=== PATIENT | female | born 1945 | race Caucasian/White ===

== ENCOUNTER 2020-06-12 08:11 | Outpatient (REF) | payer MEDICARE, SELFPAY ==
--- NOTE | 2020-06-12 08:42 | XR_ITS ---
EXAMINATION: XR CHEST CLINICAL INFORMATION: Bronchitis COMPARISON: Previous chest x-ray most recent 05/15/2020 TECHNIQUE: 2 views of the chest were obtained. FINDINGS: The cardiac and mediastinal contours are stable. There is an air-fluid level behind the heart probably representing an esophageal hernia that is unchanged. The previously identified increased bronchial markings in the right upper lung appear improved. There is a new or increasing atelectasis or small infiltrate in the left lower lobe. The lungs are otherwise clear. There is no pleural effusion. There are degenerative changes of the spine. IMPRESSION: Improved bronchial wall thickening in the right upper lung. New increased density in the left lower lobe lobe questionable for atelectasis or small infiltrate.
[2020-06-12 09:45] LABS: Estimated Average Glucose 128 mg/dL; Hemoglobin A1c % 6.1 %
[2020-06-12 10:25] LABS: Alanine Aminotransferase 17 U/L (0-31); Alkaline Phosphatase 71 U/L (39-117); Anion Gap 10 (12-20); Aspartate Amino Transferase 18 U/L (5-31); Bilirubin Total 0.3 mg/dL (0.0-1.0); Blood Urea Nitrogen 14 mg/dL (9-16); Calcium 9.5 mg/dL (8.4-10.2); Carbon Dioxide 29 mmol/L (22-29); Chloride 108 mmol/L (96-108); Estimated Glomerular Filt Rate > 60; Glucose Random 113 mg/dL (60-115); Potassium 4.4 mmol/l (3.3-5.1); Sodium 143 mmol/L (135-145)
== END 2020-06-12 08:12 | disposition home or self-care (01) ==
LOC: HO.LAB 08:11
PROVIDERS: PCP Internal Medicine; Visit Provider Internal Medicine
DX: J40 Bronchitis, not specified as acute or chronic (principal); R73.02 Impaired glucose tolerance (oral)
CPT/HCPCS: 71046; 80053; 83036

== ENCOUNTER → 2020-06-19 09:14 | Outpatient (BNVA) | payer MEDICARE, SELFPAY | PROVIDERS: PCP Internal Medicine; Referring Provider Internal Medicine; Visit Provider Nurse Practitioner | DX: K59.00 Constipation, unspecified (principal); K64.9 Unspecified hemorrhoids; K21.00 Gastro-esophageal reflux disease with esophagitis, without bleeding; Z79.899 Other long term (current) drug therapy | CPT/HCPCS: 99213; Q3014 ==

== ENCOUNTER 2020-08-22 08:03 | Emergency (ER) | payer MEDICARE, SELFPAY ==
[2020-08-22 08:49] VITALS: BP 161/82; PULSE 98; RESP 18; TEMP 37.1; O2SAT 97; BMI 24.7
--- NOTE | 2020-08-22 09:15 | PC.NURSE ---
AMBULATORY WITH STEADY GAIT TO ED RM19 AWAITING EXAM, CHANGING IN TO [facility]OSP[facility]
--- NOTE | 2020-08-22 09:19 | XR_ITS ---
EXAMINATION: XR KNEE, RIGHT CLINICAL INFORMATION: Pain and swelling COMPARISON: Previous x-ray October 2014 TECHNIQUE: Four views of the right knee. FINDINGS: Bone alignment is normal. No fracture or dislocation is seen. The joint spaces are normal. There is no joint effusion. There may be lateral soft tissue varicosities. Soft tissues are otherwise unremarkable. XR/XR knee RT 4V IMPRESSION: Question lateral soft tissue varicosities otherwise unremarkable exam.
--- NOTE | 2020-08-22 09:46 | ED.EXTPRO ---
HPI - Extremity Problem General Chief complaint: Extremity Problem Stated complaint: leg pain Time Seen by Provider: 08/22/20 09:19 Source: patient Mode of arrival: ambulatory Limitations: language barrier History of Present Illness HPI Narrative: 75 y/o female presents with right knee pain and swelling for the last 4-5 days after she was doing exercises. She states the exercises were new. She denies falling or twisting the knee. She denies popping sensation. She is able to bear weight without limping. Pain is on the inside of the knee. She has not taken any medications for pain. She tried to get into her PCP today but was unable to get an appointment. MD Complaint: extremity pain and extremity swelling Onset (ago): day(s) (5) Pain Consistency: intermittent Location: right and knee Severity scale (1-10): 5 Quality: aching Radiation: none Relieving factors: immobilization and rest Exacerbating factors: palpation Associated symptoms: denies other symptoms Related Data Home Medications Medication Instructions Recorded Confirmed acetaminophen 325 mg tablet mg PO 06/02/20 06/02/20 atorvastatin 20 mg tablet 20 mg PO DAILY 06/02/20 06/02/20 clobetasol 0.05 % topical ointment 1 applic TOPICAL BID 06/02/20 06/02/20 docusate sodium 100 mg capsule 100 mg PO BID 06/02/20 06/16/20 hydrocortisone 2.5 % topical cream 1 applic DC TID 06/02/20 06/16/20 with perineal applicator omeprazole 40 mg capsule,delayed 40 mg PO DAILY 06/02/20 06/16/20 release polyethylene glycol 3350 17 g PO 06/02/20 06/16/20 gram/dose oral powder sucralfate 1 gram tablet 1 g PO QID 06/02/20 06/16/20 hydrocortisone 2.5 % topical cream 1 applic DC BID-QID PRN 06/16/20 06/16/20 with perineal applicator Previous Rx's Medication Instructions Recorded hydroxyzine HCl 10 mg tablet 10 mg PO BEDTIME 90 Days #90 tab 06/01/20 fexofenadine 180 mg tablet 180 mg PO DAILY #30 tab 06/27/20 doxycycline hyclate 100 mg capsule 100 mg PO BID #14 cap 07/04/20 amitriptyline 10 mg tablet 10 mg PO DAILY #90 tab 07/12/20 cholecalciferol (vitamin D3) 50 2,000 unit PO DAILY 90 Days #90 tab 15/20 mcg (2,000 unit) tablet fluticasone propionate 50 1 spray INTRANASAL DAILY #48 ml 12/15/20 mcg/actuation nasal spray,suspension dicyclomine 10 mg capsule 10 - 20 mg PO QID PRN 30 Days #240 08/16/20 cap Allergies Allergy/AdvReac Type Severity Reaction Status Date / Time lisinopril Allergy Unknown Unknown Verified 06/02/20 09:16 metoprolol Allergy Unknown Unknown Verified 06/02/20 09:16 solifenacin [Vesicare] Allergy Unknown Unknown Verified 06/02/20 09:16 Review of Systems Review of Systems: Constitutional: No Fever, No Chills Cardiovascular: No Chest Pain, No SOB, No Edema Respiratory: No Cough, No Sputum, Gastrointestinal: No Nausea, No Vomiting, No Diarrhea, No abdominal Pain Musculoskeletal: + joint pain, No Myalgias Skin: No Skin Lesions, No rash Neuro: No Weakness, No Numbness Heme/Lymph: No Bruising PMFSH Past Medical History Medical History History of DVT (deep vein thrombosis) History of renal calculi Obesity (BMI 30-39.9) Vitamin D deficiency Surgical History History of cataract surgery History of hemorrhoidectomy Hx of colonoscopy Family History Family History (Updated 06/01/20 @ 13:31 by Kathleen Valenzuela [facility]) Father No problems noted. Mother No problems noted. Daughter Lymphoma Social History Social History (Updated 06/19/20 @ 09:18 by Claribel Porter [facility]) Alcohol intake: current Alcohol intake frequency: does not drink Smoking Status: Never smoker Advance Directives: No Advance Directives Information Provided: Yes Physical Exam Vital Signs: Vital Signs: Last Vital Signs Temp 98.7 F 08/22/20 08:49 Pulse 98 08/22/20 08:49 Resp 18 08/22/20 08:49 BP 161/82 H 08/22/20 08:49 Pulse Ox 97 08/22/20 08:49 Body Mass Index 24.7 Appearance: Alert. Oriented X3. No acute distress. HEENT: normal inspection CVS: Normal heart rate and rhythm. Pulses normal. Respiratory: No respiratory distress. Skin: Skin warm and dry. Normal skin color. Normal skin turgor. No rashes. Extremities: right knee joint with mild edema medially with medial joint line tenderness, no joint laxity. full ROM with mild discomfort with full extension. Neuro: Oriented X 3. No motor deficit. No sensory deficit. normal, steady gait without limp Course Course Course Narrative: 75 y/o female with right knee pain and swelling, medial joint line tenderness. Denies weakness or giving out. No calf pain. Doubt DVT. Will get XR of knee. Reevaluation(s) Reevaluation #1: XR shows Question lateral soft tissue varicosities otherwise unremarkable exam. She is able to walk with steady gait, no limp. Her pain is likely due to strain/sprain of MCL given exam findings. Will place in KILO wrap for comfort and refer to Orthopedics. Stable for d/c. Discharge Plan Discharge Clinical Impression: Knee MCL sprain Qualifiers: Encounter type: initial encounter Laterality: right Qualified Code(s): S83.411A - Sprain of medial collateral ligament of right knee, initial encounter Patient Disposition: Home, Self-Care Instructions: Knee Sprain (ED) Additional Instructions: Your x-ray today did not show any fracture, dislocation or fluid on the knee. It is likely that your knee pain is due to a sprain of one of the ligaments. Recommend rest, using ice several times per day and elevation of your leg when possible. You may bear weight as tolerated. Recommend following up with Orthopedics for further workup and management if the pain persists. Take Tylenol as needed for pain. If the pain worsens or changes call your doctor or come back to the ER for further evaluation. Prescriptions: No Action hydroxyzine HCl 10 mg tablet 10 mg PO BEDTIME 90 Days Qty: 90 RF: 0 fexofenadine 180 mg tablet 180 mg PO DAILY Qty: 30 RF: 0 doxycycline hyclate 100 mg capsule 100 mg PO BID Qty: 14 RF: 0 amitriptyline 10 mg tablet 10 mg PO DAILY Qty: 90 RF: 1 fluticasone propionate 50 mcg/actuation spray,suspension 1 spray intranasal DAILY Qty: 48 RF: 5 cholecalciferol (vitamin D3) [Vitamin D3] 50 mcg (2,000 unit) tablet 2,000 unit PO DAILY 90 Days Qty: 90 RF: 3 dicyclomine 10 mg capsule 10 - 20 mg PO QID PRN (Reason: for cramps) 30 Days Qty: 240 RF: 3 polyethylene glycol 3350 17 gram/dose powder PO RF: 0 docusate sodium 100 mg capsule 100 mg PO BID RF: 0 acetaminophen 325 mg tablet PO RF: 0 omeprazole 40 mg capsule,delayed release(DR/EC) 40 mg PO DAILY RF: 0 sucralfate 1 gram tablet 1 g PO QID RF: 0 atorvastatin 20 mg tablet 20 mg PO DAILY RF: 0 hydrocortisone 2.5 % cream with perineal applicator 1 applic DC TID RF: 0 clobetasol 0.05 % ointment 1 applic topical BID RF: 0 hydrocortisone [Proctosol HC] 2.5 % cream with perineal applicator 1 applic DC BID-QID PRNRF: 0 Referrals: Nicanor Alfonso MD [Physician] - 5 days (probable knee sprain) Print Language: Mexican
== END 2020-08-22 10:25 | disposition home or self-care (01) ==
PROVIDERS: Emergency Provider Emergency Medicine Emergency Medical Services; PCP Internal Medicine
DX: S83.411A Sprain of medial collateral ligament of right knee, initial encounter (principal); M25.561 Pain in right knee; X50.1XXA Overexertion from prolonged static or awkward postures, initial encounter; Y93.01 Activity, walking, marching and hiking; Y92.9 Unspecified place or not applicable; Y99.9 Unspecified external cause status; Z79.899 Other long term (current) drug therapy; Z86.718 Personal history of other venous thrombosis and embolism
CPT/HCPCS: 73564; 99283

== ENCOUNTER 2020-09-12 14:15 | Emergency (ER) | payer MEDICARE, SELFPAY ==
[2020-09-12 14:53] VITALS: BP 190/96; PULSE 114; RESP 18; TEMP 36.4; O2SAT 97; BMI 27.4
--- NOTE | 2020-09-12 14:54 | ED_ITS ---
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 Currently, patient states that all symptoms have resolved except for a very mild headache noted at the right frontal. In addition, patient endorses that she has chronic right-sided abdominal pain and occasional nausea. <Brandy Briones MD - Last Filed: 09/13/20 02:41> Related Data Home medications: Home Medications Medication Instructions Recorded Confirmed acetaminophen 325 mg tablet mg PO 06/02/20 09/06/20 atorvastatin 20 mg tablet 20 mg PO DAILY 06/02/20 09/06/20 clobetasol 0.05 % topical ointment 1 applic TOPICAL BID 06/02/20 09/06/20 docusate sodium 100 mg capsule 100 mg PO BID 06/02/20 09/06/20 hydrocortisone 2.5 % topical cream 1 applic AL TID 06/02/20 09/06/20 with perineal applicator omeprazole 40 mg capsule,delayed 40 mg PO DAILY 06/02/20 09/06/20 release polyethylene glycol 3350 17 g PO 06/02/20 09/06/20 gram/dose oral powder sucralfate 1 gram tablet 1 g PO QID 06/02/20 09/06/20 hydrocortisone 2.5 % topical cream 1 applic AL BID-QID PRN 06/16/20 09/06/20 with perineal applicator Previous Rx's Medication Instructions Recorded fexofenadine 180 mg tablet 180 mg PO DAILY #30 tab 11/03/20 doxycycline hyclate 100 mg capsule 100 mg PO BID #14 cap 07/04/20 amitriptyline 10 mg tablet 10 mg PO DAILY #90 tab 07/12/20 cholecalciferol (vitamin D3) 50 2,000 unit PO DAILY 90 Days #90 tab 08/08/20 mcg (2,000 unit) tablet fluticasone propionate 50 1 spray INTRANASAL DAILY #48 ml 08/08/20 mcg/actuation nasal spray,suspension dicyclomine 10 mg capsule 10 - 20 mg PO QID PRN 30 Days #240 08/16/20 cap meloxicam 7.5 mg tablet 7.5 mg PO DAILY #14 tab 09/06/20 <Mary Ellen Cannon NP - Last Filed: 09/12/20 14:57> Allergies/adverse reactions: Allergies Allergy/AdvReac Type Severity Reaction Status Date / Time lisinopril Allergy Unknown Unknown Verified 08/29/20 08:54 metoprolol Allergy Unknown Unknown Verified 08/29/20 08:54 solifenacin [Vesicare] Allergy Unknown Unknown Verified 08/29/20 08:54 <Mary Ellen Cannon NP - Last Filed: 09/12/20 14:57> Review of Systems Review of Systems: Pertinent positives and negatives as stated in HPI 10 point review of systems is otherwise negative. <Brandy Briones MD - Last Filed: 09/13/20 02:41> [facility] Past Medical History Source: nursing notes reviewed <Brandy Briones MD - Last Filed: 09/13/20 02:41> Medical History: Medical History Anxiety Cognitive impairment Diverticular disease History of DVT (deep vein thrombosis) History of renal calculi Insomnia Legally blind Obesity (BMI 30-39.9) Osteoarthritis Osteoporosis Peripheral vascular disease Vitamin D deficiency <Mary Ellen Cannon NP - Last Filed: 09/12/20 14:57> Surgical History: Surgical History History of cataract surgery History of eye surgery History of hemorrhoidectomy Hx of colonoscopy <Mary Ellen Cannon NP - Last Filed: 09/12/20 14:57> Family History Family History: Family History Father No problems noted. Mother No problems noted. Daughter Lymphoma <Mary Ellen Cannon NP - Last Filed: 09/12/20 14:57> Social History Social History: Social History Alcohol intake: never Smoking Status: Former smoker Use of substances other than those prescribed or required for medical reasons: No Advance Directives: No <Mary Ellen Cannon NP - Last Filed: 09/12/20 14:57> Physical Exam Vital Signs: Vital Signs: Last Vital Signs Temp 98.3 F 09/13/20 00:00 Pulse 92 09/13/20 00:00 Resp 09/13/20 00:00 BP 168/93 H 09/13/20 00:00 Pulse Ox 97 09/13/20 00:00 Body Mass Index 27.4 <Mary Ellen Cannon NP - Last Filed: 09/12/20 14:57> Vital Signs: Last Vital Signs Temp 98.3 F 09/13/20 00:00 Pulse 92 09/13/20 00:00 Resp 09/13/20 00:00 BP 168/93 H 09/13/20 00:00 Pulse Ox 97 09/13/20 00:00 Body Mass Index 27.4 <Brandy Briones MD - Last Filed: 09/13/20 02:41> VITAL SIGNS: Reviewed. GENERAL: Well developed, well nourished, in no acute distress. HEAD: Normocephalic/atraumatic, EYES: PERRLA, EOMI, but legally blind at baseline EARS: Ext canals without abnormality NOSE: Nares patent bilateral OROPHARYNX: no oral lesions noted, posterior pharynx clear NECK: Supple, no adenopathy LUNGS: Normal breath sounds. SpO2<97> CARDIOVASCULAR: Regular rate and rhythm without noted murmurs ABDOMEN: Soft, mild tenderness at the right side, non-distended with bowel sounds. MUSCULOSKELETAL: No tenderness, deformities, or effusions noted on gross inspection. EXTREMITIES: No cyanosis, clubbing or edema. SKIN: Inspection of the skin reveals no rashes NEUROLOGIC: Alert and oriented x 4. <Brandy Briones MD - Last Filed: 09/13/20 02:41> Course Course Course Narrative: 1450-This is a rapid medical exam. 75 yo female with past medical history anxiety, cognitive impairment DVT, insomnia, OA, PVD, GERD here with dizziness, KELLER, pounding heart beat since last night. Patient contributes to taking a dose of meloxicam. Will check labs, EKG. Will defer additional HPI, ROS and PE to primary provider. <Mary Ellen Cannon NP - Last Filed: 09/12/20 14:57> This is a 75-year-old female with history and clinical presentation consistent with likely hypertensive episode following an NSAID with symptoms associated with elevated blood pressure that have since completely resolved. There are no acute findings on when all investigations were reviewed. Patient was provided with oral Tylenol with complete resolution of headache on re- evaluation. <Brandy Briones MD - Last Filed: 09/13/20 02:41> Medical Decision Making Lab Data Result diagrams: : 09/12/20 15:34 09/12/20 15:34 <Mary Ellen Cannon NP - Last Filed: 09/12/20 14:57> Labs: Lab Results 09/12/20 09/12/20 09/12/20 Range/Units 15:34 15:34 15:34 WBC 7.3 (4.8-10.8) X10*3/uL RBC 4.89 (4.20-5.50) X10*6/uL Hgb 14.0 (12.0-16.0) g/dl Hct 44.1 (37-47) % MCV 90.2 (80-98) fL MCH 28.6 (27.0-33.0) pg MCHC 31.7 (31.0-35.0) g/dl RDW 13.0 (11.0-16.0) % Plt Count 193 (160-400) X10*3/uL MPV 12.2 (9.4-12.3) fL Immature Gran % (Auto) 0.3 (0.0-0.4) % Neut % (Auto) 61.4 (45-73) % Lymph % (Auto) 26.6 (20-40) % [place] % (Auto) 9.3 (2-11) % Eos % (Auto) 2.0 (0-4) % Baso % (Auto) 0.4 (0-2) % Lymph # (Auto) 2.0 (1.2-4.9) X10*3/uL [place] # (Auto) 0.7 (0.1-1.2) X10*3/uL Eos # (Auto) 0.2 (0.0-0.4) X10*3/uL Baso # (Auto) 0.0 (0.0-0.2) X10*3/uL Abs Immat Gran (auto) 0.02 (0.00-0.03) X10*3/uL Absolute Neuts (auto) 4.5 (2.0-8.3) X10*3/uL Absolute Nucleated RBC 0.000 (0.0-0.012) X10*3/uL Nucleated RBC % (auto) 0.0 (0.0-0.2) /100WBC Hold Blue Top SEE NOTE Sodium 143 (135-145) mmol/L Potassium 3.9 (3.3-5.1) mmol/l Chloride 108 (96-108) mmol/L Carbon Dioxide 27 (22-29) mmol/L Anion Gap 12 (12-20) BUN 14 (9-16) mg/dL Creatinine 0.84 (0.5-1.4) mg/dL Estim Creat Clear Calc 53.1 Estimated GFR > 60 Random Glucose 135 H (60-115) mg/dL Calcium 9.4 (8.4-10.2) mg/dL Magnesium 2.2 (1.6-2.6) mg/dL Urine Color Urine Appearance Urine pH (5.0-8.0) Ur Specific [place] (1.005-1.025) Urine Protein (NEG-TRACE) MG/DL Urine Glucose (UA) (NEG) MG/DL Urine Ketones (NEG) MG/DL Urine Blood (NEG) Urine Nitrite (NEG) Ur Leukocyte Esterase (NEG) 09/13/20 Range/Units 01:59 WBC (4.8-10.8) X10*3/uL RBC (4.20-5.50) X10*6/uL Hgb (12.0-16.0) g/dl Hct (37-47) % MCV (80-98) fL MCH (27.0-33.0) pg MCHC (31.0-35.0) g/dl RDW (11.0-16.0) % Plt Count (160-400) X10*3/uL MPV (9.4-12.3) fL Immature Gran % (Auto) (0.0-0.4) % Neut % (Auto) (45-73) % Lymph % (Auto) (20-40) % [place] % (Auto) (2-11) % Eos % (Auto) (0-4) % Baso % (Auto) (0-2) % Lymph # (Auto) (1.2-4.9) X10*3/uL [place] # (Auto) (0.1-1.2) X10*3/uL Eos # (Auto) (0.0-0.4) X10*3/uL Baso # (Auto) (0.0-0.2) X10*3/uL Abs Immat Gran (auto) (0.00-0.03) X10*3/uL Absolute Neuts (auto) (2.0-8.3) X10*3/uL Absolute Nucleated RBC (0.0-0.012) X10*3/uL Nucleated RBC % (auto) (0.0-0.2) /100WBC Hold Blue Top Sodium (135-145) mmol/L Potassium (3.3-5.1) mmol/l Chloride (96-108) mmol/L Carbon Dioxide (22-29) mmol/L Anion Gap (12-20) BUN (9-16) mg/dL Creatinine (0.5-1.4) mg/dL Estim Creat Clear Calc Estimated GFR Random Glucose (60-115) mg/dL Calcium (8.4-10.2) mg/dL Magnesium (1.6-2.6) mg/dL Urine Color YELLOW Urine Appearance CLEAR Urine pH 6.5 (5.0-8.0) Ur Specific [place] 1.020 (1.005-1.025) Urine Protein NEG (NEG-TRACE) MG/DL Urine Glucose (UA) NEG (NEG) MG/DL Urine Ketones 5 (NEG) MG/DL Urine Blood NEG (NEG) Urine Nitrite NEG (NEG) Ur Leukocyte Esterase NEG (NEG) <Mary Ellen Cannon, RESOLUTION MANAGER - Last Filed: 09/12/20 14:57> Lab Results 09/12/20 09/12/20 09/12/20 Range/Units 15:34 15:34 15:34 WBC 7.3 (4.8-10.8) X10*3/uL RBC 4.89 (4.20-5.50) X10*6/uL Hgb 14.0 (12.0-16.0) g/dl Hct 44.1 (37-47) % MCV 90.2 (80-98) fL MCH 28.6 (27.0-33.0) pg MCHC 31.7 (31.0-35.0) g/dl RDW 13.0 (11.0-16.0) % Plt Count 193 (160-400) X10*3/uL MPV 12.2 (9.4-12.3) fL Immature Gran % (Auto) 0.3 (0.0-0.4) % Neut % (Auto) 61.4 (45-73) % Lymph % (Auto) 26.6 (20-40) % [place] % (Auto) 9.3 (2-11) % Eos % (Auto) 2.0 (0-4) % Baso % (Auto) 0.4 (0-2) % Lymph # (Auto) 2.0 (1.2-4.9) X10*3/uL [place] # (Auto) 0.7 (0.1-1.2) X10*3/uL Eos # (Auto) 0.2 (0.0-0.4) X10*3/uL Baso # (Auto) 0.0 (0.0-0.2) X10*3/uL Abs Immat Gran (auto) 0.02 (0.00-0.03) X10*3/uL Absolute Neuts (auto) 4.5 (2.0-8.3) X10*3/uL Absolute Nucleated RBC 0.000 (0.0-0.012) X10*3/uL Nucleated RBC % (auto) 0.0 (0.0-0.2) /100WBC Hold Blue Top SEE NOTE Sodium 143 (135-145) mmol/L Potassium 3.9 (3.3-5.1) mmol/l Chloride 108 (96-108) mmol/L Carbon Dioxide 27 (22-29) mmol/L Anion Gap 12 (12-20) BUN 14 (9-16) mg/dL Creatinine 0.84 (0.5-1.4) mg/dL Estim Creat Clear Calc 53.1 Estimated GFR > 60 Random Glucose 135 H (60-115) mg/dL Calcium 9.4 (8.4-10.2) mg/dL Magnesium 2.2 (1.6-2.6) mg/dL Urine Color Urine Appearance Urine pH (5.0-8.0) Ur Specific [place] (1.005-1.025) Urine Protein (NEG-TRACE) MG/DL Urine Glucose (UA) (NEG) MG/DL Urine Ketones (NEG) MG/DL Urine Blood (NEG) Urine Nitrite (NEG) Ur Leukocyte Esterase (NEG) 09/13/20 Range/Units 01:59 WBC (4.8-10.8) X10*3/uL RBC (4.20-5.50) X10*6/uL Hgb (12.0-16.0) g/dl Hct (37-47) % MCV (80-98) fL MCH (27.0-33.0) pg MCHC (31.0-35.0) g/dl RDW (11.0-16.0) % Plt Count (160-400) X10*3/uL MPV (9.4-12.3) fL Immature Gran % (Auto) (0.0-0.4) % Neut % (Auto) (45-73) % Lymph % (Auto) (20-40) % [place] % (Auto) (2-11) % Eos % (Auto) (0-4) % Baso % (Auto) (0-2) % Lymph # (Auto) (1.2-4.9) X10*3/uL [place] # (Auto) (0.1-1.2) X10*3/uL Eos # (Auto) (0.0-0.4) X10*3/uL Baso # (Auto) (0.0-0.2) X10*3/uL Abs Immat Gran (auto) (0.00-0.03) X10*3/uL Absolute Neuts (auto) (2.0-8.3) X10*3/uL Absolute Nucleated RBC (0.0-0.012) X10*3/uL Nucleated RBC % (auto) (0.0-0.2) /100WBC Hold Blue Top Sodium (135-145) mmol/L Potassium (3.3-5.1) mmol/l Chloride (96-108) mmol/L Carbon Dioxide (22-29) mmol/L Anion Gap (12-20) BUN (9-16) mg/dL Creatinine (0.5-1.4) mg/dL Estim Creat Clear Calc Estimated GFR Random Glucose (60-115) mg/dL Calcium (8.4-10.2) mg/dL Magnesium (1.6-2.6) mg/dL Urine Color YELLOW Urine Appearance CLEAR Urine pH 6.5 (5.0-8.0) Ur Specific [place] 1.020 (1.005-1.025) Urine Protein NEG (NEG-TRACE) MG/DL Urine Glucose (UA) NEG (NEG) MG/DL Urine Ketones 5 (NEG) MG/DL Urine Blood NEG (NEG) Urine Nitrite NEG (NEG) Ur Leukocyte Esterase NEG (NEG) <Brandy Briones MD - Last Filed: 09/13/20 02:41> ECG Data Attestation: I personally reviewed and interpreted this ECG as follows: <Brandy Briones MD - Last Filed: 09/13/20 02:41> Prior ECG tracings: available for review (05/15/2020 no acute changes on comparison.) <Brandy Briones MD - Last Filed: 09/13/20 02:41> Interpretation: Normal sinus rhythm, HR -100, no evidence of acute ischemia, AL/QRS/QTC are within normal limits. <Brandy Briones MD - Last Filed: 09/13/20 02:41> Discharge Plan Discharge Clinical Impression: Hypertension Qualifiers: Hypertension type: unspecified Qualified Code(s): I10 - Essential (primary) hypertension <Mary Ellen Cannon NP - Last Filed: 09/12/20 14:57> Patient Disposition: Home, Self-Care <Mary Ellen Cannon NP - Last Filed: 09/12/20 14:57> Instructions: DASH Eating Plan (ED), Heart Healthy Diet (ED), Hypertension (ED) <Mary Ellen Cannon NP - Last Filed: 09/12/20 14:57> Additional Instructions: No dude en hacer un seguimiento con rhodes proveedor de atenci?n primaria en los pr?ximos 2-3 d?as para ramona evaluaci?n adicional de rhodes hipertensi?n. Regrese a la vaughn de emergencias si presenta un empeoramiento mario de fareed s?ntomas, racheal dolor de jones / mareos o dificultad para respirar con dolor en el pecho. <Mary Ellen Cannon NP - Last Filed: 09/12/20 14:57> Prescriptions: No Action fexofenadine 180 mg tablet 180 mg PO DAILY Qty: 30 RF: 0 doxycycline hyclate 100 mg capsule 100 mg PO BID Qty: 14 RF: 0 amitriptyline 10 mg tablet 10 mg PO DAILY Qty: 90 RF: 1 fluticasone propionate 50 mcg/actuation spray,suspension 1 spray intranasal DAILY Qty: 48 RF: 5 cholecalciferol (vitamin D3) [Vitamin D3] 50 mcg (2,000 unit) tablet 2,000 unit PO DAILY 90 Days Qty: 90 RF: 3 dicyclomine 10 mg capsule 10 - 20 mg PO QID PRN (Reason: for cramps) 30 Days Qty: 240 RF: 3 polyethylene glycol 3350 17 gram/dose powder PO RF: 0 docusate sodium 100 mg capsule 100 mg PO BID RF: 0 acetaminophen 325 mg tablet PO RF: 0 omeprazole 40 mg capsule,delayed release(DR/EC) 40 mg PO DAILY RF: 0 sucralfate 1 gram tablet 1 g PO QID RF: 0 atorvastatin 20 mg tablet 20 mg PO DAILY RF: 0 hydrocortisone 2.5 % cream with perineal applicator 1 applic AL TID RF: 0 clobetasol 0.05 % ointment 1 applic topical BID RF: 0 meloxicam 7.5 mg tablet 7.5 mg PO DAILY Qty: 14 RF: 0 hydrocortisone [Proctosol HC] 2.5 % cream with perineal applicator 1 applic AL BID-QID PRNRF: 0 <Mary Ellen Cannon NP - Last Filed: 09/12/20 14:57> Referrals: Susana Jean MD [Primary Care Provider] - 2 days (Re-evaluation and management of patient's high blood pressure.) <Mary Ellen Cannon NP - Last Filed: 09/12/20 14:57> Print Language: Salvadorean <Mary Ellen Cannon NP - Last Filed: 09/12/20 14:57>
--- NOTE | 2020-09-12 14:57 | ECG_ITS ---
Test Reason : DIZZINESS,TACHY Blood Pressure : / mmHG Vent. Rate : 100 BPM Atrial Rate : 100 BPM P-R Int : 136 ms QRS Dur : 066 ms QT Int : 358 ms P-R-T Axes : 070 049 051 degrees QTc Int : 461 ms Normal sinus rhythm Normal ECG When compared with ECG of 15-MAY-2020 09:43, QT has lengthened Referred By: Mary Ellen Cannon Electronically Signed By:TAMMY MEDINA
[2020-09-12 15:40] LABS: MANUAL DIFF FLAG NO
[2020-09-12 15:44] LABS: Basophils Percent Auto 0.4 % (0-2); Eosinophils Absolute Auto 0.2 X10*3/uL (0.0-0.4); Hematocrit 44.1 % (37-47); Imm Gran Abs Auto 0.02 X10*3/uL (0.00-0.03); Imm Gran Pct Auto 0.3 % (0.0-0.4); Lymphocytes Percent Auto 26.6 % (20-40); Mean Corpuscular HGB Conc 31.7 g/dl (31.0-35.0); Mean Corpuscular Hemoglobin 28.6 pg (27.0-33.0); Mean Corpuscular Volume 90.2 fL (80-98); Mean Platelet Volume 12.2 fL (9.4-12.3); Monocytes Absolute Auto 0.7 X10*3/uL (0.1-1.2); Monocytes Percent Auto 9.3 % (2-11); Neutrophils Absolute Auto 4.5 X10*3/uL (2.0-8.3); Neutrophils Percent Auto 61.4 % (45-73); Platelet Count 193 X10*3/uL (160-400); Red Blood Count 4.89 X10*6/uL (4.20-5.50); White Blood Count 7.3 X10*3/uL (4.8-10.8)
[2020-09-12 16:13] LABS: Anion Gap 12 (12-20); Blood Urea Nitrogen 14 mg/dL (9-16); Calcium 9.4 mg/dL (8.4-10.2); Carbon Dioxide 27 mmol/L (22-29); Chloride 108 mmol/L (96-108); Creatinine Clr Calc Pharmacy 53.1; Estimated Glomerular Filt Rate > 60; Glucose Random 135 mg/dL (60-115); Magnesium 2.2 mg/dL (1.6-2.6); Potassium 3.9 mmol/l (3.3-5.1); Sodium 143 mmol/L (135-145)
[2020-09-13] VITALS: BP 168/93; PULSE 92; RESP 18; TEMP 36.8; O2SAT 97
[2020-09-13] MEDS: Acetaminophen 325 MG TABLET 650 MG PO (01:51)
[2020-09-13 02:05] LABS: Glucose Urine UA NEG (NEG); Leukocyte Esterase Urine NEG (NEG); Nitrite Urine NEG (NEG); PH 6.5 (5.0-8.0); Urine Blood NEG (NEG); Urine Ketones 5 MG/DL (NEG); Urine Protein NEG (NEG-TRACE)
[2020-09-13 02:08] LABS: Appearance Urine CLEAR; Color Urine YELLOW; UACC Culture Trigger NO
== END 2020-09-13 02:54 | disposition home or self-care (01) ==
PROVIDERS: Nurse Practitioner Family; Emergency Provider Student in an Organized Health Care Education/Training Program; PCP Internal Medicine
DX: I10 Essential (primary) hypertension (principal); Z87.442 Personal history of urinary calculi; Z86.718 Personal history of other venous thrombosis and embolism; Z79.899 Other long term (current) drug therapy
CPT/HCPCS: 36415; 80048; 81003; 83735; 85025; 93005; 99283; 99284

== ENCOUNTER 2020-09-21 11:17 | Outpatient (REF) | payer MEDICARE, SELFPAY ==
--- NOTE | 2020-09-21 11:24 | XR_ITS ---
EXAMINATION: XR CHEST CLINICAL INFORMATION: Bronchitis COMPARISON: 06/12/2020 TECHNIQUE: 2 views of the chest were obtained. FINDINGS: The lungs are well expanded. Increased markings throughout the lungs with mild bronchial wall thickening. No effusion or edema. No pneumothorax. Redemonstration of a moderate hiatal hernia with air-fluid level. XR/XR chest 2V IMPRESSION: No consolidation. Bronchial wall thickening can be seen with a small airways process such as asthma or atypical/viral infection. Moderate hiatal hernia.
--- NOTE | 2020-09-21 11:24 | XR_ITS ---
EXAMINATION: XR CERVICAL SPINE CLINICAL INFORMATION: Cervicalgia COMPARISON: None TECHNIQUE: 3 views of the cervical spine were obtained. FINDINGS: There are no prevertebral soft tissue or bony abnormalities demonstrated. No compression fractures or subluxations are identified. Alignment is maintained at the atlanto-axial articulation. Mild disc space narrowing of C5-C6. Small associated endplate osteophytes at this level as well as at C6-C7.. The prevertebral soft tissues are normal. The lung apices are clear.. XR/XR cervical spine 3V IMPRESSION: Mild degenerative changes of the lower cervical spine.
== END 2020-09-21 11:18 | disposition home or self-care (01) ==
LOC: HO.XRAY 11:17
PROVIDERS: PCP Internal Medicine; Referring Provider Physician Assistant; Visit Provider Internal Medicine
DX: M54.2 Cervicalgia (principal); J40 Bronchitis, not specified as acute or chronic
CPT/HCPCS: 71046; 72040

== ENCOUNTER 2020-12-15 09:15 | Outpatient (REF) | payer MEDICARE, SELFPAY ==
[2020-12-15 11:38] LABS: Glucose Urine UA NEG (NEG); Leukocyte Esterase Urine NEG (NEG); Nitrite Urine NEG (NEG); PH 6.5 (5.0-8.0); Specific Gravity - Urine <= 1.005 (1.005-1.025); Urine Blood NEG (NEG); Urine Ketones NEG (NEG); Urine Protein NEG (NEG-TRACE)
[2020-12-15 11:39] LABS: Appearance Urine CLEAR; Color Urine STRAW
[2020-12-15 11:41] LABS: MANUAL DIFF FLAG NO
[2020-12-15 11:50] LABS: Basophils Absolute Auto 0.1 X10*3/uL (0.0-0.2); Basophils Percent Auto 0.7 % (0-2); Eosinophils Absolute Auto 0.3 X10*3/uL (0.0-0.4); Hematocrit 43.7 % (37-47); Hemoglobin 13.7 g/dl (12.0-16.0); Imm Gran Abs Auto 0.03 X10*3/uL (0.00-0.03); Imm Gran Pct Auto 0.4 % (0.0-0.4); Mean Corpuscular HGB Conc 31.4 g/dl (31.0-35.0); Mean Corpuscular Hemoglobin 28.7 pg (27.0-33.0); Mean Corpuscular Volume 91.6 fL (80-98); Monocytes Absolute Auto 0.6 X10*3/uL (0.1-1.2); Monocytes Percent Auto 9.2 % (2-11); Neutrophils Absolute Auto 3.8 X10*3/uL (2.0-8.3); Neutrophils Percent Auto 56.7 % (45-73); Platelet Count 224 X10*3/uL (160-400); Red Blood Count 4.77 X10*6/uL (4.20-5.50); Red Cell Distribution Width 13.2 % (11.0-16.0); White Blood Count 6.8 X10*3/uL (4.8-10.8)
[2020-12-15 12:27] LABS: Alanine Aminotransferase 21 U/L (0-31); Alkaline Phosphatase 84 U/L (39-117); Anion Gap 13 (12-20); Aspartate Amino Transferase 20 U/L (5-31); Bilirubin Total 0.5 mg/dL (0.0-1.0); Blood Urea Nitrogen 11 mg/dL (9-16); Calcium 9.5 mg/dL (8.4-10.2); Carbon Dioxide 26 mmol/L (22-29); Chloride 107 mmol/L (96-108); Cholesterol 172 mg/dL; Estimated Glomerular Filt Rate > 60; Free T4 (Free Thyroxine) 1.01 ng/dL (0.71-1.85); Glucose Random 102 mg/dL (60-115); HDL Cholesterol 57 mg/dL; LDL Cholesterol Calculated 94 mg/dl; Potassium 4.2 mmol/L (3.3-5.1); Sodium 142 mmol/L (135-145); Total Protein 6.9 g/dL (6.5-8.0); Triglycerides 105 mg/dL; Vitamin D 25-OH Total 29.3 ng/mL (>30)
[2020-12-15 12:49] LABS: Estimated Average Glucose 123 mg/dL; Hemoglobin A1c % 5.9 %
[2020-12-15 13:03] LABS: Folate 14.3 ng/mL (> or = 4.0); Vitamin B12 344 pg/mL (200-900)
== END 2020-12-15 09:16 | disposition home or self-care (01) ==
LOC: HO.LAB 09:15
PROVIDERS: PCP Internal Medicine; Visit Provider Nurse Practitioner
DX: E78.00 Pure hypercholesterolemia, unspecified (principal); R73.02 Impaired glucose tolerance (oral); K64.9 Unspecified hemorrhoids; K21.00 Gastro-esophageal reflux disease with esophagitis, without bleeding; K59.00 Constipation, unspecified; R10.11 Right upper quadrant pain; R10.31 Right lower quadrant pain
CPT/HCPCS: 36415; 80053; 80061; 81003; 82306; 82607; 82746; 83036; 84439; 84443; 85025; 99212

== ENCOUNTER 2020-12-28 07:55 | Outpatient (REF) | payer MEDICARE, SELFPAY ==
--- NOTE | ~2020-12-28 | US_ITS ---
EXAMINATION: US ABDOMEN COMPLETE CLINICAL INFORMATION: KUB 05/15/2020. X-ray abdomen 07/01/2019. Ultrasound abdomen complete 01/12/2019 and 02/03/2014. COMPARISON: None TECHNIQUE: Real-time imaging of the abdominal viscera. FINDINGS: PANCREAS: The head and tail of the pancreas are homogeneous in echotexture. ABDOMINAL AORTA: The proximal, mid, and distal segments are normal in caliber. INFERIOR VENA CAVA: Visualized portions are normal. LIVER: Normal. The liver is normal in size. The liver contour is normal. Parenchymal echogenicity is normal. No focal hepatic lesion. There is no intrahepatic biliary duct dilatation seen. GALLBLADDER: Normal. The gallbladder is physiologically distended without evidence of stones, sludge, polyps, wall thickening or pericholecystic fluid. COMMON BILE DUCT: Normal in caliber measuring 0.5 cm in diameter. RIGHT KIDNEY: There is an echogenic stone in the upper pole measuring 0.5 cm and lower pole measuring 0.6 cm without caliectasis. There is an anechoic cyst in the midpole measuring 1.1 x 0.7 x 1.3 cm. No hydronephrosis or renal calculi. The kidney measures 9.3 cm in maximum dimension. LEFT KIDNEY: No hydronephrosis. There are prominent pyramids. No renal calculi or focal parenchymal lesions. The kidney measures 9.2 cm in maximum dimension. SPLEEN: There is a linear echogenic area in the lower pole, likely fissure or fold. The spleen measures 7.5 cm in maximum dimension. FREE FLUID: None. US/US abdomen complete IMPRESSION: Two echogenic nonobstructive stones upper and lower pole and an anechoic cyst midpole right kidney. No hydronephrosis.
== END 2020-12-28 07:56 | disposition home or self-care (01) ==
LOC: HO.US 07:55
PROVIDERS: PCP Internal Medicine; Visit Provider Nurse Practitioner
DX: R10.11 Right upper quadrant pain (principal)
CPT/HCPCS: 76700

== ENCOUNTER → 2021-01-11 08:56 | Outpatient (BNVA) | payer MEDICARE, SELFPAY | PROVIDERS: PCP Internal Medicine; Visit Provider Nurse Practitioner | DX: Z13.89 Encounter for screening for other disorder (principal) | CPT/HCPCS: Q3014 ==

== ENCOUNTER 2021-02-20 07:49 | Outpatient (REF) | payer MEDICARE, MEDICAID, SELFPAY ==
[2021-02-20 08:55] LABS: Estimated Average Glucose 131 mg/dL; Hemoglobin A1c % 6.2 %
[2021-02-20 09:24] LABS: Alanine Aminotransferase 17 U/L (0-31); Albumin Level 3.9 g/dL (3.5-5.0); Alkaline Phosphatase 77 U/L (39-117); Anion Gap 12 (12-20); Aspartate Amino Transferase 17 U/L (5-31); Bilirubin Total 0.2 mg/dL (0.0-1.0); Blood Urea Nitrogen 13 mg/dL (9-16); Calcium 9.4 mg/dL (8.4-10.2); Carbon Dioxide 27 mmol/L (22-29); Chloride 111 mmol/L (96-108); Estimated Glomerular Filt Rate > 60; Glucose Random 118 mg/dL (60-115); Potassium 4.5 mmol/L (3.3-5.1); Sodium 145 mmol/L (135-145); Total Protein 6.6 g/dL (6.5-8.0)
== END 2021-02-20 07:50 | disposition home or self-care (01) ==
LOC: HO.LAB 07:49
PROVIDERS: PCP Internal Medicine; Visit Provider Internal Medicine
DX: I10 Essential (primary) hypertension (principal)
CPT/HCPCS: 36415; 80053; 83036

== ENCOUNTER 2021-04-19 12:40 | Emergency (ER) | payer MEDICARE, MEDICAID, SELFPAY ==
--- NOTE | ~2021-04-19 | US_ITS ---
EXAMINATION: US ABDOMEN LIMITED CLINICAL INFORMATION: Right upper quadrant abdominal pain and nausea. COMPARISON: December 28, 2020 TECHNIQUE: Real-time imaging of the right upper quadrant abdominal viscera. FINDINGS: PANCREAS: Visualized portions appear unremarkable. LIVER: Normal. The liver is normal in size. The liver contour is normal. Parenchymal echogenicity is normal. No focal hepatic lesion. There is no intrahepatic biliary duct dilatation seen. GALLBLADDER: Normal. The gallbladder is physiologically distended without evidence of stones, sludge, polyps, wall thickening or pericholecystic fluid. There is tenderness to palpation overlying the right upper quadrant. COMMON BILE DUCT: Normal in caliber measuring 0.5 cm in diameter. RIGHT KIDNEY: Normal. No hydronephrosis. No renal calculi or focal solid parenchymal lesions. The kidney measures 10.4 cm in maximum dimension. There is an 8 mm interpolar cyst. FREE FLUID: None. US/US abdomen limited IMPRESSION: No evidence of acute cholecystitis. Visualized portions of the pancreas unremarkable without peripancreatic inflammatory change.
--- NOTE | ~2021-04-19 | XR_ITS ---
EXAMINATION: XR CHEST CLINICAL INFORMATION: Weakness COMPARISON: Chest radiographs 09/21/2020, 06/12/2020, CT chest 07/17/2016 TECHNIQUE: Portable upright AP view of the chest was obtained. FINDINGS: There is no acute intrathoracic disease from prior study 09/21/2020. Again, moderate hiatal hernia is seen retrocardiac region also noted on CT 2015. There is pleural-parenchymal scarring again seen right apex stable from prior chest radiograph and also noted on the CT. There is no lobar or segmental airspace consolidation or new groundglass opacity. The vascularity is normal. The costophrenic sulci are clear. XR/XR chest 1V IMPRESSION: 1. No vascular congestion, infiltrate, or effusion. 2. Probable pleural parenchymal scarring right apex. 3. Moderate hiatal hernia, stable.
--- NOTE | ~2021-04-19 | CT_ITS ---
EXAMINATION: CT HEAD WITHOUT CONTRAST CLINICAL INFORMATION: Right-sided unilateral tinnitus COMPARISON: May 15, 2020 TECHNIQUE: Contiguous axial imaging was performed from the skull base to vertex without intravenous administration of contrast. This CT examination was performed using dose optimization techniques as appropriate, variously including the following: *Automated exposure control *Adjustment of mA and/or kV according to patient size (this includes techniques or standardized protocols for targeted exams where dose is matched to indication/reason for exam; i.e. extremities or head) *Use of iterative reconstruction technique DLP: 642 mGy-cm FINDINGS: There is no evidence of acute intracranial hemorrhage or territorial infarction. No abnormal mass effect or midline shift is seen. Cisse to white matter differentiation is well preserved. No extra-axial fluid collections are identified. The ventricles are normal in size. There is periventricular white matter low density similar in appearance to previous study of May 15, 2020. The osseous structures and soft tissues are normal. Mastoid sinuses are well aerated. There is some mucosal disease seen within the right sphenoid sinus and left ethmoid sinuses. No bony destruction is evident. There are some prominent left internal carotid artery calcified plaque. 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 No acute intracranial abnormality.
[2021-04-19 12:41] VITALS: BP 172/92; PULSE 107; RESP 16; TEMP 36.9; O2SAT 98; BMI 27.4
--- NOTE | 2021-04-19 13:14 | ECG_ITS ---
Test Reason : HEADACHE Blood Pressure : / mmHG Vent. Rate : 098 BPM Atrial Rate : 098 BPM P-R Int : 130 ms QRS Dur : 068 ms QT Int : 374 ms P-R-T Axes : 070 054 064 degrees QTc Int : 477 ms Normal sinus rhythm Normal ECG When compared with ECG of 12-SEP-2020 15:29, No significant change was found Referred By: Alondra Ivan Electronically Signed By:JANE SIMMONS
--- NOTE | 2021-04-19 13:19 | ED.HA ---
HPI - Headache General Chief Complaint: Headache Stated Complaint: head and ear pain Time Seen by Provider: 04/19/21 12:56 Source: patient Mode of arrival: ambulatory History of Present Illness HPI Narrative: 76-year-old female with a past medical history of anxiety, cognitive impairment, diverticular disease, DVT, renal calculi, insomnia, legally blind, OA, osteoporosis, PVD to the ED complaining of headache x2 weeks which is improving now with left ear tinnitus/ sounds, nausea, lightheadedness, generalized fatigue/weakness, & decreased p.o. intake. Also reports abdominal pain, and diarrhea. States she is scheduled for outpatient US in 3 weeks. Denies visual changes, vomiting, CP/SOB, dysuria/hematuria, falls/head trauma, drainage from ear. Related Data Home Medications Medication Instructions Recorded Confirmed acetaminophen 325 mg tablet mg PO 06/02/20 11/07/20 clobetasol 0.05 % topical ointment 1 applic TOPICAL BID 06/02/20 11/07/20 docusate sodium 100 mg capsule 100 mg PO BID 06/02/20 11/07/20 polyethylene glycol 3350 17 g PO 06/02/20 11/07/20 gram/dose oral powder Previous Rx's Medication Instructions Recorded cholecalciferol (vitamin D3) 50 2,000 unit PO DAILY 90 Days #90 tab 08/08/20 mcg (2,000 unit) tablet (Vitamin D3) fluticasone propionate 50 1 spray INTRANASAL DAILY #48 ml 08/08/20 mcg/actuation nasal spray,suspension sucralfate 1 gram tablet 1 g PO QID #360 tab 10/16/20 hydrocortisone 2.5 % topical cream 1 appl NV TID #56.7 g 11/08/20 with perineal applicator dicyclomine 20 mg tablet 20 mg PO QID 30 Days #120 tab 12/15/20 omeprazole 40 mg capsule,delayed 40 mg PO DAILY 90 Days #90 cap 01/01/21 release hydrocortisone 2.5 % topical cream 1 appl NV BID 30 Days #30 g 01/11/21 with perineal applicator (Proctosol HC) amitriptyline 10 mg tablet 10 mg PO DAILY #90 tab 01/14/21 atorvastatin 20 mg tablet 20 mg PO DAILY 90 Days #90 tab 01/16/21 losartan 50 mg tablet 50 mg PO DAILY #30 tab 02/07/21 zzvjaozvbf-rhlxwcgrfzilz-yzpqmohv 1 cap PO Q4-6H PRN #14 cap 04/19/21 50 mg-300 mg-40 mg capsule (Fioricet) ondansetron HCl 4 mg tablet 4 mg PO Q8H PRN #10 tab 04/19/21 (Zofran) Allergies Allergy/AdvReac Type Severity Reaction Status Date / Time lisinopril Allergy Unknown Unknown Verified 03/26/21 16:08 metoprolol Allergy Unknown Unknown Verified 03/26/21 16:08 solifenacin [Vesicare] Allergy Unknown Unknown Verified 03/26/21 16:08 NSAIDS (Non-Steroidal AdvReac Intermediate HTN Verified 03/26/21 16:08 Anti-Inflamma Review of Systems Review of Systems: Constitutional: No Fever, No Chills, No Night Sweats, + Fatigue, No Malaise ENT/Mouth: No Hearing loss, + Ear Pain, No Nasal Congestion, No Sinus Pain, + No sore throat, No Rhinorrhea, No Swallowing Difficulty Eyes: No Eye Pain, No Swelling, No Vision Changes Cardiovascular: No Chest Pain, No SOB, No Edema, No Palpitations Respiratory: No Cough, No Sputum, No Dyspnea Gastrointestinal: + Nausea, No Vomiting, + Diarrhea, No Constipation, + Abdominal pain Genitourinary:No Dysuria, No Urinary Frequency, No Hematuria, No Flank Pain, No Urinary Flow Changes Musculoskeletal: No joint pain, No Myalgias, No Joint Swelling Skin: No Skin Lesions, No rash Neuro: + Weakness, No Numbness, No Paresthesias, + lightheadedness, + Headache Yes all other systems are reviewed and are negative Neurologic: Denies Abnormal speech present [facility] Past Medical History Attestation statement: The following information was validated with the patient. Medical History (Updated 04/19/21 @ 15:44 by ELE Crook) Anxiety Cognitive impairment Diverticular disease History of DVT (deep vein thrombosis) History of renal calculi Insomnia Legally blind Obesity (BMI 30-39.9) Osteoarthritis Osteoporosis Peripheral vascular disease Vitamin D deficiency Surgical History History of cataract surgery History of eye surgery History of hemorrhoidectomy Hx of colonoscopy Family History Family History Father No problems noted. Mother No problems noted. Daughter Lymphoma Social History Social History Household Members: Spouse Housing: Apartment Alcohol intake: never Patient Tobacco Use Status: Never used Tobacco e-Cigarette/Vaping Use: Never Used Second Hand Smoke Exposure: No Use of substances other than those prescribed or required for medical reasons: No Advance Directives: No Advance Directives Information Provided: No service: No Current occupational status: retired Physical Exam Vital Signs: Vital Signs: Last Vital Signs Temp 99.0 F 04/19/21 14:34 Pulse 98 04/19/21 14:42 Resp 15 04/19/21 14:34 BP 190/83 H 04/19/21 14:42 Pulse Ox 98 04/19/21 14:34 Body Mass Index 27.4 Const: General: cooperative, healthy appearing and no acute distress Orientation/consciousness: patient oriented x3 Limitations: no limitations HENMT: Other: No temporal tenderness. Dry mucous membranes Head: Yes normal to inspection Ears: hearing grossly normal bilaterally, external ears normal, TM's normal bilaterally and mastoids normal General nose exam: Normal external nose present Face and sinus: Yes normal facial exam Throat: Yes posterior oropharynx normal Eyes: General: appearance normal, both eyes and all related structures Pupils: Equal, round and reactive pupils present Neck: Neck: Yes normal visual inspection and Yes no meningeal signs Resp: Effort & Inspection: normal respiratory effort Auscultation: clear to auscultation bilaterally and no wheezes Cardio: Rate: regular rate Heart sounds: S1 normal heart sound present and S2 normal heart sound present GI: Inspection: Yes normal to inspection Palpation (GI): Soft to palpation, Tenderness to palpation present (GI) in the RUQ, no guarding and not rigid : General: Yes no CVA tenderness Back/Spine/Pelvis: Back: no CVA tenderness Skin: Rashes: no rashes Wounds: no wounds Neuro: General: patient oriented x3, tone normal, moves all extremities, no meningeal signs, no focal motor deficits and CN's II-XI intact bilaterally Cranial nerves: Yes CN's II-XII intact bilaterally and Yes Equal, round and reactive pupils present Cognition (Neuro): normal cognition Speech: No Abnormal speech present Gait exam (Neuro): Normal gait present Motor exam (neuro): 5/5 motor strength present throughout and Pronator motor function not present Coordination: [id number] test normal Extrem: General: Yes normal to inspection Course Course Course Narrative: -labs at patient's baseline, troponin negative -UA neg 1449- US abdomen limited IMPRESSION: No evidence of acute cholecystitis. Visualized portions of the pancreas unremarkable without peripancreatic inflammatory change. XR chest 1V IMPRESSION: 1. No vascular congestion, infiltrate, or effusion. 2. Probable pleural parenchymal scarring right apex. 3. Moderate hiatal hernia, stable. 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 No acute intracranial abnormality. -1541--patient reports symptomatic improvement in the ED. Results discussed with patient and at bedside including worrisome signs and symptoms and strict return precautions. Discussed patient is to follow-up with ENT, GI, and her PCP, they verbalized understanding feel safe for discharge home MDM - Headache MDM Narrative Medical decision making narrative: 76-year-old female with a past medical history of anxiety, cognitive impairment, diverticular disease, DVT, renal calculi, insomnia, legally blind, OA, osteoporosis, PVD to the ED complaining of headache x2 weeks which is improving now with left ear tinnitus/ sounds, nausea, lightheadedness, generalized fatigue/weakness, & decreased p.o. intake. Also reports abdominal pain, and diarrhea. On exam mildly tachycardic, NAD/nontoxic, physical exam as above. TMs WNL, abdomen soft with RUQ ttp. Concern for dehydration/metabolic abnormalities vs cholecystitis/lithiasis or pancreatitis vs ?temporal arteritis. Lower concern for CVA/TIA or mastoiditis Plan: EKG, labs, CXR, UA, head CT, abdomen ultrasound,IVF, orthostatics, reassess Medical Records Attestation: I reviewed the patient's medical records. Lab Data Attestation: I reviewed the patient's lab results. Result diagrams: 04/19/21 13:38 04/19/21 13:38 Labs: Lab Results 04/19/21 04/19/21 04/19/21 Range/Units 13:34 13:38 13:38 WBC 6.6 (4.8-10.8) X10*3/uL RBC 4.84 (4.20-5.50) X10*6/uL Hgb 13.9 (12.0-16.0) g/dl Hct 43.4 (37-47) % MCV 89.7 (80-98) fL MCH 28.7 (27.0-33.0) pg MCHC 32.0 (31.0-35.0) g/dl RDW 13.3 (11.0-16.0) % Plt Count 199 (160-400) X10*3/uL MPV 12.1 (9.4-12.3) fL Immature Gran % (Auto) 0.5 H (0.0-0.4) % Neut % (Auto) 54.9 (45-73) % Lymph % (Auto) 30.8 (20-40) % [facility] [facility] % (Auto) 10.0 (2-11) % Eos % (Auto) 3.2 (0-4) % Baso % (Auto) 0.6 (0-2) % Lymph # (Auto) 2.0 (1.2-4.9) X10*3/uL [facility] [place] [facility] # (Auto) 0.7 (0.1-1.2) X10*3/uL Eos # (Auto) 0.2 (0.0-0.4) X10*3/uL Baso # (Auto) 0.0 (0.0-0.2) X10*3/uL Abs Immat Gran (auto) 0.03 (0.00-0.03) X10*3/uL Absolute Neuts (auto) 3.6 (2.0-8.3) X10*3/uL Absolute Nucleated RBC 0.000 (0.0-0.012) X10*3/uL Nucleated RBC % (auto) 0.0 (0.0-0.2) /100WBC Sodium 143 (135-145) mmol/L Potassium 4.2 (3.3-5.1) mmol/L Chloride 110 H (96-108) mmol/L Carbon Dioxide 25 (22-29) mmol/L Anion Gap 12 (12-20) BUN 12 (9-16) mg/dL Creatinine 0.91 (0.5-1.4) mg/dL Estim Creat Clear Calc 48.3 Estimated GFR > 60 Random Glucose 136 H (60-115) mg/dL Calcium 9.9 (8.4-10.2) mg/dL Magnesium 2.3 (1.6-2.6) mg/dL Total Bilirubin 0.5 (0.0-1.0) mg/dL Direct Bilirubin < 0.2 (0.0-0.5) mg/dL AST 21 (5-31) U/L ALT 20 (0-31) U/L Alkaline Phosphatase 76 (39-117) U/L Troponin I High Sens (<3.5-17.0) ng/L B-Natriuretic Peptide (<100) pg/mL Total Protein 7.1 (6.5-8.0) g/dL Albumin 4.1 (3.5-5.0) g/dL Lipase 21 (8-78) U/L Urine Color STRAW Urine Appearance CLEAR Urine pH 6.0 (5.0-8.0) Ur Specific Clifton <= 1.005 (1.005-1.025) Urine Protein NEG (NEG-TRACE) MG/DL Urine Glucose (UA) NEG (NEG) MG/DL Urine Ketones NEG (NEG) MG/DL Urine Blood NEG (NEG) Urine Nitrite NEG (NEG) Ur Leukocyte Esterase NEG (NEG) 04/19/21 04/19/21 Range/Units 13:38 13:38 WBC (4.8-10.8) X10*3/uL RBC (4.20-5.50) X10*6/uL Hgb (12.0-16.0) g/dl Hct (37-47) % MCV (80-98) fL MCH (27.0-33.0) pg MCHC (31.0-35.0) g/dl RDW (11.0-16.0) % Plt Count (160-400) X10*3/uL MPV (9.4-12.3) fL Immature Gran % (Auto) (0.0-0.4) % Neut % (Auto) (45-73) % Lymph % (Auto) (20-40) % [facility] % (Auto) (2-11) % Eos % (Auto) (0-4) % Baso % (Auto) (0-2) % Lymph # (Auto) (1.2-4.9) X10*3/uL [facility] # (Auto) (0.1-1.2) X10*3/uL Eos # (Auto) (0.0-0.4) X10*3/uL Baso # (Auto) (0.0-0.2) X10*3/uL Abs Immat Gran (auto) (0.00-0.03) X10*3/uL Absolute Neuts (auto) (2.0-8.3) X10*3/uL Absolute Nucleated RBC (0.0-0.012) X10*3/uL Nucleated RBC % (auto) (0.0-0.2) /100WBC Sodium (135-145) mmol/L Potassium (3.3-5.1) mmol/L Chloride (96-108) mmol/L Carbon Dioxide (22-29) mmol/L Anion Gap (12-20) BUN (9-16) mg/dL Creatinine (0.5-1.4) mg/dL Estim Creat Clear Calc Estimated GFR Random Glucose (60-115) mg/dL Calcium (8.4-10.2) mg/dL Magnesium (1.6-2.6) mg/dL Total Bilirubin (0.0-1.0) mg/dL Direct Bilirubin (0.0-0.5) mg/dL AST (5-31) U/L ALT (0-31) U/L Alkaline Phosphatase (39-117) U/L Troponin I High Sens < 3.5 (<3.5-17.0) ng/L B-Natriuretic Peptide 49 (<100) pg/mL Total Protein (6.5-8.0) g/dL Albumin (3.5-5.0) g/dL Lipase (8-78) U/L Urine Color Urine Appearance Urine pH (5.0-8.0) Ur Specific Cl[place] (1.005-1.025) Urine Protein (NEG-TRACE) MG/DL Urine Glucose (UA) (NEG) MG/DL Urine Ketones (NEG) MG/DL Urine Blood (NEG) Urine Nitrite (NEG) Ur Leukocyte Esterase (NEG) Discharge Plan Discharge Clinical Impression: Generalized weakness, RUQ abdominal pain Headache Qualifiers: Headache type: unspecified Headache chronicity pattern: unspecified pattern Tinnitus Qualifiers: Laterality: left Qualified Code(s): H93.12 - Tinnitus, left ear Instructions: Acute Headache (ED), Tinnitus (ED) Additional Instructions: Your blood work is reassuring. Your chest x-ray, head CT, and ultrasound did not show any acute findings. Is very important for you to stay hydrated at home. Please follow-up with her primary care doctor as well as an ENT specialist. If her symptoms persist or worsen, become unbearable, if constant worsening headache, ringing in her ears, abdominal pain, or unable to eat or drink please return to the ED Zofran as for antinausea, take as needed. Fioricet is for headaches take as needed Chaidez an?lisis de manolo es reconfortante. La radiograf?a de t?rax, la tomograf?a computarizada de la jones y la ecograf?a no mostraron anne-marie?n hallazgo mario. Es muy importante que te mantengas hidratado en casa. Sophia un seguimiento con chaidez m?dico de atenci?n primaria, as? racheal con un otorrinolaring?logo. Si fareed s?ntomas persisten o empeoran, se vuelven insoportables, si empeora constantemente el dolor de jones, zumbidos en los o?dos, dolor abdominal o no puede comer o beber, regrese al servicio de urgencias. Zofran en cuanto a las n?useas, t?vides seg?n sea necesario. Fioricet es para may de jones timothy seg?n sea necesario Prescriptions: New ondansetron HCl [Zofran] 4 mg tablet 4 mg PO Q8H PRN (Reason: nausea and vomiting) Qty: 10 RF: 0 iwqptljlev-vlcrilshhkjsj-sidk [Fioricet] 50-300-40 mg capsule 1 cap PO Q4-6H PRN (Reason: headache) Qty: 14 RF: 0 No Action fluticasone propionate 50 mcg/actuation spray,suspension 1 spray intranasal DAILY Qty: 48 RF: 5 cholecalciferol (vitamin D3) [Vitamin D3] 50 mcg (2,000 unit) tablet 2,000 unit PO DAILY 90 Days Qty: 90 RF: 3 sucralfate 1 gram tablet 1 g PO QID Qty: 360 RF: 3 hydrocortisone 2.5 % cream with perineal applicator 1 appl NV TID Qty: 56.7 RF: 3 omeprazole 40 mg capsule,delayed release(DR/EC) 40 mg PO DAILY 90 Days Qty: 90 RF: 2 amitriptyline 10 mg tablet 10 mg PO DAILY Qty: 90 RF: 1 atorvastatin 20 mg tablet 20 mg PO DAILY 90 Days Qty: 90 RF: 2 polyethylene glycol 3350 17 gram/dose powder PO RF: 0 docusate sodium 100 mg capsule 100 mg PO BID RF: 0 acetaminophen 325 mg tablet PO RF: 0 clobetasol 0.05 % ointment 1 applic topical BID RF: 0 losartan 50 mg tablet 50 mg PO DAILY Qty: 30 RF: 4 hydrocortisone [Proctosol HC] 2.5 % cream with perineal applicator 1 appl NV BID 30 Days Qty: 30 RF: 6 dicyclomine 20 mg tablet 20 mg PO QID 30 Days Qty: 120 RF: 6 Referrals: Dickson Pardo [Physician] - 1 week Shane Esteves [Physician] - 2 days Po,Susana Page MD [Primary Care Provider] - 2 days Print Language: Syriac
[2021-04-19] MEDS: Acetaminophen 325 MG TABLET 650 MG PO (13:41)
[2021-04-19] MEDS: 0.9 % Sodium Chloride 1,000 ML 999 ML IVCONT (13:43)
[2021-04-19 13:44] LABS: MANUAL DIFF FLAG NO
[2021-04-19 13:46] LABS: Glucose Urine UA NEG (NEG); Leukocyte Esterase Urine NEG (NEG); Nitrite Urine NEG (NEG); Specific Gravity - Urine <= 1.005 (1.005-1.025); Urine Blood NEG (NEG); Urine Ketones NEG (NEG); Urine Protein NEG (NEG-TRACE)
[2021-04-19 13:48] LABS: Appearance Urine CLEAR; Color Urine STRAW
[2021-04-19 13:49] LABS: Basophils Percent Auto 0.6 % (0-2); Eosinophils Absolute Auto 0.2 X10*3/uL (0.0-0.4); Eosinophils Percent Auto 3.2 % (0-4); Hematocrit 43.4 % (37-47); Hemoglobin 13.9 g/dl (12.0-16.0); Imm Gran Abs Auto 0.03 X10*3/uL (0.00-0.03); Imm Gran Pct Auto 0.5 % (0.0-0.4); Lymphocytes Percent Auto 30.8 % (20-40); Mean Corpuscular Hemoglobin 28.7 pg (27.0-33.0); Mean Corpuscular Volume 89.7 fL (80-98); Mean Platelet Volume 12.1 fL (9.4-12.3); Monocytes Absolute Auto 0.7 X10*3/uL (0.1-1.2); Neutrophils Absolute Auto 3.6 X10*3/uL (2.0-8.3); Neutrophils Percent Auto 54.9 % (45-73); Platelet Count 199 X10*3/uL (160-400); Red Blood Count 4.84 X10*6/uL (4.20-5.50); Red Cell Distribution Width 13.3 % (11.0-16.0); White Blood Count 6.6 X10*3/uL (4.8-10.8)
[2021-04-19 14:07] LABS: Alanine Aminotransferase 20 U/L (0-31); Albumin Level 4.1 g/dL (3.5-5.0); Alkaline Phosphatase 76 U/L (39-117); Anion Gap 12 (12-20); Aspartate Amino Transferase 21 U/L (5-31); Bilirubin Direct < 0.2 mg/dL (0.0-0.5); Bilirubin Total 0.5 mg/dL (0.0-1.0); Blood Urea Nitrogen 12 mg/dL (9-16); Calcium 9.9 mg/dL (8.4-10.2); Carbon Dioxide 25 mmol/L (22-29); Chloride 110 mmol/L (96-108); Creatinine Clr Calc Pharmacy 48.3; Estimated Glomerular Filt Rate > 60; Glucose Random 136 mg/dL (60-115); Lipase 21 U/L (8-78); Magnesium 2.3 mg/dL (1.6-2.6); Potassium 4.2 mmol/L (3.3-5.1); Sodium 143 mmol/L (135-145); Total Protein 7.1 g/dL (6.5-8.0)
[2021-04-19 14:14] LABS: B Type Natriuretic Peptide 49 pg/mL (<100); Troponin-I High Sensitivity < 3.5 ng/L (<3.5-17.0)
[2021-04-19 14:34] VITALS: BP 158/78; PULSE 88; RESP 15; TEMP 37.2; O2SAT 98
[2021-04-19 14:38] VITALS: BP 153/81; PULSE 89
[2021-04-19 14:40] VITALS: BP 164/83; PULSE 93
[2021-04-19 14:42] VITALS: BP 190/83; PULSE 98
[2021-04-19] MEDS: Butalb/Acetamin/Caff 50/325/40 TABLET 1 TAB PO (15:49)
[2021-04-19 16:01] LABS: Erythrocyte Sedimentation Rate 10 MM/HR (0-20)
== END 2021-04-19 16:39 | disposition home or self-care (01) ==
PROVIDERS: Physician Assistant; Emergency Provider Emergency Medicine; PCP Internal Medicine
DX: R53.1 Weakness (principal); R51.9 Headache, unspecified; R10.11 Right upper quadrant pain; H93.12 Tinnitus, left ear; I10 Essential (primary) hypertension; Z87.442 Personal history of urinary calculi; Z79.899 Other long term (current) drug therapy
CPT/HCPCS: 36415; 70450; 71045; 76705; 80048; 80076; 81003; 83690; 83735; 83880; 84484; 85025; 85652; 93005; 96360; 99284; 99285

== ENCOUNTER 2021-05-02 08:14 | Outpatient (REF) | payer MEDICARE, MEDICAID, SELFPAY ==
--- NOTE | ~2021-05-02 | US_ITS ---
EXAMINATION: US ABDOMEN LIMITED CLINICAL INFORMATION: Abnormal LFTs. COMPARISON: Ultrasound abdomen complete 12/28/2020 and 01/12/2019. X-ray abdomen KUB 05/15/2020. CT abdomen and pelvis 07/26/2018. TECHNIQUE: Real-time imaging of the left kidney and spleen. FINDINGS: LEFT KIDNEY: Normal. No hydronephrosis. No renal calculi or focal parenchymal lesions. The kidney measures 9.0 cm in maximum dimension. SPLEEN: Redemonstration of a bilobed spleen. The spleen measures 8.0 cm in maximum dimension. US/US abdomen limited IMPRESSION: Unremarkable examination.
== END 2021-05-02 08:15 | disposition home or self-care (01) ==
LOC: HO.US 08:14
PROVIDERS: Visit Provider Internal Medicine
DX: R10.11 Right upper quadrant pain (principal); R79.89 Other specified abnormal findings of blood chemistry
CPT/HCPCS: 76705

== ENCOUNTER → 2021-05-15 09:14 | Outpatient (BNVA) | payer MEDICARE, MEDICAID, SELFPAY | PROVIDERS: PCP Internal Medicine; Visit Provider Nurse Practitioner | CPT/HCPCS: Q3014 ==

== ENCOUNTER 2021-05-29 12:38 | Outpatient (REF) | payer MEDICARE, MEDICAID, SELFPAY ==
--- NOTE | ~2021-05-29 | MM_ITS ---
EXAMINATION: MM SCREENING DIGITAL BREAST TOMOSYNTHESIS, BILATERAL CLINICAL INFORMATION: Screening. Asymptomatic. The lifetime risk of breast cancer based on the Tyrer-Cuzick Model is 2%. COMPARISON: Mammography: 04/17/2020, 10/10/2018, 07/15/2017 TECHNIQUE: Digital breast tomosynthesis is performed in both the craniocaudal and mediolateral oblique views along with computer-aided detection (CAD). Synthesized 2D images are generated from the tomosynthesis. FINDINGS: The breasts are heterogeneously dense, which may obscure small masses (ACR BI-RADS breast composition Category c). There are no significant masses, abnormal calcifications, or other abnormalities. Parenchymal pattern is similar to prior exams. No developing density or architectural abnormality. Dermal lesion overlies posterior 12:00 left breast. The axilla are unremarkable. No significant changes. MM/MM tomosynthesis screening BI IMPRESSION: No mammographic evidence of malignancy. ASSESSMENT: BI-RADS 2: Benign RECOMMENDATION: Routine annual mammography screening. This patient's information was entered into a reminder system with a target due date for their next mammogram.
== END 2021-05-29 12:39 | disposition home or self-care (01) ==
LOC: HO.MAMMO 12:38
PROVIDERS: Visit Provider Internal Medicine
DX: Z12.31 Encounter for screening mammogram for malignant neoplasm of breast (principal)
CPT/HCPCS: 77063; 77067

== ENCOUNTER 2021-06-02 07:35 | Outpatient (REF) | payer MEDICARE, MEDICAID, SELFPAY ==
[2021-06-02 08:30] LABS: Alanine Aminotransferase 20 U/L (0-31); Albumin Level 3.9 g/dL (3.5-5.0); Alkaline Phosphatase 68 U/L (39-117); Anion Gap 11 (12-20); Aspartate Amino Transferase 17 U/L (5-31); Bilirubin Total 0.4 mg/dL (0.0-1.0); Blood Urea Nitrogen 10 mg/dL (9-16); Calcium 9.7 mg/dL (8.4-10.2); Carbon Dioxide 27 mmol/L (22-29); Chloride 109 mmol/L (96-108); Estimated Glomerular Filt Rate > 60; Glucose Random 117 mg/dL (60-115); Potassium 3.8 mmol/L (3.3-5.1); Sodium 143 mmol/L (135-145); Total Protein 6.8 g/dL (6.5-8.0)
[2021-06-02 08:40] LABS: Estimated Average Glucose 131 mg/dL; Hemoglobin A1c % 6.2 %
== END 2021-06-02 07:36 | disposition home or self-care (01) ==
LOC: HO.LAB 07:35
PROVIDERS: PCP Internal Medicine; Visit Provider Internal Medicine
DX: R73.02 Impaired glucose tolerance (oral) (principal)
CPT/HCPCS: 36415; 80053; 83036

== ENCOUNTER 2021-07-09 08:33 | Outpatient (REF) | payer MEDICARE, MEDICAID, SELFPAY | END 2021-07-09 08:34 | disposition home or self-care (01) | LOC: HO.LAB 08:33 | PROVIDERS: PCP Internal Medicine; Visit Provider Internal Medicine | DX: Z20.822 Contact with and (suspected) exposure to COVID-19 (principal) | CPT/HCPCS: C9803; U0003; U0005 ==

== ENCOUNTER 2021-08-10 09:06 | Emergency (ER) | payer MEDICARE, MEDICAID, SELFPAY ==
[2021-08-10 09:08] VITALS: BP 147/83; PULSE 105; RESP 18; TEMP 36.7; O2SAT 97; BMI 28.3
--- NOTE | 2021-08-10 10:09 | ED_ITS ---
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 The patient has no associated vomiting or diarrhea. She tells me she saw the dentist and was told she needed to have the tooth extracted which she has not done so yet. Patient denies any fevers, urinary symptoms. Related Data Home Medications Medication Instructions Recorded Confirmed acetaminophen 325 mg tablet mg PO 06/02/20 05/07/21 clobetasol 0.05 % topical ointment 1 applic TOPICAL BID 06/02/20 05/07/21 docusate sodium 100 mg capsule 100 mg PO BID 06/02/20 05/07/21 polyethylene glycol 3350 17 g PO 06/02/20 05/07/21 gram/dose oral powder Previous Rx's Medication Instructions Recorded cholecalciferol (vitamin D3) 50 2,000 unit PO DAILY 90 Days #90 tab 08/08/20 mcg (2,000 unit) tablet (Vitamin D3) fluticasone propionate 50 1 spray INTRANASAL DAILY #48 ml 15 mcg/actuation nasal spray,suspension sucralfate 1 gram tablet 1 g PO QID #360 tab 10/16/20 hydrocortisone 2.5 % topical cream 1 appl [place] TID #56.7 g 11/08/20 with perineal applicator omeprazole 40 mg capsule,delayed 40 mg PO DAILY 90 Days #90 cap 01/01/21 release hydrocortisone 2.5 % topical cream 1 appl [place] BID 30 Days #30 g 01/11/21 with perineal applicator (Proctosol HC) atorvastatin 20 mg tablet 20 mg PO DAILY 90 Days #90 tab 01/16/21 vetfeskvpc-rajjzhdabbziv-llaejrfj 1 cap PO Q4-6H PRN #14 cap 04/19/21 50 mg-300 mg-40 mg capsule (Fioricet) ondansetron HCl 4 mg tablet 4 mg PO Q8H PRN #10 tab 04/19/21 (Zofran) losartan 50 mg tablet 50 mg PO DAILY #90 tab 05/02/21 azelastine 0.05 % eye drops 1 drp OPHTHALMIC (EYE) BID 7 Days 05/07/21 #6 ml dicyclomine 20 mg tablet 20 mg PO QID 30 Days #120 tab 06/12/21 loratadine 10 mg tablet 10 mg PO DAILY 90 Days #90 tab 06/26/21 amitriptyline 10 mg tablet 10 mg PO DAILY #90 tab 07/09/21 amoxicillin 500 mg capsule 500 mg PO BID #14 cap 08/10/21 ondansetron 4 mg disintegrating 4 mg PO Q6H PRN #10 tab 08/10/21 tablet Allergies Allergy/AdvReac Type Severity Reaction Status Date / Time lisinopril Allergy Unknown Unknown Verified 08/10/21 09:07 metoprolol Allergy Unknown Unknown Verified 08/10/21 09:07 solifenacin [Vesicare] Allergy Unknown Unknown Verified 08/10/21 09:07 NSAIDS (Non-Steroidal AdvReac Intermediate HTN Verified 08/10/21 09:07 Anti-Inflamma Review of Systems Review of Systems Yes all other systems are reviewed and are negative Constitutional: Reports no additional constitutional complaints, Denies body ache(s), Denies chills, Denies fever(s), Denies headache(s) and Denies weakness Eyes: Reports no additional eye complaints and Denies change in vision Reports system reviewed and no additional complaints, except as documented, Denies dizziness, Denies headache(s), Denies nasal congestion, Denies nasal discharge and Denies neck pain Cardiovascular: Reports no additional cardiovascular complaints, Denies chest pain, Denies leg edema and Denies dyspnea Respiratory: Reports no additional respiratory complaints, Denies cough and Denies dyspnea Gastrointestinal: Reports no additional gastrointestinal complaints, Reports abdominal pain, Denies diarrhea, Reports nausea and Denies vomiting Genitourinary: Reports no additional female genitourinary complaints and Denies urinary incontinence Musculoskeletal: Reports no additional musculoskeletal complaints, Denies back pain, Denies arthralgias, Denies joint swelling, Denies neck pain, Denies numbness and Denies tingling Skin/Breast: Reports system reviewed and no additional complaints, except as docu and Denies rash Reports system reviewed and no additional complaints, except as documented, Denies Abnormal speech present, Denies dizziness, Denies headache(s), Denies numbness, Denies tingling and Denies weakness Physical Exam Vital Signs: Vital Signs: Last Vital Signs Temp 98.1 F 08/10/21 12:05 Pulse 77 08/10/21 12:05 Resp 18 08/10/21 12:05 BP 137/72 08/10/21 12:05 Pulse Ox 98 08/10/21 12:05 BMI result Body Mass Index 28.3 Const: General: cooperative, healthy appearing, comfortable and no acute distress Orientation/consciousness: patient oriented x3 Limitations: no limitations HENMT: Head: Yes normal to inspection Ears: hearing grossly normal bilaterally General nose exam: Normal external nose present Face and sinus: Yes normal facial exam Mouth: Normal oral and palatal mucosa present Throat: Yes posterior oropharynx normal Eyes: General: appearance normal, both eyes and all related structures Pupils: Equal, round and reactive pupils present Neck: Neck: Yes normal visual inspection Chest: Chest palpation & inspection: normal inspection of the chest Resp: Effort & Inspection: normal respiratory effort Auscultation: clear to auscultation bilaterally Cardio: Rate: regular rate Rhythm: regular rhythm Peripheral pulses: Peripheral pulses 2+ throughout GI: Inspection: Yes normal to inspection Palpation (GI): Soft to palpation, Tenderness to palpation present (GI) (Mildly diffusely tender) and no guarding Auscultation: normal bowel sounds Back/Spine/Pelvis: Thoracic/Lumbar Spine: thoracic and lumbar spine normal to inspection Skin: General skin exam: no rashes or lesions noted Neuro: General: patient oriented x3, no focal motor deficits and normal sensation to monofilament Cranial nerves: Yes Equal, round and reactive pupils present Cognition (Neuro): normal cognition Speech: No Abnormal speech present Gait exam (Neuro): Normal gait present Motor exam (neuro): 5/5 motor strength present throughout Extrem: General: Yes normal to inspection Course Course Course Narrative: 76-year-old female here with reports of generalized abdominal pain with nausea after starting clindamycin for a dental infection on July. She denies any diarrhea. Her last BM was this morning and was normal and formed. On exam the patient has some mild diffuse tenderness with no rebound or guarding. Will check labs, UA. She describes the pain as burning. Will give GI cocktail. Likely side effect of medication 1155-labs, UA are negative. Patient is feeling improved after receiving Maalox lidocaine. Likely some mild gastritis secondary to clindamycin. Low concern for C diff with normal stools. Patient tells me that she is taking omeprazole 40 mg and Carafate a.c. HS. We discussed her continuing to take this. Will add Zofran p.r.n. for nausea. Will add amoxicillin and stop clindamycin for the dental infection. Reviewed worrisome signs and symptoms of when to return to the emergency department. Comfortable discharge home. MDM - Abdominal Pain Medical Records Attestation: I reviewed the patient's medical records. Lab Data Attestation: I reviewed the patient's lab results. Result diagrams: 08/10/21 11:03 08/10/21 11:03 Labs: Lab Results 08/10/21 08/10/21 08/10/21 Range/Units 09:21 11:03 11:03 WBC 6.8 (4.8-10.8) X10*3/uL RBC 4.72 (4.20-5.50) X10*6/uL Hgb 13.7 (12.0-16.0) g/dl Hct 42.3 (37.0-47.0) % MCV 89.6 (80.0-98.0) fL MCH 29.0 (27.0-33.0) pg MCHC 32.4 (31.0-35.0) g/dl RDW 12.9 (11.0-16.0) % Plt Count 207 (160-400) X10*3/uL MPV 11.9 (9.4-12.3) fL Immature Gran % (Auto) 0.1 (0.0-0.4) % Neut % (Auto) 62.7 (45-73) % Lymph % (Auto) 25.6 (20-40) % [place] % (Auto) 8.3 (2-11) % Eos % (Auto) 2.7 (0-4) % Baso % (Auto) 0.6 (0-2) % Lymph # (Auto) 1.7 (1.2-4.9) X10*3/uL [place] # (Auto) 0.6 (0.1-1.2) X10*3/uL Eos # (Auto) 0.2 (0.0-0.4) X10*3/uL Baso # (Auto) 0.0 (0.0-0.2) X10*3/uL Abs Immat Gran (auto) 0.01 (0.00-0.03) X10*3/uL Absolute Neuts (auto) 4.3 (2.0-8.3) x10*3/uL Absolute Nucleated RBC 0.000 (0.0-0.012) X10*3/uL Nucleated RBC % (auto) 0.0 (0.0-0.2) /100WBC Sodium 142 (135-145) mmol/L Potassium 4.0 (3.3-5.1) mmol/L Chloride 109 H (96-108) mmol/L Carbon Dioxide 27 (22-29) mmol/L Anion Gap 10 L (12-20) BUN 10 (9-16) mg/dL Creatinine 0.83 (0.5-1.4) mg/dL Estim Creat Clear Calc 49.6 Estimated GFR > 60 Random Glucose 114 (60-115) mg/dL Calcium 9.7 (8.4-10.2) mg/dL Total Bilirubin 0.5 (0.0-1.0) mg/dL Direct Bilirubin 0.2 (0.0-0.5) mg/dL AST 18 (5-31) U/L ALT 20 (0-31) U/L Alkaline Phosphatase 71 (39-117) U/L Total Protein 6.6 (6.5-8.0) g/dL Albumin 3.7 (3.5-5.0) g/dL Lipase 17 (8-78) U/L Urine Color YELLOW Urine Appearance HAZY Urine pH 6.0 (5.0-8.0) Ur Specific [place] 1.015 (1.005-1.025) Urine Protein NEG (NEG-TRACE) MG/DL Urine Glucose (UA) NEG (NEG) MG/DL Urine Ketones NEG (NEG) MG/DL Urine Blood NEG (NEG) Urine Nitrite NEG (NEG) Ur Leukocyte Esterase TRACE H (NEG) Urine RBC 1-4 (0) /HPF Urine WBC 1-4 (0-4) /HPF Ur Squamous Epith Cells 1+ /LPF Ur Renal Epithelial Cell 1+ /LPF Urine Bacteria NONE /LPF Discharge Plan Discharge Clinical Impression: Gastritis, Dental infection Patient Disposition: Home, Self-Care Instructions: Gastritis (ED), Toothache (ED) Additional Instructions: Your abdominal discomfort and nausea is from the antibiotic. Stop taking the clindamycin. Start taking the amoxicillin. follow-up with the dentist If you start to have diarrhea see your PCP for stool testing Prescriptions: New amoxicillin 500 mg capsule 500 mg PO BID Qty: 14 RF: 0 ondansetron 4 mg tablet,disintegrating 4 mg PO Q6H PRN (Reason: nausea and vomiting) Qty: 10 RF: 0 No Action fluticasone propionate 50 mcg/actuation spray,suspension 1 spray intranasal DAILY Qty: 48 RF: 5 cholecalciferol (vitamin D3) [Vitamin D3] 50 mcg (2,000 unit) tablet 2,000 unit PO DAILY 90 Days Qty: 90 RF: 3 sucralfate 1 gram tablet 1 g PO QID Qty: 360 RF: 3 hydrocortisone 2.5 % cream with perineal applicator 1 appl [place] TID Qty: 56.7 RF: 3 omeprazole 40 mg capsule,delayed release(DR/EC) 40 mg PO DAILY 90 Days Qty: 90 RF: 2 atorvastatin 20 mg tablet 20 mg PO DAILY 90 Days Qty: 90 RF: 2 losartan 50 mg tablet 50 mg PO DAILY Qty: 90 RF: 2 dicyclomine 20 mg tablet 20 mg PO QID 30 Days Qty: 120 RF: 5 amitriptyline 10 mg tablet 10 mg PO DAILY Qty: 90 RF: 1 ondansetron HCl [Zofran] 4 mg tablet 4 mg PO Q8H PRN (Reason: nausea and vomiting) Qty: 10 RF: 0 pvlauwoqew-ntonqgpofrxig-feic [Fioricet] 50-300-40 mg capsule 1 cap PO Q4-6H PRN (Reason: headache) Qty: 14 RF: 0 polyethylene glycol 3350 17 gram/dose powder PO RF: 0 docusate sodium 100 mg capsule 100 mg PO BID RF: 0 acetaminophen 325 mg tablet PO RF: 0 clobetasol 0.05 % ointment 1 applic topical BID RF: 0 loratadine 10 mg tablet 10 mg PO DAILY 90 Days Qty: 90 RF: 3 azelastine 0.05 % drops 1 drp ophthalmic (eye) BID 7 Days Qty: 6 RF: 0 hydrocortisone [Proctosol HC] 2.5 % cream with perineal applicator 1 appl [place] BID 30 Days Qty: 30 RF: 6 Referrals: Po,Susana Page MD [Primary Care Provider] - 2 days Interventions: ED Discharge Assessment Last Done: 08/10/21 12:13 Print Language: British [facility] Past Medical History Attestation statement: The following information was validated with the patient. Source: old records reviewed and nursing notes reviewed Medical History Cognitive impairment Diverticular disease History of DVT (deep vein thrombosis) History of renal calculi Insomnia Legally blind Obesity (BMI 30-39.9) Osteoarthritis Osteoporosis Peripheral vascular disease Vitamin D deficiency Surgical History History of cataract surgery History of eye surgery History of hemorrhoidectomy Hx of colonoscopy Family History Family History Father No problems noted. Mother No problems noted. Daughter Lymphoma Social History Social History Household Members: Spouse Housing: Apartment Alcohol intake: never Patient Tobacco Use Status: Never used Tobacco e-Cigarette/Vaping Use: Never Used Second Hand Smoke Exposure: No Use of substances other than those prescribed or required for medical reasons: No Advance Directives: No Advance Directives Information Provided: Yes service: No Current occupational status: retired
[2021-08-10] MEDS: Magnesium Hydrox/Alum Hydrox 30 ML ORAL.SUSP PO (10:14)
[2021-08-10] MEDS: Lidocaine HCl Viscous 2 % 15 ML SOLUTION MUCOUS MEM (10:14)
[2021-08-10 10:15] LABS: Appearance Urine HAZY; Color Urine YELLOW; Glucose Urine UA NEG (NEG); Leukocyte Esterase Urine TRACE (NEG); Nitrite Urine NEG (NEG); Specific Gravity - Urine 1.015 (1.005-1.025); UACC Culture Trigger YES; Urine Blood NEG (NEG); Urine Ketones NEG (NEG); Urine Protein NEG (NEG-TRACE)
[2021-08-10 10:36] LABS: Renal Epithelial Cells Urine 1+ /LPF; Squamous Epithelial Cell Urine 1+ /LPF
[2021-08-10 11:08] LABS: MANUAL DIFF FLAG NO
[2021-08-10 11:11] LABS: Basophils Percent Auto 0.6 % (0-2); Eosinophils Absolute Auto 0.2 X10*3/uL (0.0-0.4); Eosinophils Percent Auto 2.7 % (0-4); Hematocrit 42.3 % (37.0-47.0); Hemoglobin 13.7 g/dl (12.0-16.0); Imm Gran Abs Auto 0.01 X10*3/uL (0.00-0.03); Imm Gran Pct Auto 0.1 % (0.0-0.4); Lymphocytes Absolute Auto 1.7 X10*3/uL (1.2-4.9); Lymphocytes Percent Auto 25.6 % (20-40); Mean Corpuscular HGB Conc 32.4 g/dl (31.0-35.0); Mean Corpuscular Volume 89.6 fL (80.0-98.0); Mean Platelet Volume 11.9 fL (9.4-12.3); Monocytes Absolute Auto 0.6 X10*3/uL (0.1-1.2); Monocytes Percent Auto 8.3 % (2-11); Neutrophils Absolute Auto 4.3 x10*3/uL (2.0-8.3); Neutrophils Percent Auto 62.7 % (45-73); Platelet Count 207 X10*3/uL (160-400); Red Blood Count 4.72 X10*6/uL (4.20-5.50); Red Cell Distribution Width 12.9 % (11.0-16.0); White Blood Count 6.8 X10*3/uL (4.8-10.8)
[2021-08-10 11:25] LABS: Alanine Aminotransferase 20 U/L (0-31); Albumin Level 3.7 g/dL (3.5-5.0); Alkaline Phosphatase 71 U/L (39-117); Anion Gap 10 (12-20); Aspartate Amino Transferase 18 U/L (5-31); Bilirubin Direct 0.2 mg/dL (0.0-0.5); Bilirubin Total 0.5 mg/dL (0.0-1.0); Blood Urea Nitrogen 10 mg/dL (9-16); Calcium 9.7 mg/dL (8.4-10.2); Carbon Dioxide 27 mmol/L (22-29); Chloride 109 mmol/L (96-108); Creatinine Clr Calc Pharmacy 49.6; Estimated Glomerular Filt Rate > 60; Glucose Random 114 mg/dL (60-115); Lipase 17 U/L (8-78); Sodium 142 mmol/L (135-145); Total Protein 6.6 g/dL (6.5-8.0)
[2021-08-10 12:05] VITALS: BP 137/72; PULSE 77; RESP 18; TEMP 36.7; O2SAT 98
== END 2021-08-10 12:13 | disposition home or self-care (01) ==
PROVIDERS: Nurse Practitioner Family; Emergency Provider Emergency Medicine; PCP Internal Medicine
DX: K29.00 Acute gastritis without bleeding (principal); K04.7 Periapical abscess without sinus; Z79.899 Other long term (current) drug therapy
CPT/HCPCS: 36415; 80048; 80076; 81001; 83690; 85025; 87086; 99283; 99284

== ENCOUNTER 2021-09-06 10:28 | Outpatient (REF) | payer MEDICARE, MEDICAID, SELFPAY ==
[2021-09-06 11:01] LABS: Binax Internal Control QC Valid; Binax Now Covid-19 Ag Negative (Negative)
== END 2021-09-06 10:29 | disposition home or self-care (01) ==
LOC: HO.LAB 10:28
PROVIDERS: Visit Provider Internal Medicine
DX: Z20.822 Contact with and (suspected) exposure to COVID-19 (principal)
CPT/HCPCS: C9803

== ENCOUNTER → 2021-09-11 09:46 | Outpatient (BNVA) | payer MEDICARE, MEDICAID, SELFPAY | PROVIDERS: PCP Internal Medicine; Referring Provider Internal Medicine; Visit Provider Nurse Practitioner | DX: K64.9 Unspecified hemorrhoids (principal); K21.00 Gastro-esophageal reflux disease with esophagitis, without bleeding; K30 Functional dyspepsia; R10.11 Right upper quadrant pain; K44.9 Diaphragmatic hernia without obstruction or gangrene | CPT/HCPCS: 99212 ==

== ENCOUNTER 2021-09-20 09:01 | Outpatient (REF) | payer MEDICARE, MEDICAID, SELFPAY ==
[2021-09-20 10:13] LABS: Cholesterol 173 mg/dL; HDL Cholesterol 45 mg/dL; LDL Cholesterol Calculated 94 mg/dl; Triglycerides 170 mg/dL
[2021-09-20 10:35] LABS: TSH reflex Free T4 2.02 uIU/mL (0.32-4.0); Vitamin D 25-OH Total 32.7 ng/mL (>30)
[2021-09-20 10:53] LABS: Folate 18.6 ng/mL (> or = 4.0); Vitamin B12 492 pg/mL (200-900)
== END 2021-09-20 09:02 | disposition home or self-care (01) ==
LOC: HO.LAB 09:01
PROVIDERS: PCP Internal Medicine; Visit Provider Nurse Practitioner Family
DX: Z13.29 Encounter for screening for other suspected endocrine disorder (principal); Z13.220 Encounter for screening for lipoid disorders; E55.9 Vitamin D deficiency, unspecified; I10 Essential (primary) hypertension
CPT/HCPCS: 36415; 80061; 82306; 82607; 82746; 84443

== ENCOUNTER 2021-09-21 12:55 | Outpatient (REF) | payer MEDICARE, MEDICAID, SELFPAY ==
--- NOTE | ~2021-09-21 | MM_ITS ---
EXAMINATION: BONE DENSITOMETRY CLINICAL INDICATION: Asymptomatic menopausal state. COMPARISON: Previous BD dated 06/03/2019 and baseline BD dated 01/24/2009. TECHNIQUE: Using a [employer] DXA System (software version: 13.1) manufactured by [employer], dual-energy x-ray absorptiometry was performed of the lumbar spine and left hip. The images are of good technical quality. Summary results are attached. FINDINGS: AP SPINE L1-L4: Current: BMD 0.910 g/cm2, Z-score -0.6, T-score -2.3, osteopenia, 1.0% decrease from previous, 13.0% decrease from baseline (<5% change is not significant). Prior: BMD 0.919 g/cm2. Baseline: BMD 1.046 g/cm2. LEFT FEMUR, NECK: Current: BMD 0.631 g/cm2, Z-score -1.1, T-score -2.9, osteoporosis. Prior: BMD 0.691 g/cm2. Baseline: BMD 0.785 g/cm2. LEFT FEMUR, TOTAL: Current: BMD 0.765 g/cm2, Z-score -0.2, T-score -1.9, osteopenia, 7.6% decrease from previous, 17.0% decrease from baseline (<5% change is not significant). Prior: BMD 0.828 g/cm2. Baseline: BMD 0.922 g/cm2. IDENTIFIED RISK FACTORS: Menopause. HISTORY OF FRACTURE: None listed. MEDICATIONS: Vitamin D. MM/XR DEXA axial skeleton IMPRESSION: 1. DIAGNOSIS: Osteoporosis based on the lowest T-score value of -2.9 in the femoral neck applying World Health Organization criteria. 2. 10-YEAR FRACTURE RISK PREDICTION, FRAX: Major osteoporotic fracture (clinical spine, forearm, hip or shoulder) 11.9%. Hip fracture 4.3%. 3. Treatment Recommendations: NOF guidelines recommend consideration for treatment in postmenopausal women and men age 50 and older presenting with the following: -A hip or vertebral (clinical or morphometric) fracture. -T-score less than or equal to -2.5 at the femoral neck or spine after appropriate evaluation to exclude secondary causes. -Low bone mass at the hip or spine and a 10-year fracture probability by FRAX of greater than or equal to 3% for hip fracture or greater than or equal to 20% for major osteoporotic fracture based on the [place] adapted WHO algorithm. 4. Other Recommendations: All treatment decisions require clinical judgment and consideration of individual patient factors, including patient preferences, comorbidities, previous drug use, risk factors not captured in the FRAX model (e.g. frailty, falls, vitamin D deficiency, increased bone turnover, interval significant decline in bone density) and possible under or overestimation of fracture risk by FRAX. Additional medical evaluation for secondary cause of low bone mineral density may be appropriate. FUTURE SCAN RECOMMENDATION: People with diagnosed cases of osteoporosis or at high risk for fracture should have regular bone mineral density tests. For patients eligible for Medicare, routine testing is allowed once every 2 years. The testing frequency can be increased to one year for patients who have rapidly progressing disease, those who are receiving or discontinuing medical therapy to restore bone mass, or have additional risk factors.
== END 2021-09-21 12:56 | disposition home or self-care (01) ==
LOC: HO.MAMMO 12:55
PROVIDERS: PCP Internal Medicine; Visit Provider Nurse Practitioner Family
DX: Z78.0 Asymptomatic menopausal state (principal)
CPT/HCPCS: 77080

== ENCOUNTER 2021-10-03 12:53 | Outpatient (REF) | payer MEDICARE, MEDICAID, SELFPAY ==
--- NOTE | ~2021-10-03 | CT_ITS ---
EXAMINATION: CT HEAD WITHOUT CONTRAST CLINICAL INFORMATION: Head injury COMPARISON: Previous head CT March 2021 TECHNIQUE: Contiguous axial imaging was performed from the skull base to vertex without intravenous administration of contrast. This CT examination was performed using dose optimization techniques as appropriate, variously including the following: *Automated exposure control *Adjustment of mA and/or kV according to patient size (this includes techniques or standardized protocols for targeted exams where dose is matched to indication/reason for exam; i.e. extremities or head) *Use of iterative reconstruction technique DLP: 1151 mGy-cm FINDINGS: Exam is limited due to motion artifact. There is no evidence of an extra-axial collection. There is no evidence of intra-axial or extra-axial hemorrhage. The ventricles and extra-axial CSF spaces are appropriate. There is nonspecific periventricular white matter disease. No mass, mass effect or infarct is seen. No skull fracture is seen. Visualized paranasal sinuses, mastoid air cells and middle ears are clear. CT/CT head/brain wo con IMPRESSION: Limited exam due to motion artifact. No acute findings. Nonspecific periventricular white matter disease.
== END 2021-10-03 12:54 | disposition home or self-care (01) ==
LOC: HO.CT 12:53
PROVIDERS: PCP Internal Medicine; Visit Provider Internal Medicine
DX: R42 Dizziness and giddiness (principal); S09.90XA Unspecified injury of head, initial encounter; M81.0 Age-related osteoporosis without current pathological fracture
CPT/HCPCS: 70450

== ENCOUNTER → 2021-10-24 14:40 | Outpatient (BNVA) | payer MEDICARE, MEDICAID, SELFPAY | PROVIDERS: PCP Internal Medicine; Visit Provider Internal Medicine Endocrinology, Diabetes & Metabolism | DX: M81.0 Age-related osteoporosis without current pathological fracture (principal); E55.9 Vitamin D deficiency, unspecified; E66.9 Obesity, unspecified; I73.9 Peripheral vascular disease, unspecified; Z68.21 Body mass index [BMI] 21.0-21.9, adult; Z88.8 Allergy status to other drugs, medicaments and biological substances; Z79.899 Other long term (current) drug therapy | CPT/HCPCS: 99202 ==

== ENCOUNTER 2022-01-03 13:53 | Emergency (ER) | payer MEDICARE, MEDICAID, SELFPAY ==
--- NOTE | ~2022-01-03 | XR_ITS ---
EXAMINATION: XR KNEE, RIGHT CLINICAL INFORMATION: Pain and swelling right knee COMPARISON: Right knee radiograph from 08/22/2020 TECHNIQUE: Two views of the right knee. FINDINGS: No acute visible fracture or dislocation. Mild multicompartment degenerative changes. Spurring of the tibial spines. Mild narrowing of the medial femorotibial compartment. Joint spaces and alignment are otherwise maintained. Small knee joint effusion. Soft tissues are unremarkable. XR/XR knee RT 2V IMPRESSION: 1. No acute visible fracture or dislocation. 2. Mild multicompartment degenerative changes. 3. Small knee joint effusion.
--- NOTE | ~2022-01-03 | XR_ITS ---
EXAMINATION: XR CHEST CLINICAL INFORMATION: Pitting edema COMPARISON: 04/19/2021 TECHNIQUE: Frontal view of the chest was obtained. FINDINGS: The lungs are well expanded. There is no focal consolidation, edema, or effusion. No pneumothorax. The cardiomediastinal silhouette is within normal limits of size with a calcified aorta. No acute osseous abnormality. Moderate hiatal hernia again noted. XR/XR chest 1V IMPRESSION: No acute pulmonary finding.
[2022-01-03 14:58] VITALS: BP 156/75; PULSE 94; RESP 16; TEMP 37; O2SAT 97; BMI 26.4
[2022-01-03 15:15] LABS: MANUAL DIFF FLAG NO
[2022-01-03 15:28] LABS: Anion Gap 10 (12-20); Basophils Percent Auto 0.5 % (0-2); Blood Urea Nitrogen 14 mg/dL (9-16); Carbon Dioxide 28 mmol/L (22-29); Chloride 108 mmol/L (96-108); Creatinine Clr Calc Pharmacy 48.2; Eosinophils Absolute Auto 0.2 X10*3/uL (0.0-0.4); Eosinophils Percent Auto 2.2 % (0-4); Estimated Glomerular Filt Rate > 60; Glucose Random 127 mg/dL (60-115); Hematocrit 43.3 % (37.0-47.0); Hemoglobin 13.5 g/dl (12.0-16.0); Imm Gran Abs Auto 0.03 X10*3/uL (0.00-0.03); Imm Gran Pct Auto 0.4 % (0.0-0.4); Lymphocytes Absolute Auto 2.1 X10*3/uL (1.2-4.9); Lymphocytes Percent Auto 26.8 % (20-40); Mean Corpuscular HGB Conc 31.2 g/dl (31.0-35.0); Mean Corpuscular Hemoglobin 27.9 pg (27.0-33.0); Mean Corpuscular Volume 89.5 fL (80.0-98.0); Monocytes Absolute Auto 0.8 X10*3/uL (0.1-1.2); Monocytes Percent Auto 10.8 % (2-11); Neutrophils Absolute Auto 4.6 x10*3/uL (2.0-8.3); Neutrophils Percent Auto 59.3 % (45-73); Platelet Count 222 X10*3/uL (160-400); Potassium 4.2 mmol/L (3.3-5.1); Red Blood Count 4.84 X10*6/uL (4.20-5.50); Red Cell Distribution Width 13.2 % (11.0-16.0); Sodium 142 mmol/L (135-145); White Blood Count 7.8 X10*3/uL (4.8-10.8)
[2022-01-03 22:28] VITALS: BP 152/87; PULSE 98; RESP 17; TEMP 36.8; O2SAT 97
[2022-01-03 23:07] LABS: Alanine Aminotransferase 23 U/L (0-31); Albumin Level 3.9 g/dL (3.5-5.0); Alkaline Phosphatase 80 U/L (39-117); Aspartate Amino Transferase 20 U/L (5-31); Bilirubin Direct < 0.2 mg/dL (0.0-0.5); Bilirubin Total 0.2 mg/dL (0.0-1.0); Magnesium 2.1 mg/dL (1.6-2.6); Total Protein 7.1 g/dL (6.5-8.0)
[2022-01-03 23:38] VITALS: BP 168/78; PULSE 89; RESP 16; TEMP 36.7; O2SAT 97
--- NOTE | 2022-01-03 23:54 | ED_ITS ---
HPI - Extremity Problem General Chief complaint: Extremity Problem Stated complaint: swollen leg, can't walk Time Seen by Provider: 01/03/22 22:45 Source: patient Mode of arrival: ambulatory History of Present Illness HPI Narrative: 76-year-old female with a past medical history of GERD, DVT, legally blind, obesity, osteoarthritis, osteoporosis, PVD, cognitive impairment, presenting to the ED complaining of acute on chronic right knee pain and swelling. Admits leg gives out secondary to knee pain, has had 2 falls in August, denies falls more recently. Also reports acute on chronic LE pitting edema bilaterally. Denies CP, SOB, numbness, tingling, weakness, trauma to knee MD Complaint: extremity pain and extremity swelling Onset (ago): month(s) Related Data Home Medications Medication Instructions Recorded Confirmed acetaminophen 325 mg tablet mg PO 06/02/20 11/13/21 clobetasol 0.05 % topical ointment 1 applic TOPICAL BID 06/02/20 11/13/21 docusate sodium 100 mg capsule 100 mg PO BID 06/02/20 11/13/21 polyethylene glycol 3350 17 g PO 06/02/20 11/13/21 gram/dose oral powder hydroxyzine HCl 10 mg tablet 10 mg PO BEDTIME 10/24/21 11/13/21 Previous Rx's Medication Instructions Recorded fluticasone propionate 50 1 spray INTRANASAL DAILY #48 ml 08/08/20 mcg/actuation nasal spray,suspension losartan 50 mg tablet 50 mg PO DAILY #90 tab 05/02/21 ondansetron 4 mg disintegrating 4 mg PO Q6H PRN #10 tab 08/10/21 tablet omeprazole 40 mg capsule,delayed 40 mg PO DAILY 90 Days #90 cap 09/03/21 release metoclopramide HCl 5 mg tablet 5 mg PO .TIDAC #90 tab 09/11/21 (Reglan) sucralfate 1 gram tablet 2 g PO BEDTIME #60 tab 09/11/21 cholecalciferol (vitamin D3) 50 2,000 unit PO DAILY 90 Days #90 tab 10/24/21 mcg (2,000 unit) tablet (Vitamin D3) atorvastatin 20 mg tablet 20 mg PO DAILY 90 Days #90 tab 10/29/21 hydrocortisone 2.5 % topical cream 1 appl NM BID 30 Days #30 g 11/13/21 with perineal applicator (Proctosol HC) dicyclomine 20 mg tablet 20 mg PO QID #360 tab 12/07/21 Allergies Allergy/AdvReac Type Severity Reaction Status Date / Time lisinopril Allergy Unknown Unknown Verified 11/13/21 11:07 metoprolol Allergy Unknown Unknown Verified 11/13/21 11:07 solifenacin [Vesicare] Allergy Unknown Unknown Verified 11/13/21 11:07 NSAIDS (Non-Steroidal AdvReac Intermediate HTN Verified 11/13/21 11:07 Anti-Inflamma Review of Systems Review of Systems: Constitutional:No Fever, No Chills, No Fatigue, No Malaise ENT/Mouth: No Ear Pain, No Hoarseness, No sore throat, No Rhinorrhea, No Swallowing Difficulty Eyes: No Eye Pain, No Swelling, No Redness, No Foreign Body, No Discharge, No Vision Changes Cardiovascular: No Chest Pain, No SOB, No Dyspnea on Exertion, No Orthopnea, + Edema, No Palpitations Respiratory: No Cough, No Sputum, No Dyspnea Gastrointestinal: No Nausea, No Vomiting, No Diarrhea, No Constipation, No Abdominal pain Genitourinary: No irregular bleeding, No Dysuria, No Urinary Frequency, No Hesitancy Musculoskeletal: + joint pain, No Myalgias, + Joint Swelling Skin: No Skin Lesions, No rash Neuro: No Weakness, No Numbness, No Paresthesias, No Loss of Consciousness, No Dizziness, No Headache Yes all other systems are reviewed and are negative [facility] Past Medical History Attestation statement: The following information was validated with the patient. Medical History Allergic conjunctivitis Cognitive impairment Diverticular disease Dizziness GERD (gastroesophageal reflux disease) History of DVT (deep vein thrombosis) History of renal calculi Insomnia Legally blind Obesity (BMI 30-39.9) Osteoarthritis Osteoporosis Peripheral vascular disease Vitamin D deficiency Surgical History History of cataract surgery History of eye surgery History of hemorrhoidectomy Hx of colonoscopy Family History Family History Father No problems noted. Mother No problems noted. Daughter Lymphoma Social History Social History Household Members: Spouse Housing: Apartment Alcohol intake: never Patient Tobacco Use Status: Never used Tobacco e-Cigarette/Vaping Use: Never Used Second Hand Smoke Exposure: No Use of substances other than those prescribed or required for medical reasons: No Advance Directives: No Advance Directives Information Provided: Yes service: No Current occupational status: retired Physical Exam Vital Signs: Vital Signs: Last Vital Signs Temp 98.0 F 01/03/22 23:38 Pulse 89 01/03/22 23:38 Resp 16 01/03/22 23:38 BP 168/78 H 01/03/22 23:38 Pulse Ox 97 01/03/22 23:38 BMI result Body Mass Index 26.4 Const: General: cooperative, healthy appearing and no acute distress Orientation/consciousness: patient oriented x3 Limitations: no limitations HEENT: Head: Yes normal to inspection and Yes atraumatic Ears: hearing grossly normal bilaterally General nose exam: Normal external nose present Face and sinus: Yes normal facial exam Eyes: General: appearance normal, both eyes and all related structures EOM: EOMs intact bilaterally Neck: Neck: Yes normal visual inspection and Yes no meningeal signs Resp: Effort & Inspection: normal respiratory effort and no respiratory distress Auscultation: clear to auscultation bilaterally, no rales, no rhonchi and no wheezes Cardio: Rate: regular rate Heart sounds: S1 normal heart sound present and S2 normal heart sound present GI: Inspection: Yes normal to inspection Palpation (GI): Soft to palpation, nontender, no guarding and not rigid Skin: Rashes: no rashes Wounds: no wounds Neuro: General: patient oriented x3, tone normal and no meningeal signs Gait exam (Neuro): Normal gait present Extrem: Other: right knee with noted swelling. No deformity. No ecchymosis or erythema. Tender to palpation diffusely. ROM intact. Neurovascular intact distally. + Bilateral LE pitting edema. No calf tenderness. Course Course Course Narrative: - labs unremarkable. XR chest 1VIMPRESSION: No acute pulmonary finding. ? XR knee RT 2VIMPRESSION: 1.? No acute visible fracture or dislocation. 2.? Mild multicompartment degenerative changes. 3.? Small knee joint effusion. - BNP WNL. Cornel wrap applied for comfort and stability. Recommended follow-up with orthopedic >> Results discussed with patient in diplomatic interpreter/translator including worrisome signs and symptoms and strict return precautions MDM - Extremity (Nontraumatic) MDM Narrative Medical decision making narrative: 76-year-old female with a past medical history of GERD, DVT, legally blind, obesity, osteoarthritis, osteoporosis, PVD, cognitive impairment, presenting to the ED complaining of acute on chronic right knee pain and swelling. Also reports acute on chronic LE pitting edema bilaterally. On exam vital signs s table, NAD/ nontoxic-appearing, physical exam as above. Concern for knee sprain versus osteoarthritis flare versus fracture vs CHF. Low concern for DVT plan: Labs, CXR, knee x-ray Medical Records Attestation: I reviewed the patient's medical records. Lab Data Attestation: I reviewed the patient's lab results. Result diagrams: 01/03/22 15:01/03/22 15:09 Labs: Lab Results 01/03/22 01/03/22 01/03/22 Range/Units 15:09 15:09 23:35 WBC 7.8 (4.8-10.8) X10*3/uL RBC 4.84 (4.20-5.50) X10*6/uL Hgb 13.5 (12.0-16.0) g/dl Hct 43.3 (37.0-47.0) % MCV 89.5 (80.0-98.0) fL MCH 27.9 (27.0-33.0) pg MCHC 31.2 (31.0-35.0) g/dl RDW 13.2 (11.0-16.0) % Plt Count 222 (160-400) X10*3/uL MPV 12.0 (9.4-12.3) fL Immature Gran % (Auto) 0.4 (0.0-0.4) % Neut % (Auto) 59.3 (45-73) % Lymph % (Auto) 26.8 (20-40) % [place] % (Auto) 10.8 (2-11) % Eos % (Auto) 2.2 (0-4) % Baso % (Auto) 0.5 (0-2) % Lymph # (Auto) 2.1 (1.2-4.9) X10*3/uL [place] # (Auto) 0.8 (0.1-1.2) X10*3/uL Eos # (Auto) 0.2 (0.0-0.4) X10*3/uL Baso # (Auto) 0.0 (0.0-0.2) X10*3/uL Abs Immat Gran (auto) 0.03 (0.00-0.03) X10*3/uL Absolute Neuts (auto) 4.6 (2.0-8.3) x10*3/uL Absolute Nucleated RBC 0.000 (0.0-0.012) X10*3/uL Nucleated RBC % (auto) 0.0 (0.0-0.2) /100WBC Sodium 142 (135-145) mmol/L Potassium 4.2 (3.3-5.1) mmol/L Chloride 108 (96-108) mmol/L Carbon Dioxide 28 (22-29) mmol/L Anion Gap 10 L (12-20) BUN 14 (9-16) mg/dL Creatinine 0.86 (0.5-1.4) mg/dL Estim Creat Clear Calc 48.2 Estimated GFR > 60 Random Glucose 127 H (60-115) mg/dL Calcium 10.0 (8.4-10.2) mg/dL Magnesium 2.1 (1.6-2.6) mg/dL Total Bilirubin 0.2 (0.0-1.0) mg/dL Direct Bilirubin < 0.2 (0.0-0.5) mg/dL AST 20 (5-31) U/L ALT 23 (0-31) U/L Alkaline Phosphatase 80 (39-117) U/L B-Natriuretic Peptide 48 (<100) pg/mL Total Protein 7.1 (6.5-8.0) g/dL Albumin 3.9 (3.5-5.0) g/dL Discharge Plan Discharge Clinical Impression: Effusion of knee joint right, Edema Patient Disposition: Home, Self-Care Instructions: Swollen Knee Joint (ED) Additional Instructions: your x-ray shows degenerative changes of her knee as well as a small knee effusion. Wear Cornel wrap at home as needed for comfort and stability. Please follow-up with the orthopedic doctors. You may need physical therapy. If you have falls, constant or worsening pain, or area begins look infected please return to the emergency department. your blood work was otherwise unremarkable rhodes radiograf?a muestra cambios degenerativos en la rodilla, as? racheal un roque?o derrame en la rodilla. Use la envoltura Cornel en casa seg?n sea necesario para mayor comodidad y estabilidad. Por favor, cholo un seguimiento con los m?dicos ortop?dicos. Es posible que necesite fisioterapia. Si tiene ca?garcía, dolor joe o que empeora, o el ?daina comienza a verse infectada, regrese al departamento de emergencias. rhodes an?lisis de manolo fue por lo dem?s normal Prescriptions: No Action fluticasone propionate 50 mcg/actuation spray,suspension 1 spray intranasal DAILY Qty: 48 5RF losartan 50 mg tablet 50 mg PO DAILY Qty: 90 2RF omeprazole 40 mg capsule,delayed release(DR/EC) 40 mg PO DAILY 90 Days Qty: 90 2RF atorvastatin 20 mg tablet 20 mg PO DAILY 90 Days Qty: 90 2RF dicyclomine 20 mg tablet 20 mg PO QID Qty: 360 1RF ondansetron 4 mg tablet,disintegrating 4 mg PO Q6H PRN (Reason: nausea and vomiting) Qty: 10 0RF polyethylene glycol 3350 17 gram/dose powder PO 0RF docusate sodium 100 mg capsule 100 mg PO BID 0RF acetaminophen 325 mg tablet PO 0RF clobetasol 0.05 % ointment 1 applic topical BID 0RF hydrocortisone [Proctosol HC] 2.5 % cream with perineal applicator 1 appl NM BID 30 Days Qty: 30 6RF sucralfate 1 gram tablet 2 g PO BEDTIME Qty: 60 3RF metoclopramide HCl [Reglan] 5 mg tablet 5 mg PO .TIDAC Qty: 90 6RF hydroxyzine HCl 10 mg tablet 10 mg PO BEDTIME 0RF cholecalciferol (vitamin D3) [Vitamin D3] 50 mcg (2,000 unit) tablet 2,000 unit PO DAILY 90 Days Qty: 90 3RF Referrals: Surjit Justin MD [Physician] - Po,Susana Page MD [Primary Care Provider] - Print Language: [place]
[2022-01-04 00:05] LABS: B Type Natriuretic Peptide 48 pg/mL (<100)
== END 2022-01-04 01:08 | disposition home or self-care (01) ==
PROVIDERS: Physician Assistant; Emergency Provider Emergency Medicine; PCP Internal Medicine
DX: M25.461 Effusion, right knee (principal); R60.0 Localized edema; I73.9 Peripheral vascular disease, unspecified; H54.8 Legal blindness, as defined in USA; Z86.718 Personal history of other venous thrombosis and embolism; Z91.81 History of falling
CPT/HCPCS: 36415; 71045; 73560; 80048; 80076; 83735; 83880; 85025; 99283; 99284

== ENCOUNTER 2022-02-07 07:12 | Outpatient (REF) | payer MEDICARE, MEDICAID, SELFPAY ==
--- NOTE | ~2022-02-07 | XR_ITS ---
EXAMINATION: KNEE X-RAY CLINICAL INFORMATION: Pain COMPARISON: Previous x-ray December 2021 TECHNIQUE: Standing AP view of both knees and lateral and sunrise view of the right knee FINDINGS: Right: Bone alignment is normal. No fracture or dislocation is seen. There is mild medial femoral tibial joint space narrowing. Joint spaces are otherwise normal. There is no significant joint effusion. Standing AP view of the left knee is unremarkable. XR/XR knee standing BI IMPRESSION: Right knee: Mild medial femoral tibial joint space narrowing.
--- NOTE | ~2022-02-07 | XR_ITS ---
EXAMINATION: KNEE X-RAY CLINICAL INFORMATION: Pain COMPARISON: Previous x-ray December 2021 TECHNIQUE: Standing AP view of both knees and lateral and sunrise view of the right knee FINDINGS: Right: Bone alignment is normal. No fracture or dislocation is seen. There is mild medial femoral tibial joint space narrowing. Joint spaces are otherwise normal. There is no significant joint effusion. Standing AP view of the left knee is unremarkable. XR/XR knee RT 2V IMPRESSION: Right knee: Mild medial femoral tibial joint space narrowing.
== END 2022-02-07 07:13 | disposition home or self-care (01) ==
LOC: HO.HOSX 07:12
PROVIDERS: Visit Provider Physician Assistant
DX: S80.01XA Contusion of right knee, initial encounter (principal)
CPT/HCPCS: 73560; 73565; 99202

== ENCOUNTER 2022-03-07 08:27 | Outpatient (REF) | payer MEDICARE, MEDICAID, SELFPAY ==
--- NOTE | 2022-03-07 09:57 | PFT_ITS ---
This patient was sent for pulmonary function testing. The patient was unable to perform adequate maneuvers in spite of multiple efforts. So the test is considered as insufficient and invalid. MD PILLO Little/PJ / [phone]
== END 2022-03-07 08:28 | disposition home or self-care (01) ==
LOC: HO.RESP 08:27
PROVIDERS: PCP Internal Medicine; Visit Provider Internal Medicine
DX: Z13.89 Encounter for screening for other disorder (principal)

== ENCOUNTER 2022-04-18 09:54 | Outpatient (REF) | payer MEDICARE, MEDICAID, SELFPAY ==
--- NOTE | ~2022-04-18 | XR_ITS ---
EXAMINATION: XR ABDOMEN WITH DECUBITUS VIEWS CLINICAL INDICATION: Right upper quadrant pain COMPARISON: Previous [facility] April 2020 TECHNIQUE: Supine and upright views of the abdomen and pelvis FINDINGS: There is an air-fluid level projecting over the heart suggestive of an esophageal hernia. The lung bases are otherwise unremarkable. There are no dilated loops of bowel to suggest obstruction. There is no evidence of free air. No calcifications are seen. There are degenerative changes of the lower lumbar spine. XR/XR abdomen w decubitus IMPRESSION: Esophageal hernia. No evidence of obstruction or free air.
== END 2022-04-18 09:55 | disposition home or self-care (01) ==
LOC: HO.XRAY 09:54
PROVIDERS: PCP Internal Medicine; Visit Provider Nurse Practitioner
DX: R10.11 Right upper quadrant pain (principal); K44.9 Diaphragmatic hernia without obstruction or gangrene; K21.9 Gastro-esophageal reflux disease without esophagitis; K21.00 Gastro-esophageal reflux disease with esophagitis, without bleeding; K30 Functional dyspepsia; K64.9 Unspecified hemorrhoids
CPT/HCPCS: 74021; 99212

== ENCOUNTER 2022-04-22 08:54 | Outpatient (REF) | payer OTHER, SELFPAY ==
[2022-04-22 11:29] LABS: Anion Gap 16 (12-20); Blood Urea Nitrogen 18 mg/dL (9-16); Calcium 9.4 mg/dL (8.4-10.2); Carbon Dioxide 23 mmol/L (22-29); Chloride 107 mmol/L (96-108); Estimated Glomerular Filt Rate > 60; Glucose Fasting 107 mg/dL (60-99); Phosphorus 2.9 mg/dL (2.7-4.5); Potassium 4.2 mmol/L (3.3-5.1); Sodium 142 mmol/L (135-145)
[2022-04-22 11:38] LABS: Estimated Average Glucose 131 mg/dL; Hemoglobin A1c % 6.2 %
== END 2022-04-22 08:55 | disposition home or self-care (01) ==
LOC: HO.LAB 08:54
PROVIDERS: Internal Medicine Endocrinology, Diabetes & Metabolism; PCP Internal Medicine; Visit Provider Internal Medicine
DX: M81.0 Age-related osteoporosis without current pathological fracture (principal); R42 Dizziness and giddiness
CPT/HCPCS: 36415; 80048; 83036; 84100

== ENCOUNTER 2022-05-23 12:24 | Outpatient (REF) | payer OTHER, SELFPAY ==
[2022-05-23 13:40] LABS: Creatinine, mg/dL 13.86
[2022-05-23 14:52] LABS: Creatinine, 24Hr Urine 0.1 G/Day (1.0-2.0); Total Volume 24 Hour Urine 925 mL
[2022-05-24 18:47] LABS: Calcium, 24 Hr Urine 20 mg/24 h; Calcium/Creatinine Ratio 147 mg/g creat (30-275); Creatinine 24Hr Urine 0.14 g/24 h (0.50-2.15)
== END 2022-05-23 12:25 | disposition home or self-care (01) ==
LOC: HO.LNP 12:24
PROVIDERS: Visit Provider Internal Medicine Endocrinology, Diabetes & Metabolism
DX: M81.0 Age-related osteoporosis without current pathological fracture (principal)
CPT/HCPCS: 82340; 82570

== ENCOUNTER → 2022-05-24 08:52 | Outpatient (BNVA) | payer OTHER, SELFPAY | PROVIDERS: PCP Internal Medicine; Visit Provider Internal Medicine Endocrinology, Diabetes & Metabolism | DX: M81.0 Age-related osteoporosis without current pathological fracture (principal) | CPT/HCPCS: 99212 ==

== ENCOUNTER 2022-05-31 09:45 | Outpatient (REF) | payer OTHER, SELFPAY ==
--- NOTE | ~2022-05-31 | MM_ITS ---
EXAMINATION: MM SCREENING DIGITAL BREAST TOMOSYNTHESIS, BILATERAL CLINICAL INFORMATION: Screening. Asymptomatic. The lifetime risk of breast cancer based on the Tyrer-Cuzick Model is 2%. COMPARISON: Mammography: 05/29/2021, 04/17/2020, 10/10/2018 TECHNIQUE: Digital breast tomosynthesis is performed in both the craniocaudal and mediolateral oblique views along with computer-aided detection (CAD). Synthesized 2D images are generated from the tomosynthesis. Additional exaggerated left CC view is provided. FINDINGS: The breasts are heterogeneously dense, which may obscure small masses (ACR BI-RADS breast composition Category c). There are no significant masses, abnormal calcifications, or other abnormalities. There is fine fibronodular parenchymal pattern similar to prior studies. No developing density or interval architectural abnormality. No significant changes. MM/MM tomosynthesis screening BI IMPRESSION: No mammographic evidence of malignancy. ASSESSMENT: BI-RADS 1: Negative RECOMMENDATION: Routine annual mammography screening. This patient's information was entered into a reminder system with a target due date for their next mammogram.
== END 2022-05-31 09:46 | disposition home or self-care (01) ==
LOC: HO.MAMMO 09:45
PROVIDERS: Visit Provider Internal Medicine
DX: Z12.31 Encounter for screening mammogram for malignant neoplasm of breast (principal)
CPT/HCPCS: 77063; 77067

== ENCOUNTER 2022-06-01 06:33 | Emergency (ER) | payer OTHER, SELFPAY ==
[2022-06-01 07:23] VITALS: BP 154/79; PULSE 100; RESP 17; TEMP 36.1; O2SAT 97; BMI 28.0
[2022-06-01 07:39] LABS: MANUAL DIFF FLAG NO
[2022-06-01 07:40] LABS: Basophils Absolute Auto 0.1 X10*3/uL (0.0-0.2); Basophils Percent Auto 0.7 % (0-2); Eosinophils Absolute Auto 0.1 X10*3/uL (0.0-0.4); Eosinophils Percent Auto 1.8 % (0-4); Hematocrit 46.4 % (37.0-47.0); Hemoglobin 14.7 g/dl (12.0-16.0); Imm Gran Abs Auto 0.02 X10*3/uL (0.00-0.03); Imm Gran Pct Auto 0.3 % (0.0-0.4); Lymphocytes Absolute Auto 1.8 X10*3/uL (1.2-4.9); Lymphocytes Percent Auto 23.3 % (20-40); Mean Corpuscular HGB Conc 31.7 g/dl (31.0-35.0); Mean Corpuscular Hemoglobin 28.3 pg (27.0-33.0); Mean Corpuscular Volume 89.4 fL (80.0-98.0); Mean Platelet Volume 11.7 fL (9.4-12.3); Monocytes Absolute Auto 0.7 X10*3/uL (0.1-1.2); Monocytes Percent Auto 9.7 % (2-11); Neutrophils Absolute Auto 4.9 x10*3/uL (2.0-8.3); Neutrophils Percent Auto 64.2 % (45-73); Platelet Count 212 X10*3/uL (160-400); Red Blood Count 5.19 X10*6/uL (4.20-5.50); Red Cell Distribution Width 13.3 % (11.0-16.0); White Blood Count 7.6 X10*3/uL (4.8-10.8)
[2022-06-01 08:05] LABS: Troponin-I High Sensitivity < 3.5 ng/L (<3.5-17.0)
[2022-06-01 08:07] LABS: Alanine Aminotransferase 23 U/L (0-31); Albumin Level 4.1 g/dL (3.5-5.0); Alkaline Phosphatase 70 U/L (39-117); Anion Gap 18 (12-20); Aspartate Amino Transferase 26 U/L (5-31); Bilirubin Total 0.5 mg/dL (0.0-1.0); Blood Urea Nitrogen 12 mg/dL (9-16); Calcium 9.7 mg/dL (8.4-10.2); Carbon Dioxide 21 mmol/L (22-29); Chloride 107 mmol/L (96-108); Creatinine Clr Calc Pharmacy 46.7; Estimated Glomerular Filt Rate > 60; Glucose Random 144 mg/dL (60-115); Lipase 14 U/L (8-78); Potassium 5.1 mmol/L (3.3-5.1); Sodium 141 mmol/L (135-145); Total Protein 7.3 g/dL (6.5-8.0)
[2022-06-01 08:08] LABS: Appearance Urine Clear; Color Urine Yellow; Glucose Urine UA Negative (Negative); Leukocyte Esterase Urine Trace (Negative); Nitrite Urine Negative (Negative); PH 7.5 (5.0-9.0); Specific Gravity - Urine 1.015 (1.005-1.025); UMIC TRIGGER UACC YES; Urine Blood Negative (Negative); Urine Ketones Trace mg/dL (Negative); Urine Protein Negative (Neg-Trace)
--- NOTE | 2022-06-01 08:11 | ED.GENADULT ---
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 Patient states that she is having right upper quadrant abdominal pain and has been nauseous over the last 3 days. Patient states that she still has her gallbladder and has a history of GERD. Patient denies any dizziness, lightheadedness, vomiting, fever, chills, blurry vision, double vision, loss of vision, chest pain, difficulty breathing, shortness of breath, back pain, night sweats, pain with urination, increased urinary frequency, increased urinary urgency, blood in her urine or stool, syncope or a near syncopal episode, recent trauma or falls, bowel incontinence, bladder incontinence, bowel retention, bladder retention, or any other complaints at this time. Onset (ago): day(s) (3) Location: abdomen Radiation: non-radiation Severity: mild Severity scale (1-10): 3 Quality: dull Pain Consistency: constant Relieving factors: none Exacerbating factors: none Associated symptoms: denies other symptoms Treatments prior to arrival: none Related Data Home Medications Medication Instructions Recorded Confirmed acetaminophen 325 mg tablet mg PO 06/02/20 05/17/22 clobetasol 0.05 % topical ointment 1 applic topical BID 06/02/20 05/17/22 docusate sodium 100 mg capsule 100 mg PO BID 06/02/20 05/17/22 polyethylene glycol 3350 17 g PO 06/02/20 05/17/22 gram/dose oral powder hydroxyzine HCl 10 mg tablet 10 mg PO BEDTIME 10/24/21 05/17/22 Previous Rx's Medication Instructions Recorded fluticasone propionate 50 1 spray intranasal DAILY #48 mL 08/08/20 mcg/actuation nasal spray,suspension ondansetron 4 mg disintegrating 4 mg PO Q6H PRN nausea and 08/10/21 tablet vomiting #10 tabs omeprazole 40 mg capsule,delayed 40 mg PO DAILY 90 days #90 caps 09/03/21 release cholecalciferol (vitamin D3) 50 2,000 unit PO DAILY 90 days #90 03/02/22 mcg (2,000 unit) tablet (Vitamin tabs D3) atorvastatin 20 mg tablet 20 mg PO DAILY 90 days #90 tabs 10/29/21 sucralfate 1 gram tablet 2 g PO BEDTIME #60 tabs 01/18/22 ROLLATOR #1 ea 01/24/22 diclofenac sodium 1 % topical gel 4 g topical QID #100 grams 02/04/22 (Arthritis Pain (diclofenac)) blood pressure monitor (Blood #1 ea 02/19/22 Pressure Kit) dicyclomine 20 mg tablet 20 mg PO QID #360 tabs 03/11/22 hydrocortisone 2.5 % topical cream 1 appl MD BID hemorrhoids 30 days 04/18/22 with perineal applicator #30 grams (Proctosol HC) losartan 50 mg tablet 25 mg PO DAILY #90 tabs 05/17/22 ondansetron 4 mg disintegrating 4 mg PO Q8H 3 days #9 tabs 06/01/22 tablet Allergies Allergy/AdvReac Type Severity Reaction Status Date / Time lisinopril Allergy Unknown Unknown Verified 05/24/22 08:58 metoprolol Allergy Unknown Unknown Verified 05/24/22 08:58 solifenacin [Vesicare] Allergy Unknown Unknown Verified 05/24/22 08:58 NSAIDS (Non-Steroidal AdvReac Intermediate HTN Verified 05/24/22 08:58 Anti-Inflamma Review of Systems Constitutional: Constitutional: Reports no additional constitutional complaints, Denies chills, Denies fever(s) and Denies night sweats Eyes: Eyes: Reports no additional eye complaints, Denies blurry vision, Denies change in vision, Denies diplopia, Denies eye discharge, Denies loss of vision and Denies eye pain ENT: Denies dizziness Cardiovascular: Cardiovascular: Reports no additional cardiovascular complaints, Denies chest pain, Denies lightheadedness, Denies Loss of Consciousness and Denies dyspnea Respiratory: Respiratory: Reports no additional respiratory complaints and Denies dyspnea Gastrointestinal: Gastrointestinal: Reports no additional gastrointestinal complaints, Reports abdominal pain, Denies melena, Denies hematochezia, Denies change in bowel habits and Denies change in stool character Genitourinary: Genitourinary: Denies hematuria, Denies urinary frequency, Denies dysuria, Denies urinary incontinence, Denies urinary hesitancy and Denies urinary urgency Musculoskeletal: Musculoskeletal: Reports no additional musculoskeletal complaints, Denies numbness and Denies tingling Neurologic: Denies dizziness, Denies loss of vision, Denies numbness and Denies tingling Psychiatric: Psychiatric: Reports no additional psychiatric complaints Endocrine: Endocrine: Reports no additional endocrine complaints Hematologic/Lymphatic: Hematologic/Lymphatic: Reports no additional hematologic/lymphatic complaints Allergic/Immunologic: Allergic/Immunologic: Reports no additional allergic/immunologic complaints PMFSH Past Medical History Attestation statement: The following information was validated with the patient. Source: old records reviewed and obtained from family (daughter) Medical History Allergic conjunctivitis Cognitive impairment Diverticular disease Dizziness GERD (gastroesophageal reflux disease) History of DVT (deep vein thrombosis) History of renal calculi Insomnia Legally blind Obesity (BMI 30-39.9) Osteoarthritis Osteoporosis Peripheral vascular disease Vitamin D deficiency Surgical History History of cataract surgery History of eye surgery History of hemorrhoidectomy Hx of colonoscopy Family History Family History Father No problems noted. Mother No problems noted. Daughter Lymphoma Social History Social History Household Members: Spouse Housing: Apartment Alcohol intake: never Patient Tobacco Use Status: Never used Tobacco e-Cigarette/Vaping Use: Never Used Second Hand Smoke Exposure: No Advance Directives: No Advance Directives Information Provided: Yes service: No Current occupational status: retired Cognitive needs: No Hearing needs: No Vision needs: Yes Physical Exam ED Vital Signs: Vital Signs - 24 hr 06/01/22 07:23 Temperature 97.0 F Pulse Rate 100 Respiratory Rate 17 Blood Pressure 154/79 H Pulse Oximetry 97 Oxygen Delivery Method Room Air BMI result Body Mass Index 28.0 Const General: cooperative, no acute distress, alert and awake Nutritional Appearance: well nourished Orientation/consciousness: patient oriented x3 Limitations: no limitations HENMT Head: Yes normal to inspection and Yes atraumatic Ears: hearing grossly normal bilaterally and external ears normal General nose exam: Normal external nose present, no nasal discharge noted and no epistaxis Face and sinus: Yes normal facial exam, No abrasion and No laceration Mouth: Normal oral and palatal mucosa present, no drooling and no muffled voice Eyes General: appearance normal, both eyes and all related structures Periorbital: periorbital findings normal Eyelids: Yes eyelids normal Conjunctivae: conjunctivae normal Pupils: Equal, round and reactive pupils present EOM: EOMs intact bilaterally Neck Neck: Yes normal visual inspection, Yes full ROM and Yes no lymphadenopathy Chest Chest palpation & inspection: normal inspection of the chest Resp Effort & Inspection: normal respiratory effort and able to speak in complete sentences Auscultation: clear to auscultation bilaterally Cardio Rate: regular rate Rhythm: regular rhythm GI Inspection: Yes normal to inspection Palpation (GI): Soft to palpation, not firm, nontender, no guarding and not rigid Neuro General: patient oriented x3 and moves all extremities Cranial nerves: Yes Equal, round and reactive pupils present Cognition (Neuro): normal cognition Motor exam (neuro): 5/5 motor strength present throughout Sensory Exam: Normal double simultaneous stimulation for sensation Coordination: [id number] test normal Extrem General: Yes normal to inspection, Yes full ROM and Yes capillary refill normal Psych Appearance: grossly normal Mental Status: mental status grossly normal Affect: normal affect Attitude: cooperative Thought process: Normal thought process present Thought content: Normal thought content present Insight: Good insight present (Psych) Medical Decision Making MDM Narrative Medical decision making narrative: Patient is a 77 year old female presenting to the emergency department today with abdominal pain. Patient's physical exam was unremarkable. Patient's blood work was unremarkable. Patient's urine showed no acute process. Patient's EKG was unremarkable. Patient's gallbladder US showed no acute process. I explained my physical exam findings as well as all test results to the patient and the patient's daughter. I answered all questions asked by the patient and the patient's daughter. I stressed the importance of the patient taking her medication as prescribed. I stressed the importance of the patient following up with her primary care provider and a GI specialist. I stressed the importance of the patient returning to the emergency department immediately if her symptoms were to worsen or if she were to develop any dizziness, shortness of breath, difficulty breathing, chest pain, blurry vision, loss of vision, nausea, vomiting, abdominal pain, fever, chills, back pain, or any other complaints. Patient and the patient's daughter verbalized agreement and understanding with this treatment plan and discharge. Lab Data Lab results reviewed: Yes I reviewed the patient's lab results. Result diagrams: 06/01/22 07:34 06/01/22 07:34 Labs: Lab Results 06/01/22 06/01/22 06/01/22 Range/Units 07:34 07:34 07:34 WBC 7.6 (4.8-10.8) X10*3/uL RBC 5.19 (4.20-5.50) X10*6/uL Hgb 14.7 (12.0-16.0) g/dl Hct 46.4 (37.0-47.0) % MCV 89.4 (80.0-98.0) fL MCH 28.3 (27.0-33.0) pg MCHC 31.7 (31.0-35.0) g/dl RDW 13.3 (11.0-16.0) % Plt Count 212 (160-400) X10*3/uL MPV 11.7 (9.4-12.3) fL Immature Gran % (Auto) 0.3 (0.0-0.4) % Neut % (Auto) 64.2 (45-73) % Lymph % (Auto) 23.3 (20-40) % [place] % (Auto) 9.7 (2-11) % Eos % (Auto) 1.8 (0-4) % Baso % (Auto) 0.7 (0-2) % Lymph # (Auto) 1.8 (1.2-4.9) X10*3/uL [place] # (Auto) 0.7 (0.1-1.2) X10*3/uL Eos # (Auto) 0.1 (0.0-0.4) X10*3/uL Baso # (Auto) 0.1 (0.0-0.2) X10*3/uL Abs Immat Gran (auto) 0.02 (0.00-0.03) X10*3/uL Absolute Neuts (auto) 4.9 (2.0-8.3) x10*3/uL Absolute Nucleated RBC 0.000 (0.0-0.012) X10*3/uL Nucleated RBC % (auto) 0.0 (0.0-0.2) /100WBC Sodium 141 (135-145) mmol/L Potassium 5.1 D (3.3-5.1) mmol/L Chloride 107 (96-108) mmol/L Carbon Dioxide 21 L (22-29) mmol/L Anion Gap 18 (12-20) BUN 12 (9-16) mg/dL Creatinine 0.90 (0.5-1.4) mg/dL Estim Creat Clear Calc 46.7 Estimated GFR > 60 Random Glucose 144 H (60-115) mg/dL Calcium 9.7 (8.4-10.2) mg/dL Total Bilirubin 0.5 (0.0-1.0) mg/dL AST 26 (5-31) U/L ALT 23 (0-31) U/L Alkaline Phosphatase 70 (39-117) U/L Troponin I High Sens < 3.5 (<3.5-17.0) ng/L Total Protein 7.3 (6.5-8.0) g/dL Albumin 4.1 (3.5-5.0) g/dL Lipase 14 (8-78) U/L Urine Color Urine Appearance Urine pH (5.0-9.0) Ur Specific [place] (1.005-1.025) Urine Protein (Neg-Trace) mg/dL Urine Glucose (UA) (Negative) mg/dL Urine Ketones (Negative) mg/dL Urine Blood (Negative) Urine Nitrite (Negative) Ur Leukocyte Esterase (Negative) Urine RBC (0-2) /HPF Urine WBC (0-5) /HPF Ur Squamous Epith Cells (0-2) /HPF Urine Bacteria (None Seen) Hyaline Casts (0-2) /LPF COVID-19 (ANJUM) (Negative) COVID-19 Clin Com 06/01/22 06/01/22 Range/Units 07:42 08:34 WBC (4.8-10.8) X10*3/uL RBC (4.20-5.50) X10*6/uL Hgb (12.0-16.0) g/dl Hct (37.0-47.0) % MCV (80.0-98.0) fL MCH (27.0-33.0) pg MCHC (31.0-35.0) g/dl RDW (11.0-16.0) % Plt Count (160-400) X10*3/uL MPV (9.4-12.3) fL Immature Gran % (Auto) (0.0-0.4) % Neut % (Auto) (45-73) % Lymph % (Auto) (20-40) % [place] % (Auto) (2-11) % Eos % (Auto) (0-4) % Baso % (Auto) (0-2) % Lymph # (Auto) (1.2-4.9) X10*3/uL [place] # (Auto) (0.1-1.2) X10*3/uL Eos # (Auto) (0.0-0.4) X10*3/uL Baso # (Auto) (0.0-0.2) X10*3/uL Abs Immat Gran (auto) (0.00-0.03) X10*3/uL Absolute Neuts (auto) (2.0-8.3) x10*3/uL Absolute Nucleated RBC (0.0-0.012) X10*3/uL Nucleated RBC % (auto) (0.0-0.2) /100WBC Sodium (135-145) mmol/L Potassium (3.3-5.1) mmol/L Chloride (96-108) mmol/L Carbon Dioxide (22-29) mmol/L Anion Gap (12-20) BUN (9-16) mg/dL Creatinine (0.5-1.4) mg/dL Estim Creat Clear Calc Estimated GFR Random Glucose (60-115) mg/dL Calcium (8.4-10.2) mg/dL Total Bilirubin (0.0-1.0) mg/dL AST (5-31) U/L ALT (0-31) U/L Alkaline Phosphatase (39-117) U/L Troponin I High Sens (<3.5-17.0) ng/L Total Protein (6.5-8.0) g/dL Albumin (3.5-5.0) g/dL Lipase (8-78) U/L Urine Color Yellow Urine Appearance Clear Urine pH 7.5 (5.0-9.0) Ur Specific [place] 1.015 (1.005-1.025) Urine Protein Negative (Neg-Trace) mg/dL Urine Glucose (UA) Negative (Negative) mg/dL Urine Ketones Trace (Negative) mg/dL Urine Blood Negative (Negative) Urine Nitrite Negative (Negative) Ur Leukocyte Esterase Trace H (Negative) Urine RBC 0-2 (0-2) /HPF Urine WBC 0-5 (0-5) /HPF Ur Squamous Epith Cells 0-2 (0-2) /HPF Urine Bacteria None Seen (None Seen) Hyaline Casts 0-2 (0-2) /LPF COVID-19 (ANJUM) Negative (Negative) COVID-19 Clin Com See Note Imaging Data US - abdomen: Attestation: I personally reviewed and interpreted this imaging study as follows: My impression: No acute process. Radiologist's impression: EXAMINATION: US ABDOMEN LIMITED CLINICAL INFORMATION: Right upper quadrant abdominal pain. Evaluate gallbladder. COMPARISON: Abdominal radiographs dated 04/18/2022 and abdominal ultrasound dated 05/02/2021. TECHNIQUE: Real-time imaging of the right upper quadrant abdominal viscera. FINDINGS: PANCREAS: Unremarkable. LIVER: The liver is normal in size. The liver contour is normal. Increased hepatic parenchymal echogenicity. No focal hepatic lesion. There is no intrahepatic biliary duct dilatation seen. GALLBLADDER: Unremarkable. The gallbladder is physiologically distended without evidence of stones, sludge, polyps, wall thickening or pericholecystic fluid. COMMON BILE DUCT: Normal in caliber measuring 0.5 cm in diameter. RIGHT KIDNEY: Normal. No hydronephrosis. No renal calculi or focal parenchymal lesions. The kidney measures 9.0 cm in maximum dimension. FREE FLUID: None. US/US abdomen limited IMPRESSION: No cholelithiasis, gallbladder wall thickening, or pericholecystic free fluid to suggest acute cholecystitis. ? Increased hepatic parenchymal echogenicity, which can be seen in the setting of steatosis. Underlying hepatocellular disease cannot be excluded. No hepatic parenchymal lesion or biliary ductal dilatation. Dictated By: Cheng Willett MD Signed By: Electronically signed by Cheng Willett MD 06/01/22 0908 ECG Data Attestation: I personally reviewed and interpreted this ECG as follows: Prior ECG tracings: available for review Interpretation: Vent. Rate: 094 BPM ? ? Atrial Rate: 094 BPM P-R Int: 128 ms? QRS Dur: 064 ms QT Int: 366 ms ? ? ? P-R-T Axes: 073 060 052 degrees QTc Int: 457 ms ? Normal sinus rhythm Normal ECG When compared with ECG of 19-APR-2021 13:29, No significant change was found Electronically Signed By:LION GOLDBERG MD Dictated By: Rolf Goldberg MD Signed By: Electronically signed by Rolf Goldberg MD 06/01/22 0855 Discharge Plan Discharge Clinical Impression: Chronic GERD Patient Disposition: Home, Self-Care Instructions: Gastroesophageal Reflux Disease (ED) Additional Instructions: Follow up with your primary care provider and your GI specialist. Return to the emergency department immediately if your symptoms worsen or if you develop any dizziness, shortness of breath, difficulty breathing, chest pain, blurry vision, loss of vision, nausea, vomiting, abdominal pain, fever, chills, back pain, or any other complaints. Prescriptions: New ondansetron 4 mg tablet,disintegrating 4 mg PO Q8H 3 Days Qty: 9 0RF No Action fluticasone propionate 50 mcg/actuation spray,suspension 1 spray intranasal DAILY Qty: 48 5RF omeprazole 40 mg capsule,delayed release(DR/EC) 40 mg PO DAILY 90 Days Qty: 90 2RF atorvastatin 20 mg tablet 20 mg PO DAILY 90 Days Qty: 90 2RF sucralfate 1 gram tablet 2 g PO BEDTIME Qty: 60 3RF Hold Instructions: Doctor's Order (DME) ROLLATOR See Rx Instructions .Route .MEDSUPPLY Qty: 1 0RF Rx Instructions: As directed (DME) blood pressure monitor [Blood Pressure Kit] Kit See Rx Instructions .ROUTE .MEDSUPPLY Qty: 1 0RF Rx Instructions: As directed dicyclomine 20 mg tablet 20 mg PO QID Qty: 360 1RF ondansetron 4 mg tablet,disintegrating 4 mg PO Q6H PRN (Reason: nausea and vomiting) Qty: 10 0RF polyethylene glycol 3350 17 gram/dose powder PO docusate sodium 100 mg capsule 100 mg PO BID acetaminophen 325 mg tablet PO clobetasol 0.05 % ointment 1 applic topical BID diclofenac sodium [Arthritis Pain (diclofenac)] 1 % gel 4 g topical QID Qty: 100 4RF Rx Instructions: apply to single knee, ankle, foot; for foot includes sole/toes/top of foot losartan 50 mg tablet 25 mg PO DAILY Qty: 90 2RF hydroxyzine HCl 10 mg tablet 10 mg PO BEDTIME cholecalciferol (vitamin D3) [Vitamin D3] 50 mcg (2,000 unit) tablet 2,000 unit PO DAILY 90 Days Qty: 90 3RF hydrocortisone [Proctosol HC] 2.5 % cream with perineal applicator 1 appl MD BID 30 Days Qty: 30 6RF Referrals: [facility] [Provider Group] Susana Jean MD [Primary Care Provider] - Interventions: ED Discharge Assessment Last Done: 06/01/22 09:37 Print Language: Nigerien
[2022-06-01 08:13] LABS: Bacteria Urine None Seen (None Seen); Hyaline Casts Urine 0-2 /LPF (0-2); RBC Urine 0-2 /HPF (0-2); Squamous Epithelial Cell Urine 0-2 /HPF (0-2); WBC Urine 0-5 /HPF (0-5)
[2022-06-01 08:56] LABS: COVID-19 Test Negative (Negative); IDNOW Serial# 55D5AD1C
== END 2022-06-01 09:41 | disposition home or self-care (01) ==
PROVIDERS: Physician Assistant Medical; Emergency Provider Emergency Medicine; PCP Internal Medicine
DX: K21.9 Gastro-esophageal reflux disease without esophagitis (principal); R10.11 Right upper quadrant pain; Z20.822 Contact with and (suspected) exposure to COVID-19; I10 Essential (primary) hypertension; E78.5 Hyperlipidemia, unspecified; Z79.02 Long term (current) use of antithrombotics/antiplatelets; Z79.899 Other long term (current) drug therapy
CPT/HCPCS: 36415; 76705; 80053; 81001; 81003; 83690; 84484; 85025; 87635; 93005; 99284

== ENCOUNTER 2022-07-08 09:48 | Emergency (ER) | payer OTHER, MEDICAID, SELFPAY ==
--- NOTE | ~2022-07-08 | XR_ITS ---
EXAMINATION: XR HAND, RIGHT CLINICAL INFORMATION: Index finger pain. COMPARISON: None TECHNIQUE: PA, lateral, and oblique views of the right hand. FINDINGS: The bones and soft tissues are normal. No fracture. Alignment is anatomic. Joint spaces are maintained. No erosions or soft tissue calcifications. Dressing material overlaps the index finger. Underlying soft tissue swelling is suspected. XR/XR hand RT 2V IMPRESSION: No fracture, dislocation or foreign body is seen. There is soft tissue swelling of the right index finger.
[2022-07-08 10:18] VITALS: BP 159/77; PULSE 105; RESP 18; TEMP 36.6; O2SAT 98; BMI 25.7
--- NOTE | 2022-07-08 11:42 | ED_ITS ---
HPI - Extremity Problem General Chief complaint: Extremity Injury, Upper Stated complaint: Infected finger Time Seen by Provider: 07/08/22 11:17 Source: patient Mode of arrival: ambulatory Limitations: no limitations History of Present Illness HPI Narrative: Patient is a 77-year-old female who presents to the emergency department for evaluation of redness and swelling surrounding the nail of her right 2nd finger. Onset of symptoms was 2 days ago. States that she had just got done washing the dishes and was shaking her hands to dry them off when she struck the finger against the counter. She has since developed redness, swelling, and what appears to be pus along the edge of the nail bed. She is able to completely extend and flex the digit though it is painful to do so. Denies any prior injury to this digit. Denies any fevers or chills. Related Data Home Medications Medication Instructions Recorded Confirmed acetaminophen 325 mg tablet mg PO 06/02/20 05/17/22 clobetasol 0.05 % topical ointment 1 applic topical BID 06/02/20 05/17/22 docusate sodium 100 mg capsule 100 mg PO BID 06/02/20 05/17/22 polyethylene glycol 3350 17 g PO 06/02/20 05/17/22 gram/dose oral powder hydroxyzine HCl 10 mg tablet 10 mg PO BEDTIME 10/24/21 05/17/22 Previous Rx's Medication Instructions Recorded fluticasone propionate 50 1 spray intranasal DAILY #48 mL 08/08/20 mcg/actuation nasal spray,suspension cholecalciferol (vitamin D3) 50 2,000 unit PO DAILY 90 days #90 10/24/21 mcg (2,000 unit) tablet (Vitamin tabs D3) atorvastatin 20 mg tablet 20 mg PO DAILY 90 days #90 tabs 10/29/21 sucralfate 1 gram tablet 2 g PO BEDTIME #60 tabs 01/18/22 ROLLATOR #1 ea 01/24/22 blood pressure monitor (Blood #1 ea 02/19/22 Pressure Kit) dicyclomine 20 mg tablet 20 mg PO QID #360 tabs 03/11/22 hydrocortisone 2.5 % topical cream 1 appl NE BID hemorrhoids 30 days 04/18/22 with perineal applicator #30 grams (Proctosol HC) losartan 50 mg tablet 25 mg PO DAILY #90 tabs 05/17/22 ondansetron 4 mg disintegrating 4 mg PO Q8H 3 days #9 tabs 06/01/22 tablet omeprazole 40 mg capsule,delayed 40 mg PO DAILY 90 days #90 caps 06/13/22 release diclofenac sodium 1 % topical gel 4 g topical QID #100 grams 07/06/22 (Arthritis Pain (diclofenac)) cephalexin 500 mg capsule 500 mg PO QID 7 days #28 caps 07/08/22 Allergies Allergy/AdvReac Type Severity Reaction Status Date / Time lisinopril Allergy Unknown Unknown Verified 05/24/22 08:58 metoprolol Allergy Unknown Unknown Verified 05/24/22 08:58 solifenacin [Vesicare] Allergy Unknown Unknown Verified 05/24/22 08:58 NSAIDS (Non-Steroidal AdvReac Intermediate HTN Verified 05/24/22 08:58 Anti-Inflamma Review of Systems Review of Systems: Constitutional: No weight loss, fever, chills, weakness or fatigue. Skin: No rash or itching. Cardiovascular: No chest pain, chest pressure or chest discomfort. No palpitations Respiratory: No shortness of breath, cough or sputum production. Gastrointestinal: No nausea, vomiting or diarrhea. No abdominal pain Genitourinary: No burning micturition. No urinary frequency or incontinence. Musculoskeletal: Right 2nd digit pain and swelling as noted in HPI Psychiatric: No depression or anxiety. Yes all other systems are reviewed and are negative [facility] Past Medical History Attestation statement: The following information was validated with the patient. Source: old records reviewed Medical History Allergic conjunctivitis Cognitive impairment Diverticular disease Dizziness GERD (gastroesophageal reflux disease) History of DVT (deep vein thrombosis) History of renal calculi Insomnia Legally blind Obesity (BMI 30-39.9) Osteoarthritis Osteoporosis Peripheral vascular disease Vitamin D deficiency Surgical History History of cataract surgery History of eye surgery History of hemorrhoidectomy Hx of colonoscopy Family History Family History Father No problems noted. Mother No problems noted. Daughter Lymphoma Social History Social History Household Members: Spouse Housing: Apartment Alcohol intake: never Patient Tobacco Use Status: Never used Tobacco e-Cigarette/Vaping Use: Never Used Second Hand Smoke Exposure: No Advance Directives: No Advance Directives Information Provided: No service: No Current occupational status: retired Cognitive needs: No Hearing needs: No Vision needs: Yes Physical Exam Vital Signs: Vital Signs: Last Vital Signs Temp 98 F 07/08/22 10:18 Pulse 105 H 07/08/22 10:18 Resp 18 07/08/22 10:18 BP 159/77 H 07/08/22 10:18 Pulse Ox 98 07/08/22 10:18 O2 Del Method 07/08/22 10:18 BMI result Body Mass Index 25.7 Appearance: Alert.?Oriented to person, place and time. No acute distress.?Normal affect. Eyes: Pupils equal, round and reactive to light.? Neck: Normal inspection.? Neck supple.?? CVS: Heart sounds normal. Normal heart rate and rhythm.? Pulses normal.?? Respiratory: No respiratory distress.? Lung sounds clear to auscultation bilaterally?? Abdomen: Soft and non-tender. Normoactive bowel sounds. ? Skin: Skin warm and dry.? Normal skin color.? Extremities: No lower extremity edema.? Right 2nd digit with erythema, swelling, and purulent appearing drainage beneath the skin along the radial aspect of the nail bed. Full flexion and extension to the fingers present though it is painful Neuro: Moves all extremities spontaneously. Sensation intact bilaterally. No focal neuro deficits. Ambulates with normal steady gait. Course Course Course Narrative: Patient is a 77-year-old female with a past medical history of HTN, GERD, DVT, osteoarthritis, osteoporosis, PVD who presents to the emergency department for evaluation of right 2nd digit swelling, and erythema with pain. After traumatic injury. Obtained XR imaging to exclude fracture dislocation, results reveal no acute fracture dislocation. Full flexion and extension are present, son per consistent with tenosynovitis. Physical examination was consistent with paronychia, purulent material drained with needle aspiration under aseptic technique, tolerated procedure well. Discussed plan of care for discharge home, prescription for antibiotics sent to pharmacy, advised outpatient follow-up with primary care provider within 2 days. Reviewed worsening signs symptoms to return back to emergency department for. All questions answered, discharged home in stable condition. Medications Administered Discontinued Medications Generic Name Dose Route Start Last Admin Trade Name Sagrario PRN Reason Stop Dose Admin Lidocaine HCl 1 appl 07/08/22 11:46 07/08/22 11:58 Lidocaine 4 % Cream Kit TOPICAL 07/08/22 11:47 1 appl ONCE ONE Administration Protocol MDM - Extremity (Nontraumatic) Medical Records Attestation: I reviewed the patient's medical records. Imaging Data XR hand: Radiologist's impression: XR/XR hand RT 2V IMPRESSION: No fracture, dislocation or foreign body is seen. There is soft tissue swelling of the right index finger. Discharge Plan Discharge Clinical Impression: Paronychia of finger of right hand Patient Disposition: Home, Self-Care Instructions: Paronychia (ED) Additional Instructions: Take entire course of antibiotics as prescribed Cleanse the finger with warm water and mild non scented soap twice daily. Apply warm compresses to the skin 10-15 minutes 3-4 times daily Return to emergency department any new or worsening symptoms or concerns Follow-up with primary care provider within 3 days. Prescriptions: New cephalexin 500 mg capsule 500 mg PO QID 7 Days Qty: 28 0RF No Action fluticasone propionate 50 mcg/actuation spray,suspension 1 spray intranasal DAILY Qty: 48 5RF atorvastatin 20 mg tablet 20 mg PO DAILY 90 Days Qty: 90 2RF sucralfate 1 gram tablet 2 g PO BEDTIME Qty: 60 3RF Hold Instructions: Doctor's Order (DME) ROLLATOR See Rx Instructions .Route .MEDSUPPLY Qty: 1 0RF Rx Instructions: As directed (DME) blood pressure monitor [Blood Pressure Kit] Kit See Rx Instructions .ROUTE .MEDSUPPLY Qty: 1 0RF Rx Instructions: As directed dicyclomine 20 mg tablet 20 mg PO QID Qty: 360 1RF omeprazole 40 mg capsule,delayed release(DR/EC) 40 mg PO DAILY 90 Days Qty: 90 2RF diclofenac sodium [Arthritis Pain (diclofenac)] 1 % gel 4 g topical QID Qty: 100 4RF Rx Instructions: apply to single knee, ankle, foot; for foot includes sole/toes/top of foot ondansetron 4 mg tablet,disintegrating 4 mg PO Q8H 3 Days Qty: 9 0RF polyethylene glycol 3350 17 gram/dose powder PO docusate sodium 100 mg capsule 100 mg PO BID acetaminophen 325 mg tablet PO clobetasol 0.05 % ointment 1 applic topical BID losartan 50 mg tablet 25 mg PO DAILY Qty: 90 2RF hydroxyzine HCl 10 mg tablet 10 mg PO BEDTIME cholecalciferol (vitamin D3) [Vitamin D3] 50 mcg (2,000 unit) tablet 2,000 unit PO DAILY 90 Days Qty: 90 3RF hydrocortisone [Proctosol HC] 2.5 % cream with perineal applicator 1 appl NE BID 30 Days Qty: 30 6RF Referrals: Po,Susana Page MD [Primary Care Provider] - Interventions: ED Discharge Assessment Last Done: 07/08/22 14:54 Discharge Date/Time: 07/08/22 14:56
[2022-07-08] MEDS: Lidocaine 4 % Cream KIT 1 APPL TOPICAL (11:58)
== END 2022-07-08 14:56 | disposition home or self-care (01) ==
PROVIDERS: Emergency Provider Emergency Medicine Emergency Medical Services; PCP Internal Medicine
DX: L03.011 Cellulitis of right finger (principal); I10 Essential (primary) hypertension
CPT/HCPCS: 10160; 73120; 99283

== ENCOUNTER → 2022-07-25 11:15 | Outpatient (BNVA) | payer OTHER, MEDICAID, SELFPAY | PROVIDERS: PCP Internal Medicine; Referring Provider Internal Medicine; Visit Provider Nurse Practitioner | DX: K30 Functional dyspepsia (principal); K64.9 Unspecified hemorrhoids; K21.00 Gastro-esophageal reflux disease with esophagitis, without bleeding; R41.89 Other symptoms and signs involving cognitive functions and awareness | CPT/HCPCS: 99212 ==

== ENCOUNTER → 2022-11-13 09:27 | Outpatient (BNVA) | payer OTHER, MEDICAID, SELFPAY | PROVIDERS: PCP Internal Medicine; Referring Provider Internal Medicine; Visit Provider Nurse Practitioner | DX: R10.11 Right upper quadrant pain (principal); K21.00 Gastro-esophageal reflux disease with esophagitis, without bleeding; K30 Functional dyspepsia; K59.00 Constipation, unspecified; I10 Essential (primary) hypertension; R41.89 Other symptoms and signs involving cognitive functions and awareness; R55 Syncope and collapse | CPT/HCPCS: 99212 ==

== ENCOUNTER 2022-11-14 08:31 | Outpatient (REF) | payer OTHER, MEDICAID, SELFPAY ==
--- NOTE | 2022-11-14 08:42 | ECG_ITS ---
Test Reason : syncope Blood Pressure : / mmHG Vent. Rate : 098 BPM Atrial Rate : 098 BPM P-R Int : 136 ms QRS Dur : 064 ms QT Int : 358 ms P-R-T Axes : 079 052 063 degrees QTc Int : 457 ms Normal sinus rhythm Nonspecific T wave abnormality Abnormal ECG When compared with ECG of 01-JUN-2022 07:29, No significant change was found Referred By: Jaycee Paz Electronically Signed By:NESHA PEREZ MD
[2022-11-14 08:45] LABS: MANUAL DIFF FLAG NO
[2022-11-14 09:03] LABS: Basophils Absolute Auto 0.1 X10*3/uL (0.0-0.2); Basophils Percent Auto 0.8 % (0-2); Eosinophils Absolute Auto 0.3 X10*3/uL (0.0-0.4); Eosinophils Percent Auto 3.6 % (0-4); Hematocrit 44.4 % (37.0-47.0); Hemoglobin 14.1 g/dl (12.0-16.0); Imm Gran Abs Auto 0.02 X10*3/uL (0.00-0.03); Imm Gran Pct Auto 0.3 % (0.0-0.4); Lymphocytes Absolute Auto 2.5 X10*3/uL (1.2-4.9); Lymphocytes Percent Auto 31.7 % (20-40); Mean Corpuscular HGB Conc 31.8 g/dl (31.0-35.0); Mean Corpuscular Hemoglobin 28.4 pg (27.0-33.0); Mean Corpuscular Volume 89.5 fL (80.0-98.0); Mean Platelet Volume 11.5 fL (9.4-12.3); Monocytes Absolute Auto 0.8 X10*3/uL (0.1-1.2); Monocytes Percent Auto 10.4 % (2-11); Neutrophils Absolute Auto 4.1 x10*3/uL (2.0-8.3); Neutrophils Percent Auto 53.2 % (45-73); Platelet Count 217 X10*3/uL (160-400); Red Blood Count 4.96 X10*6/uL (4.20-5.50); Red Cell Distribution Width 13.2 % (11.0-16.0); White Blood Count 7.8 X10*3/uL (4.8-10.8)
[2022-11-14 09:43] LABS: Alanine Aminotransferase 24 U/L (0-31); Albumin Level 3.9 g/dL (3.5-5.0); Alkaline Phosphatase 82 U/L (39-117); Anion Gap 12 (12-20); Aspartate Amino Transferase 20 U/L (5-31); Bilirubin Total 0.5 mg/dL (0.0-1.0); Blood Urea Nitrogen 16 mg/dL (9-16); Calcium 9.4 mg/dL (8.4-10.2); Carbon Dioxide 27 mmol/L (22-29); Chloride 109 mmol/L (96-108); Estimated Glomerular Filt Rate > 60; Glucose Random 119 mg/dL (60-115); Potassium 4.5 mmol/L (3.3-5.1); Sodium 143 mmol/L (135-145); Total Protein 6.7 g/dL (6.5-8.0)
[2022-11-14 10:02] LABS: TSH reflex Free T4 2.48 uIU/mL (0.32-4.0)
== END 2022-11-14 08:32 | disposition home or self-care (01) ==
LOC: HO.LAB 08:31
PROVIDERS: PCP Internal Medicine; Visit Provider Nurse Practitioner
DX: K59.00 Constipation, unspecified (principal); R41.89 Other symptoms and signs involving cognitive functions and awareness; R55 Syncope and collapse; I10 Essential (primary) hypertension
CPT/HCPCS: 36415; 80053; 84443; 85025; 93005

== ENCOUNTER → 2022-12-18 09:22 | Outpatient (BNVA) | payer OTHER, MEDICAID, SELFPAY | PROVIDERS: PCP Internal Medicine; Visit Provider Nurse Practitioner | DX: K59.00 Constipation, unspecified (principal); K21.00 Gastro-esophageal reflux disease with esophagitis, without bleeding; K30 Functional dyspepsia; K44.9 Diaphragmatic hernia without obstruction or gangrene; R10.11 Right upper quadrant pain; R41.89 Other symptoms and signs involving cognitive functions and awareness; R55 Syncope and collapse | CPT/HCPCS: 99212 ==

== ENCOUNTER 2023-03-13 09:33 | Outpatient (AMB) | payer OTHER, MEDICAID, SELFPAY ==
[2023-03-13 09:44] VITALS: BP 144/78; PULSE 77; O2SAT 97; BMI 29.9
--- NOTE | 2023-03-13 09:44 | MHC.PC.OV ---
Vital Signs 03/13/23 09:44 03/13/23 10:05 Height 5 ft Weight 153 lb BMI 29.9 BP 144/78 H 126/70 Blood Pressure Location Lt brachial Lt brachial Position Sitting Sitting Pulse 77 Pulse Source Pulse Oximeter Pulse Oximetry (%) 97 Oxygen Delivery Method Room Air Intake Visit Reasons: 3 month f/u, Rash in vaginal itch Allergies lisinopril Allergy (Unknown, Verified 03/13/23 09:44) Unknown metoprolol Allergy (Unknown, Verified 03/13/23 09:44) Unknown solifenacin [Vesicare] Allergy (Unknown, Verified 03/13/23 09:44) Unknown NSAIDS (Non-Steroidal Anti-Inflamma Adverse Reaction (Intermediate, Verified 03/13/23 09:44) HTN Medication List - Last Reconciled 03/13/23 by Susana Page Po, atorvastatin 20 mg PO DAILY 90 days blood pressure monitor (Blood Pressure Kit) As directed cholecalciferol (vitamin D3) (Vitamin D3) 50 mcg PO DAILY diclofenac sodium 1% (Voltaren Arthritis Pain) 4 grams topical QID fluticasone propionate 50 mcg/actuation 1 spray intranasal DAILY losartan 50 mg PO DAILY omeprazole 40 mg PO DAILY 90 days [ROLLATOR As directed] sennosides-docusate sodium 8.6-50 mg (Senna Plus) 2 tab-caps (2 x 8.6-50 mg) PO BEDTIME sucralfate (Carafate) 1 g PO BID Tobacco use date assessed: 11/27/22 Fall risk assessment: No Falls in past year Last assessed Fall Risk: 03/13/23 Dental Screening Dental Screen Date: 03/13/23 Did you have a dental visit in the last 12 months?: Yes Did you have a dental problem in the last 6 months where you did not have access to dental care?: No Was dental information given to patient?: Patient has dentist HPI 3 month f/u HPI Details 78-year-old overweight female with impaired glucose tolerance hypercholesterolemia GERD coming in for follow-up. November last seen up-to-date with colonoscopy mammogram and bone density. Patient complains of right upper quadrant pain seen gastroenterology HIDA scan requested. patient wants the hida scan now. On further examination patient complains of having irregular bowel movements and has to hemorrhoids also and so complaining of having the constipation problem. Patient then has complained of bilateral knee pains as well as the shoulder denies any fall or trauma and was having problems with pain. Patient also has complained of stomach pains in which patient was given medication to coat the stomach but was taken away and she wants it. She knows she has long time GERD problem [facility] Medical History (Updated 03/13/23 @ 10:19 by Susana Jean MD) Allergic conjunctivitis Cervicalgia Cognitive impairment Constipation Contusion of right knee Cough Diverticular disease Dizziness Dizziness Frequent headaches GERD (gastroesophageal reflux disease) History of DVT (deep vein thrombosis) History of renal calculi Insomnia Legally blind Obesity (BMI 30-39.9) Osteoarthritis Osteoporosis Peripheral vascular disease Sinus congestion Vitamin D deficiency Surgical History History of cataract surgery History of eye surgery History of hemorrhoidectomy Hx of colonoscopy Family History Father No problems noted. Mother No problems noted. Daughter Lymphoma Social History Household Members: Spouse Housing: Apartment Alcohol intake: never Patient Tobacco Use Status: Never used Tobacco e-Cigarette/Vaping Use: Never Used Second Hand Smoke Exposure: No service: No Current occupational status: retired Cognitive needs: No Hearing needs: No Vision needs: Yes Questionnaire PHQ-9 Over the last 2 weeks, how often have you been bothered by any of the following problems? 1. Little interest or pleasure in doing things: not at all 2. Feeling down, depressed, or hopeless: not at all 3. Trouble falling or staying asleep, or sleeping too much: not at all 4. Feeling tired or having little energy: not at all 5. Poor appetite or overeating: not at all 6. Feeling bad about yourself - or that you are a failure or have let yourself or your family down: not at all 7. Trouble concentrating on things, such as reading the newspaper or watching television: not at all 8. Moving or speaking so slowly that other people could have noticed. Or the opposite - being so fidgety or restless that you have been moving around a lot more than usual: not at all 9. Thoughts that you would be better off or of hurting yourself in some way: not at all Total score: 0 Depression Screening Interpretation: Negative Source: Developed by Drs. Hernan Blue, Rama Vivar, Chip Fong and colleagues, with an educational lottie from [employer]. Thrive Questionnaire Date Thrive assessed: 11/27/22 AUDIT C Alcohol Use Questionnaire (AUDIT-C) 1. How often do you have a drink containing alcohol?: Never 2. How many drinks containing alcohol do you have on a typical day when you are drinking?: 1 or 2 3. How often do you have six or more drinks on one occasion?: Never Total Score: 0 Score Reviewed/Action Taken: No SHYAM-7 AMB Questionnaire SHYAM-7 Date SHYAM - 7 assessed: 11/27/22 Source: Developed by Drs. Hernan Blue, Rama Vivar, Chip Fong and colleagues, with an educational lottie from [employer]. Physical exam (Primary Care) Vital Signs: Last Vital Signs Pulse 77 03/13/23 09:44 BP 144/78 H 03/13/23 09:44 Pulse Ox 97 03/13/23 09:44 Oxygen Delivery Method Room Air 03/13/23 09:44 BMI result Body Mass Index 29.9 Tobacco/Smoking Status: Tobacco use Status Tobacco use date assessed 11/27/22 03/13/23 09:53 Patient Tobacco Use Status Never used Tobacco 03/13/23 09:53 e-Cigarette/Vaping Use Never Used 03/13/23 09:53 PHQ-9: PHQ-9 Score PHQ-9: Total score 0 03/13/23 09:53 Depression Screening Interpretation: Negative Thrive Assessment: Date of Thrive Assessment Date Thrive assessed 11/27/22 03/13/23 09:53 Const General: alert; No acute distress Eyes Conjunctivae: conjunctivae normal Resp Auscultation: clear to auscultation bilaterally Cardio Rate: regular rate Rhythm: regular rhythm GI Inspection: Yes normal to inspection Extrem General: Yes normal to inspection and No edema Assessment and Plan Assessment & Plan (1) Overweight (BMI 25.0-29.9): Code(s): E66.3 - Overweight Plan: Diet and exercise (2) Generalized anxiety disorder: Code(s): F41.1 - Generalized anxiety disorder Plan: Stable (3) Hypertension: Code(s): I10 - Essential (primary) hypertension Plan: Continue with blood pressure medication. Decrease salt intake and exercise patient is on losartan 50 mg once a day (4) Hypercholesterolemia: Code(s): E78.00 - Pure hypercholesterolemia, unspecified Plan: Avoid fried foods, chicken skin, eggs, butter margarine, pastries and meat. Be it pork or beef they have a lot of cholesterol LDL goal of less than 130 and triglyceride of less than 150 patient is on atorvastatin 20 (5) GERD (gastroesophageal reflux disease): Code(s): K21.9 - Gastro-esophageal reflux disease without esophagitis Qualifiers: Esophagitis presence: with esophagitis Esophagitis bleeding: without hemorrhage Qualified Code(s): K21.00 - Gastro-esophageal reflux disease with esophagitis, without bleeding Plan: Avoid the foods that causes that usually spicy foods, tomato products, juices, coffee, soda and foods that your sensitive to. After eating do not lie down, allow 3-4 hours before in lie down. And keep the head of bed above 30 degrees to avoid the acid from going up. (6) Impaired glucose tolerance: Code(s): R73.02 - Impaired glucose tolerance (oral) Plan: Decrease the amount of carbohydrate intake, pasta, bread, rice and potatoes are all sugar and that is aside from all the sweet stuff, remember that fruits are good but they are Sweet also. (7) Constipation: Code(s): K59.00 - Constipation, unspecified (8) Bilateral primary osteoarthritis of knee: Code(s): M17.0 - Bilateral primary osteoarthritis of knee (9) Vaginal irritation: Code(s): N89.8 - Other specified noninflammatory disorders of vagina Orders: Referrals ENGINEER/CONDUCTOR Referral N89.8 - Other specified noninflammatory disorders of vagina Medications: New sennosides-docusate sodium 8.6-50 mg (Senna Plus) 2 tab-caps (2 x 8.6-50 mg) PO BEDTIME 60 caps 3RF K59.00 - Constipation, unspecified diclofenac sodium 1% (Voltaren Arthritis Pain) apply to single knee, ankle, foot; for foot includes sole/toes/top of foot 4 grams topical QID 100 grams 4RF M17.0 - Bilateral primary osteoarthritis of knee sucralfate (Carafate) 1 g PO BID 60 tabs 2RF K21.00 - Gastro-esophageal reflux disease with esophagitis, without bleeding Changed From losartan 25 mg (1/2 x 50 mg) PO DAILY 90 tabs 2RF I10 - Essential (primary) hypertension To losartan 50 mg PO DAILY I10 - Essential (primary) hypertension Coding Level of Care Code Est Pt Level 4 (52417) Diagnoses Overweight (BMI 25.0-29.9) E66.3 Generalized anxiety disorder F41.1 Hypertension I10 Hypercholesterolemia E78.00 GERD (gastroesophageal reflux disease) K21.00 Esophagitis presence: with esophagitis Esophagitis bleeding: without hemorrhage Impaired glucose tolerance R73.02 Constipation K59.00 Bilateral primary osteoarthritis of knee M17.0 Vaginal irritation N89.8 Additional Codes PHQ-9 - 52389 - PHQ-9 Billing: Y ([id number])
[2023-03-13 10:05] VITALS: BP 126/70
== END 2023-03-13 10:23 | disposition home or self-care (01) ==
LOC: HO.HMGH 09:33
PROVIDERS: PCP Internal Medicine; Visit Provider Internal Medicine
DX: F41.1 Generalized anxiety disorder (principal); I10 Essential (primary) hypertension; E78.00 Pure hypercholesterolemia, unspecified; E66.3 Overweight; K21.00 Gastro-esophageal reflux disease with esophagitis, without bleeding; R73.02 Impaired glucose tolerance (oral); K59.00 Constipation, unspecified; M17.0 Bilateral primary osteoarthritis of knee; N89.8 Other specified noninflammatory disorders of vagina; Z68.29 Body mass index [BMI] 29.0-29.9, adult
CPT/HCPCS: 99214

== ENCOUNTER 2023-03-18 12:43 | Outpatient (AMB) | payer OTHER, MEDICAID, SELFPAY ==
--- NOTE | 2023-03-18 13:03 | MHC.OFFVIS ---
Intake Vital Signs 03/18/23 13:04 Height 5 ft Weight 152 lb BMI 29.7 BP 134/80 Intake Visit Reasons: Vaginal itch/per Enid Gonzales Intake Note: Patient wants daughter to interpret The patient agreed to use of a medical service representative during this encounter. Scribed for ASHUTOSH Tamayo by Meredith Kate medical service representative, on 03/18/2023 at 1:36 pm EST. Java Web Services Developer Required: Yes Java Web Services Developer Language: Yoruba Information Interpreted: non-clinical & clinical Resident Manager: Resident Manager Present (Mary) Accompanied by: Daughter Allergies lisinopril Allergy (Unknown, Verified 03/18/23 13:04) Unknown metoprolol Allergy (Unknown, Verified 03/18/23 13:04) Unknown solifenacin [Vesicare] Allergy (Unknown, Verified 03/18/23 13:04) Unknown NSAIDS (Non-Steroidal Anti-Inflamma Adverse Reaction (Intermediate, Verified 03/18/23 13:04) HTN HPI HPI Comments History of Present Illness Details She is here with her daughter Concepción (Yoruba translates for her, declined a machine sign writer), with complaints of external itching and scratches the area sometimes resulting in bleeding. Her daughter reports she had seen a specialist in [place] for her symptoms many years ago, had skin biopsy x2, and medications to treat her chronic itch. Denies vaginal discharge, odor or any new soaps/detergents. She has a follow up with her PCP regarding abdominal pain. [facility] Medical History Allergic conjunctivitis Cervicalgia Cognitive impairment Constipation Contusion of right knee Cough Diverticular disease Dizziness Dizziness Frequent headaches GERD (gastroesophageal reflux disease) History of DVT (deep vein thrombosis) History of renal calculi Insomnia Legally blind Menopausal vaginal dryness Obesity (BMI 30-39.9) Osteoarthritis Osteoporosis Pelvic pain Peripheral vascular disease Sinus congestion Vaginal itching Vitamin D deficiency Surgical History History of cataract surgery History of eye surgery History of hemorrhoidectomy Hx of colonoscopy Family History Father No problems noted. Mother No problems noted. Daughter Lymphoma Social History Household Members: Spouse Housing: Apartment Alcohol intake: never Patient Tobacco Use Status: Never used Tobacco e-Cigarette/Vaping Use: Never Used Second Hand Smoke Exposure: No service: No Current occupational status: retired Cognitive needs: No Hearing needs: No Vision needs: Yes Physical Exam Vital Signs: Last Vital Signs BP 134/80 03/18/23 13:04 BMI result Body Mass Index 29.7 Const General: cooperative, healthy appearing, comfortable, no acute distress, well developed, alert and awake Other: upper bilateral labia minora with vitiligo/hypopigmentation on the upper portion and small 4-5 mm erythematous area of the right labia minora General: Yes other (atrophic changes) External Female Exam: normal appearance of the urethra Assessment & Plan Assessment & Plan (1) Vaginal itching: Code(s): N89.8 - Other specified noninflammatory disorders of vagina Plan: Discussed: Sign a release or records for past prescription and biopsy results. Encouraged patient to sign up for patient portal. Contact office with information Advised to clean with water only, no soaps to the area, dry well, apply thin coat of Aquaphor or Vaseline and wear cotton underwear for 3 weeks. All of her questions and concerns were addressed to the best of my ability and shared decision making. She is agreeable to plan of care. (2) Menopausal vaginal dryness: Code(s): N95.1 - Menopausal and female climacteric states Coding Level of Care Code New Pt Level 3 (86752) Diagnoses Vaginal itching N89.8 Menopausal vaginal dryness N95.1
[2023-03-18 13:04] VITALS: BP 134/80; BMI 29.7
== END 2023-03-18 14:04 | disposition home or self-care (01) ==
LOC: HO.HWS 12:43
PROVIDERS: PCP Internal Medicine; Visit Provider Advanced Practice Midwife
DX: N89.8 Other specified noninflammatory disorders of vagina (principal); N95.1 Menopausal and female climacteric states
CPT/HCPCS: 99203

== ENCOUNTER → 2023-03-18 12:43 | Outpatient (BNVA) | payer OTHER, MEDICAID, SELFPAY | PROVIDERS: PCP Internal Medicine; Visit Provider Advanced Practice Midwife | DX: N89.8 Other specified noninflammatory disorders of vagina (principal); N95.1 Menopausal and female climacteric states | CPT/HCPCS: 99202 ==

== ENCOUNTER 2023-04-18 08:24 | Outpatient (AMB) | payer OTHER, MEDICAID, SELFPAY ==
--- NOTE | 2023-04-18 08:25 | A.OFFVIS_ITS ---
Intake Vital Signs 04/18/23 08:32 Height 5 ft Weight 149 lb 14.629 oz BMI 29.3 BP 126/74 Intake Visit Reasons: 3 weeks skin check/30 mins Weight Inspector Required: Yes Weight Inspector Language: Powder Coat Painter Name: Angy MIKE Information Interpreted: non-clinical & clinical Digital Research Analyst: Digital Research Analyst Present (Angy MIKE) Accompanied by: Daughter Allergies lisinopril Allergy (Unknown, Verified 04/18/23 08:34) Unknown metoprolol Allergy (Unknown, Verified 04/18/23 08:34) Unknown solifenacin [Vesicare] Allergy (Unknown, Verified 04/18/23 08:34) Unknown NSAIDS (Non-Steroidal Anti-Inflamma Adverse Reaction (Intermediate, Verified 04/18/23 08:34) HTN Post menopausal: Yes HPI HPI Comments History of Present Illness Details She presents for skin check secondary to chronic itching. She is accompanied by her daughter, Concepción. Patient reports that the itching has improved. She uses cream every day that she already had at home. When she stops using the cream, her itching returns. Admits to using [place] soap. Hx of bx for chronic itching done many years ago. Requested records at last visit, not available. Reports urinary incontinence, wears a pad daily. She is inquiring if this could cause her sx. [facility]LY [facility] Medical History Allergic conjunctivitis Cervicalgia Cognitive impairment Constipation Contusion of right knee Cough Diverticular disease Dizziness Dizziness Frequent headaches GERD (gastroesophageal reflux disease) History of DVT (deep vein thrombosis) History of renal calculi Insomnia Legally blind Menopausal vaginal dryness Obesity (BMI 30-39.9) Osteoarthritis Osteoporosis Pelvic pain Peripheral vascular disease Sinus congestion Vaginal itching Vitamin D deficiency Surgical History History of cataract surgery History of eye surgery History of hemorrhoidectomy Hx of colonoscopy Family History Father No problems noted. Mother No problems noted. Daughter Lymphoma Social History Household Members: Spouse Housing: Apartment Alcohol intake: never Patient Tobacco Use Status: Never used Tobacco e-Cigarette/Vaping Use: Never Used Second Hand Smoke Exposure: No service: No Current occupational status: retired Cognitive needs: No Hearing needs: No Vision needs: Yes Review of Systems Const All systems reviewed & are unremarkable except as noted in HPI and below Reports vaginal pruritus Physical Exam Vital Signs: Last Vital Signs BP 126/74 04/18/23 08:32 BMI result Body Mass Index 29.3 Const General: cooperative, no acute distress, well developed and alert External Female Exam: normal external appearance, erythema and other (hypopigmentation bilateral upper inner labia minora ) Assessment & Plan Assessment & Plan (1) Vulvar itching: Code(s): L29.2 - Pruritus vulvae Plan: Continue topical cream she has at home as needed. Can use cool compresses to the area. Clean with water only, no soaps to the area, dry well and wear cotton underwear.? No fragrant toilet papers or soaps to the area. Possible chronic dermatologic condition, no known diagnosis. Will have office staff contact Carmen Casas for past chemist records. RTO for telehealth visit after records are received and reviewed. (2) Urinary incontinence: Code(s): R32 - Unspecified urinary incontinence Plan: Counseled on irritation with pads and adult diapers. Rinse well with warm water after urination. Coding Level of Care Code Est Pt Level 3 (06560) Diagnoses Vulvar itching L29.2 Urinary incontinence R32
[2023-04-18 08:32] VITALS: BP 126/74; BMI 29.3
== END 2023-04-18 12:40 | disposition home or self-care (01) ==
LOC: HO.HWS 08:24
PROVIDERS: PCP Internal Medicine; Visit Provider Advanced Practice Midwife
DX: L29.2 Pruritus vulvae (principal); R32 Unspecified urinary incontinence
CPT/HCPCS: 99213

== ENCOUNTER → 2023-04-18 08:24 | Outpatient (BNVA) | payer OTHER, MEDICAID, SELFPAY | PROVIDERS: PCP Internal Medicine; Visit Provider Advanced Practice Midwife | DX: L29.2 Pruritus vulvae (principal); R32 Unspecified urinary incontinence | CPT/HCPCS: 99212 ==

== ENCOUNTER 2023-06-03 08:41 | Outpatient (AMB) | payer OTHER, MEDICAID, SELFPAY ==
--- NOTE | 2023-06-03 08:53 | AM.OFFVISNUR ---
Intake Intake Visit Reasons: Flu vaccine Allergies lisinopril Allergy (Unknown, Verified 04/18/23 08:34) Unknown metoprolol Allergy (Unknown, Verified 04/18/23 08:34) Unknown solifenacin [Vesicare] Allergy (Unknown, Verified 04/18/23 08:34) Unknown NSAIDS (Non-Steroidal Anti-Inflamma Adverse Reaction (Intermediate, Verified 04/18/23 08:34) HTN Office Procedures Flu Questionnaire Does the patient have a severe egg allergy?: No Does the patient have severe life threatening allergies?: No Does the patient have a fever or illness today?: No Has the patient ever had Guillain-Columbia Syndrome?: No Has the patient ever had any past reaction to a flu shot?: No Immunizations flu vacc [id number] 6mos up(PF) 60 mcg(15 mcgx4)/0.5 mL IM syringe Performing Provider: Susana Jean MD [facility] Administered by: Frida Rodriguez RN on 06/03/23 08:54 Dose Route Admin Location Dispensed Lot Number Expiration Date NDC [employer] Professor 0.5 mL IM Left Deltoid 0.5 mL [id number] 02/22/24 03970-290-49 [place] VIS Given Date VIS Provided VIS Publication Date 06/03/23 Single Vaccine 21 Eligibility Eligibility Date Funding Source Not [facility] Eligible 06/03/23 Private Coding Assessment & Plan Assessment & Plan Orders: Orders Influenza [id number] Immunization Today Z23 - Encounter for immunization
== END 2023-06-03 10:09 | disposition home or self-care (01) ==
LOC: HO.HMGH 08:41
PROVIDERS: PCP Internal Medicine; Visit Provider Internal Medicine
DX: Z23 Encounter for immunization (principal)
CPT/HCPCS: 90471; 90686

== ENCOUNTER 2023-06-21 07:23 | Emergency (ER) | payer OTHER, MEDICAID, SELFPAY ==
--- NOTE | ~2023-06-21 | CT_ITS ---
EXAMINATION: CT angiogram head and neck with contrast CLINICAL INFORMATION: Transient vision loss on COMPARISON: CT head on 10/03/2021 and MRI brain on TECHNIQUE: Test bolus sequences followed by intravenous administration of contrast. Helical imaging was performed in the axial plane from the skull base to the thoracic inlet. Delayed postcontrast imaging of the head was also performed. The data was processed at the clinical lab technologist workstation for generation of MIP sequences. Angled MIPs and volume rendered reformatted images were also generated at an offline 3D workstation. Stenoses are assessed in accordance with NASCET criteria unless otherwise indicated. This CT examination was performed using dose optimization techniques as appropriate, variously including the following: *Automated exposure control *Adjustment of mA and/or kV according to patient size (this includes techniques or standardized protocols for targeted exams where dose is matched to indication/reason for exam; i.e. extremities or head) *Use of iterative reconstruction technique FINDINGS: BRAIN: No acute intracranial hemorrhage or infarct. The rosenberg-white matter differentiation is preserved. Patchy hypodensities involving the periventricular and deep white matter compatible with small vessel ischemic disease. No midline shift or hydrocephalus. No acute extra-axial fluid collections. The osseous structures are unremarkable. Partially empty sella. Mild mucosal thickening of the bilateral maxillary sinuses. Bilateral lens replacement. The mastoid air cells are clear. CTA NECK: Three-vessel aortic arch. The innominate and bilateral subclavian arteries are patent. The origins and cervical segments of the common carotid arteries as well as the common carotid artery bifurcations are patent bilaterally. The cervical segments of the internal carotid arteries are patent bilaterally. The origins and cervical segments of the vertebral arteries are patent bilaterally. No hemodynamically significant stenosis, dissection, or aneurysm. The visualized branches of the external carotid arteries are unremarkable bilaterally. CTA HEAD: Anterior circulation: The petrous, cavernous, and supraclinoid segments of the internal carotid arteries are patent bilaterally. 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 The major branches of the anterior and middle cerebral arteries as well as the anterior communicating artery complex are patent. No large vessel occlusion or dissection. Posterior circulation: The intracranial vertebral arteries are patent. The basilar artery is normal in course and caliber. The posterior cerebral and superior cerebellar arteries arise normally from the basilar summit. Bilateral posterior cerebral arteries. On delayed imaging, the venous structures demonstrate normal contrast opacification. No filling defect. No abnormal intraparenchymal enhancement. Soft tissues: No suspicious neck mass or cervical lymphadenopathy. Lungs: Right apical scarring. Bones: No acute osseous abnormality. No lytic or blastic osseous lesions. Multilevel degenerative changes of the visualized spine. CT/CT angio head neck IMPRESSION: CT head demonstrates no acute intracranial hemorrhage or infarct. 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 Otherwise, no large vessel occlusion or dissection. CTA neck demonstrates no hemodynamically significant stenosis, dissection, or aneurysm.
--- NOTE | ~2023-06-21 | US_ITS ---
EXAMINATION: US ABDOMEN LIMITED CLINICAL INFORMATION: Right upper quadrant pain. COMPARISON: None available. TECHNIQUE: Real-time imaging of the right upper quadrant abdominal viscera. FINDINGS: PANCREAS: The visualized hepatic head and body are unremarkable. The tail is obscured by overlying bowel gas. LIVER: Normal. The liver is normal in size. The liver contour is normal. Parenchymal echogenicity is normal. No focal hepatic lesion. There is no intrahepatic biliary duct dilatation seen. GALLBLADDER: Unremarkable. The gallbladder is physiologically distended without evidence of stones, sludge, polyps, wall thickening or pericholecystic fluid. Right upper quadrant tenderness during examination. COMMON BILE DUCT: Normal in caliber measuring 0.4 cm in diameter. RIGHT KIDNEY: Normal. No hydronephrosis. No renal calculi or focal parenchymal lesions. The kidney measures 8.5 cm in maximum dimension. FREE FLUID: None. US/US abdomen limited IMPRESSION: No cholelithiasis, gallbladder wall thickening, or pericholecystic free fluid to suggest acute cholecystitis. Right upper quadrant tenderness during examination.
--- NOTE | ~2023-06-21 | CT_ITS ---
EXAMINATION: CT ABDOMEN AND PELVIS WITH CONTRAST CLINICAL INFORMATION: Right upper quadrant pain. COMPARISON: Abdominal ultrasound examinations, most recently 06/21/2023; CT examinations of the abdomen and pelvis, most recently 07/26/2018. TECHNIQUE: Multidetector volumetric images were obtained from the superior aspect of the liver through the pubic symphysis following administration 85 mL of Omnipaque 350 intravenous contrast. Sagittal and coronal reformatted images were obtained on the technologist's workstation. Oral contrast: No This CT examination was performed using dose optimization techniques as appropriate, variously including the following: *Automated exposure control *Adjustment of mA and/or kV according to patient size (this includes techniques or standardized protocols for targeted exams where dose is matched to indication/reason for exam; i.e. extremities or head) *Use of iterative reconstruction technique DLP: 496 mGy-cm FINDINGS: LUNG BASES: There is focal, crescentic atelectasis at the left base adjacent to a large hiatus hernia. LIVER, GALLBLADDER, AND BILIARY TREE: The liver is normal in size, shape, and attenuation. No focal hepatic lesion or biliary ductal dilatation is present. The gallbladder is unremarkable with no evidence of radiopaque gallstones, gallbladder wall thickening, or obvious pericholecystic inflammatory changes. PANCREAS: Unremarkable. SPLEEN: There is polysplenia versus accessory splenic tissue. No associated anomaly is noted. No focal finding is noted. ADRENAL GLANDS: Unremarkable. KIDNEYS AND URETERS: The kidneys are normal in size, shape, and attenuation. No hydronephrosis, hydroureter, or calculi seen. In the mid left kidney (2:28), an 8 mm low-attenuation benign simple cyst is redemonstrated. This requires no imaging follow-up. No perinephric stranding. BLADDER: Unremarkable. GASTROINTESTINAL TRACT: There is a large hiatus hernia. There is marked diverticulosis, without acute diverticulitis. No bowel obstruction, free intraperitoneal air or abscess is seen. There is no focal bowel wall thickening. The vermiform appendix is not seen with certainty; however, there is no finding to suggest appendicitis. ABDOMINAL WALL: There are small fat-containing umbilical and right inguinal hernias. LYMPH NODES: Normal. VASCULAR: There is moderate aortoiliac atherosclerotic calcification. No abdominal aortic aneurysm or dissection is seen. PELVIC VISCERA: Unremarkable. OSSEOUS STRUCTURES: At L4-L5, there is mild degenerative disc disease. There is multi-level thoracolumbar spondylosis. No acute or aggressive osseous abnormality is seen. CT/CT abdomen pelvis w IV con IMPRESSION: 1. There is a large hiatus hernia. 2. There is marked diverticulosis, without acute diverticulitis. 3. No obstruction, free intraperitoneal air or abscess is seen. The vermiform appendix is not identified. 4. There is no urinary calculus or obstructive uropathy. 5. No abdominopelvic mass, free fluid lymphadenopathy is seen. 6. There are small fat-containing umbilical and right inguinal hernias. 7. There is mild degenerative disc disease at L4-L5. No acute or aggressive osseous finding is noted. Fleischner guidelines were followed.
[2023-06-21 07:35] VITALS: BP 163/86; PULSE 106; RESP 16; TEMP 36.5; O2SAT 96
--- NOTE | 2023-06-21 08:20 | ED.GENADULT ---
HPI - General Adult General Chief complaint: General Medical Stated complaint: abd and side pain Time Seen by Provider: 06/21/23 07:45 Source: patient, family () and residential carpenter Mode of arrival: ambulatory History of Present Illness HPI narrative: This is a 78-year-old female who presents with complaints of nausea and dry heaving associated with right upper quadrant discomfort, elevated sugars, dizziness, weakness patient reports that she is not diabetic and on review of her chart she does carry impaired glucose tolerance as well as paraesophageal hernia and delayed gastric emptying. Patient states she does have a history recurrent UTIs but denies any history of renal colic. Patient states that on she had a headache with blurry vision and states that she lost her vision for 2-3 minutes on night. Related Data Home Medications Medication Instructions Recorded Confirmed losartan 50 mg tablet 50 mg PO DAILY 03/13/23 03/13/23 Previous Rx's Medication Instructions Recorded fluticasone propionate 50 1 spray intranasal DAILY #48 mL 08/08/20 mcg/actuation nasal spray,suspension ROLLATOR #1 ea 01/24/22 blood pressure monitor (Blood #1 ea 02/19/22 Pressure Kit) omeprazole 40 mg capsule,delayed 40 mg PO DAILY 90 days #90 caps 06/13/22 release cholecalciferol (vitamin D3) 50 50 mcg PO DAILY #90 tabs 07/31/22 mcg (2,000 unit) tablet (Vitamin D3) diclofenac sodium 1 % topical gel 4 g topical QID #100 grams 03/13/23 (Voltaren Arthritis Pain) sennosides 8.6 mg-docusate sodium 2 tab-cap (2 x 8.6-50 mg) PO 03/13/23 50 mg capsule (Senna Plus) BEDTIME #60 caps atorvastatin 20 mg tablet 20 mg PO DAILY 90 days #90 tabs 04/15/23 sucralfate 1 gram tablet (Carafate) 1 g PO BID #60 tabs 06/04/23 aspirin 81 mg capsule 81 mg PO DAILY #30 caps 06/21/23 Allergies Allergy/AdvReac Type Severity Reaction Status Date / Time lisinopril Allergy Unknown Unknown Verified 04/18/23 08:34 metoprolol Allergy Unknown Unknown Verified 04/18/23 08:34 solifenacin [Vesicare] Allergy Unknown Unknown Verified 04/18/23 08:34 NSAIDS (Non-Steroidal AdvReac Intermediate HTN Verified 04/18/23 08:34 Anti-Inflamma Review of Systems Review of Systems: Pertinent positives and negatives as stated in HPI [facility] Past Medical History Source: nursing notes reviewed Medical History Menopausal vaginal dryness Pelvic pain Vaginal itching Sinus congestion Contusion of right knee Cough Dizziness Dizziness GERD (gastroesophageal reflux disease) Allergic conjunctivitis Frequent headaches Cervicalgia Diverticular disease Peripheral vascular disease Cognitive impairment Insomnia Osteoporosis Legally blind Osteoarthritis Constipation History of DVT (deep vein thrombosis) History of renal calculi Obesity (BMI 30-39.9) Vitamin D deficiency Surgical History History of eye surgery Hx of colonoscopy History of cataract surgery History of hemorrhoidectomy Family History Family History Father No problems noted. Mother No problems noted. Daughter Lymphoma Social History Social History Household Members: Spouse Housing: Apartment Alcohol intake: never Patient Tobacco Use Status: Never used Tobacco Smoked in Last 30 Days: No e-Cigarette/Vaping Use: Never Used Second Hand Smoke Exposure: No Use of substances other than those prescribed or required for medical reasons: No Advance Directives: No Advance Directives Information Provided: Yes service: No Current occupational status: retired Cognitive needs: No Hearing needs: No Vision needs: Yes Physical Exam ED Vital Signs: Vital Signs - 24 hr 06/21/23 07:35 06/21/23 09:58 06/21/23 12:51 Temperature 97.7 F 98.2 F 97.8 F Pulse Rate 106 H 81 74 Respiratory Rate 16 16 16 Blood Pressure 163/86 H 143/67 H 149/73 H Pulse Oximetry 96 95 95 Oxygen Delivery Method Room Air Room Air Room Air 06/21/23 14:46 Temperature 97.8 F Pulse Rate 85 Respiratory Rate 16 Blood Pressure 134/92 H Pulse Oximetry 95 Oxygen Delivery Method Room Air BMI result Body Mass Index 30.0 VITAL SIGNS: Reviewed. GENERAL: Well developed, well nourished, in no acute distress. HEAD: Normocephalic/atraumatic EYES: PERRLA, EOMI EARS: Ext canals without abnormality NOSE: Nares patent bilateral OROPHARYNX: no oral lesions noted, posterior pharynx clear NECK: Supple, no adenopathy LUNGS: Normal breath sounds. No adventitious sounds or accessory muscle use. SpO2<96> CARDIOVASCULAR: Regular rate and rhythm without noted murmurs, no JVD or lower extremity edema. ABDOMEN: Soft, right upper quadrant pain, Phoenix's positive, non-distended with bowel sounds. MUSCULOSKELETAL: No tenderness, deformities, or effusions noted on gross inspection. EXTREMITIES: No cyanosis, clubbing or edema. SKIN: Inspection of the skin reveals no rashes NEUROLOGIC: Alert and oriented x 4. Strength and sensation to light touch were grossly intact x 4, no facial asymmetry, no pronator drift, cranial nerves 2-12 are grossly intact. Medications Administered Discontinued Medications Generic Name Dose Route Start Last Admin Trade Name Freq PRN Reason Stop Dose Admin Acetaminophen 975 mg 06/21/23 12:13 06/21/23 12:26 Acetaminophen 325 Mg Tablet PO 06/21/23 12:14 Not Given ONCE ONE Al Hydroxide/Mg Hydroxide 30 ml 06/21/23 12:14 06/21/23 12:26 Magnesium Hydrox/Alum Hydrox 30 Ml Oral.Susp PO 06/21/23 12:15 30 ml ONCE ONE Administration Sodium Chloride 500 mls @ 999 mls/hr 06/21/23 14:00 06/21/23 15:46 Ns IV 06/21/23 14:30 Infused .Q31M VIKRAM Infusion Iohexol 70 ml 06/21/23 10:53 06/21/23 10:54 Iohexol 350 Mg/Ml 100 Ml Infus..Btl IV 06/21/23 10:54 70 ml ONCE ONE Administration Iohexol 100 ml 06/21/23 16:12 06/21/23 16:12 Iohexol 350 Mg/Ml 100 Ml Infus..Btl IV 06/21/23 16:13 85 ml ONCE ONE Administration Lidocaine 1 patch 06/21/23 12:13 06/21/23 12:26 Lidocaine 4 % Patch Adh..Patch TRANSDERMA 06/21/23 12:14 1 patch ONCE ONE Administration Protocol Lidocaine HCl 10 ml 06/21/23 12:14 06/21/23 12:26 Lidocaine Hcl Viscous 2 % 15 Ml Solution MUCOUS MEM 06/21/23 12:15 10 ml ONCE ONE Administration Ondansetron HCl 4 mg 06/21/23 12:14 06/21/23 12:26 Ondansetron Odt 4 Mg Tab.Shannan REAVESU 06/21/23 12:15 4 mg ONCE ONE Administration Medical Decision Making Medical Decision Making [facility] Narrative: This 78-year-old female with history and clinical presentation, DDX: Cholecystitis, pyelonephritis, UTI, chronic para-esophageal hernia, less likely felt to be SBO, the preceding differentials can contribute to you nausea and vomiting, the visual loss may be secondary to chronic vascular disease secondary to impaired glucose does tolerance in combination with hypertension and will obtain head CT as well as CT angio of head and neck but patient is otherwise nonfocal at this time and patient also endorsed that she has significant visual deficits at baseline. I reviewed all investigations and hematologic indices are negative for leukocytosis or left shift, there is no anemia or thrombocytopenia. Chemistry indices are negative for MOR and there is no electrolyte or liver enzyme abnormalities. Urinalysis is negative for UTI or hematuria and ultrasound negative for evidence of is acute cholecystitis, patient has no traumatic fall history and suspect musculoskeletal pain at this time. There is also the possibility of a gastroparesis. Viral testing is negative for evidence of influenza or COVID-19. 1212: CT angio of head and neck to evaluate transient vision loss is still not completely read by radiologist and this imaging study was completed at 09:53 1324: I discussed the CT angio of the head neck as well as patient's symptoms with Neurology, Dr. Cheung, and as CT angio of the head and neck does not show any acute findings to better explain patient's transient visual loss will evaluate with EKG to ensure no evidence of atrial fibrillation and given the fact that patient has complaints regarding right upper quadrant pain the other possibility is hyperviscosity secondary to underlying malignancy and will proceed with abdomen pelvis imaging studies. 1323: EKG demonstrates normal sinus rhythm. CT scan is pending Signed out to Dr Simpson. Differential Diagnosis Differential Diagnoses: The differential diagnosis associated with the presentation includes Please see the discussion above Admission/Observation Consideration of admission/observation: Escalation of care including admission/observation considered Please see the discussion above Lab Data [facility] Lab Attestation statement: I reviewed the patient's lab results. Please see the discussion above 06/21/23 08:52 06/21/23 08:52 Labs: Lab Results 06/21/23 06/21/23 06/21/23 Range/Units 08:21 08:26 08:52 WBC 6.6 (4.8-10.8) X10*3/uL RBC 5.13 (4.20-5.50) X10*6/uL Hgb 14.6 (12.0-16.0) g/dl Hct 45.4 (37.0-47.0) % MCV 88.5 (80.0-98.0) fL MCH 28.5 (27.0-33.0) pg MCHC 32.2 (31.0-35.0) g/dl RDW 12.9 (11.0-16.0) % Plt Count 213 (160-400) X10*3/uL MPV 11.5 (9.4-12.3) fL Immature Gran % (Auto) 0.2 (0.0-0.4) % Neut % (Auto) 63.8 (45-73) % Lymph % (Auto) 25.2 (20-40) % [place] % (Auto) 9.0 (2-11) % Eos % (Auto) 1.2 (0-4) % Baso % (Auto) 0.6 (0-2) % Lymph # (Auto) 1.7 (1.2-4.9) X10*3/uL [place] # (Auto) 0.6 (0.1-1.2) X10*3/uL Eos # (Auto) 0.1 (0.0-0.4) X10*3/uL Baso # (Auto) 0.0 (0.0-0.2) X10*3/uL Abs Immat Gran (auto) 0.01 (0.00-0.03) X10*3/uL Absolute Neuts (auto) 4.2 (2.0-8.3) x10*3/uL Absolute Nucleated RBC 0.000 (0.0-0.012) X10*3/uL Nucleated RBC % (auto) 0.0 (0.0-0.2) /100WBC Sodium 144 (135-145) mmol/L Potassium 4.0 (3.3-5.1) mmol/L Chloride 109 H (96-108) mmol/L Carbon Dioxide 25 (22-29) mmol/L Anion Gap 14 (12-20) BUN 12 (9-16) mg/dL Creatinine 0.88 (0.5-1.4) mg/dL Estim Creat Clear Calc 46.6 Estimated GFR > 60 POC Glucose 161 H (60-115) mg/dL Random Glucose 144 H (60-115) mg/dL Calcium 10.4 H D (8.4-10.2) mg/dL Total Bilirubin 0.5 (0.0-1.0) mg/dL AST 16 (5-31) U/L ALT 17 (0-31) U/L Alkaline Phosphatase 83 (39-117) U/L Total Protein 7.5 (6.5-8.0) g/dL Albumin 4.1 (3.5-5.0) g/dL Urine Color Urine Appearance Urine pH (5.0-9.0) Ur Specific [place] (1.005-1.025) Urine Protein (Neg-Trace) mg/dL Urine Glucose (UA) (Negative) mg/dL Urine Ketones (Negative) mg/dL Urine Blood (Negative) Urine Nitrite (Negative) Ur Leukocyte Esterase (Negative) COVID-19 (ANJUM) Negative (Negative) COVID-19 Clin Com See Note Influenza Type A (DEBORAH) Negative (Negative) Influenza Type B (DEBORAH) Negative (Negative) Influenza A & B Note See Note 06/21/23 Range/Units 10:57 WBC (4.8-10.8) X10*3/uL RBC (4.20-5.50) X10*6/uL Hgb (12.0-16.0) g/dl Hct (37.0-47.0) % MCV (80.0-98.0) fL MCH (27.0-33.0) pg MCHC (31.0-35.0) g/dl RDW (11.0-16.0) % Plt Count (160-400) X10*3/uL MPV (9.4-12.3) fL Immature Gran % (Auto) (0.0-0.4) % Neut % (Auto) (45-73) % Lymph % (Auto) (20-40) % [place] % (Auto) (2-11) % Eos % (Auto) (0-4) % Baso % (Auto) (0-2) % Lymph # (Auto) (1.2-4.9) X10*3/uL [place] # (Auto) (0.1-1.2) X10*3/uL Eos # (Auto) (0.0-0.4) X10*3/uL Baso # (Auto) (0.0-0.2) X10*3/uL Abs Immat Gran (auto) (0.00-0.03) X10*3/uL Absolute Neuts (auto) (2.0-8.3) x10*3/uL Absolute Nucleated RBC (0.0-0.012) X10*3/uL Nucleated RBC % (auto) (0.0-0.2) /100WBC Sodium (135-145) mmol/L Potassium (3.3-5.1) mmol/L Chloride (96-108) mmol/L Carbon Dioxide (22-29) mmol/L Anion Gap (12-20) BUN (9-16) mg/dL Creatinine (0.5-1.4) mg/dL Estim Creat Clear Calc Estimated GFR POC Glucose (60-115) mg/dL Random Glucose (60-115) mg/dL Calcium (8.4-10.2) mg/dL Total Bilirubin (0.0-1.0) mg/dL AST (5-31) U/L ALT (0-31) U/L Alkaline Phosphatase (39-117) U/L Total Protein (6.5-8.0) g/dL Albumin (3.5-5.0) g/dL Urine Color Yellow Urine Appearance Clear Urine pH 8.0 (5.0-9.0) Ur Specific [place] 1.025 (1.005-1.025) Urine Protein Negative (Neg-Trace) mg/dL Urine Glucose (UA) Negative (Negative) mg/dL Urine Ketones Negative (Negative) mg/dL Urine Blood Negative (Negative) Urine Nitrite Negative (Negative) Ur Leukocyte Esterase Negative (Negative) COVID-19 (ANJUM) (Negative) COVID-19 Clin Com Influenza Type A (DEBORAH) (Negative) Influenza Type B (DEBORAH) (Negative) Influenza A & B Note Independent Interpretation I performed an independent interpretation of an: EKG Interpretation: Normal sinus rhythm, HR-80, no STEMI, LA/QRS/QTC is within normal limits. Radiology Impression Discussion of test interpretation with radiology: I have reviewed the radiologist's reading. Radiologist Impression: Please see the discussion above External Record Review External record reviewed: Outpatient record, Prior outpatient labs and Prior outpatient radiology Chronic Conditions Patient?s care impacted by: Other GERD Critical Care Time Critical Care Time Critical Care Time: Yes Total Critical Care Time: 30 Attestation: I personally attest to this time spent taking care of the patient. Discharge Plan Discharge Clinical Impression: GERD (gastroesophageal reflux disease), Brain TIA Patient Disposition: Still a Patient Instructions: Transient Ischemic Attack (ED), Diet for Stomach Ulcers and Gastritis (ED), Gastroesophageal Reflux Disease (ED) Additional Instructions: 1. Resume all home medications as prescribed. 2. Please follow-up with primary care doctor on Friday morning. Return to the ER for any worsening symptoms. Prescriptions: New aspirin 81 mg capsule 81 mg PO DAILY Qty: 30 0RF No Action fluticasone propionate 50 mcg/actuation spray,suspension 1 spray intranasal DAILY Qty: 48 5RF (DME) ROLLATOR See Rx Instructions .Route .MEDSUPPLY Qty: 1 0RF Rx Instructions: As directed (DME) blood pressure monitor [Blood Pressure Kit] Kit See Rx Instructions .ROUTE .MEDSUPPLY Qty: 1 0RF Rx Instructions: As directed omeprazole 40 mg capsule,delayed release(DR/EC) 40 mg PO DAILY 90 Days Qty: 90 2RF cholecalciferol (vitamin D3) [Vitamin D3] 50 mcg (2,000 unit) tablet 50 mcg PO DAILY Qty: 90 3RF atorvastatin 20 mg tablet 20 mg PO DAILY 90 Days Qty: 90 2RF sucralfate [Carafate] 1 gram tablet 1 g PO BID Qty: 60 2RF losartan 50 mg tablet 50 mg PO DAILY Senna Plus 8.6-50 mg capsule 2 tab-cap PO BEDTIME Qty: 60 3RF diclofenac sodium [Voltaren Arthritis Pain] 1 % gel 4 g topical QID Qty: 100 4RF Rx Instructions: apply to single knee, ankle, foot; for foot includes sole/toes/top of foot Referrals: Po,Susana Page MD [Primary Care Provider] - Print Language: Icelandic
[2023-06-21 08:30] LABS: Glucose, Whole Blood 161 mg/dL (60-115)
[2023-06-21 08:58] LABS: IDNOW Serial# BCCEAD1C
[2023-06-21 08:59] LABS: COVID-19 Test Negative (Negative); IDNOW Serial# 08D9AD1C; Influenza A Negative (Negative); Influenza B2 Negative (Negative)
[2023-06-21 09:01] LABS: Basophils Percent Auto 0.6 % (0-2); Eosinophils Absolute Auto 0.1 X10*3/uL (0.0-0.4); Eosinophils Percent Auto 1.2 % (0-4); Hematocrit 45.4 % (37.0-47.0); Hemoglobin 14.6 g/dl (12.0-16.0); Imm Gran Abs Auto 0.01 X10*3/uL (0.00-0.03); Imm Gran Pct Auto 0.2 % (0.0-0.4); Lymphocytes Absolute Auto 1.7 X10*3/uL (1.2-4.9); Lymphocytes Percent Auto 25.2 % (20-40); Mean Corpuscular HGB Conc 32.2 g/dl (31.0-35.0); Mean Corpuscular Hemoglobin 28.5 pg (27.0-33.0); Mean Corpuscular Volume 88.5 fL (80.0-98.0); Mean Platelet Volume 11.5 fL (9.4-12.3); Monocytes Absolute Auto 0.6 X10*3/uL (0.1-1.2); Neutrophils Absolute Auto 4.2 x10*3/uL (2.0-8.3); Neutrophils Percent Auto 63.8 % (45-73); Platelet Count 213 X10*3/uL (160-400); Red Blood Count 5.13 X10*6/uL (4.20-5.50); Red Cell Distribution Width 12.9 % (11.0-16.0); White Blood Count 6.6 X10*3/uL (4.8-10.8)
[2023-06-21 09:28] LABS: Alanine Aminotransferase 17 U/L (0-31); Albumin Level 4.1 g/dL (3.5-5.0); Alkaline Phosphatase 83 U/L (39-117); Anion Gap 14 (12-20); Aspartate Amino Transferase 16 U/L (5-31); Bilirubin Total 0.5 mg/dL (0.0-1.0); Blood Urea Nitrogen 12 mg/dL (9-16); Calcium 10.4 mg/dL (8.4-10.2); Carbon Dioxide 25 mmol/L (22-29); Chloride 109 mmol/L (96-108); Creatinine Clr Calc Pharmacy 46.6; Estimated Glomerular Filt Rate > 60; Glucose Random 144 mg/dL (60-115); Sodium 144 mmol/L (135-145); Total Protein 7.5 g/dL (6.5-8.0)
[2023-06-21 09:58] VITALS: BP 143/67; PULSE 81; RESP 16; TEMP 36.8; O2SAT 95
[2023-06-21] MEDS: iohexoL 350 MG/ML 100 ML INFUS..BTL 70 ML IV (10:54)
[2023-06-21 11:05] LABS: Appearance Urine Clear; Color Urine Yellow; Glucose Urine UA Negative (Negative); Leukocyte Esterase Urine Negative (Negative); Nitrite Urine Negative (Negative); Specific Gravity - Urine 1.025 (1.005-1.025); Urine Blood Negative (Negative); Urine Ketones Negative (Negative); Urine Protein Negative (Neg-Trace)
[2023-06-21] MEDS: Ondansetron ODT 4 MG TAB.RAPDIS TRANSLINGU (12:26)
[2023-06-21] MEDS: Lidocaine 4 % Patch ADH..PATCH 1 PATCH TRANSDERMA (12:26)
[2023-06-21] MEDS: Magnesium Hydrox/Alum Hydrox 30 ML ORAL.SUSP PO (12:26)
[2023-06-21] MEDS: Lidocaine HCl Viscous 2 % 15 ML SOLUTION 10 ML MUCOUS MEM (12:26)
[2023-06-21 12:51] VITALS: BP 149/73; PULSE 74; RESP 16; TEMP 36.6; O2SAT 95
--- NOTE | 2023-06-21 13:18 | ECG_ITS ---
Test Reason : HTN Blood Pressure : / mmHG Vent. Rate : 080 BPM Atrial Rate : 080 BPM P-R Int : 140 ms QRS Dur : 068 ms QT Int : 386 ms P-R-T Axes : -20 003 -03 degrees QTc Int : 445 ms Normal sinus rhythm Nonspecific T wave abnormality Abnormal ECG When compared with ECG of 14-NOV-2022 09:11, QRS axis has changed Referred By: Brandy Briones Electronically Signed By:LION GOLDBERG MD
[2023-06-21 14:46] VITALS: BP 134/92; PULSE 85; RESP 16; TEMP 36.6; O2SAT 95
[2023-06-21] MEDS: 0.9 % Sodium Chloride 500 ML 999 ML IV (14:52)
[2023-06-21] MEDS: iohexoL 350 MG/ML 100 ML INFUS..BTL IV (16:12)
[2023-06-21 16:42] VITALS: BP 149/81; PULSE 90; RESP 16; TEMP 36.8; O2SAT 95
== END 2023-06-21 18:17 | disposition home or self-care (01) ==
PROVIDERS: Student in an Organized Health Care Education/Training Program; Emergency Provider Internal Medicine; PCP Internal Medicine
DX: G45.9 Transient cerebral ischemic attack, unspecified (principal); K21.9 Gastro-esophageal reflux disease without esophagitis; R10.12 Left upper quadrant pain; Z11.52 Encounter for screening for COVID-19; K57.30 Diverticulosis of large intestine without perforation or abscess without bleeding; K44.9 Diaphragmatic hernia without obstruction or gangrene; K42.9 Umbilical hernia without obstruction or gangrene; K40.90 Unilateral inguinal hernia, without obstruction or gangrene, not specified as recurrent; M51.36 Other intervertebral disc degeneration, lumbar region; Z87.440 Personal history of urinary (tract) infections; Z86.718 Personal history of other venous thrombosis and embolism; Z79.82 Long term (current) use of aspirin; Z79.899 Other long term (current) drug therapy
CPT/HCPCS: 70496; 70498; 74177; 76705; 80053; 81003; 82947; 85025; 87502; 87635; 93005; 96360; 99285; Q9967

== ENCOUNTER 2023-06-24 15:54 | Emergency (ER) | payer OTHER, MEDICAID, SELFPAY ==
--- NOTE | ~2023-06-24 | XR_ITS ---
EXAMINATION: PORTABLE CHEST 1 VIEW CLINICAL INFORMATION: weakness. COMPARISON: 01/03/2022. TECHNIQUE: Portable frontal view of the chest was obtained. FINDINGS: The lungs are well expanded. Chronic appearing reticular markings but no significant focal infiltrate, effusion, edema, or pneumothorax. Cardiac and mediastinal silhouettes are within normal limits for size with vascular calcification in aorta. No acute bony abnormality seen. XR/XR chest 1V IMPRESSION: No evidence of acute disease.
--- NOTE | ~2023-06-24 | MR_ITS ---
EXAMINATION: MR BRAIN WITHOUT CONTRAST CLINICAL INFORMATION: Intermittent vision loss. Weakness. COMPARISON: CT from 06/21/2023. TECHNIQUE: Multiplanar, multisequence imaging of the brain was performed without contrast. FINDINGS: No diffusion abnormalities are identified to suggest an acute infarct. No mass effect or midline shift is seen. Moderate chronic small vessel ischemic changes are present in the cerebral white matter with generalized parenchymal volume loss and concordant ex vacuo prominence of the ventricles. No extra-axial fluid collections are seen. There are small chronic lacunar infarcts in the cerebellum. The brainstem is normal. The gradient refocused acquisition demonstrates no pathologic magnetic susceptibility artifact to indicate underlying acute or chronic blood products. The craniovertebral junction, marrow signal, and midline structures are normal. The major intracranial flow voids at the level of the [place] are preserved. The dural venous sinus flow voids are maintained. Mild mucosal thickening visible in the paranasal sinuses. The mastoid air cells are clear. MR/MR head/brain wo con IMPRESSION: No acute intracranial process. Moderate chronic white matter microangiopathy and generalized brain parenchymal volume loss.
[2023-06-24 16:18] VITALS: BP 168/78; BP 175/85; PULSE 97; RESP 18; TEMP 37; O2SAT 96; BMI 26.7
[2023-06-24 16:33] LABS: Appearance Urine Clear; Color Urine Straw; Glucose Urine UA Negative (Negative); Leukocyte Esterase Urine Negative (Negative); Nitrite Urine Negative (Negative); PH 7.5 (5.0-9.0); Specific Gravity - Urine <= 1.005 (1.005-1.025); Urine Blood Negative (Negative); Urine Ketones Negative (Negative); Urine Protein Negative (Neg-Trace)
--- NOTE | 2023-06-24 16:43 | ECG_ITS ---
Test Reason : CHEST PAIN Blood Pressure : / mmHG Vent. Rate : 088 BPM Atrial Rate : 088 BPM P-R Int : 148 ms QRS Dur : 068 ms QT Int : 384 ms P-R-T Axes : 098 126 119 degrees QTc Int : 464 ms Suspect limb lead reversal, interpretation assumes no reversal Sinus rhythm with Premature atrial complexes Right axis deviation Abnormal ECG When compared with ECG of 21-JUN-2023 13:23, Premature atrial complexes are now Present QRS axis Shifted right T wave inversion no longer evident in Inferior leads probable limb lead reversal advise repeat study Referred By: Faisal Miller Electronically Signed By:LION GOLDBERG MD
--- NOTE | 2023-06-24 16:59 | ED_ITS ---
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 Patient was seen here 3 days ago on Friday complaining of dizziness, intermittent vision loss, abdominal pain and poor p.o. intake Should workup included labs, CT scan of the abdomen pelvis which showed a large hiatal hernia. She had a CT angiography of the head neck and a CT scan of brain did not show any acute findings. Patient was ultimately diagnosed with a TIA and discharged home on aspirin Per the patient's family, she has continued to have intermittent dizziness, weakness to both arms and legs, difficulty with speech and continue vision loss that is intermittent. There has not been any falls, vomiting She denies any pain including chest pain or abdominal pain Fevers or chills Related Data Home Medications Medication Instructions Recorded Confirmed losartan 50 mg tablet 50 mg PO DAILY 03/13/23 03/13/23 Previous Rx's Medication Instructions Recorded fluticasone propionate 50 1 spray intranasal DAILY #48 mL 08/08/20 mcg/actuation nasal spray,suspension ROLLATOR #1 ea 01/24/22 blood pressure monitor (Blood #1 ea 02/19/22 Pressure Kit) diclofenac sodium 1 % topical gel 4 g topical QID #100 grams 03/13/23 (Voltaren Arthritis Pain) sennosides 8.6 mg-docusate sodium 2 tab-cap (2 x 8.6-50 mg) PO 03/13/23 50 mg capsule (Senna Plus) BEDTIME #60 caps atorvastatin 20 mg tablet 20 mg PO DAILY 90 days #90 tabs 04/15/23 sucralfate 1 gram tablet (Carafate) 1 g PO BID #60 tabs 06/04/23 aspirin 81 mg capsule 81 mg PO DAILY #30 caps 06/21/23 cholecalciferol (vitamin D3) 50 50 mcg PO DAILY #90 tabs 06/23/23 mcg (2,000 unit) tablet (Vitamin D3) omeprazole 40 mg capsule,delayed 40 mg PO DAILY 90 days #90 caps 06/23/23 release Allergies Allergy/AdvReac Type Severity Reaction Status Date / Time lisinopril Allergy Unknown Unknown Verified 04/18/23 08:34 metoprolol Allergy Unknown Unknown Verified 04/18/23 08:34 solifenacin [Vesicare] Allergy Unknown Unknown Verified 04/18/23 08:34 NSAIDS (Non-Steroidal AdvReac Intermediate HTN Verified 04/18/23 08:34 Anti-Inflamma Review of Systems 2 Constitutional: Constitutional: Denies chills, Denies fever(s), Reports malaise, Reports poor appetite and Reports weakness Eyes: Eyes: Reports change in vision and Reports loss of vision Cardiovascular: Cardiovascular: Denies chest pain and Denies dyspnea Respiratory: Respiratory: Denies cough and Denies dyspnea Gastrointestinal: Gastrointestinal: Denies abdominal pain, Denies nausea and Denies vomiting Musculoskeletal: Musculoskeletal: Denies back pain Integumentary/Breasts: Skin/Breast: Denies rash Neurologic: Reports loss of vision and Reports weakness PMFSH Past Medical History Medical History Menopausal vaginal dryness Pelvic pain Vaginal itching Sinus congestion Contusion of right knee Cough Dizziness Dizziness GERD (gastroesophageal reflux disease) Allergic conjunctivitis Frequent headaches Cervicalgia Diverticular disease Peripheral vascular disease Cognitive impairment Insomnia Osteoporosis Legally blind Osteoarthritis Constipation History of DVT (deep vein thrombosis) History of renal calculi Obesity (BMI 30-39.9) Vitamin D deficiency Surgical History History of eye surgery Hx of colonoscopy History of cataract surgery History of hemorrhoidectomy Family History Family History Father No problems noted. Mother No problems noted. Daughter Lymphoma Social History Social History Household Members: Spouse Housing: Apartment Alcohol intake: former Patient Tobacco Use Status: Never used Tobacco Smoked in Last 30 Days: No e-Cigarette/Vaping Use: Never Used Second Hand Smoke Exposure: No Use of substances other than those prescribed or required for medical reasons: No Advance Directives: Yes Advance Directives Information Provided: No Advance Directives on File: No service: No Current occupational status: retired Cognitive needs: No Hearing needs: No Vision needs: Yes Physical Exam ED Vital Signs: Vital Signs - 24 hr 10/31/23 16:18 06/24/23 18:00 06/24/23 19:30 Temperature 98.6 F 97.7 F Pulse Rate 97 100 91 Respiratory Rate 18 18 15 Blood Pressure 175/85 H 156/74 H Pulse Oximetry 98 98 Oxygen Delivery Method Room Air Room Air Room Air BMI result Body Mass Index 26.7 Const General: healthy appearing, comfortable, no acute distress, alert and awake Nutritional Appearance: well nourished Orientation/consciousness: patient oriented x3 HENMT Head: Yes normocephalic and Yes atraumatic Eyes Eyelids: Yes eyelids normal Conjunctivae: conjunctivae normal Sclerae: sclerae normal Corneas: corneas normal Pupils: Equal, round and reactive pupils present EOM: EOMs intact bilaterally Neck Neck: Yes full ROM Resp Effort & Inspection: normal respiratory effort, able to speak in complete sentences and not labored Cardio Rate: regular rate Rhythm: regular rhythm GI Inspection: No distended Palpation (GI): Soft to palpation, not firm, nontender, no guarding and not rigid Skin General skin exam: elasticity normal Neuro General: patient oriented x3 Cranial nerves: Yes CN's II-XII intact bilaterally, Yes Equal, round and reactive pupils present and Yes Bilaterally intact EOM present Cognition (Neuro): normal cognition Motor exam (neuro): strength not 5/5 throughout (No focal weakness, the patient has a generalized 3-5 strength throughout) Extrem Other: Moving all extremities well without any obvious deformities Course Reevaluation(s) Reevaluation #1: Discussed all results with the patient, her daughter and son at bedside using 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 Offered physical therapy and case management evaluation to which had decline. Will be discharged to follow-up with their PCP and reports that they have an appointment tomorrow Time: 21:44 Medical Decision Making Medical Decision Making MDM Narrative: 78-year-old female with past medical history significant for hypertension, hyperlipidemia impaired glucose intolerance presents for evaluation of continued dizziness, difficulty speech and vision since last . The patient was seen here 3 days ago had a CT angiography of the head and neck, no acute findings were found after the right discussed with Neurology the patient was also discharged home with a diagnosis of TIA. Patient and family reports continue symptoms but she has no focal neurologic deficits on exam, NIH stroke score of 0. Given the continue neurologic symptoms reported will get an an MRI of the brain at this time. Labs are pending Differential Diagnosis Differential Diagnoses: The differential diagnosis associated with the presentation includes TIA CVA Failure to thrive MOR Dehydration Admission/Observation Consideration of admission/observation: Escalation of care including admission/observation considered Consider admission given 2nd visit for same, ultimately workup was negative including brain MRI Lab Data MDM Lab Attestation statement: I reviewed the patient's lab results. No leukocytosis or anemia. Mild elevation of chloride, no other electrolyte abnormalities. Normal renal function. Troponin normal 06/24/23 17:42 06/24/23 17:42 Labs: Lab Results 06/24/23 06/24/23 06/24/23 Range/Units 16:23 17:42 21:19 WBC 6.4 (4.8-10.8) X10*3/uL RBC 5.03 (4.20-5.50) X10*6/uL Hgb 14.5 (12.0-16.0) g/dl Hct 44.3 (37.0-47.0) % MCV 88.1 (80.0-98.0) fL MCH 28.8 (27.0-33.0) pg MCHC 32.7 (31.0-35.0) g/dl RDW 12.8 (11.0-16.0) % Plt Count 195 (160-400) X10*3/uL MPV 11.7 (9.4-12.3) fL Immature Gran % (Auto) 0.3 (0.0-0.4) % Neut % (Auto) 63.3 (45-73) % Lymph % (Auto) 25.7 (20-40) % [place] % (Auto) 8.7 (2-11) % Eos % (Auto) 1.4 (0-4) % Baso % (Auto) 0.6 (0-2) % Lymph # (Auto) 1.7 (1.2-4.9) X10*3/uL [place] # (Auto) 0.6 (0.1-1.2) X10*3/uL Eos # (Auto) 0.1 (0.0-0.4) X10*3/uL Baso # (Auto) 0.0 (0.0-0.2) X10*3/uL Abs Immat Gran (auto) 0.02 (0.00-0.03) X10*3/uL Absolute Neuts (auto) 4.1 (2.0-8.3) x10*3/uL Absolute Nucleated RBC 0.000 (0.0-0.012) X10*3/uL Nucleated RBC % (auto) 0.0 (0.0-0.2) /100WBC PT 11.7 (11.1-13.3) SEC INR 1.0 (0.9-1.1) APTT 28.2 (26.0-36.4) SEC Sodium 145 (135-145) mmol/L Potassium 3.5 (3.3-5.1) mmol/L Chloride 112 H (96-108) mmol/L Carbon Dioxide 23 (22-29) mmol/L Anion Gap 14 (12-20) BUN 10 (9-16) mg/dL Creatinine 0.84 (0.5-1.4) mg/dL Estim Creat Clear Calc 52.0 Estimated GFR > 60 Random Glucose 128 H (60-115) mg/dL Calcium 10.3 H (8.4-10.2) mg/dL Total Bilirubin 0.4 (0.0-1.0) mg/dL AST 25 (5-31) U/L ALT 22 (0-31) U/L Alkaline Phosphatase 78 (39-117) U/L Troponin I High Sens < 2.7 (<3.5-17.0) ng/L B-Natriuretic Peptide 23 (<100) pg/mL Total Protein 7.3 (6.5-8.0) g/dL Albumin 4.0 (3.5-5.0) g/dL Lipase 18 (8-78) U/L Urine Color Straw Urine Appearance Clear Urine pH 7.5 (5.0-9.0) Ur Specific Jo[place] <= 1.005 (1.005-1.025) Urine Protein Negative (Neg-Trace) mg/dL Urine Glucose (UA) Negative (Negative) mg/dL Urine Ketones Negative (Negative) mg/dL Urine Blood Negative (Negative) Urine Nitrite Negative (Negative) Ur Leukocyte Esterase Negative (Negative) COVID-19 (ANJUM) Negative (Negative) COVID-19 Clin Com See Note Independent Interpretation I performed an independent interpretation of an: Plain X-Ray (No infiltrate) Radiology Impression Discussion of test interpretation with radiology: I have reviewed the radiologist's reading. (No evidence of acute disease in the chest) Radiologist Impression: Brain MRI no acute intracranial process. Moderate chronic white matter microangiopathy and generalized brain parenchymal volume loss Discharge Plan Discharge Clinical Impression: Adult failure to thrive, Hernia, hiatal Patient Disposition: Home, Self-Care Instructions: Hiatal Hernia (ED) Additional Instructions: Your workup in the emergency department today was reassuring This includes your blood work, chest x-ray, EKG, UA, brain MRI Your weakness may be related to poor p.o. intake an your hiatal hernia Follow-up with your primary doctor Return for new or worsening symptoms Prescriptions: No Action fluticasone propionate 50 mcg/actuation spray,suspension 1 spray intranasal DAILY Qty: 48 5RF (DME) ROLLATOR See Rx Instructions .Route .MEDSUPPLY Qty: 1 0RF Rx Instructions: As directed (DME) blood pressure monitor [Blood Pressure Kit] Kit See Rx Instructions .ROUTE .MEDSUPPLY Qty: 1 0RF Rx Instructions: As directed atorvastatin 20 mg tablet 20 mg PO DAILY 90 Days Qty: 90 2RF sucralfate [Carafate] 1 gram tablet 1 g PO BID Qty: 60 2RF omeprazole 40 mg capsule,delayed release(DR/EC) 40 mg PO DAILY 90 Days Qty: 90 2RF cholecalciferol (vitamin D3) [Vitamin D3] 50 mcg (2,000 unit) tablet 50 mcg PO DAILY Qty: 90 3RF aspirin 81 mg capsule 81 mg PO DAILY Qty: 30 0RF losartan 50 mg tablet 50 mg PO DAILY Senna Plus 8.6-50 mg capsule 2 tab-cap PO BEDTIME Qty: 60 3RF diclofenac sodium [Voltaren Arthritis Pain] 1 % gel 4 g topical QID Qty: 100 4RF Rx Instructions: apply to single knee, ankle, foot; for foot includes sole/toes/top of foot
[2023-06-24 17:46] LABS: MANUAL DIFF FLAG NO
[2023-06-24 17:52] LABS: Basophils Percent Auto 0.6 % (0-2); Eosinophils Absolute Auto 0.1 X10*3/uL (0.0-0.4); Eosinophils Percent Auto 1.4 % (0-4); Hematocrit 44.3 % (37.0-47.0); Hemoglobin 14.5 g/dl (12.0-16.0); Imm Gran Abs Auto 0.02 X10*3/uL (0.00-0.03); Imm Gran Pct Auto 0.3 % (0.0-0.4); Lymphocytes Absolute Auto 1.7 X10*3/uL (1.2-4.9); Lymphocytes Percent Auto 25.7 % (20-40); Mean Corpuscular HGB Conc 32.7 g/dl (31.0-35.0); Mean Corpuscular Hemoglobin 28.8 pg (27.0-33.0); Mean Corpuscular Volume 88.1 fL (80.0-98.0); Mean Platelet Volume 11.7 fL (9.4-12.3); Monocytes Absolute Auto 0.6 X10*3/uL (0.1-1.2); Monocytes Percent Auto 8.7 % (2-11); Neutrophils Absolute Auto 4.1 x10*3/uL (2.0-8.3); Neutrophils Percent Auto 63.3 % (45-73); Platelet Count 195 X10*3/uL (160-400); Red Blood Count 5.03 X10*6/uL (4.20-5.50); Red Cell Distribution Width 12.8 % (11.0-16.0); White Blood Count 6.4 X10*3/uL (4.8-10.8)
[2023-06-24 18:00] VITALS: PULSE 100; RESP 18; O2SAT 98
[2023-06-24 18:01] LABS: COVID-19 Test Negative (Negative); IDNOW Serial# 55D5AD1C
[2023-06-24 18:09] LABS: Alanine Aminotransferase 22 U/L (0-31); Alkaline Phosphatase 78 U/L (39-117); Anion Gap 14 (12-20); Aspartate Amino Transferase 25 U/L (5-31); Bilirubin Total 0.4 mg/dL (0.0-1.0); Blood Urea Nitrogen 10 mg/dL (9-16); Calcium 10.3 mg/dL (8.4-10.2); Carbon Dioxide 23 mmol/L (22-29); Chloride 112 mmol/L (96-108); Estimated Glomerular Filt Rate > 60; Glucose Random 128 mg/dL (60-115); Lipase 18 U/L (8-78); Potassium 3.5 mmol/L (3.3-5.1); Sodium 145 mmol/L (135-145); Total Protein 7.3 g/dL (6.5-8.0)
--- NOTE | 2023-06-24 18:13 | PC.NURSE ---
MRI screening form completed via interpreted and faxed to MRI
[2023-06-24 18:14] LABS: B Type Natriuretic Peptide 23 pg/mL (<100)
--- NOTE | 2023-06-24 18:14 | PC.NURSE ---
Patient arrived from home with complaints of weakness and poor appetite since last . Patient denies pain or discomfort but stating unable to walk because she is so tired. IV placed in right forearm, lab work obtained per order. at bedside
[2023-06-24 18:26] LABS: Troponin-I High Sensitivity < 2.7 ng/L (<3.5-17.0)
--- NOTE | 2023-06-24 19:23 | PC.NURSE ---
this rn assumed care of pt @ 1900. outstanding PT/ PTT redraw ordered. this rn contacted lab. per lab staff tube was not previously filled enough.
[2023-06-24 19:30] VITALS: BP 156/74; PULSE 91; RESP 15; TEMP 36.5; O2SAT 98
[2023-06-24 21:32] LABS: Prothrombin Time 11.7 SEC (11.1-13.3)
[2023-06-24 21:35] LABS: Partial Thromboplastin Time 28.2 SEC (26.0-36.4)
[2023-06-24 22:12] VITALS: BP 137/74; PULSE 84; RESP 16; TEMP 36.8; O2SAT 97
--- NOTE | 2023-06-24 22:30 | PC.NURSE ---
nursing staff development coordinator utilized at discharge. iv removed. pt utilized at discharge. pt at bedside for discharge. pt provided with discharge packet, pt verbalized understanding of discharge plan
== END 2023-06-24 22:34 | disposition home or self-care (01) ==
PROVIDERS: Physician Assistant; Emergency Provider Student in an Organized Health Care Education/Training Program; PCP Internal Medicine
DX: R62.7 Adult failure to thrive (principal); Z68.26 Body mass index [BMI] 26.0-26.9, adult; R53.1 Weakness; K44.9 Diaphragmatic hernia without obstruction or gangrene; Z11.52 Encounter for screening for COVID-19; R10.2 Pelvic and perineal pain; I10 Essential (primary) hypertension; E78.5 Hyperlipidemia, unspecified; R29.700 NIHSS score 0; Z86.718 Personal history of other venous thrombosis and embolism; Z79.899 Other long term (current) drug therapy
CPT/HCPCS: 36415; 70551; 71045; 80053; 81003; 83690; 83880; 84484; 85025; 85610; 85730; 87635; 93005; 99284; 99285

== ENCOUNTER 2023-06-25 08:44 | Outpatient (AMB) | payer OTHER, MEDICAID, SELFPAY ==
[2023-06-25 08:50] VITALS: BP 132/82; PULSE 109; O2SAT 96; BMI 26.0
--- NOTE | 2023-06-25 08:50 | A.OFFPC_ITS ---
Vital Signs 06/25/23 08:50 Height 5 ft 3 in Weight 147 lb BMI 26.0 BP 132/82 Blood Pressure Location Lt brachial Position Sitting Pulse 109 H Pulse Source Pulse Oximeter Pulse Oximetry (%) 96 Oxygen Delivery Method Room Air Intake Visit Reasons: gerd, vaginal irritation, knee OA, constipation Allergies lisinopril Allergy (Unknown, Verified 06/25/23 08:51) Unknown metoprolol Allergy (Unknown, Verified 06/25/23 08:51) Unknown solifenacin [Vesicare] Allergy (Unknown, Verified 06/25/23 08:51) Unknown NSAIDS (Non-Steroidal Anti-Inflamma Adverse Reaction (Intermediate, Verified 06/25/23 08:51) HTN Medication List - Last Reconciled 06/25/23 by Susana Jean MD aspirin 81 mg PO DAILY atorvastatin 20 mg PO DAILY 90 days blood pressure monitor (Blood Pressure Kit) As directed cholecalciferol (vitamin D3) (Vitamin D3) 50 mcg PO DAILY diclofenac sodium 1% (Voltaren Arthritis Pain) 4 grams topical QID fluticasone propionate 50 mcg/actuation 1 spray intranasal DAILY losartan 50 mg PO DAILY omeprazole 40 mg PO DAILY 90 days [ROLLATOR As directed] sennosides-docusate sodium 8.6-50 mg (Senna Plus) 2 tab-caps (2 x 8.6-50 mg) PO BEDTIME sucralfate (Carafate) 1 g PO BID Tobacco use date assessed: 11/27/22 Fall risk assessment: No Falls in past year Last assessed Fall Risk: 06/25/23 Dental Screening Dental Screen Date: 06/25/23 Did you have a dental visit in the last 12 months?: Yes Did you have a dental problem in the last 6 months where you did not have access to dental care?: No Was dental information given to patient?: Patient has dentist HPI gerd, vaginal irritation, knee OA, constipation HPI Details 78-year-old overweight female with hyper tension hypercholesterol E GERD impaired glucose tolerance in generalized anxiety disorder last seen in February 2023. Patient's colonoscopy is up-to-date mammogram is due and bone density is up-to-date. Patient was seen on the 21 of June in the ER dry heaving with high right upper quadrant pain had a headache with blurry vision in states lost her vision for 2 3 minutes. Review of the notes ER visit 06/24/2023 generalize weakness patient has a large hiatal her CT brain angio negative questions diagnosis of TIA placed on aspirin PFSH Medical History Menopausal vaginal dryness Pelvic pain Vaginal itching Sinus congestion Contusion of right knee Cough Dizziness Dizziness GERD (gastroesophageal reflux disease) Allergic conjunctivitis Frequent headaches Cervicalgia Diverticular disease Peripheral vascular disease Cognitive impairment Insomnia Osteoporosis Legally blind Osteoarthritis Constipation History of DVT (deep vein thrombosis) History of renal calculi Obesity (BMI 30-39.9) Vitamin D deficiency Surgical History History of eye surgery Hx of colonoscopy History of cataract surgery History of hemorrhoidectomy Family History Father No problems noted. Mother No problems noted. Daughter Lymphoma Social History Household Members: Spouse Housing: Apartment Alcohol intake: former Patient Tobacco Use Status: Never used Tobacco e-Cigarette/Vaping Use: Never Used Second Hand Smoke Exposure: No service: No Current occupational status: retired Cognitive needs: No Hearing needs: No Vision needs: Yes Questionnaire PHQ-9 Over the last 2 weeks, how often have you been bothered by any of the following problems? 1. Little interest or pleasure in doing things: not at all 2. Feeling down, depressed, or hopeless: not at all 3. Trouble falling or staying asleep, or sleeping too much: not at all 4. Feeling tired or having little energy: not at all 5. Poor appetite or overeating: not at all 6. Feeling bad about yourself - or that you are a failure or have let yourself or your family down: not at all 7. Trouble concentrating on things, such as reading the newspaper or watching television: not at all 8. Moving or speaking so slowly that other people could have noticed. Or the opposite - being so fidgety or restless that you have been moving around a lot more than usual: not at all 9. Thoughts that you would be better off or of hurting yourself in some way: not at all Total score: 0 Depression Screening Interpretation: Negative Depression Screening Done: Yes Source: Developed by Drs. Hernan Blue, Rama Vivar, Chip Fong and colleagues, with an educational lottie from [employer]. Thrive Questionnaire Date Thrive assessed: 11/27/22 AUDIT C Alcohol Use Questionnaire (AUDIT-C) 1. How often do you have a drink containing alcohol?: Never 2. How many drinks containing alcohol do you have on a typical day when you are drinking?: 1 or 2 3. How often do you have six or more drinks on one occasion?: Never Total Score: 0 Score Reviewed/Action Taken: No SHYAM-7 AMB Questionnaire SHYAM-7 Date SHYAM - 7 assessed: 11/27/22 Source: Developed by Drs. Hernan Blue, Rama Vivar, Chip Fong and colleagues, with an educational lottie from [employer]. Physical exam (Primary Care) Vital Signs: Last Vital Signs Pulse 109 H 06/25/23 08:50 BP 132/82 06/25/23 08:50 Pulse Ox 96 06/25/23 08:50 Oxygen Delivery Method Room Air 06/25/23 08:50 BMI result Body Mass Index 26.0 Tobacco/Smoking Status: Tobacco use Status Tobacco use date assessed 11/27/22 06/25/23 08:54 Patient Tobacco Use Status Never used Tobacco 06/25/23 08:54 e-Cigarette/Vaping Use Never Used 06/25/23 08:54 PHQ-9: PHQ-9 Score PHQ-9: Total score 0 06/25/23 08:54 Depression Screening Interpretation: Negative Thrive Assessment: Date of Thrive Assessment Date Thrive assessed 11/27/22 06/25/23 08:54 Const General: alert; No acute distress Eyes Conjunctivae: conjunctivae normal Resp Auscultation: clear to auscultation bilaterally Cardio Rate: regular rate Rhythm: regular rhythm GI Inspection: Yes normal to inspection Extrem General: Yes normal to inspection and No edema Assessment and Plan Assessment & Plan (1) Impaired glucose tolerance: Code(s): R73.02 - Impaired glucose tolerance (oral) Plan: Decrease the amount of carbohydrate intake, pasta, bread, rice and potatoes are all sugar and that is aside from all the sweet stuff, remember that fruits are good but they are Sweet also. (2) GERD (gastroesophageal reflux disease): Code(s): K21.9 - Gastro-esophageal reflux disease without esophagitis Qualifiers: Esophagitis presence: with esophagitis Esophagitis bleeding: without hemorrhage Qualified Code(s): K21.00 - Gastro-esophageal reflux disease with esophagitis, without bleeding Plan: Avoid the foods that causes that usually spicy foods, tomato products, juices, coffee, soda and foods that your sensitive to. After eating do not lie down, allow 3-4 hours before in lie down. And keep the head of bed above 30 degrees to avoid the acid from going up. Patient on Carafate and omeprazole (3) Hypercholesterolemia: Code(s): E78.00 - Pure hypercholesterolemia, unspecified Plan: Avoid fried foods, chicken skin, eggs, butter margarine, pastries and meat. Be it pork or beef they have a lot of cholesterol patient on atorvastatin 20 mg once a (4) Hypertension: Code(s): I10 - Essential (primary) hypertension Plan: Continue with blood pressure medication. Decrease salt intake and exercise patient on losartan 50 mg once a day (5) Constipation: Code(s): K59.00 - Constipation, unspecified Plan: Three rules for constipation 1. Diet need to have a high fiber diet less of meat 2. Increase oral fluids 3. Exercise (6) Generalized anxiety disorder: Code(s): F41.1 - Generalized anxiety disorder Plan: Patient was advised to start with paroxetine Medications: New paroxetine HCl (Paxil) 10 mg PO DAILY 30 tabs 2RF R41.89 - Other symptoms and signs involving cognitive functions and awareness Changed From sennosides-docusate sodium 8.6-50 mg (Senna Plus) 2 tab-caps (2 x 8.6-50 mg) PO BEDTIME 60 caps 3RF K59.00 - Constipation, unspecified To sennosides-docusate sodium 8.6-50 mg (Senna Plus) 2 tab-caps (2 x 8.6-50 mg) PO BEDTIME 30 days 60 caps 3RF K59.00 - Constipation, unspecified Coding Level of Care Code Est Pt Level 4 (43830) Diagnoses Impaired glucose tolerance R73.02 Gastroesophageal reflux disease with esophagitis without hemorrhage K21.00 Esophagitis presence: with esophagitis Esophagitis bleeding: without hemorrhage Hypercholesterolemia E78.00 Hypertension I10 Constipation K59.00 Generalized anxiety disorder F41.1 Additional Codes PHQ-9 - 68842 - PHQ-9 Billing: ([id number])
== END 2023-06-25 09:36 | disposition home or self-care (01) ==
PROVIDERS: PCP Internal Medicine; Visit Provider Internal Medicine
DX: I10 Essential (primary) hypertension (principal); R73.02 Impaired glucose tolerance (oral); K21.00 Gastro-esophageal reflux disease with esophagitis, without bleeding; E78.00 Pure hypercholesterolemia, unspecified; K59.00 Constipation, unspecified; F41.1 Generalized anxiety disorder
CPT/HCPCS: 99214

== ENCOUNTER 2023-08-29 09:06 | Outpatient (AMB) | payer OTHER, MEDICAID, SELFPAY ==
[2023-08-29 09:09] VITALS: BP 142/66; PULSE 101; O2SAT 99; BMI 26.6
--- NOTE | 2023-08-29 09:09 | MHC.PC.OV ---
Vital Signs 08/29/23 09:09 Height 5 ft 3 in Weight 150 lb 0.2 oz BMI 26.6 BP 142/66 H Blood Pressure Location Lt brachial Position Sitting Pulse 101 H Pulse Source Pulse Oximeter Pulse Oximetry (%) 99 Oxygen Delivery Method Room Air Intake Visit Reasons: diverticular disease, constipation, SHYAM Residential Nurse Required: Yes Residential Nurse Language: Amharic Allergies lisinopril Allergy (Unknown, Verified 08/29/23 09:14) Unknown metoprolol Allergy (Unknown, Verified 08/29/23 09:14) Unknown solifenacin [Vesicare] Allergy (Unknown, Verified 08/29/23 09:14) Unknown NSAIDS (Non-Steroidal Anti-Inflamma Adverse Reaction (Intermediate, Verified 08/29/23 09:14) HTN Medication List - Last Reconciled 08/29/23 by Susana Jean MD aspirin 81 mg PO DAILY atorvastatin 20 mg PO DAILY 90 days blood pressure monitor (Blood Pressure Kit) As directed cholecalciferol (vitamin D3) (Vitamin D3) 50 mcg PO DAILY diclofenac sodium 1% (Voltaren Arthritis Pain) 4 grams topical QID fluticasone propionate 50 mcg/actuation 1 spray intranasal DAILY losartan 50 mg PO DAILY omeprazole 40 mg PO DAILY 90 days paroxetine HCl (Paxil) 10 mg PO DAILY [ROLLATOR As directed] sennosides-docusate sodium 8.6-50 mg (Senna Plus) 2 tab-caps (2 x 8.6-50 mg) PO BEDTIME 30 days sucralfate (Carafate) 1 g PO BID Tobacco use date assessed: 08/29/23 Fall risk assessment: No Falls in past year Last assessed Fall Risk: 08/29/23 HPI diverticular disease, constipation, SHYAM HPI Details 78-year-old female with a history of GERD hypercholesterolemia hypertension impaired glucose tolerance generalized anxiety disorder last seen in June 2023. Patient is up-to-date with colonoscopy. Lydia 100-656 (221994) BP high here today . admits not taking BP .( complains of RUQ pain 05/[address] scan There is a large hiatus hernia. 2. There is marked diverticulosis, without acute diverticulitis. 3. No obstruction, free intraperitoneal air or abscess is seen. The vermiform appendix is not identified. 4. There is no urinary calculus or obstructive uropathy. 5. No abdominopelvic mass, free fluid lymphadenopathy is seen. 6. There are small fat-containing umbilical and right inguinal hernias. 7. There is mild degenerative disc disease at L4-L5. No acute or aggressive osseous finding is noted.)3 days ago- RUQ pain feels swollen - took tylenol, burning pain - , [facility] Medical History (Updated 08/29/23 @ 09:34 by Susana eJan MD) Menopausal vaginal dryness Pelvic pain Vaginal itching Sinus congestion Contusion of right knee Cough Dizziness Dizziness GERD (gastroesophageal reflux disease) Allergic conjunctivitis Frequent headaches Cervicalgia Diverticular disease Peripheral vascular disease Cognitive impairment Insomnia Osteoporosis Legally blind Osteoarthritis Constipation History of DVT (deep vein thrombosis) History of renal calculi Vitamin D deficiency Surgical History History of eye surgery Hx of colonoscopy History of cataract surgery History of hemorrhoidectomy Family History Father No problems noted. Mother No problems noted. Daughter Lymphoma Social History Household Members: Spouse Housing: Apartment Alcohol intake: former Patient Tobacco Use Status: Never used Tobacco e-Cigarette/Vaping Use: Never Used Second Hand Smoke Exposure: No service: No Current occupational status: retired Cognitive needs: No Hearing needs: No Vision needs: Yes Questionnaire Thrive Questionnaire Date Thrive assessed: 11/27/22 AUDIT C Alcohol Use Questionnaire (AUDIT-C) 1. How often do you have a drink containing alcohol?: Never 2. How many drinks containing alcohol do you have on a typical day when you are drinking?: 1 or 2 3. How often do you have six or more drinks on one occasion?: Never Total Score: 0 Score Reviewed/Action Taken: No SHYAM-7 AMB Questionnaire SHYAM-7 Date SHYAM - 7 assessed: 11/27/22 Source: Developed by Drs. Hernan Blue, Rama Vivar, Chip Fong and colleagues, with an educational lottie from [employer]. Physical exam (Primary Care) Vital Signs: Last Vital Signs Pulse 101 H 08/29/23 09:09 BP 142/66 H 08/29/23 09:09 Pulse Ox 99 08/29/23 09:09 Oxygen Delivery Method Room Air 08/29/23 09:09 BMI result Body Mass Index 26.6 Tobacco/Smoking Status: Tobacco use Status Tobacco use date assessed 08/29/23 08/29/23 09:10 Patient Tobacco Use Status Never used Tobacco 08/29/23 09:10 e-Cigarette/Vaping Use Never Used 08/29/23 09:10 Thrive Assessment: Date of Thrive Assessment Date Thrive assessed 11/27/22 08/29/23 09:10 Const General: alert; No acute distress Eyes Conjunctivae: conjunctivae normal Resp Auscultation: clear to auscultation bilaterally Cardio Rate: regular rate Rhythm: regular rhythm GI Inspection: Yes normal to inspection Extrem General: Yes normal to inspection and No edema Assessment and Plan Assessment & Plan (1) Impaired glucose tolerance: Code(s): R73.02 - Impaired glucose tolerance (oral) Plan: Decrease the amount of carbohydrate intake, pasta, bread, rice and potatoes are all sugar and that is aside from all the sweet stuff, remember that fruits are good but they are Sweet also. (2) GERD (gastroesophageal reflux disease): Code(s): K21.9 - Gastro-esophageal reflux disease without esophagitis Qualifiers: Esophagitis bleeding: without hemorrhage Esophagitis presence: with esophagitis Qualified Code(s): K21.00 - Gastro-esophageal reflux disease with esophagitis, without bleeding Plan: Avoid the foods that causes that usually spicy foods, tomato products, juices, coffee, soda and foods that your sensitive to. After eating do not lie down, allow 3-4 hours before in lie down. And keep the head of bed above 30 degrees to avoid the acid from going up. Carafate and omeprazole being given (3) Hypercholesterolemia: Code(s): E78.00 - Pure hypercholesterolemia, unspecified Plan: Avoid fried foods, chicken skin, eggs, butter margarine, pastries and meat. Be it pork or beef they have a lot of cholesterol LDL goal of less than 130 and triglyceride of less than 150 patient on atorvastatin 20 mg once a day (4) Hypertension: Code(s): I10 - Essential (primary) hypertension Plan: Continue with blood pressure medication. Decrease salt intake and exercise continue with losartan 50 mg once a day (5) Generalized anxiety disorder: Code(s): F41.1 - Generalized anxiety disorder Plan: Presently on paroxetine (6) RUQ abdominal pain: Comment: we could do a HIDA scan, but she has a LOT of trouble understanding the test and wants to think about it. We are hung up on the idea of the IV - she thought we would put needles in my back. I speak with her daughter to give a better explanation, who says her mother does not like needles.? Again she had a normal ultrasound and unremarkable renal ultrasound with a clear urinalysis.? This seems to exclude renal stones or gallstones. Until uncertain if her pain is related to her gallbladder related to bowel spasm or completely unrelated to the GI system and of musculoskeletal origin.? At any rate the patient is not ready to go on with any additional interventions/investigations so we will watch and wait. Code(s): R10.11 - Right upper quadrant pain Plan: Had a long discussion with her in the last 3 years has had 6 ultrasound of the abdomen and has had a CT scan which only reveals a large hiatal hernia as well as diverticulosis. Discussed with the patient about diet and she needs to eat also she has to take off dairy for the moment. Blood work as well as ultrasound requested Orders: Orders Complete Blood Count Auto Diff Today E78.00 - Pure hypercholesterolemia, unspecified Comprehensive Met. Panel Today E78.00 - Pure hypercholesterolemia, unspecified Free T4 (Free Thyroxine) Today E78.00 - Pure hypercholesterolemia, unspecified Magnesium Today E78.00 - Pure hypercholesterolemia, unspecified US abdomen complete Today R10.11 - Right upper quadrant pain, R79.89 - Other specified abnormal findings of blood chemistry Thyroid Stimulating Hormone Today E78.00 - Pure hypercholesterolemia, unspecified Lipid Panel Today E78.00 - Pure hypercholesterolemia, unspecified Vitamin B12 and Folate Today E78.00 - Pure hypercholesterolemia, unspecified Vitamin D 25-OH Total Today E78.00 - Pure hypercholesterolemia, unspecified Coding Level of Care Code Est Pt Level 4 (82279) Diagnoses Impaired glucose tolerance R73.02 Gastroesophageal reflux disease with esophagitis without hemorrhage K21.00 Esophagitis bleeding: without hemorrhage Esophagitis presence: with esophagitis Hypercholesterolemia E78.00 Hypertension I10 Generalized anxiety disorder F41.1 RUQ abdominal pain R10.11
== END 2023-08-29 10:07 | disposition home or self-care (01) ==
PROVIDERS: PCP Internal Medicine; Visit Provider Internal Medicine
DX: R73.02 Impaired glucose tolerance (oral) (principal); K21.00 Gastro-esophageal reflux disease with esophagitis, without bleeding; E78.00 Pure hypercholesterolemia, unspecified; I10 Essential (primary) hypertension; F41.1 Generalized anxiety disorder; R10.11 Right upper quadrant pain
CPT/HCPCS: 99214

== ENCOUNTER 2023-09-15 03:01 | Emergency (ER) | payer OTHER, SELFPAY ==
--- NOTE | ~2023-09-15 | XR_ITS ---
EXAMINATION: XR CHEST CLINICAL INFORMATION: Cough. COMPARISON: None available. TECHNIQUE: Frontal view of the chest was obtained. FINDINGS: The cardiomediastinal silhouette is stable. A moderate hiatal hernia is again seen. There is no definitive focal parenchymal consolidation or pleural effusions. The bony structures and soft tissues are unremarkable. XR/XR chest 1V IMPRESSION: 1. No acute cardiopulmonary process. 2. Moderate hiatal hernia.
[2023-09-15 03:14] VITALS: BP 145/85; BP 160/73; PULSE 101; PULSE 110; RESP 20; TEMP 36.6; O2SAT 95; O2SAT 98; BMI 29.6
[2023-09-15 03:35] LABS: IDNOW Serial# 152EDE1D; Influenza A Negative (Negative); Influenza B2 Negative (Negative)
[2023-09-15] MEDS: Acetaminophen 325 MG TABLET 975 MG PO (03:40)
[2023-09-15] MEDS: Ibuprofen 400 MG TABLET PO (03:41)
[2023-09-15] MEDS: Benzonatate 100 MG CAPSULE 200 MG PO (03:42)
--- NOTE | 2023-09-15 03:45 | ED_ITS ---
HPI - General Adult General Chief complaint: General Medical Stated complaint: cough Time Seen by Provider: 09/15/23 03:14 Source: patient and family Mode of arrival: EMS History of Present Illness HPI narrative: 78-year-old female who is brought in from home by EMS and reports productive cough with nasal congestion and sore throat for 3 weeks and states that she has a sick contact as her had similar symptoms. Patient states she has been driving [id number] NyQuil and Robitussin without relief. She otherwise denies fever, chills, chest pain. Related Data Home Medications Medication Instructions Recorded Confirmed losartan 50 mg tablet 50 mg PO DAILY 03/13/23 08/29/23 Previous Rx's Medication Instructions Recorded fluticasone propionate 50 1 spray intranasal DAILY #48 mL 08/08/20 mcg/actuation nasal spray,suspension ROLLATOR #1 ea 01/24/22 blood pressure monitor (Blood #1 ea 02/19/22 Pressure Kit) atorvastatin 20 mg tablet 20 mg PO DAILY 90 days #90 tabs 04/15/23 aspirin 81 mg capsule 81 mg PO DAILY #30 caps 06/21/23 cholecalciferol (vitamin D3) 50 50 mcg PO DAILY #90 tabs 06/23/23 mcg (2,000 unit) tablet (Vitamin D3) omeprazole 40 mg capsule,delayed 40 mg PO DAILY 90 days #90 caps 06/23/23 release sennosides 8.6 mg-docusate sodium 2 tab-cap (2 x 8.6-50 mg) PO 06/25/23 50 mg capsule (Senna Plus) BEDTIME 30 days #60 caps diclofenac sodium 1 % topical gel 4 g topical QID #100 grams 07/23/23 (Voltaren Arthritis Pain) paroxetine HCl 10 mg tablet (Paxil) 10 mg PO DAILY #90 tabs 07/23/23 sucralfate 1 gram tablet (Carafate) 1 g PO BID #60 tabs 09/04/23 benzonatate 200 mg capsule 200 mg PO TID PRN cough #14 caps 09/15/23 Allergies Allergy/AdvReac Type Severity Reaction Status Date / Time lisinopril Allergy Unknown Unknown Verified 08/29/23 09:14 metoprolol Allergy Unknown Unknown Verified 08/29/23 09:14 solifenacin [Vesicare] Allergy Unknown Unknown Verified 08/29/23 09:14 NSAIDS (Non-Steroidal AdvReac Intermediate HTN Verified 09/15/23 03:14 Anti-Inflamma Review of Systems Review of Systems: Pertinent positives and negatives as stated in HPI [facility] Past Medical History Source: nursing notes reviewed Onset Date is defined in the Problem List Problems that require an onset date and time if occurred within 24 hrs of arrival to the ED Aortic Dissection and Rupture; Neurologic impairment; Cardiopulmonary Arrest; Endotracheal Intubation; Insertion or Replacement of Mechanical Circulatory Assist Device Medical History Menopausal vaginal dryness Pelvic pain Vaginal itching Sinus congestion Contusion of right knee Cough Dizziness Dizziness GERD (gastroesophageal reflux disease) Allergic conjunctivitis Frequent headaches Cervicalgia Diverticular disease Peripheral vascular disease Cognitive impairment Insomnia Osteoporosis Legally blind Osteoarthritis Constipation History of DVT (deep vein thrombosis) History of renal calculi Vitamin D deficiency Surgical History History of eye surgery Hx of colonoscopy History of cataract surgery History of hemorrhoidectomy Family History Family History Father No problems noted. Mother No problems noted. Daughter Lymphoma Social History Social History Household Members: Spouse Housing: Apartment Alcohol intake: never Patient Tobacco Use Status: Never used Tobacco Smoked in Last 30 Days: No e-Cigarette/Vaping Use: Never Used Second Hand Smoke Exposure: No Use of substances other than those prescribed or required for medical reasons: No Advance Directives: No Advance Directives Information Provided: Yes service: No Current occupational status: retired Cognitive needs: No Hearing needs: No Vision needs: Yes Physical Exam ED Vital Signs: Vital Signs - 24 hr 09/15/23 03:14 Temperature 97.8 F Pulse Rate 101 H Respiratory Rate 20 Blood Pressure 145/85 H Pulse Oximetry 95 Oxygen Delivery Method Room Air BMI result Body Mass Index 29.6 VITAL SIGNS: Reviewed. GENERAL: Well developed, well nourished, in no acute distress. HEAD: Normocephalic/atraumatic EYES: PERRLA, EOMI EARS: Ext canals without abnormality, TMs non-bulging and non-erythematous NOSE: Nares patent bilateral OROPHARYNX: no oral lesions noted, posterior pharynx clear and non-erythematous without noted tonsillar enlargement/erythema/exudates NECK: Supple, no adenopathy LUNGS: Dry cough+, Good inspiratory effort, coarse breath sounds but otherwise no wheeze/rales. SpO2<95> CARDIOVASCULAR: Regular rate and rhythm without noted murmurs, no JVD or lower extremity edema. ABDOMEN: Soft, non-tender, non-distended with bowel sounds. MUSCULOSKELETAL: No tenderness, deformities, or effusions noted on gross inspection. EXTREMITIES: No cyanosis, clubbing or edema. SKIN: Inspection of the skin reveals no rashes NEUROLOGIC: Alert and oriented x 4. Strength and sensation to light touch were grossly intact x 4. Medications Administered Discontinued Medications Generic Name Dose Route Start Last Admin Trade Name Freq PRN Reason Stop Dose Admin Acetaminophen 975 mg 09/15/23 03:34 09/15/23 03:40 Acetaminophen 325 Mg Tablet PO 09/15/23 03:35 975 mg ONCE ONE Administration Benzonatate 200 mg 09/15/23 03:34 09/15/23 03:42 Benzonatate 100 Mg Capsule PO 09/15/23 03:35 200 mg ONCE ONE Administration Ibuprofen 400 mg 09/15/23 03:34 09/15/23 03:41 Ibuprofen 400 Mg Tablet PO 09/15/23 03:35 400 mg ONCE ONE Administration Medical Decision Making Medical Decision Making [facility] Narrative: 78-year-old female with history and clinical presentation consistent with postviral coughing, will provide antitussive, obtain chest x-ray as well as triple swabbing but doubt that any viral positivity will be observed given the duration of patient's symptoms. She is otherwise oxygenating well and has no acute respiratory distress. On re-evaluation, patient coughing has improved, I reviewed all investigations and there are no findings on chest x-ray to suggest infiltrate or venous congestion otherwise my interpretation is in agreement with radiology's impression. In addition, viral testing is negative. She is otherwise discharged home with a prescription of Tessalon and instructions follow-up with primary care doctor. Differential Diagnosis Differential Diagnoses: The differential diagnosis associated with the p resentation includes Please see the discussion above Admission/Observation Consideration of admission/observation: Escalation of care including admission/observation considered Please see the discussion above Lab Data [facility] Lab Attestation statement: I reviewed the patient's lab results. Please see the discussion Labs: Lab Results 09/15/23 09/15/23 Range/Units 03:13 03:39 Influenza Type A (DEBORAH) Negative (Negative) Influenza Type A (PCR) NEGATIVE (Negative) Influenza Type B (DEBORAH) Negative (Negative) Influenza Type B (PCR) NEGATIVE (Negative) Influenza A & B Note See Note RSV RNA Qual (PCR) NEGATIVE (Negative) SARS-CoV-2 RNA (RT-PCR) NEGATIVE (Negative) Radiology Impression Discussion of test interpretation with radiology: I have reviewed the radiologist's reading. Radiologist Impression: Please see the discussion External Record Review External record reviewed: Outpatient record, Prior outpatient labs and Prior outpatient radiology Chronic Conditions Patient?s care impacted by: Hypertension Discharge Plan Discharge Clinical Impression: Viral syndrome, Chronic coughing Patient Disposition: Home, Self-Care Instructions: Chronic Cough (ED), Viral Syndrome (ED) Additional Instructions: 1. Reanudar todos los medicamentos caseros seg?n lo recetado. 2. Es probable que necesite dormir en un sill?n reclinable o con varias almohadas para ayudar a reducir la tos nocturna. 3. Contin?e usando Tylenol/ibuprofeno seg?n sea necesario para las molestias en la pared tor?cica causadas por la tos. Le he recetado un medicamento para la tos y debe tomarlo seg?n lo recetado. 4. Es muy importante que realice un seguimiento con rhodes m?dico de atenci?n primaria en los pr?ximos 1 o 2 d?as. Regrese a la vaughn de emergencias si los s?ntomas empeoran. 1. Resume all home medications as prescribed. 2. You will likely need to sleep in a recliner or with several pillows to help facilitate reduced nighttime cough. 3. Continue to use Tylenol/ibuprofen as needed for chest wall discomfort from coughing, I have provided you with a prescription for cough medication and you should take this as prescribed. 4. Is very important that you follow-up with your primary care doctor in the next 1-2 days. Return to the ER for any worsening symptoms. Prescriptions: New benzonatate 200 mg capsule 200 mg PO TID PRN (Reason: cough) Qty: 14 0RF No Action fluticasone propionate 50 mcg/actuation spray,suspension 1 spray intranasal DAILY Qty: 48 5RF (DME) ROLLATOR See Rx Instructions .Route .MEDSUPPLY Qty: 1 0RF Rx Instructions: As directed (DME) blood pressure monitor [Blood Pressure Kit] Kit See Rx Instructions .ROUTE .MEDSUPPLY Qty: 1 0RF Rx Instructions: As directed atorvastatin 20 mg tablet 20 mg PO DAILY 90 Days Qty: 90 2RF omeprazole 40 mg capsule,delayed release(DR/EC) 40 mg PO DAILY 90 Days Qty: 90 2RF cholecalciferol (vitamin D3) [Vitamin D3] 50 mcg (2,000 unit) tablet 50 mcg PO DAILY Qty: 90 3RF diclofenac sodium [Voltaren Arthritis Pain] 1 % gel 4 g topical QID Qty: 100 12RF Rx Instructions: apply to single knee, ankle, foot; for foot includes sole/toes/top of foot paroxetine HCl [Paxil] 10 mg tablet 10 mg PO DAILY Qty: 90 2RF sucralfate [Carafate] 1 gram tablet 1 g PO BID Qty: 60 2RF aspirin 81 mg capsule 81 mg PO DAILY Qty: 30 0RF losartan 50 mg tablet 50 mg PO DAILY Senna Plus 8.6-50 mg capsule 2 tab-cap PO BEDTIME 30 Days Qty: 60 3RF Referrals: Po,Susana Page MD [Primary Care Provider] - Print Language: Czech
[2023-09-15 05:32] LABS: Influenza A PCR NEGATIVE (Negative); Influenza B PCR NEGATIVE (Negative); Resp Syncy Virus RNA Qual PCR NEGATIVE (Negative); SARS COV2 PCR INHOUSE NEGATIVE (Negative)
[2023-09-15 05:49] VITALS: PULSE 99
[2023-09-15 05:52] VITALS: BP 124/72; PULSE 96; RESP 17; TEMP 36.6; O2SAT 94
== END 2023-09-15 06:26 | disposition home or self-care (01) ==
PROVIDERS: Emergency Provider Student in an Organized Health Care Education/Training Program; PCP Internal Medicine
DX: B34.9 Viral infection, unspecified (principal); R05.3 Chronic cough; Z11.52 Encounter for screening for COVID-19; Z20.828 Contact with and (suspected) exposure to other viral communicable diseases; I10 Essential (primary) hypertension; E78.00 Pure hypercholesterolemia, unspecified; Z86.718 Personal history of other venous thrombosis and embolism; Z79.02 Long term (current) use of antithrombotics/antiplatelets; Z79.899 Other long term (current) drug therapy; Z79.82 Long term (current) use of aspirin
CPT/HCPCS: 0241U; 71045; 87502; 99283; 99284

== ENCOUNTER 2023-09-22 09:19 | Outpatient (AMB) | payer OTHER, SELFPAY ==
[2023-09-22 09:20] VITALS: BP 130/82; PULSE 102; O2SAT 99; BMI 28.9
--- NOTE | 2023-09-22 09:20 | A.OFFPC_ITS ---
Vital Signs 09/22/23 09:20 Height 5 ft Weight 148 lb 0.8 oz BMI 28.9 BP 130/82 Blood Pressure Location Lt brachial Position Sitting Pulse 102 H Pulse Source Pulse Oximeter Pulse Oximetry (%) 99 Oxygen Delivery Method Room Air Intake Visit Reasons: Viral Infection Intake Note: [place] here to follow-up [place] [facility] [place] chronic [place] Primary Teaching Assistant Required: No Allergies lisinopril Allergy (Unknown, Verified 09/22/23 09:24) Unknown metoprolol Allergy (Unknown, Verified 09/22/23 09:24) Unknown solifenacin [Vesicare] Allergy (Unknown, Verified 09/22/23 09:24) Unknown NSAIDS (Non-Steroidal Anti-Inflamma Adverse Reaction (Intermediate, Verified 09/22/23 09:24) HTN Medication List - Last Reconciled 09/22/23 by Susana Jean MD aspirin 81 mg PO DAILY atorvastatin 20 mg PO DAILY 90 days benzonatate 200 mg PO TID PRN blood pressure monitor (Blood Pressure Kit) As directed cetirizine 10 mg PO DAILY 30 days cholecalciferol (vitamin D3) (Vitamin D3) 50 mcg PO DAILY diclofenac sodium 1% (Voltaren Arthritis Pain) 4 grams topical QID fluticasone propionate 50 mcg/actuation 1 spray intranasal DAILY losartan 50 mg PO DAILY omeprazole 40 mg PO DAILY 90 days paroxetine HCl (Paxil) 10 mg PO DAILY [ROLLATOR As directed] sennosides-docusate sodium 8.6-50 mg (Senna Plus) 2 tab-caps (2 x 8.6-50 mg) PO BEDTIME 30 days sucralfate (Carafate) 1 g PO BID Tobacco use date assessed: 09/22/23 Fall risk assessment: No Falls in past year Last assessed Fall Risk: 09/22/23 HPI Viral Infection HPI Details 78-year-old overweight female with multi ple medical problems impaired glucose tolerance GERD hypercholesterolemia hypertension generalized anxiety disorder. Last seen 08/29/2023 notes 09/15/2023 was in the emergency room for productive cough with nasal congestion and sore throat 3 weeks denies any fever and chills discharged on Tessalon Perles tested for COVID flu and RSV negative. states , 4 weeks congested, KELLER no ear pain, when she is eating phlegm stuck, , , PFSH Medical History (Updated 09/22/23 @ 09:42 by Susana Jean MD) Cough Menopausal vaginal dryness Pelvic pain Vaginal itching Sinus congestion Contusion of right knee Dizziness Dizziness GERD (gastroesophageal reflux disease) Allergic conjunctivitis Frequent headaches Cervicalgia Diverticular disease Peripheral vascular disease Cognitive impairment Insomnia Osteoporosis Legally blind Osteoarthritis Constipation History of DVT (deep vein thrombosis) History of renal calculi Vitamin D deficiency Surgical History History of eye surgery Hx of colonoscopy History of cataract surgery History of hemorrhoidectomy Family History Father No problems noted. Mother No problems noted. Daughter Lymphoma Social History Household Members: Spouse Housing: Apartment Alcohol intake: never Patient Tobacco Use Status: Never used Tobacco e-Cigarette/Vaping Use: Never Used Second Hand Smoke Exposure: No service: No Current occupational status: retired Cognitive needs: No Hearing needs: No Vision needs: Yes Questionnaire Thrive Questionnaire Date Thrive assessed: 09/22/23 AUDIT C Alcohol Use Questionnaire (AUDIT-C) 1. How often do you have a drink containing alcohol?: Never 2. How many drinks containing alcohol do you have on a typical day when you are drinking?: 1 or 2 3. How often do you have six or more drinks on one occasion?: Never Total Score: 0 Score Reviewed/Action Taken: No SHYAM-7 AMB Questionnaire SHYAM-7 Date SHYAM - 7 assessed: 11/27/22 Source: Developed by Drs. Hernan Blue, Rama Vivar, Chip Fong and colleagues, with an educational lottie from [employer]. Physical exam (Primary Care) Vital Signs: Last Vital Signs Pulse 102 H 09/22/23 09:20 BP 130/82 09/22/23 09:20 Pulse Ox 99 09/22/23 09:20 Oxygen Delivery Method Room Air 09/22/23 09:20 BMI result Body Mass Index 28.9 Tobacco/Smoking Status: Tobacco use Status Tobacco use date assessed 09/22/23 09/22/23 09:23 Patient Tobacco Use Status Never used Tobacco 09/22/23 09:23 e-Cigarette/Vaping Use Never Used 09/22/23 09:23 Thrive Assessment: Date of Thrive Assessment Date Thrive assessed 09/22/23 09/22/23 09:23 Const General: alert; No acute distress Eyes Conjunctivae: conjunctivae normal Resp Auscultation: clear to auscultation bilaterally Cardio Rate: regular rate Rhythm: regular rhythm GI Inspection: Yes normal to inspection Extrem General: Yes normal to inspection and No edema Assessment and Plan Assessment & Plan (1) GERD (gastroesophageal reflux disease): Code(s): K21.9 - Gastro-esophageal reflux disease without esophagitis Qualifiers: Esophagitis presence: with esophagitis Esophagitis bleeding: without hemorrhage Qualified Code(s): K21.00 - Gastro-esophageal reflux disease with esophagitis, without bleeding Plan: Avoid the foods that causes that usually spicy foods, tomato products, juices, coffee, soda and foods that your sensitive to. After eating do not lie down, allow 3-4 hours before in lie down. And keep the head of bed above 30 degrees to avoid the acid from going up. (2) Allergic rhinitis: Code(s): J30.9 - Allergic rhinitis, unspecified Plan: Discussed about allergy med to treat this problem. advised to increase oral fluids. Discussed also with the patient regarding dry cough to use Delsym and for productive cough to use guaifenesin. Advised also to increase oral fluids. (3) Cough: Code(s): R05.9 - Cough, unspecified Plan: Discussed with the patient that the cough most likely from allergies as patient has some mild swelling at the posterior pharyngeal wall. Patient also complains of having some headaches and will do x-rays for sinuses for clarification. Orders: Orders XR sinus <3V Today R05.9 - Cough, unspecified Medications: New cetirizine 10 mg PO DAILY 30 days 30 tabs 5RF allergy symptoms R05.9 - Cough, unspecified Coding Level of Care Code Est Pt Level 4 (41767) Diagnoses Gastroesophageal reflux disease with esophagitis without hemorrhage K21.00 Esophagitis presence: with esophagitis Esophagitis bleeding: without hemorrhage Allergic rhinitis J30.9 Cough R05.9
== END 2023-09-22 10:07 | disposition home or self-care (01) ==
PROVIDERS: PCP Internal Medicine; Visit Provider Internal Medicine
DX: K21.00 Gastro-esophageal reflux disease with esophagitis, without bleeding (principal); J30.9 Allergic rhinitis, unspecified; R05.9 Cough, unspecified
CPT/HCPCS: 99214

== ENCOUNTER 2023-09-22 10:17 | Outpatient (REF) | payer OTHER, SELFPAY ==
--- NOTE | ~2023-09-22 | XR_ITS ---
EXAMINATION: XR SINUSES CLINICAL INFORMATION: Cough. COMPARISON: None available. TECHNIQUE: Wilson, Armenta and lateral views of the paranasal sinuses are submitted. FINDINGS: Paranasal sinuses appear clear without air-fluid levels. No fractures are identified. There is a mild rightward nasal septal deviation. No radiodense foreign bodies. XR/XR sinus <3V IMPRESSION: Unremarkable examination.
== END 2023-09-22 10:18 | disposition home or self-care (01) ==
LOC: HO.XRAY 10:17
PROVIDERS: PCP Internal Medicine; Visit Provider Internal Medicine
DX: R05.9 Cough, unspecified (principal)
CPT/HCPCS: 70210

== ENCOUNTER 2023-10-01 08:23 | Outpatient (REF) | payer OTHER, SELFPAY ==
--- NOTE | ~2023-10-01 | US_ITS ---
EXAMINATION: US ABDOMEN COMPLETE CLINICAL INFORMATION: Other specified abnormal findings of blood chemistry. COMPARISON: CT abdomen and pelvis 06/21/2023. Limited abdominal ultrasound 06/21/2023 and 06/01/2022. X-ray abdomen 04/18/2022. TECHNIQUE: Real-time imaging of the abdominal viscera. FINDINGS: PANCREAS: Normal. ABDOMINAL AORTA: The proximal, mid, and distal segments are normal in caliber. INFERIOR VENA CAVA: Visualized portions are normal. LIVER: The liver is normal in size. The liver contour is normal. There is diffuse increased liver parenchymal echogenicity. No focal hepatic lesion. There is no intrahepatic biliary duct dilatation seen. GALLBLADDER: Normal. The gallbladder is physiologically distended without evidence of stones, sludge, polyps, wall thickening or pericholecystic fluid. COMMON BILE DUCT: Normal in caliber measuring 0.4 cm in diameter. RIGHT KIDNEY: Normal. No hydronephrosis. No renal calculi or focal parenchymal lesions. The kidney measures 8.5 cm in maximum dimension. LEFT KIDNEY: Normal. No hydronephrosis. No renal calculi or focal parenchymal lesions. The kidney measures 9.3 cm in maximum dimension. SPLEEN: Normal. The spleen measures 6.7 cm in maximum dimension. FREE FLUID: None. US/US abdomen complete IMPRESSION: There is generalized increase in hepatic echotexture, consistent with fatty infiltration or hepatocellular disease. Please correlate clinically. No focal hepatic mass or intrahepatic biliary dilatation is seen.
[2023-10-01 08:49] LABS: MANUAL DIFF FLAG NO
[2023-10-01 09:45] LABS: Basophils Absolute Auto 0.1 X10*3/uL (0.0-0.2); Basophils Percent Auto 0.7 % (0-2); Eosinophils Absolute Auto 0.3 X10*3/uL (0.0-0.4); Eosinophils Percent Auto 3.8 % (0-4); Hematocrit 43.7 % (37.0-47.0); Imm Gran Abs Auto 0.03 X10*3/uL (0.00-0.03); Imm Gran Pct Auto 0.4 % (0.0-0.4); Lymphocytes Absolute Auto 2.2 X10*3/uL (1.2-4.9); Lymphocytes Percent Auto 29.8 % (20-40); Mean Corpuscular Hemoglobin 28.8 pg (27.0-33.0); Mean Corpuscular Volume 89.9 fL (80.0-98.0); Mean Platelet Volume 12.3 fL (9.4-12.3); Monocytes Absolute Auto 0.8 X10*3/uL (0.1-1.2); Monocytes Percent Auto 10.4 % (2-11); Neutrophils Percent Auto 54.9 % (45-73); Platelet Count 203 X10*3/uL (160-400); Red Blood Count 4.86 X10*6/uL (4.20-5.50); Red Cell Distribution Width 13.1 % (11.0-16.0); White Blood Count 7.3 X10*3/uL (4.8-10.8)
[2023-10-01 10:24] LABS: Alanine Aminotransferase 17 U/L (0-31); Albumin Level 3.8 g/dL (3.5-5.0); Alkaline Phosphatase 84 U/L (39-117); Anion Gap 10 (12-20); Aspartate Amino Transferase 18 U/L (5-31); Bilirubin Total 0.4 mg/dL (0.0-1.0); Blood Urea Nitrogen 16 mg/dL (9-16); Calcium 9.7 mg/dL (8.4-10.2); Carbon Dioxide 28 mmol/L (22-29); Chloride 107 mmol/L (96-108); Cholesterol 199 mg/dL (<200); Estimated Glomerular Filt Rate > 60; Glucose Random 120 mg/dL (60-115); HDL Cholesterol 48 mg/dL (>40); LDL Cholesterol Calculated 120 mg/dL (<100); Potassium 3.9 mmol/L (3.3-5.1); Sodium 141 mmol/L (135-145); Total Protein 7.2 g/dL (6.5-8.0); Triglycerides 159 mg/dL (<150)
[2023-10-01 10:39] LABS: Free T4 (Free Thyroxine) 0.89 ng/dL (0.71-1.85); Thyroid Stimulating Hormone 2.34 uIU/mL (0.32-4.0); Vitamin D 25-OH Total 49.5 ng/mL (>30)
[2023-10-01 11:03] LABS: Vitamin B12 358 pg/mL (200-900)
== END 2023-10-01 08:24 | disposition home or self-care (01) ==
LOC: HO.US 08:23
PROVIDERS: PCP Internal Medicine; Visit Provider Internal Medicine
DX: R10.11 Right upper quadrant pain (principal); R79.89 Other specified abnormal findings of blood chemistry; E78.00 Pure hypercholesterolemia, unspecified
CPT/HCPCS: 36415; 76700; 80053; 80061; 82306; 82607; 82746; 83735; 84439; 84443; 85025

== ENCOUNTER 2023-11-04 09:21 | Outpatient (AMB) | payer OTHER, SELFPAY ==
[2023-11-04 09:34] VITALS: BP 144/82; PULSE 83; O2SAT 98; BMI 29.7
--- NOTE | 2023-11-04 09:34 | A.OFFPC_ITS ---
Vital Signs 11/04/23 09:34 Height 5 ft Weight 152 lb BMI 29.7 BP 144/82 H Blood Pressure Location Lt brachial Position Sitting Pulse 83 Pulse Source Pulse Oximeter Pulse Oximetry (%) 98 Oxygen Delivery Method Room Air Intake Visit Reasons: Right upper quadrant pain Allergies lisinopril Allergy (Unknown, Verified 11/04/23 09:34) Unknown metoprolol Allergy (Unknown, Verified 11/04/23 09:34) Unknown solifenacin [Vesicare] Allergy (Unknown, Verified 11/04/23 09:34) Unknown NSAIDS (Non-Steroidal Anti-Inflamma Adverse Reaction (Intermediate, Verified 11/04/23 09:34) HTN Tobacco use date assessed: 09/22/23 Fall risk assessment: No Falls in past year Last assessed Fall Risk: 11/04/23 Dental Screening Dental Screen Date: 11/04/23 Did you have a dental visit in the last 12 months?: No Did you have a dental problem in the last 6 months where you did not have access to dental care?: No Was dental information given to patient?: No HPI Right upper quadrant pain HPI Details 78-year-old overweight female with GERD allergic rhinitis last seen in August 2023. Patient is up-to-date with colonoscopy due for bone density and mammogram. Patient has complained of right upper quadrant pain and an ultrasound was done results showing only fatty liver. Patient also complained of sinus congestion and cough . Sinus x-rays done without any obstruction she does have a mild nasal septal deviation. [facility] Medical History (Updated 11/04/23 @ 10:12 by Susana Jean MD) Cough Menopausal vaginal dryness Pelvic pain Vaginal itching Sinus congestion Contusion of right knee Dizziness Dizziness GERD (gastroesophageal reflux disease) Allergic conjunctivitis Frequent headaches Cervicalgia Diverticular disease Peripheral vascular disease Cognitive impairment Insomnia Osteoporosis Legally blind Osteoarthritis Constipation History of DVT (deep vein thrombosis) History of renal calculi Vitamin D deficiency Surgical History History of eye surgery Hx of colonoscopy History of cataract surgery History of hemorrhoidectomy Family History Father No problems noted. Mother No problems noted. Daughter Lymphoma Social History Household Members: Spouse Housing: Apartment Alcohol intake: never Patient Tobacco Use Status: Never used Tobacco e-Cigarette/Vaping Use: Never Used Second Hand Smoke Exposure: No service: No Current occupational status: retired Cognitive needs: No Hearing needs: No Vision needs: Yes Questionnaire PHQ-9 Over the last 2 weeks, how often have you been bothered by any of the following problems? 1. Little interest or pleasure in doing things: not at all 2. Feeling down, depressed, or hopeless: not at all 3. Trouble falling or staying asleep, or sleeping too much: not at all 4. Feeling tired or having little energy: not at all 5. Poor appetite or overeating: not at all 6. Feeling bad about yourself - or that you are a failure or have let yourself or your family down: not at all 7. Trouble concentrating on things, such as reading the newspaper or watching television: not at all 8. Moving or speaking so slowly that other people could have noticed. Or the opposite - being so fidgety or restless that you have been moving around a lot more than usual: not at all 9. Thoughts that you would be better off or of hurting yourself in some way: not at all Total score: 0 Depression Screening Interpretation: Negative Depression Screening Done: Yes Source: Developed by Drs. Hernan Blue, Rama Vivar, Chip Fong and colleagues, with an educational lottie from [employer]. Thrive Questionnaire Date Thrive assessed: 09/22/23 AUDIT C Alcohol Use Questionnaire (AUDIT-C) 1. How often do you have a drink containing alcohol?: Never 2. How many drinks containing alcohol do you have on a typical day when you are drinking?: 1 or 2 3. How often do you have six or more drinks on one occasion?: Never Total Score: 0 Score Reviewed/Action Taken: No SHYAM-7 AMB Questionnaire SHYAM-7 Date SHYAM - 7 assessed: 11/04/23 Feeling nervous, anxious, or on edge: 0 = Not at all Not being able to stop or control worryin = Not at all Worrying too much about different things: 0 = Not at all Trouble relaxin = Not at all Being so restless that it is hard to sit still: 0 = Not at all Becoming easily annoyed or irritable: 0 = Not at all Feeling afraid as if something awful might happen: 0 = Not at all Total SHYAM-7 score (0-4 normal; 5-9 mild; 10-14 moderate; 15-21 severe): 0 Source: Developed by Drs. Hernan Blue, Rama Vivar, Chip Fong and colleagues, with an educational lottie from [employer]. Physical exam (Primary Care) Vital Signs: Last Vital Signs Pulse 83 11/04/23 09:34 BP 144/82 H 11/04/23 09:34 Pulse Ox 98 11/04/23 09:34 Oxygen Delivery Method Room Air 11/04/23 09:34 BMI result Body Mass Index 29.7 Tobacco/Smoking Status: Tobacco use Status Tobacco use date assessed 09/22/23 11/04/23 09:40 Patient Tobacco Use Status Never used Tobacco 11/04/23 09:40 e-Cigarette/Vaping Use Never Used 11/04/23 09:40 PHQ-9: PHQ-9 Score PHQ-9: Total score 0 11/04/23 09:40 Depression Screening Interpretation: Negative Thrive Assessment: Date of Thrive Assessment Date Thrive assessed 09/22/23 11/04/23 09:40 Const General: alert; No acute distress Eyes Conjunctivae: conjunctivae normal Resp Auscultation: clear to auscultation bilaterally Cardio Rate: regular rate Rhythm: regular rhythm GI Inspection: Yes normal to inspection Extrem General: Yes normal to inspection and No edema Assessment and Plan Assessment & Plan (1) Fatty liver: Code(s): K76.0 - Fatty (change of) liver, not elsewhere classified Plan: Low-fat diet and exercise discussed about the importance of taking care of this (2) Osteoporosis: Code(s): M81.0 - Age-related osteoporosis without current pathological fracture Plan: Discussed with the patient that patient is due for bone density. Patient declined for the moment (3) Overweight (BMI 25.0-29.9): Code(s): E66.3 - Overweight Plan: Diet and exercise (4) GERD (gastroesophageal reflux disease): Code(s): K21.9 - Gastro-esophageal reflux disease without esophagitis Qualifiers: Esophagitis presence: with esophagitis Esophagitis bleeding: without hemorrhage Qualified Code(s): K21.00 - Gastro-esophageal reflux disease with esophagitis, without bleeding Plan: Avoid the foods that causes that usually spicy foods, tomato products, juices, coffee, soda and foods that your sensitive to. After eating do not lie down, allow 3-4 hours before in lie down. And keep the head of bed above 30 degrees to avoid the acid from going up. On omeprazole 40 mg once a day and Carafate (5) Impaired glucose tolerance: Code(s): R73.02 - Impaired glucose tolerance (oral) Plan: Decrease the amount of carbohydrate intake, pasta, bread, rice and potatoes are all sugar and that is aside from all the sweet stuff, remember that fruits are good but they are Sweet also. (6) Hemorrhoids: Code(s): K64.9 - Unspecified hemorrhoids Plan: Cream has been sent in but did advised patient to avoid getting constipation (7) Constipation: Code(s): K59.00 - Constipation, unspecified Plan: Three rules for constipation 1. Diet need to have a high fiber diet less of meat 2. Increase oral fluids 3. Exercise Coding Level of Care Code Est Pt Level 4 (72004) Diagnoses Fatty liver K76.0 Osteoporosis M81.0 Overweight (BMI 25.0-29.9) E66.3 Gastroesophageal reflux disease with esophagitis without hemorrhage K21.00 Esophagitis presence: with esophagitis Esophagitis bleeding: without hemorrhage Impaired glucose tolerance R73.02 Hemorrhoids K64.9 Constipation K59.00 Additional Codes PHQ-9 - 52524 - PHQ-9 Billing: ([id number])
== END 2023-11-04 10:24 | disposition home or self-care (01) ==
PROVIDERS: PCP Internal Medicine; Visit Provider Internal Medicine
DX: K76.0 Fatty (change of) liver, not elsewhere classified (principal); M81.0 Age-related osteoporosis without current pathological fracture; E66.3 Overweight; K21.00 Gastro-esophageal reflux disease with esophagitis, without bleeding; R73.02 Impaired glucose tolerance (oral); K64.9 Unspecified hemorrhoids; K59.00 Constipation, unspecified
CPT/HCPCS: 99214

== ENCOUNTER 2023-12-11 10:01 | Outpatient (REF) | payer OTHER, SELFPAY ==
--- NOTE | ~2023-12-11 | MM_ITS ---
EXAMINATION: MM SCREENING DIGITAL BREAST TOMOSYNTHESIS, BILATERAL CLINICAL INFORMATION: Screening. Asymptomatic. COMPARISON: Mammography: This study is compared with prior exams dating back to 2019. TECHNIQUE: Digital breast tomosynthesis is performed in both the craniocaudal and mediolateral oblique views along with computer-aided detection (CAD). Synthesized 2D images are generated from the tomosynthesis. FINDINGS: The breasts are heterogeneously dense, which may obscure small masses (ACR BI-RADS breast composition Category c). There are grouped calcifications in the upper outer quadrant of the left breast which additional mammographic imaging with magnification is advised. In the right breast, no are no significant masses, abnormal calcifications, or other abnormalities. MM/MM tomosynthesis screening BI IMPRESSION: Grouped calcifications in the left breast warrant additional mammographic imaging with magnification. No mammographic evidence of malignancy right breast. ASSESSMENT: BI-RADS BI-RADS 0 - Incomplete: Needs additional Imaging. RECOMMENDATION: 1. Additional views of the right breast 2. Targeted ultrasound if warranted after review of the additional views. 3. Radiology department staff will contact the patient for additional imaging. Additional Imaging required This examination should not preclude the clinical evaluation of a suspicious palpable abnormality. This patient's information was entered into a reminder system with a target due date for their next mammogram.
== END 2023-12-11 10:02 | disposition home or self-care (01) ==
LOC: HO.MAMMO 10:01
PROVIDERS: PCP Internal Medicine; Visit Provider Internal Medicine
DX: Z12.31 Encounter for screening mammogram for malignant neoplasm of breast (principal)
CPT/HCPCS: 77063; 77067

== ENCOUNTER → 2023-12-11 10:30 | Outpatient (BNV) | payer OTHER, SELFPAY | PROVIDERS: PCP Internal Medicine; Visit Provider Radiology Diagnostic Radiology | DX: Z12.31 Encounter for screening mammogram for malignant neoplasm of breast (principal) | CPT/HCPCS: 77063; 77067 ==

== ENCOUNTER 2024-01-15 16:06 | Outpatient (AMB) | payer OTHER, SELFPAY ==
--- NOTE | 2024-01-15 16:08 | MHC.OFFVIS ---
Vital Signs 01/15/24 16:09 Height 4 ft 11.09 in Weight 153 lb 3.54 oz BMI 30.8 BP 138/60 Blood Pressure Location Rt brachial Position Sitting Pulse 101 H Pulse Source Pulse Oximeter Intake Visit Reasons: osteoporosis-confirmed Intake Note: Patient present today for Osteoporosis follow up visit. Health Social Work Professor Required: No Health Social Work Professor Name: Refusal Signed Accompanied by: Daughter Allergies lisinopril Allergy (Unknown, Verified 01/15/24 16:11) Unknown metoprolol Allergy (Unknown, Verified 01/15/24 16:11) Unknown solifenacin [Vesicare] Allergy (Unknown, Verified 01/15/24 16:11) Unknown NSAIDS (Non-Steroidal Anti-Inflamma Adverse Reaction (Intermediate, Verified 01/15/24 16:11) HTN HPI Comments Details: 78 YO Female is seen in consultation at the request of PCP for Osteoporosis. First diagnosed in last mo. never Received treatment in the past . No history of pathologic fracture or ONJ. Not Taking Calcium supplement s. Took 2-000 IU of Vitamin D daily.Ran out 2 wks ago Takes PPI, but denies anticoagulant, antiepileptic or glucocorticoid medication. 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 UTD on dental cleanings and sees dentist every 6 months. No planned upcoming dental work or extractions was supposed to be done. DXA dated 09/21/21 showed T score in femoral neck of -2.8 : Labs: secondary workup was completed was negative [facility] Medical History (Updated 11/04/23 @ 10:12 by Susana Jean MD) Cough Menopausal vaginal dryness Pelvic pain Vaginal itching Sinus congestion Contusion of right knee Dizziness Dizziness GERD (gastroesophageal reflux disease) Allergic conjunctivitis Frequent headaches Cervicalgia Diverticular disease Peripheral vascular disease Cognitive impairment Insomnia Osteoporosis Legally blind Osteoarthritis Constipation History of DVT (deep vein thrombosis) History of renal calculi Vitamin D deficiency Surgical History History of eye surgery Hx of colonoscopy History of cataract surgery History of hemorrhoidectomy Family History Father No problems noted. Mother No problems noted. Daughter Lymphoma Social History Household Members: Spouse Housing: Apartment Alcohol intake: never Patient Tobacco Use Status: Never used Tobacco e-Cigarette/Vaping Use: Never Used Second Hand Smoke Exposure: No service: No Current occupational status: retired Cognitive needs: No Hearing needs: No Vision needs: Yes Physical Exam Vital Signs: BMI result Body Mass Index 30.8 Assessment & Plan Assessment & Plan (1) Osteoporosis: Code(s): M81.0 - Age-related osteoporosis without current pathological fracture Category: Medical Plan This is a 78-year-old female with a history of osteoporosis. Secondary workup was negative Plan is to repeat DEXA bone density of the hip and spine. Assuming bone density has decreased were still osteoporotic would consider use of intravenous bisphosphonate or Prolia I do not think she be a candidate for oral bisphosphonate considering moderate hiatal hernia and esophagitis Would recommend continue calcium 1200 mg total from diet and supplementation. Continue current vitamin-D supplementation. Orders: Orders XR DEXA axial skeleton Today M81.0 - Age-related osteoporosis without current pathological fracture Coding Level of Care Code Est Pt Level 3 (81898) Diagnoses Osteoporosis M81.0
[2024-01-15 16:09] VITALS: BP 138/60; PULSE 101; BMI 30.8
== END 2024-01-15 16:25 | disposition home or self-care (01) ==
PROVIDERS: PCP Internal Medicine; Visit Provider Internal Medicine Endocrinology, Diabetes & Metabolism
DX: M81.0 Age-related osteoporosis without current pathological fracture (principal)
CPT/HCPCS: 99213

== ENCOUNTER → 2024-01-15 16:06 | Outpatient (BNVA) | payer OTHER, SELFPAY | PROVIDERS: PCP Internal Medicine; Visit Provider Internal Medicine Endocrinology, Diabetes & Metabolism | DX: M81.0 Age-related osteoporosis without current pathological fracture (principal) | CPT/HCPCS: 99212 ==

== ENCOUNTER 2024-01-20 09:13 | Outpatient (REF) | payer OTHER, SELFPAY ==
--- NOTE | ~2024-01-20 | MM_ITS ---
EXAMINATION: MM DIAGNOSTIC DIGITAL BREAST TOMOSYNTHESIS, LEFT CLINICAL INFORMATION: The patient presents for additional imaging of the left breast to further evaluate calcifications noted on the 12/11/2023 mammogram. COMPARISON: Mammography: This study is compared with prior breast imaging dating back to 2019. TECHNIQUE: Digital breast tomosynthesis is performed. 2D images are generated from the tomosynthesis. The following views are obtained: CC and lateral magnification imaging of the upper outer quadrant of the left breast and a full lateral view of the left breast are obtained. FINDINGS: There are scattered areas of fibroglandular density (ACR BI-RADS breast composition Category b). There are grouped calcifications in the upper outer quadrant of the left breast. They're indeterminate and warrant stereotactic biopsy. MM/MM tomosynthesis added views L IMPRESSION: Stereotactic biopsy advised for indeterminate group of left breast calcifications in the upper outer quadrant. ASSESSMENT: BI-RADS BI-RADS 4 - Suspicious finding RECOMMENDATION: Biopsy recommended Results were provided to the patient at time of visit by the technologist. This patient's information was entered into a reminder system with a target due date for their next mammogram.
== END 2024-01-20 09:14 | disposition home or self-care (01) ==
LOC: HO.MAMMO 09:13
PROVIDERS: PCP Internal Medicine; Visit Provider Internal Medicine
DX: R92.1 Mammographic calcification found on diagnostic imaging of breast (principal)
CPT/HCPCS: 77061; 77065

== ENCOUNTER → 2024-01-20 09:30 | Outpatient (BNV) | payer OTHER, SELFPAY | PROVIDERS: PCP Internal Medicine; Visit Provider Radiology Diagnostic Radiology | DX: R92.1 Mammographic calcification found on diagnostic imaging of breast (principal) | CPT/HCPCS: 77065; G0279 ==

== ENCOUNTER 2024-01-27 07:53 | Outpatient (AMB) | payer OTHER, SELFPAY ==
--- NOTE | 2024-01-27 08:18 | MHC.OFFVIS ---
Vital Signs 01/27/24 08:30 Height 4 ft 11 in Weight 151 lb BMI 30.5 BP 147/67 H Blood Pressure Location Lt brachial Position Sitting Pulse 91 Intake Visit Reasons: Stereo Bx Lt breast cals Intake Note: Patient is seen in office for stereo biopsy consult for left breast calcifications. Pt c/o: denies any concerns with the breast, no family hx of cancer, unable to verify meds mm: 01/20/24 Fingernail Technician Required: Yes Fingernail Technician Language: Trauma Coordinator Name: Anastasiia MIKE Information Interpreted: non-clinical & clinical Herb Digger: Herb Digger Present Accompanied by: Daughter Allergies lisinopril Allergy (Unknown, Verified 01/27/24 08:27) Unknown metoprolol Allergy (Unknown, Verified 01/27/24 08:27) Unknown solifenacin [Vesicare] Allergy (Unknown, Verified 01/27/24 08:27) Unknown NSAIDS (Non-Steroidal Anti-Inflamma Adverse Reaction (Intermediate, Verified 01/27/24 08:27) HTN Medication List - Last Reconciled 01/27/24 by Steve Reyes MD aspirin 81 mg PO DAILY atorvastatin 20 mg PO DAILY 90 days benzonatate 200 mg PO TID PRN blood pressure monitor (Blood Pressure Kit) As directed cetirizine 10 mg PO DAILY 30 days cholecalciferol (vitamin D3) (Vitamin D3) 50 mcg PO DAILY diclofenac sodium 1% (Voltaren Arthritis Pain) 4 grams topical QID fluticasone propionate 50 mcg/actuation 1 spray intranasal DAILY hydrocortisone 2.5% (Proctosol HC) 1 appl HI TID-QID 30 days losartan 50 mg PO DAILY omeprazole 40 mg PO DAILY 90 days paroxetine HCl (Paxil) 10 mg PO DAILY [ROLLATOR As directed] sennosides-docusate sodium 8.6-50 mg (Senna Plus) 2 tab-caps (2 x 8.6-50 mg) PO BEDTIME 30 days sucralfate (Carafate) 1 g PO BID HPI Comments Details: 78-year-old female patient presenting after a recent screening mammogram performed on 12/11/2023 with follow-up images obtained 01/20/2024 which revealed a small cluster of calcifications in the left breast in the upper outer quadrant felt to be suspicious for malignancy (BI-RADS 4). Stereotactic guided core biopsy was recommended and [facility] She denies a previous history of breast problems or breast surgery. She does report some heaviness in the left breast and itchiness in the right nipple. Denies any family history of breast cancer. She is 6 para 4 and denies breast-feeding her children. [facility] Medical History Cough Menopausal vaginal dryness Pelvic pain Vaginal itching Sinus congestion Contusion of right knee Dizziness Dizziness GERD (gastroesophageal reflux disease) Allergic conjunctivitis Frequent headaches Cervicalgia Diverticular disease Peripheral vascular disease Cognitive impairment Insomnia Osteoporosis Legally blind Osteoarthritis Constipation History of DVT (deep vein thrombosis) History of renal calculi Vitamin D deficiency Surgical History History of eye surgery Hx of colonoscopy History of cataract surgery History of hemorrhoidectomy Family History Father No problems noted. Mother No problems noted. Daughter Lymphoma Social History Household Members: Spouse Housing: Apartment Alcohol intake: never Patient Tobacco Use Status: Never used Tobacco e-Cigarette/Vaping Use: Never Used Second Hand Smoke Exposure: No service: No Current occupational status: retired Cognitive needs: No Hearing needs: No Vision needs: Yes Female Reproductive History Menstrual Age of Menarche: 13 Age of menopause: 51 Total pregnancies: 6 Number of Living Children: 4 Ab spontaneous: 2 Review of Systems Const All systems reviewed & are unremarkable except as noted in HPI and below Denies chills, Denies fever(s), Denies headache(s), Denies poor appetite and Denies weakness ENT Denies headache(s) Card Denies chest pain, Denies irregular heart rhythm, Denies palpitations and Denies dyspnea Resp Denies cough, Denies excessive phlegm production and Denies dyspnea GI Denies abdominal pain, Denies bloating, Denies change in bowel habits, Denies constipation, Denies heartburn, Denies diarrhea, Denies nausea and Denies vomiting Denies urinary frequency Musc Denies back pain, Denies muscle weakness and Denies numbness Skin/Breast Denies changing lesions and Denies unusual bruising Neuro Denies headache(s), Denies numbness, Denies paresthesias and Denies weakness Psych Denies anxiety and Denies depression Endo Denies palpitations Missael/Lymph Denies lymphadenopathy Physical Exam Const General: cooperative and no acute distress Nutritional Appearance: well nourished Orientation/consciousness: patient oriented x3 Limitations: no limitations HEENT Head: Yes normocephalic and Yes atraumatic Ears: hearing grossly normal bilaterally Chest Other: Left breast: No skin change, no nipple retraction, no nipple discharge, no palpable mass, no enlarged lymph nodes. Right breast: No skin change, no nipple retraction, no nipple discharge, no palpable mass, no enlarged lymph nodes Resp Effort & Inspection: normal respiratory effort, no audible wheezes, no cough and no respiratory distress Cardio Jugular venous distension: no JVD GI Inspection: Yes normal to inspection Skin Other: Warm, dry, no rash Neuro General: patient oriented x3 Extrem Other: Bilateral pedal edema Assessment & Plan Assessment & Plan (1) Abnormal mammogram of left breast: Code(s): R92.8 - Other abnormal and inconclusive findings on diagnostic imaging of breast Category: Medical Plan 78-year-old female patient presenting with a recent screening mammogram and follow-up images which revealed a cluster of calcifications in the left breast at the upper outer quadrant. These were felt to be suspicious for malignancy and stereotactic guided core biopsy recommended. She is scheduled for this procedure later today at the [facility]. Examination today revealed no suspicious findings in either breast and no enlarged lymph nodes. I recommended she return in 1 week to review the pathology results and discuss treatment options. She expressed understanding and agrees with the plan. Coding Level of Care Code New Pt Level 4 (28487) Diagnoses Abnormal mammogram of left breast R92.8
[2024-01-27 08:30] VITALS: BP 147/67; PULSE 91; BMI 30.5
== END 2024-01-27 08:43 | disposition home or self-care (01) ==
PROVIDERS: PCP Internal Medicine; Visit Provider Surgery
DX: R92.8 Other abnormal and inconclusive findings on diagnostic imaging of breast (principal)
CPT/HCPCS: 99204

== ENCOUNTER 2024-01-27 08:52 | Outpatient (REF) | payer OTHER, SELFPAY | END 2024-01-27 08:53 | disposition home or self-care (01) | LOC: HO.MAMMO 08:52 | PROVIDERS: PCP Internal Medicine; Visit Provider Surgery | DX: R92.1 Mammographic calcification found on diagnostic imaging of breast (principal); R92.8 Other abnormal and inconclusive findings on diagnostic imaging of breast | CPT/HCPCS: 99202 ==

== ENCOUNTER 2024-02-19 08:39 | Outpatient (AMB) | payer OTHER, SELFPAY ==
[2024-02-19 08:40] VITALS: BP 142/80; PULSE 101; O2SAT 97; BMI 30.7
--- NOTE | 2024-02-19 08:40 | A.OFFPC_ITS ---
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 Required: No Allergies lisinopril Allergy (Unknown, Verified 02/19/24 08:41) Unknown metoprolol Allergy (Unknown, Verified 02/19/24 08:41) Unknown solifenacin [Vesicare] Allergy (Unknown, Verified 02/19/24 08:41) Unknown NSAIDS (Non-Steroidal Anti-Inflamma Adverse Reaction (Intermediate, Verified 02/19/24 08:41) HTN Tobacco use date assessed: 09/22/23 Fall risk assessment: No Falls in past year Last assessed Fall Risk: 02/19/24 Dental Screening Dental Screen Date: 11/04/23 HPI swollen feet HPI Details 78-year-old obese female with a history of fatty liver GERD impaired glucose tolerance constipation and osteoporosis coming in for follow-up. Last seen in 11/12/2023. Patient is up-to-date with colonoscopy mammogram. Bone density due but patient declined. Concerns about breast mammogram abnormality and planned biopsy. Patient has had a history of DVT in 2018 from a long automobile ride 1 week swelling on both legs. deny fall or trauma , no new med. patient is sedentary at home. PAitent also complain of low back L side [facility] Medical History Cough Menopausal vaginal dryness Pelvic pain Vaginal itching Sinus congestion Contusion of right knee Dizziness Dizziness GERD (gastroesophageal reflux disease) Allergic conjunctivitis Frequent headaches Cervicalgia Diverticular disease Peripheral vascular disease Cognitive impairment Insomnia Osteoporosis Legally blind Osteoarthritis Constipation History of DVT (deep vein thrombosis) History of renal calculi Vitamin D deficiency Surgical History History of eye surgery Hx of colonoscopy History of cataract surgery History of hemorrhoidectomy Family History Father No problems noted. Mother No problems noted. Daughter Lymphoma Social History Household Members: Spouse Housing: Apartment Alcohol intake: never Patient Tobacco Use Status: Never used Tobacco e-Cigarette/Vaping Use: Never Used Second Hand Smoke Exposure: No service: No Current occupational status: retired Cognitive needs: No Hearing needs: No Vision needs: Yes Female Reproductive History Menstrual Age of Menarche: 13 Questionnaire Thrive Questionnaire Date Thrive assessed: 09/22/23 AUDIT C Alcohol Use Questionnaire (AUDIT-C) 1. How often do you have a drink containing alcohol?: Never 2. How many drinks containing alcohol do you have on a typical day when you are drinking?: 1 or 2 3. How often do you have six or more drinks on one occasion?: Never Total Score: 0 Score Reviewed/Action Taken: No SHYAM-7 AMB Questionnaire SHYAM-7 Date SHYAM - 7 assessed: 11/04/23 Source: Developed by Drs. Hernan Blue, Rama Vivar, Chip cruz nd colleagues, with an educational lottie from [employer]. Physical exam (Primary Care) Vital Signs: Last Vital Signs Pulse 101 H 02/19/24 08:40 BP 142/80 H 02/19/24 08:40 Pulse Ox 97 02/19/24 08:40 Oxygen Delivery Method Room Air 02/19/24 08:40 BMI result Body Mass Index 30.7 Tobacco/Smoking Status: Tobacco use Status Tobacco use date assessed 09/22/23 02/19/24 08:42 Patient Tobacco Use Status Never used Tobacco 02/19/24 08:42 e-Cigarette/Vaping Use Never Used 02/19/24 08:42 Thrive Assessment: Date of Thrive Assessment Date Thrive assessed 09/22/23 02/19/24 08:42 Const General: alert; No acute distress Eyes Conjunctivae: conjunctivae normal Resp Auscultation: clear to auscultation bilaterally Cardio Rate: regular rate Rhythm: regular rhythm GI Inspection: Yes normal to inspection Extrem Other: 1+ edema of bilateral leg, no pitting, tender on the L posterior hip area General: Yes edema Assessment and Plan Assessment & Plan (1) Abnormal mammogram of left breast: Code(s): R92.8 - Other abnormal and inconclusive findings on diagnostic imaging of breast Plan: Biopsy canceled as the mammogram results benign (2) Hypertension: Code(s): I10 - Essential (primary) hypertension Plan: Continue with blood pressure medication. Decrease salt intake and exercise on losartan 50 mg once a day (3) Obesity (BMI 30-39.9): Code(s): E66.9 - Obesity, unspecified Plan: Diet and exercise (4) Hypercholesterolemia: Code(s): E78.00 - Pure hypercholesterolemia, unspecified Plan: Avoid fried foods, chicken skin, eggs, butter margarine, pastries and meat. Be it pork or beef they have a lot of cholesterol on atorvastatin 20 mg once a day LDL goal of less than 130 and triglyceride of less than 150 (5) GERD (gastroesophageal reflux disease): Code(s): K21.9 - Gastro-esophageal reflux disease without esophagitis Qualifiers: Esophagitis presence: with esophagitis Esophagitis bleeding: without he morrhage Qualified Code(s): K21.00 - Gastro-esophageal reflux disease with esophagitis, without bleeding Plan: Avoid the foods that causes that usually spicy foods, tomato products, juices, coffee, soda and foods that your sensitive to. After eating do not lie down, allow 3-4 hours before in lie down. And keep the head of bed above 30 degrees to avoid the acid from going up. (6) Impaired glucose tolerance: Code(s): R73.02 - Impaired glucose tolerance (oral) Plan: Decrease the amount of carbohydrate intake, pasta, bread, rice and potatoes are all sugar and that is aside from all the sweet stuff, remember that fruits are good but they are Sweet also. (7) Generalized anxiety disorder: Code(s): F41.1 - Generalized anxiety disorder Plan: On paroxetine 10 mg once a day (8) Localized swelling of both lower legs: Code(s): R22.43 - Localized swelling, mass and lump, lower limb, bilateral Plan: will work up first discussed about causes of the swelling. Declined any new medication, will check renal, hepatic, cardiac causes meanwhile will treat as peripheral vascular disease. When sitting down elevate the legs, exercise, and support stockings Orders: Orders Complete Blood Count Auto Diff Today R22.43 - Localized swelling, mass and lump, lower limb, bilateral UA CC w/rflx Micro + Cult Today R22.43 - Localized swelling, mass and lump, lower limb, bilateral, R30.0 - Dysuria B Type Natriuretic Peptide Today R22.43 - Localized swelling, mass and lump, lower limb, bilateral Hemoglobin A1c Today R73.02 - Impaired glucose tolerance (oral) Comprehensive Met. Panel Today R22.43 - Localized swelling, mass and lump, lower limb, bilateral Free T4 (Free Thyroxine) Today R22.43 - Localized swelling, mass and lump, lower limb, bilateral Thyroid Stimulating Hormone Today R22.43 - Localized swelling, mass and lump, lower limb, bilateral Coding Level of Care Code Est Pt Level 4 (28913) Complex EM visit Add On G2211 Diagnoses Abnormal mammogram of left breast R92.8 Hypertension I10 Obesity (BMI 30-39.9) E66.9 Hypercholesterolemia E78.00 Gastroesophageal reflux disease with esophagitis without hemorrhage K21.00 Esophagitis presence: with esophagitis Esophagitis bleeding: without hemorrhage Impaired glucose tolerance R73.02 Generalized anxiety disorder F41.1 Localized swelling of both lower legs R22.43
== END 2024-02-19 09:11 | disposition home or self-care (01) ==
LOC: HO.HMGH 08:39
PROVIDERS: PCP Internal Medicine; Visit Provider Internal Medicine
DX: R92.8 Other abnormal and inconclusive findings on diagnostic imaging of breast (principal); I10 Essential (primary) hypertension; E66.9 Obesity, unspecified; Z68.30 Body mass index [BMI] 30.0-30.9, adult; E78.00 Pure hypercholesterolemia, unspecified; K21.00 Gastro-esophageal reflux disease with esophagitis, without bleeding; R22.43 Localized swelling, mass and lump, lower limb, bilateral; R73.02 Impaired glucose tolerance (oral); F41.1 Generalized anxiety disorder
CPT/HCPCS: 99214; G2211

== ENCOUNTER 2024-02-19 09:28 | Outpatient (REF) | payer OTHER, SELFPAY ==
[2024-02-19 09:45] LABS: MANUAL DIFF FLAG NO
[2024-02-19 10:01] LABS: Appearance Urine Clear; Color Urine Yellow; Glucose Urine UA Negative (Negative); Leukocyte Esterase Urine Negative (Negative); Nitrite Urine Negative (Negative); PH 6.5 (5.0-9.0); Specific Gravity - Urine <= 1.005 (1.005-1.025); Urine Blood Negative (Negative); Urine Ketones Negative (Negative); Urine Protein Negative (Neg-Trace)
[2024-02-19 10:09] LABS: Basophils Absolute Auto 0.1 X10*3/uL (0.0-0.2); Basophils Percent Auto 0.8 % (0-2); Eosinophils Absolute Auto 0.3 X10*3/uL (0.0-0.4); Eosinophils Percent Auto 3.9 % (0-4); Hematocrit 43.8 % (37.0-47.0); Hemoglobin 14.2 g/dl (12.0-16.0); Imm Gran Abs Auto 0.03 X10*3/uL (0.00-0.03); Imm Gran Pct Auto 0.4 % (0.0-0.4); Lymphocytes Absolute Auto 2.2 X10*3/uL (1.2-4.9); Lymphocytes Percent Auto 28.2 % (20-40); Mean Corpuscular HGB Conc 32.4 g/dl (31.0-35.0); Mean Corpuscular Volume 89.6 fL (80.0-98.0); Monocytes Absolute Auto 0.7 X10*3/uL (0.1-1.2); Monocytes Percent Auto 9.1 % (2-11); Neutrophils Absolute Auto 4.5 x10*3/uL (2.0-8.3); Neutrophils Percent Auto 57.6 % (45-73); Platelet Count 217 X10*3/uL (160-400); Red Blood Count 4.89 X10*6/uL (4.20-5.50); Red Cell Distribution Width 13.4 % (11.0-16.0); White Blood Count 7.9 X10*3/uL (4.8-10.8)
[2024-02-19 10:23] LABS: Estimated Average Glucose 143 mg/dL; Hemoglobin A1c % 6.6 % (<6.0)
[2024-02-19 10:28] LABS: B Type Natriuretic Peptide 40 pg/mL (<100)
[2024-02-19 10:42] LABS: Alanine Aminotransferase 15 U/L (0-31); Alkaline Phosphatase 77 U/L (39-117); Anion Gap 10 (12-20); Aspartate Amino Transferase 17 U/L (5-31); Bilirubin Total 0.4 mg/dL (0.0-1.0); Blood Urea Nitrogen 14 mg/dL (9-16); Carbon Dioxide 28 mmol/L (22-29); Chloride 109 mmol/L (96-108); Estimated Glomerular Filt Rate > 60; Glucose Random 131 mg/dL (60-115); Potassium 3.9 mmol/L (3.3-5.1); Sodium 143 mmol/L (135-145); Total Protein 7.6 g/dL (6.5-8.0)
[2024-02-19 10:57] LABS: Free T4 (Free Thyroxine) 0.97 ng/dL (0.71-1.85); Thyroid Stimulating Hormone 2.46 uIU/mL (0.32-4.0)
== END 2024-02-19 09:29 | disposition home or self-care (01) ==
LOC: HO.LAB 09:28
PROVIDERS: PCP Internal Medicine; Visit Provider Internal Medicine
DX: R22.43 Localized swelling, mass and lump, lower limb, bilateral (principal); R30.0 Dysuria; R73.02 Impaired glucose tolerance (oral)
CPT/HCPCS: 36415; 80053; 81003; 83036; 83880; 84439; 84443; 85025

== ENCOUNTER 2024-03-04 09:16 | Outpatient (AMB) | payer OTHER, SELFPAY ==
[2024-03-04 09:34] VITALS: BP 162/82; PULSE 86; O2SAT 98; BMI 30.1
--- NOTE | 2024-03-04 09:34 | A.OFFPC_ITS ---
Vital Signs 03/04/24 09:34 03/04/24 10:19 Height 4 ft 11 in Weight 149 lb BMI 30.1 BP 162/82 H 130/80 Blood Pressure Location Lt brachial Lt brachial Position Sitting Sitting Pulse 86 Pulse Source Pulse Oximeter Pulse Oximetry (%) 98 Oxygen Delivery Method Room Air Intake Visit Reasons: 4 month f/u gerd - see comments Intake Note: Patient forgot to take her BP med this morning. Planning to go home and take it after todays visit. Allergies lisinopril Allergy (Unknown, Verified 03/04/24 09:34) Unknown metoprolol Allergy (Unknown, Verified 03/04/24 09:34) Unknown solifenacin [Vesicare] Allergy (Unknown, Verified 03/04/24 09:34) Unknown NSAIDS (Non-Steroidal Anti-Inflamma Adverse Reaction (Intermediate, Verified 03/04/24 09:34) HTN Medication List - Last Reconciled 03/04/24 by Susana Jean MD atorvastatin 20 mg PO DAILY 90 days benzonatate 200 mg PO TID PRN blood pressure monitor (Blood Pressure Kit) As directed cetirizine 10 mg PO DAILY 30 days cholecalciferol (vitamin D3) (Vitamin D3) 50 mcg PO DAILY diclofenac sodium 1% (Voltaren Arthritis Pain) 4 grams topical QID fluticasone propionate 50 mcg/actuation 1 spray intranasal DAILY hydrocortisone 2.5% (Proctosol HC) 1 appl [place] TID-QID 30 days hydroxyzine HCl 10 mg PO BEDTIME losartan 50 mg PO DAILY omeprazole 40 mg PO DAILY 90 days paroxetine HCl (Paxil) 10 mg PO DAILY [ROLLATOR As directed] sennosides-docusate sodium 8.6-50 mg (Senna Plus) 2 tab-caps (2 x 8.6-50 mg) PO BEDTIME 30 days sucralfate (Carafate) 1 g PO BID Tobacco use date assessed: 09/22/23 Fall risk assessment: No Falls in past year Last assessed Fall Risk: 03/04/24 Dental Screening Dental Screen Date: 11/04/23 HPI 4 month f/u gerd - see comments HPI Details 79-year-old female with a history of hyp ertension hypercholesterolemia GERD impaired glucose tolerance generalized anxiety disorder and bilateral lower extremity swelling last seen in 02/19/2024 [facility] Medical History (Updated 03/04/24 @ 10:10 by Susana Jean MD) Cough Menopausal vaginal dryness Pelvic pain Vaginal itching Sinus congestion Contusion of right knee Dizziness Dizziness GERD (gastroesophageal reflux disease) Allergic conjunctivitis Frequent headaches Cervicalgia Diverticular disease Peripheral vascular disease Cognitive impairment Insomnia Osteoporosis Legally blind Osteoarthritis Constipation History of DVT (deep vein thrombosis) History of renal calculi Vitamin D deficiency Surgical History History of eye surgery Hx of colonoscopy History of cataract surgery History of hemorrhoidectomy Family History Father No problems noted. Mother No problems noted. Daughter Lymphoma Social History Household Members: Spouse Housing: Apartment Alcohol intake: never Patient Tobacco Use Status: Never used Tobacco e-Cigarette/Vaping Use: Never Used Second Hand Smoke Exposure: No service: No Current occupational status: retired Cognitive needs: No Hearing needs: No Vision needs: Yes Female Reproductive History Menstrual Age of Menarche: 13 Questionnaire PHQ-9 Over the last 2 weeks, how often have you been bothered by any of the following problems? 1. Little interest or pleasure in doing things: not at all 2. Feeling down, depressed, or hopeless: not at all 3. Trouble falling or staying asleep, or sleeping too much: not at all 4. Feeling tired or having little energy: not at all 5. Poor appetite or overeating: not at all 6. Feeling bad about yourself - or that you are a failure or have let yourself or your family down: not at all 7. Trouble concentrating on things, such as reading the newspaper or watching television: not at all 8. Moving or speaking so slowly that other people could have noticed. Or the opposite - being so fidgety or restless that you have been moving around a lot more than usual: not at all 9. Thoughts that you would be better off or of hurting yourself in some way: not at all Total score: 0 Depression Screening Interpretation: Negative Depression Screening Done: Yes Source: Developed by Drs. Hernan Blue, Rama Vivar, Chip Fong and colleagues, with an educational lottie from [employer]. Thrive Questionnaire Date Thrive assessed: 09/22/23 AUDIT C Alcohol Use Questionnaire (AUDIT-C) 1. How often do you have a drink containing alcohol?: Never 2. How many drinks containing alcohol do you have on a typical day when you are drinking?: 1 or 2 3. How often do you have six or more drinks on one occasion?: Never Total Score: 0 Score Reviewed/Action Taken: No SHYAM-7 AMB Questionnaire SHYAM-7 Date SHYAM - 7 assessed: 11/04/23 Source: Developed by Drs. Hernan Blue, Rama Vivar, Chip Fong and colleagues, with an educational lottie from [employer]. Physical exam (Primary Care) Vital Signs: Last Vital Signs Pulse 86 03/04/24 09:34 BP 162/82 H 03/04/24 09:34 Pulse Ox 98 03/04/24 09:34 Oxygen Delivery Method Room Air 03/04/24 09:34 BMI result Body Mass Index 30.1 Tobacco/Smoking Status: Tobacco use Status Tobacco use date assessed 09/22/23 03/04/24 09:35 Patient Tobacco Use Status Never used Tobacco 03/04/24 09:35 e-Cigarette/Vaping Use Never Used 03/04/24 09:35 PHQ-9: PHQ-9 Score PHQ-9: Total score 0 03/04/24 09:46 Depression Screening Interpretation: Negative Thrive Assessment: Date of Thrive Assessment Date Thrive assessed 09/22/23 03/04/24 09:35 Const General: alert; No acute distress Eyes Conjunctivae: conjunctivae normal Resp Auscultation: clear to auscultation bilaterally Cardio Rate: regular rate Rhythm: regular rhythm GI Inspection: Yes normal to inspection Extrem General: Yes normal to inspection and No edema Assessment and Plan Assessment & Plan (1) Type 2 diabetes mellitus with hyperglycemia: Code(s): E11.65 - Type 2 diabetes mellitus with hyperglycemia Plan: Decrease the amount of carbohydrate intake, pasta, bread, rice and potatoes are all sugar and that is aside from all the sweet stuff, remember that fruits are good but they are Sweet also. Hemoglobin A1c goal of less than 7.0 (2) Peripheral vascular disease: Code(s): I73.9 - Peripheral vascular disease, unspecified Plan: When sitting down elevate the legs, exercise, and support stockings (3) Hypercholesterolemia: Code(s): E78.00 - Pure hypercholesterolemia, unspecified Plan: Avoid fried foods, chicken skin, eggs, butter margarine, pastries and meat. Be it pork or beef they have a lot of cholesterol LDL goal of less than 100 and triglyceride of less than 150 September blood work LDL of 120 (4) GERD (gastroesophageal reflux disease): Code(s): K21.9 - Gastro-esophageal reflux disease without esophagitis Qualifiers: Esophagitis presence: with esophagitis Esophagitis bleeding: without hemorrhage Qualified Code(s): K21.00 - Gastro-esophageal reflux disease with esophagitis, without bleeding Plan: Avoid the foods that causes that usually spicy foods, tomato products, juices, coffee, soda and foods that your sensitive to. After eating do not lie down, allow 3-4 hours before in lie down. And keep the head of bed above 30 degrees to avoid the acid from going up. (5) Obesity (BMI 30.0-34.9): Code(s): E66.9 - Obesity, unspecified Plan: Diet and exercise Orders: Orders Lipid Panel 3 Months E78.00 - Pure hypercholesterolemia, unspecified Hemoglobin A1c 3 Months E78.00 - Pure hypercholesterolemia, unspecified Comprehensive Met. Panel 3 Months E78.00 - Pure hypercholesterolemia, unspecified Coding Level of Care Code Est Pt Level 4 (73683) Complex EM visit Add On G2211 Diagnoses Type 2 diabetes mellitus with hyperglycemia E11.65 Peripheral vascular disease I73.9 Hypercholesterolemia E78.00 Gastroesophageal reflux disease with esophagitis without hemorrhage K21.00 Esophagitis presence: with esophagitis Esophagitis bleeding: without hemorrhage Obesity (BMI 30.0-34.9) E66.9 Additional Codes PHQ-9 - 54794 - PHQ-9 Billing: ([id number])
[2024-03-04 10:19] VITALS: BP 130/80
== END 2024-03-04 12:38 | disposition home or self-care (01) ==
PROVIDERS: PCP Internal Medicine; Visit Provider Internal Medicine
DX: E11.65 Type 2 diabetes mellitus with hyperglycemia (principal); I73.9 Peripheral vascular disease, unspecified; E66.9 Obesity, unspecified; Z68.30 Body mass index [BMI] 30.0-30.9, adult; E78.00 Pure hypercholesterolemia, unspecified; K21.00 Gastro-esophageal reflux disease with esophagitis, without bleeding
CPT/HCPCS: 99214; G2211

== ENCOUNTER 2024-06-08 10:31 | Outpatient (AMB) | payer OTHER, SELFPAY ==
[2024-06-08 10:33] VITALS: BP 148/78; PULSE 88; BMI 30.5
--- NOTE | 2024-06-08 10:33 | A.OFFVIS_ITS ---
Vital Signs 06/08/24 10:33 Height 4 ft 11 in Weight 151 lb 0.266 oz BMI 30.5 BP 148/78 H Blood Pressure Location Lt brachial Position Sitting Pulse 88 Pulse Source Pulse Oximeter Intake Visit Reasons: Osteoporosis Intake Note: Patient present today for Osteoporosis follow up visit. Client Solutions Director Required: Yes Client Solutions Director Language: Rehabilitation Counselor Services: Client Solutions Director Offered & Declined Accompanied by: Daughter Allergies lisinopril Allergy (Unknown, Verified 06/08/24 10:43) Unknown metoprolol Allergy (Unknown, Verified 06/08/24 10:43) Unknown solifenacin [Vesicare] Allergy (Unknown, Verified 06/08/24 10:43) Unknown NSAIDS (Non-Steroidal Anti-Inflamma Adverse Reaction (Intermediate, Verified 06/08/24 10:43) HTN HPI Comments Details: 79 YO Female is seen in consultation at the request of PCP for Osteoporosis. First diagnosed in last mo. never Received treatment in the past . No history of pathologic fracture or ONJ. Not Taking Calcium supplement s. Took 2-000 IU of Vitamin D daily.Ran out 2 wks ago Takes PPI, but denies anticoagulant, antiepileptic or glucocorticoid medication. 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 UTD on dental cleanings and sees dentist every 6 months. No planned upcoming dental work or extractions was supposed to be done. DXA dated 09/21/21 showed T score in femoral neck of -2.8 : Labs: secondary workup was completed was negative [facility] Medical History (Updated 03/04/24 @ 10:10 by Susana Jean MD) Cough Menopausal vaginal dryness Pelvic pain Vaginal itching Sinus congestion Contusion of right knee Dizziness Dizziness GERD (gastroesophageal reflux disease) Allergic conjunctivitis Frequent headaches Cervicalgia Diverticular disease Peripheral vascular disease Cognitive impairment Insomnia Osteoporosis Legally blind Osteoarthritis Constipation History of DVT (deep vein thrombosis) History of renal calculi Vitamin D deficiency Surgical History History of eye surgery Hx of colonoscopy History of cataract surgery History of hemorrhoidectomy Family History Father No problems noted. Mother No problems noted. Daughter Lymphoma Social History Household Members: Spouse Housing: Apartment Alcohol intake: never Patient Tobacco Use Status: Never used Tobacco e-Cigarette/Vaping Use: Never Used Second Hand Smoke Exposure: No service: No Current occupational status: retired Cognitive needs: No Hearing needs: No Vision needs: Yes Female Reproductive History Menstrual Age of Menarche: 13 Physical Exam Vital Signs: Last Vital Signs Pulse 88 06/08/24 10:33 BP 148/78 H 06/08/24 10:33 BMI result Body Mass Index 30.5 Assessment & Plan Assessment & Plan (1) Osteoporosis: Code(s): M81.0 - Age-related osteoporosis without current pathological fracture Category: Medical Plan This is a 79-year-old female with a history of osteoporosis. Secondary workup was negative Plan is to repeat DEXA bone density of the hip and spine. It does not appear the patient went for repeat bone density as of last visit. Assuming bone density has decreased were still osteoporotic would consider use of intravenous bisphosphonate or Prolia I do not think she be a candidate for oral bisphosphonate considering moderate hiatal hernia and esophagitis Would recommend continue calcium 1200 mg total from diet and supplementation. Co ntinue current vitamin-D supplementation. Coding Level of Care Code Est Pt Level 3 (06405) Diagnoses Osteoporosis M81.0
== END 2024-06-08 10:54 | disposition home or self-care (01) ==
PROVIDERS: PCP Internal Medicine; Visit Provider Internal Medicine Endocrinology, Diabetes & Metabolism
DX: M81.0 Age-related osteoporosis without current pathological fracture (principal)
CPT/HCPCS: 99213

== ENCOUNTER → 2024-06-08 10:31 | Outpatient (BNVA) | payer OTHER, SELFPAY | PROVIDERS: PCP Internal Medicine; Visit Provider Internal Medicine Endocrinology, Diabetes & Metabolism | DX: M81.0 Age-related osteoporosis without current pathological fracture (principal) | CPT/HCPCS: 99212 ==

== ENCOUNTER 2024-06-23 08:46 | Outpatient (AMB) | payer OTHER, SELFPAY ==
--- NOTE | 2024-06-23 08:48 | A.OFFPC_ITS ---
Vital Signs 06/23/24 08:49 Height 4 ft 11 in Weight 151 lb BMI 30.5 BP 130/78 Blood Pressure Location Lt brachial Position Sitting Pulse 84 Pulse Source Pulse Oximeter Pulse Oximetry (%) 98 Oxygen Delivery Method Room Air Intake Visit Reasons: Peripheral Vascular Disease Mixed [employer] Liv[employer] Required: No Accompanied by: Daughter Allergies lisinopril Allergy (Unknown, Verified 06/23/24 08:50) Unknown metoprolol Allergy (Unknown, Verified 06/23/24 08:50) Unknown solifenacin [Vesicare] Allergy (Unknown, Verified 06/23/24 08:50) Unknown NSAIDS (Non-Steroidal Anti-Inflamma Adverse Reaction (Intermediate, Verified 06/23/24 08:50) HTN Medication List - Last Reconciled 06/23/24 by Susana Jean MD atorvastatin 20 mg PO DAILY 90 days blood pressure monitor (Blood Pressure Kit) As directed blood sugar diagnostic (FreeStyle Precision Prosper Strips) twice a day As directed cholecalciferol (vitamin D3) (Vitamin D3) 50 mcg PO DAILY diclofenac sodium 1% (Voltaren Arthritis Pain) 4 grams topical QID fluticasone propionate 50 mcg/actuation 1 spray intranasal DAILY hydrocortisone 2.5% (Proctosol HC) 1 appl WA TID-QID 30 days hydroxyzine HCl 10 mg PO BEDTIME losartan 50 mg PO DAILY metformin 500 mg PO BIDWMEAL omeprazole 40 mg PO DAILY 90 days [ROLLATOR As directed] sennosides-docusate sodium 8.6-50 mg (Senna Plus) 2 tab-caps (2 x 8.6-50 mg) PO BEDTIME 30 days sucralfate (Carafate) 1 g PO BID Tobacco use date assessed: 09/22/23 Fall risk assessment: No Falls in past year Last assessed Fall Risk: 06/23/24 Dental Screening Dental Screen Date: 06/23/24 Did you have a dental visit in the last 12 months?: No Did you have a dental problem in the last 6 months where you did not have access to dental care?: No Was dental information given to patient?: Patient has dentist HPI Peripheral Vascular Disease HPI Details 79-year-old obese female with multiple m edical problems diabetes mellitus peripheral vascular disease hypercholesterolemia GERD, hypertension generalized anxiety disorder coming in for follow-up. Last seen in 03/13/2024. Patient's colonoscopy is up-to-date 2019 mammogram 2023 bone density is due. Patient did see endocrinology for the osteoporosis advised repeat DEXA scan would recommend IV bisphosphonate or Prolia. Patient had blood work done in January and was advised repeat blood work this time. Cholesterol is elevated [facility] Medical History (Updated 06/23/24 @ 08:59 by Susana Jean MD) Obesity (BMI 30-39.9) Impaired glucose tolerance Cough Menopausal vaginal dryness Pelvic pain Vaginal itching Sinus congestion Contusion of right knee Dizziness Dizziness GERD (gastroesophageal reflux disease) Allergic conjunctivitis Frequent headaches Cervicalgia Diverticular disease Peripheral vascular disease Cognitive impairment Insomnia Osteoporosis Legally blind Osteoarthritis Constipation History of DVT (deep vein thrombosis) History of renal calculi Vitamin D deficiency Surgical History History of eye surgery Hx of colonoscopy History of cataract surgery History of hemorrhoidectomy Family History Father No problems noted. Mother No problems noted. Daughter Lymphoma Social History Household Members: Spouse Housing: Apartment Alcohol intake: never Patient Tobacco Use Status: Never used Tobacco e-Cigarette/Vaping Use: Never Used Second Hand Smoke Exposure: No service: No Current occupational status: retired Cognitive needs: No Hearing needs: No Vision needs: Yes Female Reproductive History Menstrual Age of Menarche: 13 Questionnaire Thrive Questionnaire Date Thrive assessed: 09/22/23 SHYAM-7 AMB Questionnaire SHYAM-7 Date SHYAM - 7 assessed: 11/04/23 Source: Developed by Drs. Hernan Blue, Rama Vivar, Chip Fong and colleagues, with an educational lottie from [employer]. Physical exam (Primary Care) Vital Signs: Last Vital Signs Pulse 84 06/23/24 08:49 BP 130/78 06/23/24 08:49 Pulse Ox 98 06/23/24 08:49 Oxygen Delivery Method Room Air 06/23/24 08:49 BMI result Body Mass Index 30.5 Tobacco/Smoking Status: Tobacco use Status Tobacco use date assessed 09/22/23 06/23/24 08:49 Patient Tobacco Use Status Never used Tobacco 06/23/24 08:49 e-Cigarette/Vaping Use Never Used 06/23/24 08:49 Thrive Assessment: Date of Thrive Assessment Date Thrive assessed 09/22/23 06/23/24 08:49 Const General: alert; No acute distress Eyes Conjunctivae: conjunctivae normal Resp Auscultation: clear to auscultation bilaterally Cardio Rate: regular rate Rhythm: regular rhythm GI Inspection: Yes normal to inspection Extrem General: Yes normal to inspection and No edema Office Procedures Flu Questionnaire Does the patient have a severe egg allergy?: No Does the patient have severe life threatening allergies?: No Does the patient have a fever or illness today?: No Has the patient ever had Guillain-[place] Syndrome?: No Has the patient ever had any past reaction to a flu shot?: No Results AMB Hemoglobin A1c AMB Hemoglobin A1c 6.9 % Last Edit by CEE Zazueta on 06/23/24 09:0 8 Immunizations Fluarix Triv [id number] (PF) 45 mcg (15 mcg x 3)/0.5 mL IM syringe Performing Provider: Susana Jean MD [facility] Administered by: CEE Zazueta on 06/23/24 09:31 Dose Route Admin Location Dispensed Lot Number Expiration Date [facility] Medical File Clerk 0.5 mL IM Left Deltoid 0.5 mL [id number] 02/21/25 [id number] [employer] VIS Given Date VIS Provided VIS Publication Date 06/23/24 Single Vaccine 21 Eligibility Eligibility Date Funding Source Not [facility] Eligible 06/23/24 Private Results Reviewed Results Reviewed: Laboratory Last Values Hgb A1c (Clinic) 6.9 % (4.0-6.0) H 06/23/24 09:03 Coding Level of Care Code Est Pt Level 4 (60734) Complex EM visit Add On G2211 Diagnoses Type 2 diabetes mellitus with hyperglycemia E11.65 Obesity (BMI 30.0-34.9) E66.9 Age-related osteoporosis without current pathological fracture M81.0 Osteoporosis type: age-related Presence of current pathological fracture: without current pathological fracture Primary hypertension I10 Hypertension type: primary hypertension Hypercholesterolemia E78.00 Gastroesophageal reflux disease with esophagitis without hemorrhage K21.00 Esophagitis presence: with esophagitis Esophagitis bleeding: without hemorrhage Assessment & Plan Assessment & Plan (1) Type 2 diabetes mellitus with hyperglycemia: Code(s): E11.65 - Type 2 diabetes mellitus with hyperglycemia Category: Medical Plan: Decrease the amount of carbohydrate intake, pasta, bread, rice and potatoes are all sugar and that is aside from all the sweet stuff, remember that fruits are good but they are Sweet also. Hemoglobin A1c goal of less than 7.0. Patient is diet controlled presently. had a long discussion of trying to control DM but patient cannot . will need to start med (2) Obesity (BMI 30.0-34.9): Code(s): E66.9 - Obesity, unspecified Category: Medical Plan: Diet and exercise (3) Osteoporosis: Comment: 09/13/2021 Code(s): M81.0 - Age-related osteoporosis without current pathological fracture Category: Medical Qualifiers: Osteoporosis type: age-related Presence of current pathological fracture: without current pathological fracture Qualified Code(s): M81.0 - Age- related osteoporosis without current pathological fracture Plan: Patient follows up with endocrinology and was advised bone density and this has not been done. Reminded patient considering IV bisphosphonate or Prolia. Discussed about calcium and vitamin-D. long discussion on problem of osteoporosis, risk and treatment (4) Hypertension: Code(s): I10 - Essential (primary) hypertension Category: Medical Qualifiers: Hypertension type: primary hypertension Qualified Code(s): I10 - Essential (primary) hypertension Plan: Continue with blood pressure medication. Decrease salt intake and exercise on losartan 50 mg once a day (5) Hypercholesterolemia: Code(s): E78.00 - Pure hypercholesterolemia, unspecified Category: Medical Plan: Avoid fried foods, chicken skin, eggs, butter margarine, pastries and meat. Be it pork or beef they have a lot of cholesterol reminded about the blood work needed to be done LDL goal of less than 100 and triglyceride of less than 150 on atorvastatin 20 mg once a day (6) GERD (gastroesophageal reflux disease): Code(s): K21.9 - Gastro-esophageal reflux disease without esophagitis Category: Medical Qualifiers: Esophagitis presence: with esophagitis Esophagitis bleeding: without hemorrhage Qualified Code(s): K21.00 - Gastro-esophageal reflux disease with esophagitis, without bleeding Plan: Avoid the foods that causes that usually spicy foods, tomato products, juices, coffee, soda and foods that your sensitive to. After eating do not lie down, allow 3-4 hours before in lie down. And keep the head of bed above 30 degrees to avoid the acid from going up. Patient takes omeprazole 40 mg once a day and Carafate Orders: Orders Influenza [id number] Immunization Today Z23 - Encounter for immunization AMB Hemoglobin A1c Today E11.65 - Type 2 diabetes mellitus with hyperglycemia Medications: New Fluarix Triv [id number] (PF) (flu vacc [id number] 6mos up(PF)) 0.5 mL IM ONCE 0.5 mL 0RF NS Z23 - Encounter for immunization blood sugar diagnostic (FreeStyle Precision Prosper Strips) twice a day As directed 100 ea 3RF E11.65 - Type 2 diabetes mellitus with hyperglycemia metformin 500 mg PO BIDWMEAL 60 tabs 3RF E11.65 - Type 2 diabetes mellitus with hyperglycemia Refilled sennosides-docusate sodium 8.6-50 mg (Senna Plus) 2 tab-caps (2 x 8.6-50 mg) PO BEDTIME 30 days 60 caps 3RF K59.00 - Constipation, unspecified
[2024-06-23 08:49] VITALS: BP 130/78; PULSE 84; O2SAT 98; BMI 30.5
== END 2024-06-23 09:34 | disposition home or self-care (01) ==
LOC: HO.HMCH 08:46
PROVIDERS: PCP Internal Medicine; Visit Provider Internal Medicine
DX: E11.65 Type 2 diabetes mellitus with hyperglycemia (principal); E66.9 Obesity, unspecified; Z68.30 Body mass index [BMI] 30.0-30.9, adult; M81.0 Age-related osteoporosis without current pathological fracture; I10 Essential (primary) hypertension; E78.00 Pure hypercholesterolemia, unspecified; K21.00 Gastro-esophageal reflux disease with esophagitis, without bleeding

== ENCOUNTER → 2024-06-23 08:46 | Outpatient (BNVA) | payer OTHER, SELFPAY | PROVIDERS: PCP Internal Medicine; Visit Provider Internal Medicine | DX: Z23 Encounter for immunization (principal); E11.65 Type 2 diabetes mellitus with hyperglycemia; E66.9 Obesity, unspecified; M81.0 Age-related osteoporosis without current pathological fracture; I10 Essential (primary) hypertension; E78.00 Pure hypercholesterolemia, unspecified; K21.00 Gastro-esophageal reflux disease with esophagitis, without bleeding | CPT/HCPCS: 83036; 90471; 90656; 99212 ==

== ENCOUNTER 2024-06-24 08:11 | Outpatient (REF) | payer OTHER, SELFPAY ==
[2024-06-24 09:21] LABS: Alanine Aminotransferase 27 U/L (0-31); Albumin Level 3.9 g/dL (3.5-5.0); Alkaline Phosphatase 66 U/L (39-117); Anion Gap 11 (12-20); Aspartate Amino Transferase 24 U/L (5-31); Bilirubin Total 0.5 mg/dL (0.0-1.0); Blood Urea Nitrogen 17 mg/dL (9-16); Calcium 9.9 mg/dL (8.4-10.2); Carbon Dioxide 27 mmol/L (22-29); Chloride 110 mmol/L (96-108); Cholesterol 177 mg/dL (<200); Estimated Glomerular Filt Rate 60; Glucose Random 113 mg/dL (60-115); HDL Cholesterol 50 mg/dL (>40); LDL Cholesterol Calculated 98 mg/dL (<100); Potassium 4.2 mmol/L (3.3-5.1); Sodium 144 mmol/L (135-145); Total Protein 7.1 g/dL (6.5-8.0); Triglycerides 147 mg/dL (<150)
[2024-06-24 09:27] LABS: Estimated Average Glucose 137 mg/dL; Hemoglobin A1c % 6.4 % (<6.0); Total Hemoglobin (HGBA1C) 3400.1546 umol/L
== END 2024-06-24 08:12 | disposition home or self-care (01) ==
LOC: HO.LAB 08:11
PROVIDERS: PCP Internal Medicine; Visit Provider Internal Medicine
DX: E78.00 Pure hypercholesterolemia, unspecified (principal); Z13.1 Encounter for screening for diabetes mellitus
CPT/HCPCS: 36415; 80053; 80061; 83036

== ENCOUNTER 2024-07-01 08:38 | Outpatient (REF) | payer OTHER, SELFPAY ==
--- NOTE | ~2024-07-01 | MM_ITS ---
EXAMINATION: BONE DENSITOMETRY CLINICAL INDICATION: Age related osteoporosis. COMPARISON: Previous BD dated 09/21/2021 and baseline BD dated 03/30/2004. TECHNIQUE: Using a [employer] DXA System (software version: 13.1) manufactured by [employer], dual-energy x-ray absorptiometry was performed of the lumbar spine and left hip. The images are of good technical quality. Summary results are attached. FINDINGS: LEFT FEMUR, NECK: Current: BMD 0.747 g/cm2, Z-score -0.1, T-score -2.1, osteopenia. Prior: BMD 0.631 g/cm2. Baseline: BMD 0.785 g/cm2. LEFT FEMUR, TOTAL: Current: BMD 0.850 g/cm2, Z-score 0.6, T-score -1.2, osteopenia, 11.1% increase from previous, 7.8% decrease from baseline (<5% change is not significant). Prior: BMD 0.765 g/cm2. Baseline: BMD 0.922 g/cm2. AP SPINE L1-L4: Current: BMD 0.882 g/cm2, Z-score -0.8, T-score -2.5, osteoporosis, 3.1% decrease from previous, 15.7% decrease from baseline (<5% change is not significant). Prior: BMD 0.910 g/cm2. Baseline: BMD 1.046 g/cm2. IDENTIFIED RISK FACTORS: Menopause, osteoporosis. HISTORY OF FRACTURE: None listed. MEDICATIONS: Vitamin D. MM/XR DEXA axial skeleton IMPRESSION: 1. DIAGNOSIS: Osteoporosis based on the lowest T-score value of -2.5 in the lumbar spine applying World Health Organization criteria. 2. 10-YEAR FRACTURE RISK PREDICTION, FRAX: According to the guidelines, FRAX calculation should only be performed on patients in the osteopenia bone density category. Therefore, FRAX was not performed on this patient. 3. Treatment Recommendations: NOF guidelines recommend consideration for treatment in postmenopausal women and men age 50 and older presenting with the following: -A hip or vertebral (clinical or morphometric) fracture. -T-score less than or equal to -2.5 at the femoral neck or spine after appropriate evaluation to exclude secondary causes. -Low bone mass at the hip or spine and a 10-year fracture probability by FRAX of greater than or equal to 3% for hip fracture or greater than or equal to 20% for major osteoporotic fracture based on the [place] adapted WHO algorithm. 4. Other Recommendations: All treatment decisions require clinical judgment and consideration of individual patient factors, including patient preferences, comorbidities, previous drug use, risk factors not captured in the FRAX model (e.g. frailty, falls, vitamin D deficiency, increased bone turnover, interval significant decline in bone density) and possible under or overestimation of fracture risk by FRAX. Additional medical evaluation for secondary cause of low bone mineral density may be appropriate. FUTURE SCAN RECOMMENDATION: People with diagnosed cases of osteoporosis or at high risk for fracture should have regular bone mineral density tests. For patients eligible for Medicare, routine testing is allowed once every 2 years. The testing frequency can be increased to one year for patients who have rapidly progressing disease, those who are receiving or discontinuing medical therapy to restore bone mass, or have additional risk factors. Electronically signed by: Mirella Lion MD 07/01/2024 12:47 PM JOCELYN REBOLLEDO
== END 2024-07-01 08:39 | disposition home or self-care (01) ==
LOC: HO.MAMMO 08:38
PROVIDERS: PCP Internal Medicine; Visit Provider Internal Medicine Endocrinology, Diabetes & Metabolism
DX: M81.0 Age-related osteoporosis without current pathological fracture (principal)
CPT/HCPCS: 77080

== ENCOUNTER 2024-08-16 10:29 | Outpatient (REF) | payer OTHER, SELFPAY ==
--- NOTE | ~2024-08-16 | MM_ITS ---
EXAMINATION: MM DIAGNOSTIC DIGITAL MAMMOGRAPHY, LEFT CLINICAL INFORMATION: Patient was called back for left breast calcifications November 2023 on additional views stereotactic biopsy was recommended. Patient never had stereotactic biopsy. COMPARISON: Mammography: Comparison is made with available prior examinations. TECHNIQUE: Digital mammography is performed in craniocaudal and mediolateral oblique views along with computer-aided detection (CAD). FINDINGS: The breasts are heterogeneously dense, which may obscure small masses (ACR BI-RADS breast composition Category c). Grouped coarse round calcifications in the upper outer quadrant are coarsening over time and may represent vascular or dystrophic calcifications. No suspicious masses or other abnormal findings. Results are provided to the patient at time of visit by the technologist. MM/MM diagnostic mammo unilat LT IMPRESSION: Grouped calcifications in the upper outer quadrant may represent vascular or dystrophic calcifications. Recommend six-month follow-up with magnification views for further evaluation of stability. ASSESSMENT: BI-RADS BI-RADS 3 - Probably benign finding(s) - 6 month follow-up suggested RECOMMENDATION: 6 Month F/U This patient's information was entered into a reminder system with a target due date for their next mammogram. Electronically signed by: Indira Farlye DO 08/16/2024 11:10 AM JOCELYN
== END 2024-08-16 10:30 | disposition home or self-care (01) ==
LOC: HO.MAMMO 10:29
PROVIDERS: PCP Internal Medicine; Visit Provider Internal Medicine
DX: R92.1 Mammographic calcification found on diagnostic imaging of breast (principal); R92.332 Mammographic heterogeneous density, left breast
CPT/HCPCS: 77062; 77065

== ENCOUNTER → 2024-08-16 11:00 | Outpatient (BNV) | payer OTHER, SELFPAY | PROVIDERS: PCP Internal Medicine; Visit Provider Internal Medicine | DX: R92.1 Mammographic calcification found on diagnostic imaging of breast (principal) | CPT/HCPCS: 77065; G0279 ==

== ENCOUNTER 2024-11-10 14:59 | Outpatient (AMB) | payer OTHER, SELFPAY ==
[2024-11-10 15:11] VITALS: BP 140/76; PULSE 100; O2SAT 98; BMI 28.8
--- NOTE | 2024-11-10 15:11 | MHC.PC.OV ---
Vital Signs 11/10/24 15:11 Height 4 ft 11 in Weight 142 lb 6.4 oz BMI 28.8 BP 140/76 H Blood Pressure Location Lt brachial Position Sitting Pulse 100 Pulse Source Pulse Oximeter Temp Source Oral Pulse Oximetry (%) 98 Oxygen Delivery Method Room Air Intake Visit Reasons: feeling well and coughing frequently Inspection Engineer Required: Yes Inspection Engineer Language: Gibraltarian Accompanied by: Daughter Allergies lisinopril Allergy (Unknown, Verified 11/21/24 19:53) Unknown metoprolol Allergy (Unknown, Verified 11/21/24 19:53) Unknown solifenacin [Vesicare] Allergy (Unknown, Verified 11/21/24 19:53) Unknown NSAIDS (Non-Steroidal Anti-Inflamma Adverse Reaction (Intermediate, Verified 11/21/24 19:53) HTN Medication List - Last Reconciled 11/10/24 by YONG Ferro atorvastatin 20 mg PO DAILY 90 days blood pressure monitor (Blood Pressure Kit) As directed blood sugar diagnostic (FreeStyle Precision Prosper Strips) twice a day As directed cholecalciferol (vitamin D3) (Vitamin D3) 50 mcg PO DAILY diclofenac sodium 1% (Voltaren Arthritis Pain) 4 grams topical QID fluticasone propionate 50 mcg/actuation 1 spray intranasal DAILY hydrocortisone 2.5% (Proctosol HC) 1 appl UT TID-QID 30 days hydroxyzine HCl 10 mg PO BEDTIME losartan 50 mg PO DAILY metformin 500 mg PO BIDWMEAL omeprazole 40 mg PO DAILY 90 days [ROLLATOR As directed] sennosides-docusate sodium 8.6-50 mg (Senna Plus) 2 tab-caps (2 x 8.6-50 mg) PO BEDTIME 30 days sucralfate (Carafate) 1 g PO BID Tobacco use date assessed: 11/10/24 Fall risk assessment: No Falls in past year Last assessed Fall Risk: 11/10/24 Dental Screening Dental Screen Date: 11/10/24 Did you have a dental visit in the last 12 months?: No Did you have a dental problem in the last 6 months where you did not have access to dental care?: No Was dental information given to patient?: Patient has dentist HPI feeling well and coughing frequently HPI Details Patient is a Gibraltarian-speaking 79-year-old female. Accompanied by daughter, who translated, refused ASL Patient reports that she had COVID 2 weeks ago and since then has not been feeling well She reports that she have sore throat when she coughs and that her cough is worse at nighttime Patient reports that she is unable to sleep. Reports nasal congestion reports a lot of sputum for mouth, reports that she does not know the color because she is blind. Reports that she has been using Robitussin and NyQuil with some relief Denies shortness of breath, chest pain, heart palpitation or dizziness The patient also denies body aches FOR[facility]LY [facility], [facility] Medical History Obesity (BMI 30-39.9) Impaired glucose tolerance Cough Menopausal vaginal dryness Pelvic pain Vaginal itching Sinus congestion Contusion of right knee Dizziness Dizziness GERD (gastroesophageal reflux disease) Allergic conjunctivitis Frequent headaches Cervicalgia Diverticular disease Peripheral vascular disease Cognitive impairment Insomnia Osteoporosis Legally blind Osteoarthritis Constipation History of DVT (deep vein thrombosis) History of renal calculi Vitamin D deficiency Surgical History History of eye surgery Hx of colonoscopy History of cataract surgery History of hemorrhoidectomy Family History Father No problems noted. Mother No problems noted. Daughter Lymphoma Social History Household Members: Spouse Housing: Apartment Alcohol intake: never Patient Tobacco Use Status: Never used Tobacco e-Cigarette/Vaping Use: Never Used Second Hand Smoke Exposure: No service: No Current occupational status: retired Cognitive needs: No Hearing needs: No Vision needs: Yes Female Reproductive History Menstrual Age of Menarche: 13 Questionnaire PHQ-9 Over the last 2 weeks, how often have you been bothered by any of the following problems? 1. Little interest or pleasure in doing things: not at all 2. Feeling down, depressed, or hopeless: not at all 3. Trouble falling or staying asleep, or sleeping too much: not at all 4. Feeling tired or having little energy: not at all 5. Poor appetite or overeating: not at all 6. Feeling bad about yourself - or that you are a failure or have let yourself or your family down: not at all 7. Trouble concentrating on things, such as reading the newspaper or watching television: not at all 8. Moving or speaking so slowly that other people could have noticed. Or the opposite - being so fidgety or restless that you have been moving around a lot more than usual: not at all 9. Thoughts that you would be better off or of hurting yourself in some way: not at all Total score: 0 Depression Screening Interpretation: Negative Depression Screening Done: Yes 11404 - PHQ-9 Billing: Yes Source: Developed by Drs. Hernan Blue, Rama Vivar, Chip Fong and colleagues, with an educational lottie from [employer]. Thrive Questionnaire Date Thrive assessed: 11/10/24 I am a: Patient What is your living situation today?: I have a steady place to live Within the past 12 months, did the food you bought not last and you didn't have the money to get more?: Never true Within the past 12 months, did you worry whether your food would run out before you got money to buy more?: Never true Do you have trouble paying for medicines?: No Do you have trouble getting transportation to medical appointments?: No Do you have trouble paying your heating and electricity bill?: No Do you have trouble taking care of your child, family member or friend?: No Do you have trouble with day-to-day activities such as bathing, preparing meals, shopping, managing finances, etc.?: No Are you currently unemployed and looking for a job?: No Are you interested in more education?: No Please select the resources that you would like help with: None Currently or been in a relationship where the following occur: No concerns reported THRIVE Score: 0 AUDIT C Alcohol Use Questionnaire (AUDIT-C) 1. How often do you have a drink containing alcohol?: Never 2. How many drinks containing alcohol do you have on a typical day when you are drinking?: 1 or 2 3. How often do you have six or more drinks on one occasion?: Never Total Score: 0 Score Reviewed/Action Taken: No SHYAM-7 AMB Questionnaire SHYAM-7 Date SHYAM - 7 assessed: 11/10/24 Feeling nervous, anxious, or on edge: 0 = Not at all Not being able to stop or control worryin = Not at all Worrying too much about different things: 0 = Not at all Trouble relaxin = Not at all Being so restless that it is hard to sit still: 0 = Not at all Becoming easily annoyed or irritable: 0 = Not at all Feeling afraid as if something awful might happen: 0 = Not at all Total SHYAM-7 score (0-4 normal; 5-9 mild; 10-14 moderate; 15-21 severe): 0 Source: Developed by Drs. Hernan Blue, Rama Vivar, Chip Fong and colleagues, with an educational lottie from [employer]. SHYAM-7 Assessment Billing SHYAM-7 Assessment Tool: SHYAM-7 Assessment 30847 Review of Systems ENT Reports nasal congestion, Reports post nasal drip, Reports sinus pressure and Denies sore throat Card Denies chest pain, Denies leg edema, Denies lightheadedness and Reports dyspnea (Intermittently after coughing) Resp Reports cough, Denies hemoptysis, Reports excessive phlegm production and Reports dyspnea (Intermittently after coughing) GI Denies abdominal pain, Denies melena, Denies constipation, Denies diarrhea and Denies vomiting Denies urinary frequency, Denies dysuria and Denies urinary urgency Physical exam (Primary Care) Vital Signs: Last Vital Signs Pulse 100 11/10/24 15:11 BP 140/76 H 11/10/24 15:11 Pulse Ox 98 11/10/24 15:11 Oxygen Delivery Method Room Air 11/10/24 15:11 BMI result Body Mass Index 28.8 Tobacco/Smoking Status: Tobacco use Status Tobacco use date assessed 11/10/24 11/10/24 15:16 Patient Tobacco Use Status Never used Tobacco 11/10/24 15:16 e-Cigarette/Vaping Use Never Used 11/10/24 15:16 PHQ-9: PHQ-9 Score PHQ-9: Total score 0 11/10/24 15:45 Depression Screening Interpretation: Negative Thrive Assessment: Date of Thrive Assessment Date Thrive assessed 11/10/24 11/10/24 15:16 Currently or been in a relationship where the following occur: No concerns reported Const General: healthy appearing, no acute distress, alert and awake Nutritional Appearance: well nourished HENMT Ears: TM's normal bilaterally General nose exam: Abnormal mucous membranes and turbinates present boggy and erythematous Face and sinus: Yes sinus tenderness Eyes Conjunctivae: conjunctivae normal Sclerae: sclerae normal Neck Neck: Yes no lymphadenopathy and Yes no JVD Thyroid: Thyroid normal Carotids: no bruits Resp Effort & Inspection: normal respiratory effort and not tachypneic Auscultation: no crackles, no rales, no rhonchi and no wheezes Cardio Rate: regular rate Rhythm: regular rhythm Heart sounds: no murmurs and normal S1 and S2 GI Palpation (GI): Soft to palpation, nontender, no hepatomegaly and no splenomegaly Auscultation: normal bowel sounds Coding Level of Care Code Est Pt Level 3 (63323) Diagnoses Acute rhinosinusitis J01. Cough, unspecified type R05.9 Cough type: unspecified Shortness of breath R06.02 Additional Codes SHYAM-7 Assessment Billing - SHYAM-7 Assessment Tool: SHYAM-7 Assessment 64858 ([id number]) PHQ-9 - 66831 - PHQ-9 Billing: Yes ([id number]) Time Spent (min) 38 Assessment & Plan Assessment & Plan (1) Acute rhinosinusitis: Code(s): J - Acute sinusitis, unspecified Category: Medical Plan: Augmentin b.i.d. times 10 days Prednisone 20 mg x 3 days. Continue Flonase 1 spray intranasally (2) Cough: Code(s): R05.9 - Cough, unspecified Category: Medical Qualifiers: Cough type: unspecified Qualified Code(s): R05.9 - Cough, unspecified Plan: Continue cough meds and OTC. Discussed with the patient that her cough could be due to her GERD as well. So to make sure she takes her omeprazole 40 mg daily (3) Shortness of breath: Code(s): R06.02 - Shortness of breath Category: Medical Plan: Intermittently especially after coughing fits. Albuterol rescue inhaler ordered Medications: New albuterol sulfate 90 mcg/actuation 2 puffs inhalation Q4-6H PRN 8.5 grams 3RF shortness of breath or wheezing amoxicillin-pot clavulanate 875-125 mg 1 tab PO BID 20 tabs 0RF 10 days J01.90 - Acute sinusitis, unspecified prednisone 20 mg PO DAILY 3 tabs 0RF 3 days J01.90 - Acute sinusitis, unspecified
== END 2024-11-10 16:10 | disposition home or self-care (01) ==
LOC: HO.HMCH 14:59
PROVIDERS: PCP Internal Medicine
DX: J01.90 Acute sinusitis, unspecified (principal); R05.9 Cough, unspecified; R06.02 Shortness of breath

== ENCOUNTER → 2024-11-10 14:59 | Outpatient (BNVA) | payer OTHER, SELFPAY | PROVIDERS: PCP Internal Medicine | DX: J01.90 Acute sinusitis, unspecified (principal); R05.9 Cough, unspecified; R06.02 Shortness of breath | CPT/HCPCS: 96127; 99212 ==

== ENCOUNTER 2024-11-16 08:25 | Emergency (ER) | payer OTHER, SELFPAY ==
--- NOTE | ~2024-11-16 | CT_ITS ---
EXAMINATION: CT ABDOMEN PELVIS WITH IV CONTRAST HISTORY: RUQ/epigastric pain, N, RLQ pain COMPARISON: There are no prior studies for comparison. TECHNIQUE: CT scan of the abdomen and pelvis was performed following administration of 85 mL Omnipaque 350 using standard departmental protocol. Coronal and sagittal reformatted images were generated and reviewed. Oral contrast material was not administered at the request of the referring physician. This CT exam was performed with one or more of the following dose reduction techniques: automated exposure control, adjustment of the mA and/or kV according to patient size, use of iterative reconstruction technique. DLP: 534 mGy-cm FINDINGS: Images are somewhat degraded by patient motion. LOWER CHEST: The visualized lung bases are clear. There is no pleural effusion. CARDIOVASCULATURE: The heart is normal in size. There is no pericardial effusion. LIVER: The liver is normal in size and contour. No liver mass is identified. The hepatic and portal veins are patent. GALLBLADDER / BILE DUCTS: The gallbladder is unremarkable. There is no intra or extrahepatic biliary ductal dilatation. SPLEEN: The spleen is normal in size. No focal splenic lesion is identified. PANCREAS: The pancreas is unremarkable in appearance. ADRENAL GLANDS: Within normal limits. KIDNEYS/RETROPERITONEUM: No renal calculi are identified. There is no hydronephrosis. A subcentimeter hypodensity in the interpolar region of the left kidney likely represents a cyst and is unchanged. LYMPH NODES: No abdominal or pelvic lymphadenopathy. VASCULATURE: The abdominal aorta demonstrates atherosclerotic calcification, but is normal in caliber. MESENTERY/PERITONEUM: No free fluid. No masses. There is no free intraperitoneal gas. STOMACH: Again seen is a large hiatal hernia. The stomach is collapsed. SMALL BOWEL: The small bowel is normal in caliber. COLON: There is extensive diverticulosis of the colon, without evidence of diverticulitis. APPENDIX: The appendix is not seen, however no inflammatory changes are seen adjacent to the cecum. URINARY BLADDER/PELVIC ORGANS: The urinary bladder is unremarkable. The uterus is unremarkable. BONES / SOFT TISSUES: There is degenerative disc disease at L4-5. CT/CT abdomen pelvis w IV con IMPRESSION: Large hiatal hernia. Colonic diverticulosis without evidence of diverticulitis. No acute abnormality is identified. Electronically signed by: Hernan Roe MD 11/16/2024 01:25 PM EDT RP
--- NOTE | ~2024-11-16 | US_ITS ---
EXAMINATION: US ABDOMEN LIMITED HISTORY: RUQ/epigastric pain, N TECHNIQUE: Real-time grayscale ultrasound imaging of the gallbladder was performed and images were reviewed. COMPARISON: Correlation is made with an abdominal ultrasound dated 10/01/2023. FINDINGS: Sonographic examination of the gallbladder was performed. The gallbladder is unremarkable in appearance. There is no evidence of cholelithiasis. There is no wall thickening or pericholecystic fluid. There is no sonographic Phoenix sign. The common bile duct is normal in caliber measuring 2 mm in diameter. US/US abdomen limited IMPRESSION: No evidence of cholelithiasis or acute cholecystitis. Electronically signed by: Hernan Roe MD 11/16/2024 03:09 PM EDT
--- NOTE | ~2024-11-16 | XR_ITS ---
EXAMINATION: XR CHEST 1 VIEW HISTORY: cough. recent Covid COMPARISON: Comparison is made with the prior examination dated 09/15/2023. FINDINGS: A single AP portable view of the chest performed at 11:28 AM is submitted. The lungs are expanded and clear. There is no pleural effusion, pneumothorax, or pulmonary vascular congestion. The heart is normal in size. The aorta is calcified. There is a moderate hiatal hernia.. The bones are intact. XR/XR chest 1V IMPRESSION: Moderate hiatal hernia. No acute cardiopulmonary abnormality. Electronically signed by: Hernan Roe MD 11/16/2024 11:36 AM EDT
[2024-11-16 08:41] VITALS: BP 156/75; PULSE 102; RESP 18; TEMP 36.4; O2SAT 97; BMI 27.0
[2024-11-16 09:10] LABS: MANUAL DIFF FLAG NO
[2024-11-16 09:12] LABS: Basophils Percent Auto 0.5 % (0-2); Eosinophils Absolute Auto 0.2 X10*3/uL (0.0-0.4); Eosinophils Percent Auto 2.9 % (0-4); Hematocrit 42.7 % (37.0-47.0); Hemoglobin 13.9 g/dl (12.0-16.0); Imm Gran Abs Auto 0.02 X10*3/uL (0.00-0.03); Imm Gran Pct Auto 0.2 % (0.0-0.4); Lymphocytes Absolute Auto 2.2 X10*3/uL (1.2-4.9); Lymphocytes Percent Auto 27.9 % (20-40); Mean Corpuscular HGB Conc 32.6 g/dl (31.0-35.0); Mean Corpuscular Hemoglobin 28.3 pg (27.0-33.0); Mean Platelet Volume 10.9 fL (9.4-12.3); Monocytes Absolute Auto 0.9 X10*3/uL (0.1-1.2); Neutrophils Absolute Auto 4.6 x10*3/uL (2.0-8.3); Neutrophils Percent Auto 57.5 % (45-73); Platelet Count 247 X10*3/uL (160-400); Red Blood Count 4.91 X10*6/uL (4.20-5.50); Red Cell Distribution Width 13.2 % (11.0-16.0)
[2024-11-16 09:35] LABS: Alanine Aminotransferase 32 U/L (0-31); Albumin Level 3.9 g/dL (3.5-5.0); Alkaline Phosphatase 62 U/L (39-117); Anion Gap 13 (12-20); Aspartate Amino Transferase 30 U/L (5-31); Bilirubin Total 0.5 mg/dL (0.0-1.0); Blood Urea Nitrogen 15 mg/dL (9-16); Calcium 9.9 mg/dL (8.4-10.2); Carbon Dioxide 24 mmol/L (22-29); Chloride 108 mmol/L (96-108); Estimated Glomerular Filt Rate > 60; Glucose Random 148 mg/dL (60-115); Potassium 3.8 mmol/L (3.3-5.1); Sodium 141 mmol/L (135-145); Total Protein 7.2 g/dL (6.5-8.0)
--- NOTE | 2024-11-16 11:04 | ED.GENADULT ---
HPI - General Adult General Chief complaint: General Medical Stated complaint: abd pain nausea Time Seen by Provider: 11/16/24 11:03 Source: patient, family, RN notes reviewed and old records reviewed Mode of arrival: ambulatory History of Present Illness ED Provider: Alondra Mason PA-C HPI narrative: 79-year-old female with a past medical history of GERD, DM, diverticular disease, cognitive impairment, osteoarthritis, DVT, renal calculi, COVID-19 3 weeks ago, presenting to the ED complaining of headache, nausea, decreased p.o. intake, and right-sided abdominal pain x 2 weeks. Also reports persistent dry cough and intermittent SOB. Denies vomiting, diarrhea/constipation, dysuria/hematuria, flank pain, CP/SOB, pedal edema Related Data Previous Rx's ?Medication ?Instructions ?Recorded fluticasone propionate 50 1 spray intranasal DAILY #48 mL 12/15/20 mcg/actuation nasal spray,suspension ROLLATOR #1 ea 01/24/22 blood pressure monitor (Blood #1 ea 02/19/22 Pressure Kit) hydrocortisone 2.5 % topical cream 1 appl PA TID-QID hemorrhoids 30 10/28/23 with perineal applicator days #60 grams (Proctosol HC) diclofenac sodium 1 % topical gel 4 g topical QID #100 grams 04/30/24 (Voltaren Arthritis Pain) blood sugar diagnostic (FreeStyle #100 ea 06/23/24 Precision Prosper Strips) sennosides 8.6 mg-docusate sodium 2 tab-cap (2 x 8.6-50 mg) PO 06/23/24 50 mg capsule (Senna Plus) BEDTIME 30 days #60 caps atorvastatin 20 mg tablet 20 mg PO DAILY 90 days #90 tabs 07/20/24 losartan 50 mg tablet 50 mg PO DAILY #90 tabs 07/20/24 cholecalciferol (vitamin D3) 50 50 mcg PO DAILY #90 tabs 07/21/24 mcg (2,000 unit) tablet (Vitamin D3) hydroxyzine HCl 10 mg tablet 10 mg PO BEDTIME #90 tabs 09/01/24 omeprazole 40 mg capsule,delayed 40 mg PO DAILY 90 days #90 caps 09/01/24 release sucralfate 1 gram tablet (Carafate) 1 g PO BID #180 tabs 09/01/24 albuterol sulfate 90 mcg/actuation 2 puff inhalation Q4-6H PRN 11/10/24 aerosol inhaler shortness of breath or wheezing #8.5 grams amoxicillin 875 mg-potassium 1 tab PO BID 10 days #20 tabs 11/10/24 clavulanate 125 mg tablet metformin 500 mg tablet 500 mg PO BIDWMEAL #60 tabs 11/10/24 prednisone 20 mg tablet 20 mg PO DAILY 3 days #3 tabs 11/10/24 Allergies Allergy/AdvReac Type Severity Reaction Status Date / Time lisinopril Allergy Unknown Unknown Verified 11/16/24 08:46 metoprolol Allergy Unknown Unknown Verified 11/16/24 08:46 solifenacin [Vesicare] Allergy Unknown Unknown Verified 11/16/24 08:46 NSAIDS (Non-Steroidal AdvReac Intermediate HTN Verified 11/16/24 08:46 Anti-Inflamma Review of Systems Review of Systems: Yes all other systems are reviewed and are negative Constitutional: Constitutional: Reports as per [facility] Past Medical History Attestation statement: The following information was validated with the patient. Source: old records reviewed Medical History Obesity (BMI 30-39.9) Impaired glucose tolerance Cough Menopausal vaginal dryness Pelvic pain Vaginal itching Sinus congestion Contusion of right knee Dizziness Dizziness GERD (gastroesophageal reflux disease) Allergic conjunctivitis Frequent headaches Cervicalgia Diverticular disease Peripheral vascular disease Cognitive impairment Insomnia Osteoporosis Legally blind Osteoarthritis Constipation History of DVT (deep vein thrombosis) History of renal calculi Vitamin D deficiency Surgical History History of eye surgery Hx of colonoscopy History of cataract surgery History of hemorrhoidectomy Family History Family History Father No problems noted. Mother No problems noted. Daughter Lymphoma Social History Social History Household Members: Spouse Housing: Apartment Alcohol intake: never Patient Tobacco Use Status: Never used Tobacco e-Cigarette/Vaping Use: Never Used Second Hand Smoke Exposure: No service: No Current occupational status: retired Cognitive needs: No Hearing needs: No Vision needs: Yes Physical Exam ED Vital Signs: Vital Signs - 24 hr 11/16/24 08:41 11/16/24 12:04 11/16/24 15:57 Temperature 97.6 F 97.7 F 97.7 F Pulse Rate 102 H 86 86 Respiratory Rate 18 18 18 Blood Pressure 156/75 H 138/79 138/79 Pulse Oximetry 97 97 97 Oxygen Delivery Method Room Air Room Air Room Air BMI result Body Mass Index 27.0 Const General: cooperative, healthy appearing and no acute distress Orientation/consciousness: patient oriented x3 Limitations: no limitations HENMT Head: Yes normal to inspection and Yes atraumatic Ears: hearing grossly normal bilaterally General nose exam: Normal external nose present Face and sinus: Yes normal facial exam Eyes General: appearance normal, both eyes and all related structures EOM: EOMs intact bilaterally Neck Neck: Yes normal visual inspection and Yes no meningeal signs Resp Effort & Inspection: normal respiratory effort and no respiratory distress Auscultation: clear to auscultation bilaterally, no crackles, no rales, no rhonchi and no wheezes Cardio Rate: regular rate Heart sounds: S1 normal heart sound present and S2 normal heart sound present GI Inspection: Yes normal to inspection Palpation (GI): Soft to palpation, Tenderness to palpation present (GI) in the epigastrum, in the RLQ and in the RUQ; with no rebound tenderness, no guarding and not rigid General: Yes no CVA tenderness Back/Spine/Pelvis Back: no CVA tenderness Skin Rashes: no rashes Wounds: no wounds Neuro General: patient oriented x3, tone normal and no meningeal signs Cranial nerves: Yes CN's II-XII intact bilaterally Gait exam (Neuro): Normal gait present Extrem General: Yes normal to inspection Course Course Course Narrative: -1524--labs reassuring. Troponin negative. -UA negative XR chest 1V IMPRESSION: Moderate hiatal hernia. No acute cardiopulmonary abnormality. CT abdomen pelvis w IV con IMPRESSION: Large hiatal hernia. Colonic diverticulosis without evidence of diverticulitis. No acute abnormality is identified. > will obtain ultrasound for further eval US abdomen limited IMPRESSION: No evidence of cholelithiasis or acute cholecystitis. > patient tolerating p.o. in the ED. Results discussed. Recommended close GI follow-up. Results discussed with patient including worrisome signs and symptoms and strict return precautions, and when to return to the emergency department. They verbalized understanding and feel safe for discharge at this time. Medications Administered Discontinued Medications Generic Name Dose Route Start Last Admin Trade Name Sagrario PRN Reason Stop Dose Admin Acetaminophen 650 mg 11/16/24 11:23 11/16/24 12:08 Acetaminophen 325 Mg Tablet PO 11/16/24 11:24 650 mg ONCE ONE Administration Al Hydroxide/Mg Hydroxide 30 ml 11/16/24 11:27 11/16/24 12:09 Magnesium Hydrox/Alum Hydrox 30 Ml Oral.Susp PO 11/16/24 11:28 30 ml ONCE ONE Administration Famotidine 20 mg 11/16/24 11:27 11/16/24 12:08 Famotidine 20 Mg Tablet PO 11/16/24 11:28 20 mg ONCE ONE Administration Sodium Chloride 1,000 mls @ 999 mls/hr 11/16/24 11:30 11/16/24 12:09 Ns IV 11/16/24 12:30 999 mls/hr .Q1H1M VIKRAM Administration Iohexol 100 ml 11/16/24 13:08 11/16/24 13:09 Iohexol 350 Mg/Ml 100 Ml Infus..Btl IV 11/16/24 13:09 85 ml ONCE ONE Administration Medical Decision Making Medical Decision Making MDM Narrative: 79-year-old female with a past medical history of GERD, DM, diverticular disease, cognitive impairment, osteoarthritis, DVT, renal calculi, COVID-19 3 weeks ago, presenting to the ED complaining of headache, nausea, decreased p.o. intake, and right-sided abdominal pain x 2 weeks. Also reports persistent dry cough and intermittent SOB. On exam tachycardic likely from discomfort, NAD/nontoxic appearing, lungs CTA, abdomen soft with epigastric/RUQ and RLQ tenderness, no rebound or guarding, no CVAT. Concern for continued viral illness vs bronchitis/pneumonia vs pancreatitis/cholecystitis/lithiasis vs appendicitis vs GERD/gastritis. Lower suspicion for renal stones/pyelo, UTI, diverticulitis vs SBO Plan: Labs, UA, CXR, CT AP, IVF, symptomatic treatment, re-evaluate Please refer to course for remaining clinical decision making, interpretation of labs/imaging results, and discussions with consultants and/or family members. Differential Diagnosis Differential Diagnoses: The differential diagnosis associated with the presentation includes As above Admission/Observation Consideration of admission/observation: Escalation of care including admission/observation considered Lab Data MDM Lab Attestation statement: I reviewed the patient's lab results. 11/16/24 09:01 11/16/24 09:01 Labs: Lab Results 11/16/24 11/16/24 Range/Units 09:01 11:48 WBC 8.0 (4.8-10.8) X10*3/uL RBC 4.91 (4.20-5.50) X10*6/uL Hgb 13.9 (12.0-16.0) g/dl Hct 42.7 (37.0-47.0) % MCV 87.0 (80.0-98.0) fL MCH 28.3 (27.0-33.0) pg MCHC 32.6 (31.0-35.0) g/dl RDW 13.2 (11.0-16.0) % Plt Count 247 (160-400) X10*3/uL MPV 10.9 (9.4-12.3) fL Immature Gran % (Auto) 0.2 (0.0-0.4) % Neut % (Auto) 57.5 (45-73) % Lymph % (Auto) 27.9 (20-40) % Pitkin % (Auto) 11.0 (2-11) % Eos % (Auto) 2.9 (0-4) % Baso % (Auto) 0.5 (0-2) % Lymph # (Auto) 2.2 (1.2-4.9) X10*3/uL Pitkin # (Auto) 0.9 (0.1-1.2) X10*3/uL Eos # (Auto) 0.2 (0.0-0.4) X10*3/uL Baso # (Auto) 0.0 (0.0-0.2) X10*3/uL Abs Immat Gran (auto) 0.02 (0.00-0.03) X10*3/uL Absolute Neuts (auto) 4.6 (2.0-8.3) x10*3/uL Absolute Nucleated RBC 0.000 (0.0-0.012) X10*3/uL Nucleated RBC % (auto) 0.0 (0.0-0.2) /100WBC Sodium 141 (135-145) mmol/L Potassium 3.8 (3.3-5.1) mmol/L Chloride 108 (96-108) mmol/L Carbon Dioxide 24 (22-29) mmol/L Anion Gap 13 (12-20) BUN 15 (9-16) mg/dL Creatinine 0.75 (0.5-1.4) mg/dL Estim Creat Clear Calc 51.0 Estimated GFR > 60 Random Glucose 148 H (60-115) mg/dL Calcium 9.9 (8.4-10.2) mg/dL Magnesium 2.2 (1.6-2.6) mg/dL Total Bilirubin 0.5 (0.0-1.0) mg/dL AST 30 (5-31) U/L ALT 32 H (0-31) U/L Alkaline Phosphatase 62 (39-117) U/L Troponin I High Sens < 2.7 (<3.5-17.0) ng/L Total Protein 7.2 (6.5-8.0) g/dL Albumin 3.9 (3.5-5.0) g/dL Lipase 37 (8-78) U/L Urine Color Dark Yellow Urine Appearance Clear Urine pH 7.0 (5.0-9.0) Ur Specific Platinum 1.015 (1.005-1.025) Urine Protein Negative (Neg-Trace) mg/dL Urine Glucose (UA) Negative (Negative) mg/dL Urine Ketones Negative (Negative) mg/dL Urine Blood Negative (Negative) Urine Nitrite Negative (Negative) Ur Leukocyte Esterase Negative (Negative) Independent Interpretation I performed an independent interpretation of an: EKG (My interpretation EKG normal sinus rhythm rate of 88. PA interval 134. QTC 462. No STEMI.) Radiology Impression Discussion of test interpretation with radiology: I have reviewed the radiologist's reading. External Record Review External record reviewed: Inpatient record, Office record, Outpatient record, Prior outpatient labs, Prior outpatient radiology, Primary care record and Outside ED record Tests considered The following testing was considered but not selected: As above Chronic Conditions Patient?s care impacted by: Diabetes and Hypertension Social Determinants Patient?s care significantly limited by Social Determinants of Health including: Other Social Determinant of Health Discharge Plan Discharge Clinical Impression: Abdominal pain, RUQ, Hiatal hernia Patient Disposition: Home, Self-Care Instructions: Hiatal Hernia (DC), Abdominal Pain (ED) Additional Instructions: Your blood work and imaging studies are reassuring. You do have a hiatal hernia, please follow-up with gastroenterology outpatient Call to make an appointment If her symptoms persist or worsen you have constant or worsening abdominal pain, chest pain, shortness breath, you are unable to eat or drink or develop fever return to the ED immediately Prescriptions: No Action fluticasone propionate 50 mcg/actuation spray,suspension 1 spray intranasal DAILY Qty: 48 5RF (DME) ROLLATOR See Rx Instructions .Route .MEDSUPPLY Qty: 1 0RF Rx Instructions: As directed (DME) blood pressure monitor [Blood Pressure Kit] Kit See Rx Instructions .ROUTE .MEDSUPPLY Qty: 1 0RF Rx Instructions: As directed hydrocortisone [Proctosol HC] 2.5 % cream with perineal applicator 1 appl PA TID-QID 30 Days Qty: 60 6RF diclofenac sodium [Voltaren Arthritis Pain] 1 % gel 4 g topical QID Qty: 100 4RF Rx Instructions: apply to single knee, ankle, foot; for foot includes sole/toes/top of foot losartan 50 mg tablet 50 mg PO DAILY Qty: 90 0RF atorvastatin 20 mg tablet 20 mg PO DAILY 90 Days Qty: 90 2RF cholecalciferol (vitamin D3) [Vitamin D3] 50 mcg (2,000 unit) tablet 50 mcg PO DAILY Qty: 90 3RF sucralfate [Carafate] 1 gram tablet 1 g PO BID Qty: 180 2RF hydroxyzine HCl 10 mg tablet 10 mg PO BEDTIME Qty: 90 0RF omeprazole 40 mg capsule,delayed release(DR/EC) 40 mg PO DAILY 90 Days Qty: 90 2RF metformin 500 mg tablet 500 mg PO BIDWMEAL Qty: 60 1RF (DME) FreeStyle Precision Prosper Strips Strip See Rx Instructions .Route Qty: 100 3RF Rx Instructions: twice a day As directed Senna Plus 8.6-50 mg capsule 2 tab-cap PO BEDTIME 30 Days Qty: 60 3RF albuterol sulfate 90 mcg/actuation HFA aerosol inhaler 2 puff inhalation Q4-6H PRN (Reason: shortness of breath or wheezing) Qty: 8.5 3RF amoxicillin-pot clavulanate 875-125 mg tablet 1 tab PO BID 10 Days Qty: 20 0RF prednisone 20 mg tablet 20 mg PO DAILY 3 Days Qty: 3 0RF Referrals: [facility] [place] [facility] [Provider Group] - 5 days Po,Susana Page MD [Primary Care Provider] - 3 days Interventions: ED Discharge Assessment Last Done: 11/16/24 15:57 Discharge Date/Time: 11/16/24 15:57 Print Language: Yakut
--- NOTE | 2024-11-16 11:30 | ECG_ITS ---
Test Reason : epigastric pain Blood Pressure : */* mmHG Vent. Rate : 88 BPM Atrial Rate : 88 BPM P-R Int : 134 ms QRS Dur : 66 ms QT Int : 382 ms P-R-T Axes : 75 55 68 degrees QTcB Int : 462 ms Normal sinus rhythm Normal ECG When compared with ECG of 24-Jun-2023 19:34, Premature atrial complexes are no longer Present QRS axis Shifted left Referred By: Alondra Masno Electronically Signed By: NESHA PEREZ MD
[2024-11-16 12:00] LABS: Appearance Urine Clear; Color Urine Dark Yellow; Glucose Urine UA Negative (Negative); Leukocyte Esterase Urine Negative (Negative); Nitrite Urine Negative (Negative); Specific Gravity - Urine 1.015 (1.005-1.025); Urine Blood Negative (Negative); Urine Ketones Negative (Negative); Urine Protein Negative (Neg-Trace)
[2024-11-16 12:04] VITALS: BP 138/79; PULSE 86; RESP 18; TEMP 36.5; O2SAT 97
[2024-11-16 12:08] LABS: Lipase 37 U/L (8-78); Magnesium 2.2 mg/dL (1.6-2.6)
[2024-11-16] MEDS: Acetaminophen 325 MG TABLET 650 MG PO (12:08)
[2024-11-16] MEDS: Famotidine 20 MG TABLET PO (12:08)
[2024-11-16] MEDS: 0.9 % Sodium Chloride 1,000 ML 999 ML IV (12:09)
[2024-11-16] MEDS: Magnesium Hydrox/Alum Hydrox 30 ML ORAL.SUSP PO (12:09)
[2024-11-16 12:15] LABS: Troponin-I High Sensitivity < 2.7 ng/L (<3.5-17.0)
[2024-11-16] MEDS: iohexoL 350 MG/ML 100 ML INFUS..BTL IV (13:09)
[2024-11-16 15:57] VITALS: BP 138/79; PULSE 86; RESP 18; TEMP 36.5; O2SAT 97
== END 2024-11-16 15:57 | disposition home or self-care (01) ==
PROVIDERS: Physician Assistant; Emergency Provider Emergency Medicine Emergency Medical Services; PCP Internal Medicine
DX: R10.11 Right upper quadrant pain (principal); K44.9 Diaphragmatic hernia without obstruction or gangrene; R51.9 Headache, unspecified; E11.9 Type 2 diabetes mellitus without complications; K21.9 Gastro-esophageal reflux disease without esophagitis
CPT/HCPCS: 36415; 71045; 74177; 76705; 80053; 81003; 83690; 83735; 84484; 85025; 93005; 99284; Q9967

== ENCOUNTER → 2024-11-16 11:21 | Outpatient (BNV) | payer OTHER, SELFPAY | PROVIDERS: Emergency Provider Emergency Medicine Emergency Medical Services; PCP Internal Medicine; Visit Provider Radiology Diagnostic Radiology | DX: K57.30 Diverticulosis of large intestine without perforation or abscess without bleeding (principal); K44.9 Diaphragmatic hernia without obstruction or gangrene; R10.11 Right upper quadrant pain; R10.13 Epigastric pain; R11.0 Nausea | CPT/HCPCS: 71045; 74177; 76705 ==

== ENCOUNTER → 2024-11-16 11:30 | Outpatient (BNV) | payer OTHER, SELFPAY | PROVIDERS: Emergency Provider Emergency Medicine Emergency Medical Services; PCP Internal Medicine; Visit Provider Internal Medicine Cardiovascular Disease | DX: R10.13 Epigastric pain (principal) | CPT/HCPCS: 93010 ==

== ENCOUNTER 2024-11-25 07:57 | Emergency (ER) | payer OTHER, SELFPAY ==
--- NOTE | ~2024-11-25 | XR_ITS ---
EXAMINATION: XR LUMBOSACRAL SPINE CLINICAL INFORMATION: pain COMPARISON: 03/27/2018. Correlation made with CT abdomen and pelvis 11/16/2024. TECHNIQUE: 6 views of the lumbar spine, inclusive of bilateral oblique views, were obtained. FINDINGS: There is a minimal levoconvex scoliosis centered at C4. There is a normal lumbar lordosis. There are no subluxations. There is no fracture, compression deformity, or suspicious bone lesion. Moderate to severe disc degeneration present L4-5 and milder changes at L5-S1. Discs above L4 appear relatively preserved. There is early facet arthrosis spanning L4-S1. No facet subluxations. No pars defects. Mild degenerative arthritis in both SI joints. Sacral arches appear intact. Soft tissues demonstrate vascular calcifications. XR/XR lumbar spine 4V min IMPRESSION: 1. No acute findings of the lumbar spine. 2. Minimal levoconvex scoliosis. 3. Mild to moderate spondylosis most notable at L4-5. Electronically signed by: Glen Pedersen MD 11/25/2024 08:43 AM EDT
[2024-11-25 08:00] VITALS: BP 150/84; PULSE 107; RESP 20; TEMP 36.5; O2SAT 98; BMI 25.5
--- OUTSIDE RECORDS SUMMARY | 2024-11-25 08:33 | XMS_ITS | Encounter Summary ---
Author Organization [employer] Address [address] [place] [address] Care Team Providers Care Straddle Bug Name Role Phone Unavailable Primary Care Provider Unavailabl e Reason for Visit * Reason Onset Date Comments Appointment 05/21/2023 Encounter Details Date Type Department Care Team (Late st Contact Info) Description 05/21/2023 Telephone [facility] [address] [place] [address] Pablo Hernandez DDS [address] [place] [address] Appointment Social History Tobacco Use Types Packs/Day Years Used Date Smoking Tobacco: Never Passive Smoke Exposure: Never Smokeless Tobacco: Never Alcohol Use Standard Drinks/Week Comments Never 0 (1 standard drink = 0.6 oz pur e alcohol) Comments Unknown Sex and Gender Information Value Date Recorded Sex Assigned at Female 06/24/2022 10:23 AM EDT Legal Sex Female 10:23 AM EDT Gender Identity Female 06/24/2022 10:23 AM EDT Sexual Orientation Straight 06/24/2022 10 :23 AM EDT documented as of this encounter Miscellaneous Notes * Telephone Encounter - Shelly Patel - 05/21/2023 3:30 PM EDT Patient called in stating that she is all done with the medication and that she felt better but thepain is starting to come back. Shed like to know if another script can be sent into the pharmacy DR She is also checking in on status of appt for extractions with Dr. Hernandez. documented in this encounter Plan of Treatment Not on file documented as of this encounter Visit Diagnoses Not on filedocumented in this encounter
--- OUTSIDE RECORDS SUMMARY | 2024-11-25 08:33 | XMS_ITS | Clinical Summary ---
Author Organization [facility] [employer] Address [address] [place] [address] [address] [place] [address] Care Team Providers Care Continuing Education Instructor Name Role Phone Unavailable Primary Care Provider Unavailabl e Allergies No known active allergies Medications No known medications Active Problems Problem Noted Date Diagnosed Date Periodontal disease 11/27/2022 Dental caries 11/27/2022 Dental abscess 11/27/2022 Social History Tobacco Use Types Packs/Day Years Used Date Smoking Tobacco: Never Passive Smoke Exposure: Never Smokeless Tobacco: Never Tobacco Cessation:Counseling Given: Yes Alcohol Use Standard Drinks/Week Comments Never 0 (1 standard drink = 0.6 oz pur e alcohol) Comments Unknown Sex and Gender Information Value Date Recorded Sex Assigned at Female 06/24/2022 10:23 AM EDT Legal Sex Female 10:23 AM EDT Gender Identity Female 06/24/2022 10:23 AM EDT Sexual Orientation Straight 06/24/2022 10 :23 AM EDT Last Filed Vital Signs Vital Sign Reading Time Taken Comments Blood Pressure 138/80 01/24/2023 1:28 PM EDT Pulse 74 01/01/2023 10:13 AM EDT Temperature - - Respiratory Rate - - Oxygen Saturation - - Inhaled Oxygen Concentration - - Weight - - Height - - Body Mass Index - - Plan of Treatment Health Maintenance Due Date Last Done Comments Dental Prophylaxis 1945 Dental X-Ray: Bitewings 1945 Depression Screening 1945 SDOH Screening 1945 Alcohol/Substance Use Screening 1958 Hepatitis C Screening 1964 DTaP/Tdap/Td Vaccines (1 - Tdap) 08/13/2018 08/12/2018 Pneumococcal Vaccine: 50+ Years (2 of 2 - PCV) 04/28/2019 04/28/2018 RSV Patients and Patients Aged 60 years or older (1 - 1-dose 75+ series) 2021 Dental Oral Exam 05/30/2023 11/27/2022 Tobacco Screening 01/25/2024 01/24/2023 COVID-19 Vaccine ( season) 2024 07/30/2022, 07/11/2021, 12/05/2020, Additional history exists Influenza Vaccine (#1) 2024 , 06/11/2022, 06/26/2021, Additional history exists Dental X-Ray: Full Mouth 11/28/2025 11/27/2022 Zoster Vaccines Completed 05/14/2021, 03/06/2021 HIB Vaccines Aged Out No longer eligi ble based on patient's age to complete this topic HPV Vaccines Aged Out No longer eligi ble based on patient's age to complete this topic Hepatitis A Vaccines Aged Out No long er eligible based on patient's age to complete this topic Hepatitis B Vaccines Aged Out No long er eligible based on patient's age to complete this topic IPV Vaccines Aged Out No longer eligi ble based on patient's age to complete this topic Meningococcal Vaccine Aged Out No jairo anna eligible based on patient's age to complete this topic RSV under 20 months Aged Out No longe r eligible based on patient's age to complete this topic Rotavirus Vaccines Aged Out No longer eligible based on patient's age to complete this topic Procedures Procedure Name Priority Date/Time Associated Diagnosis Comments PANORAMIC RADIOGRAPHIC IMAGE Routine 11/27/2022 2:00 PM EDT COMPREHENSIVE ORAL EVALUATION - NEW OR ESTABLISHED PATIENT Routine 11/27/2022 2:00 PM EDT from Last 3 Months or Most Recently Relevant to Health Maintenance Insurance DENTAL - [facility]
--- NOTE | 2024-11-25 08:46 | PC.NURSE ---
Pt resting comfortably in bed with family at bedside. Reporting when she rolled out of bed 1 week ago she got pain in her lower back. Denies any radiating down her legs, denies any numbness/tingling/ denies previous tramas, or known back issues. Awaiting Xray at this time, heat pack given, call hicks within reach, all needs met at this time.
--- NOTE | 2024-11-25 08:48 | ED_ITS ---
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 Petit HPI Narrative: 79-year-old female brought in with her daughter for evaluation of lower back pain x1 week, patient reports no injury or fall. No dysuria, no frequency urination, no hematuria. Patient was seen on 11/16/24 for abdominal pain had CT abdomen and pelvis and abdominal ultrasound shows no acute abnormalities no AAA in particular. Otherwise no lower extremity weakness, no dysuria, no frequency urination, no urinary incontinence, no stool incontinence. Related Data Previous Rx's ?Medication ?Instructions ?Recorded fluticasone propionate 50 1 spray intranasal DAILY #48 mL 08/08/20 mcg/actuation nasal spray,suspension ROLLATOR #1 ea 01/24/22 blood pressure monitor (Blood #1 ea 02/19/22 Pressure Kit) hydrocortisone 2.5 % topical cream 1 appl IA TID-QID hemorrhoids 30 10/28/23 with perineal applicator days #60 grams (Proctosol HC) diclofenac sodium 1 % topical gel 4 g topical QID #100 grams 04/30/24 (Voltaren Arthritis Pain) blood sugar diagnostic (FreeStyle #100 ea 06/23/24 Precision Prosper Strips) sennosides 8.6 mg-docusate sodium 2 tab-cap (2 x 8.6-50 mg) PO 06/23/24 50 mg capsule (Senna Plus) BEDTIME 30 days #60 caps atorvastatin 20 mg tablet 20 mg PO DAILY 90 days #90 tabs 07/20/24 losartan 50 mg tablet 50 mg PO DAILY #90 tabs 07/20/24 cholecalciferol (vitamin D3) 50 50 mcg PO DAILY #90 tabs 07/21/24 mcg (2,000 unit) tablet (Vitamin D3) hydroxyzine HCl 10 mg tablet 10 mg PO BEDTIME #90 tabs 09/01/24 omeprazole 40 mg capsule,delayed 40 mg PO DAILY 90 days #90 caps 09/01/24 release sucralfate 1 gram tablet (Carafate) 1 g PO BID #180 tabs 09/01/24 albuterol sulfate 90 mcg/actuation 2 puff inhalation Q4-6H PRN 11/10/24 aerosol inhaler shortness of breath or wheezing #8.5 grams amoxicillin 875 mg-potassium 1 tab PO BID 10 days #20 tabs 11/10/24 clavulanate 125 mg tablet metformin 500 mg tablet 500 mg PO BIDWMEAL #60 tabs 11/10/24 prednisone 20 mg tablet 20 mg PO DAILY 3 days #3 tabs 11/10/24 Allergies Allergy/AdvReac Type Severity Reaction Status Date / Time lisinopril Allergy Unknown Unknown Verified 11/25/24 08:03 metoprolol Allergy Unknown Unknown Verified 11/25/24 08:03 solifenacin [Vesicare] Allergy Unknown Unknown Verified 11/25/24 08:03 NSAIDS (Non-Steroidal AdvReac Intermediate HTN Verified 11/25/24 08:03 Anti-Inflamma Review of Systems Review of Systems: All other systems are reviewed and are negative Constitutional: Reports as per HPI and Reports no additional constitutional com plaints Eyes: Reports as per HPI and Reports no additional eye complaints Reports system reviewed and no additional complaints, except as documented Cardiovascular: Reports as per HPI and Reports no additional cardiovascular complaints Respiratory: Reports as per HPI and Reports no additional respiratory complaints Gastrointestinal: Reports as per HPI and Reports no additional gastrointestinal complaints Genitourinary: Reports no additional female genitourinary complaints Musculoskeletal: Reports no additional musculoskeletal complaints Skin/Breast: Reports system reviewed and no additional complaints, except as docu Psychiatric: Reports no additional psychiatric complaints Endocrine: Reports no additional endocrine complaints Hematologic/Lymphatic: Reports no additional hematologic/lymphatic complaints Allergic/Immunologic: Reports no additional allergic/immunologic complaints Reports system reviewed and no additional complaints, except as documented and Reports Abnormal speech present [facility] Past Medical History Medical History Obesity (BMI 30-39.9) Impaired glucose tolerance Cough Menopausal vaginal dryness Pelvic pain Vaginal itching Sinus congestion Contusion of right knee Dizziness Dizziness GERD (gastroesophageal reflux disease) Allergic conjunctivitis Frequent headaches Cervicalgia Diverticular disease Peripheral vascular disease Cognitive impairment Insomnia Osteoporosis Legally blind Osteoarthritis Constipation History of DVT (deep vein thrombosis) History of renal calculi Vitamin D deficiency Surgical History History of eye surgery Hx of colonoscopy History of cataract surgery History of hemorrhoidectomy Family History Family History Father No problems noted. Mother No problems noted. Daughter Lymphoma Social History Social History Household Members: Spouse Housing: Apartment Alcohol intake: never Patient Tobacco Use Status: Never used Tobacco e-Cigarette/Vaping Use: Never Used Second Hand Smoke Exposure: No Advance Directives: No Advance Directives Information Provided: Yes Do you have a plan to hurt others: No Plan service: No Current occupational status: retired Cognitive needs: No Hearing needs: No Vision needs: Yes Physical Exam Vital Signs: Vital Signs: Last Vital Signs Temp 97.7 F 11/25/24 08:00 Pulse 107 H 11/25/24 08:00 Resp 16 11/25/24 09:17 BP 150/84 H 11/25/24 08:00 Pulse Ox 98 11/25/24 08:00 O2 Del Method Room Air 11/25/24 08:00 BMI result Body Mass Index 25.5 Vital signs have been reviewed and appear to be correct. Blood pressure elevated. Heart rate normal. Respiratory rate normal. Temperature normal. Oxygen saturation normal. Appearance: Alert. Oriented X3. No acute distress. Head: Normal external exam. Normocephalic. Atraumatic. No Mario signs noted. No raccoon eyes noted Eyes: PERRLA. EOMI. Conjunctiva and sclera normal. Eyelids normal. ENT: TM's Normal. Pharynx normal. Uvula midline. Moist mucous membranes. No trismus noted. No drooling noted. No muffled voice noted. Neck: Normal inspection. Neck supple. FROM. No adenopathy. Thyroid Normal. No meningeal signs. No neck mass noted. CVS: Normal heart rate and rhythm. Heart sound normal. No murmurs noted. Pulses normal throughout. Respiratory: No respiratory distress. Painless inspiration. Breath sounds normal. No wheezes/rales/rhonchi noted. Chest nontender. No accessory muscle usage noted or decreased air movement noted. Abdomen: Soft and nontender. Bowel sounds normal in all 4 quadrants. No distention noted. No organomegaly noted. No visible injury noted. Back: No CVA tenderness. Full range of motion noted. Mild tenderness over left iliosacral joint with no deformity, no step-off. Skin: Skin warm and dry. Normal skin color. Normal skin turgor. No rashes/lesions/lacerations noted. Extremities: No lower extremity edema. Extremities exhibit normal range of motion. Extremities nontender. Neuro: Oriented X 3. Cranial nerve exam: II-XII are grossly intact No motor deficit. No sensory deficit. Reflexes normal. Course Reevaluation(s) Reevaluation #1: Lower back pain appeared to be muscular, normal neuro exam, no abnormalities on the lumbar spine x-ray, patient recently had CT abdomen and pelvis/abdominal ultrasound shows no abnormalities to explain patient's back pain. Time: 10:40 Medications Administered Discontinued Medications Generic Name Dose Route Start Last Admin Trade Name Sagrario PRN Reason Stop Dose Admin Ketorolac Tromethamine 15 mg 11/25/24 08:58 11/25/24 09:18 Ketorolac Tromethamine 15 Mg/Ml Vial IM 11/25/24 08:59 15 mg ONCE ONE Administration Morphine Sulfate 1 mg 11/25/24 08:58 11/25/24 09:17 Morphine Sulfate 2 Mg/Ml Cartridge IM 11/25/24 08:59 1 mg ONCE ONE Administration Protocol Medical Decision Making Differential Diagnosis Differential Diagnoses: The differential diagnosis associated with the presentation includes (AAA, UTI, kidney stone, muscular pain, lumbar spine fract ure, neurological deficit.) Admission/Observation Consideration of admission/observation: Escalation of care including admission/observation considered Independent Interpretation I performed an independent interpretation of an: Plain X-Ray (Lumbar x-ray:1. No acute findings of the lumbar spine. 2. Minimal levoconvex scoliosis. 3. Mild to moderate spondylosis most notable at L4-5. ) Radiology Impression Discussion of test interpretation with radiology: I have reviewed the radiologist's reading. Discharge Plan Discharge Clinical Impression: Low back strain Patient Disposition: Home, Self-Care Instructions: Acute Low Back Pain (ED) Additional Instructions: Take ibuprofen/Tylenol (glec-zvs-[id number] medication) every 6 hours if needed for pain Prescriptions: No Action fluticasone propionate 50 mcg/actuation spray,suspension 1 spray intranasal DAILY Qty: 48 5RF (DME) ROLLATOR See Rx Instructions .Route .MEDSUPPLY Qty: 1 0RF Rx Instructions: As directed (DME) blood pressure monitor [Blood Pressure Kit] Kit See Rx Instructions .ROUTE .MEDSUPPLY Qty: 1 0RF Rx Instructions: As directed hydrocortisone [Proctosol HC] 2.5 % cream with perineal applicator 1 appl IA TID-QID 30 Days Qty: 60 6RF diclofenac sodium [Voltaren Arthritis Pain] 1 % gel 4 g topical QID Qty: 100 4RF Rx Instructions: apply to single knee, ankle, foot; for foot includes sole/toes/top of foot losartan 50 mg tablet 50 mg PO DAILY Qty: 90 0RF atorvastatin 20 mg tablet 20 mg PO DAILY 90 Days Qty: 90 2RF cholecalciferol (vitamin D3) [Vitamin D3] 50 mcg (2,000 unit) tablet 50 mcg PO DAILY Qty: 90 3RF sucralfate [Carafate] 1 gram tablet 1 g PO BID Qty: 180 2RF hydroxyzine HCl 10 mg tablet 10 mg PO BEDTIME Qty: 90 0RF omeprazole 40 mg capsule,delayed release(DR/EC) 40 mg PO DAILY 90 Days Qty: 90 2RF metformin 500 mg tablet 500 mg PO BIDWMEAL Qty: 60 1RF (DME) FreeStyle Precision Prosper Strips Strip See Rx Instructions .Route Qty: 100 3RF Rx Instructions: twice a day As directed Senna Plus 8.6-50 mg capsule 2 tab-cap PO BEDTIME 30 Days Qty: 60 3RF albuterol sulfate 90 mcg/actuation HFA aerosol inhaler 2 puff inhalation Q4-6H PRN (Reason: shortness of breath or wheezing) Qty: 8.5 3RF amoxicillin-pot clavulanate 875-125 mg tablet 1 tab PO BID 10 Days Qty: 20 0RF prednisone 20 mg tablet 20 mg PO DAILY 3 Days Qty: 3 0RF Referrals: Po,Susana Page MD [Primary Care Provider] - Print Language: Niuean
[2024-11-25 09:17] VITALS: RESP 16
[2024-11-25] MEDS: Morphine Sulfate 2 MG/ML CARTRIDGE 1 MG IM (09:17)
[2024-11-25] MEDS: Ketorolac Tromethamine 15 MG/ML VIAL IM (09:18)
[2024-11-25 10:44] VITALS: BP 123/74; PULSE 85; RESP 15; TEMP 36.1; O2SAT 97
[2024-11-25 10:51] VITALS: BP 123/74; PULSE 85; RESP 15; TEMP 36.1; O2SAT 97
== END 2024-11-25 10:51 | disposition home or self-care (01) ==
PROVIDERS: Emergency Provider Emergency Medicine; PCP Internal Medicine
DX: S39.012A Strain of muscle, fascia and tendon of lower back, initial encounter (principal); X58.XXXA Exposure to other specified factors, initial encounter; Y93.9 Activity, unspecified; Y92.9 Unspecified place or not applicable; Y99.9 Unspecified external cause status
CPT/HCPCS: 72110; 96372; 99284; J1885; J2270

== ENCOUNTER → 2024-11-25 08:05 | Outpatient (BNV) | payer OTHER, SELFPAY | PROVIDERS: Emergency Provider Emergency Medicine; PCP Internal Medicine; Visit Provider Radiology Diagnostic Radiology | DX: M47.816 Spondylosis without myelopathy or radiculopathy, lumbar region (principal) | CPT/HCPCS: 72110 ==

== ENCOUNTER 2024-12-28 13:14 | Outpatient (AMB) | payer OTHER, SELFPAY ==
[2024-12-28 13:20] VITALS: BMI 25.4
--- NOTE | 2024-12-28 13:20 | A.OFFVIS_ITS ---
Vital Signs 12/28/24 13:20 Height 5 ft 2 in Weight 139 lb BMI 25.4 Intake Visit Reasons: vaginal rash Miniature Train Driver Required: Yes Miniature Train Driver Language: Business Analytics Manager Services: Miniature Train Driver Present Miniature Train Driver Name: Angy Information Interpreted: non-clinical & clinical Assistant Professor Of Education: Assistant Professor Of Education Present (Angy) Accompanied by: Daughter Allergies lisinopril Allergy (Unknown, Verified 12/28/24 13:20) Unknown metoprolol Allergy (Unknown, Verified 12/28/24 13:20) Unknown solifenacin [Vesicare] Allergy (Unknown, Verified 12/28/24 13:20) Unknown NSAIDS (Non-Steroidal Anti-Inflamma Adverse Reaction (Intermediate, Verified 12/28/24 13:20) HTN HPI Comments Details: Patient is here today with concerns for external itching and burning worsening x 1 month, accompanied by her , Kristian. Used OTC treatment without much relief. Admits to having a skin biopsy in the area many years ago, she reports was negative. Has been chronically itching on and off for years. History of diabetes. [facility] Medical History Obesity (BMI 30-39.9) Impaired glucose tolerance Cough Menopausal vaginal dryness Pelvic pain Vaginal itching Sinus congestion Contusion of right knee Dizziness Dizziness GERD (gastroesophageal reflux disease) Allergic conjunctivitis Frequent headaches Cervicalgia Diverticular disease Peripheral vascular disease Cognitive impairment Insomnia Osteoporosis Legally blind Osteoarthritis Constipation History of DVT (deep vein thrombosis) History of renal calculi Vitamin D deficiency Surgical History History of eye surgery Hx of colonoscopy History of cataract surgery History of hemorrhoidectomy Family History Father No problems noted. Mother No problems noted. Daughter Lymphoma Social History Household Members: Spouse Housing: Apartment Alcohol intake: never Patient Tobacco Use Status: Never used Tobacco e-Cigarette/Vaping Use: Never Used Second Hand Smoke Exposure: No service: No Current occupational status: retired Cognitive needs: No Hearing needs: No Vision needs: Yes Female Reproductive History Menstrual Age of Menarche: 13 Review of Systems Const All systems reviewed & are unremarkable except as noted in HPI and below Physical Exam Vital Signs: BMI result Body Mass Index 25.4 Const General: cooperative, healthy appearing and no acute distress Orientation/consciousness: patient oriented x3 GI Inspection: Yes normal to inspection Palpation (GI): Soft to palpation and Other GI palpation findings present (Nontender) Rectal Exam - Female: visual inspection normal Other: External: Clitoral, gonzalo clitoral, upper labia minora hypopigmentation, erythema underlying, excoriated in areas General: Yes bladder normal to palpation External Female Exam: normal appearance of the urethra Speculum Exam - Vagina: normal appearance of the vagina, normal palpation, normal vaginal discharge and vagina atrophic Speculum Exam - Cervix: normal appearance of the cervix and normal palpation Bimanual exam- vagina & uterus: normal bimanual exam, normal palpation, uterine size normal, bladder normal to palpation, normal palpation, uterine shape normal and non-tender Bimanual Exam- Adnexa, other: normal adnexae Neuro General: patient oriented x3 Assessment & Plan Assessment & Plan (1) Vaginal irritation: Code(s): N89.8 - Other specified noninflammatory disorders of vagina Category: Medical (2) Vaginal itching: Code(s): N89.8 - Other specified noninflammatory disorders of vagina Category: Medical Plan Instructions: Clean with warm water, no soaps, scented products. Use a cool cloth to the area several times a day if swollen and/or uncomfortable. Wear loose, cotton underclothes, avoid tight outer clothing. Air when possible. No coitus until well healed. Complete all medications as prescribed. Await final pending results for any changes in the plan of care. Call the office if there is no improvement in 24-48hrs., or if worsening symptoms. Importance of maintaining good diabetic control. Follow up 3-4 weeks for skin check. The patient expressed understanding and agreement with the plan of care. All of her questions and concerns were addressed to the best of my ability. This note is constructed using voice recognition software. While every effort has been made to ensure accuracy, air traffic coordinator errors may have been included. Orders: Orders Bacterial Vaginosis Panel Today N89.8 - Other specified noninflammatory disorders of vagina Medications: New clotrimazole-betamethasone 1-0.05 % apply externally a thin coat to the area 1 appl topical BID 7 days 45 grams 0RF itching Coding Level of Care Code Est Pt Level 3 (53002) Diagnoses Vaginal irritation N89.8 Vaginal itching N89.8
--- OUTSIDE RECORDS SUMMARY | 2024-12-28 14:29 | XMS_ITS | Encounter Summary ---
Author Organization [email or web address] Address [address] [facility] [address] [place] [address] Care Team Providers Care Holter Scanning Technician Name Role Phone Unavailable Primary Care Provider Unavailabl e Reason for Visit * Reason Onset Date Comments Appointment 05/21/2023 Encounter Details Date Type Department Care Team ([facility] st Contact Info) Description 05/21/2023 Telephone [facility] [address] [place] [address] Pablo Hernandez DDS [address], [place] [phone] Appointment Social History Tobacco Use Types Packs/Day [...] can be sent into the pharmacy DR Twyla is also checking in on status of appt for extractions with Dr. Hernandez. documented in this encounter Plan of Treatment Not on file documented as of this encounter Visit Diagnoses Not on filedocumented in this encounter
--- OUTSIDE RECORDS SUMMARY | 2024-12-28 14:29 | XMS_ITS | Clinical Summary ---
Author Organization [employer] Address [address] [place] [address] [address] [place] [address] Care Team Providers Care Adjunct Latin Professor Name Role Phone Unavailable Primary Care Provider [...] Additional history exists Influenza Vaccine (#1) 2024 3, 06/11/2022, 06/26/2021, Additional history exists Dental X-Ray: [...] topic Meningococcal Vaccine Aged Out No jairo anan eligible based on patient's age to complete [...] Relevant to Health Maintenance Insurance DENTAL - [facility]
== END 2024-12-28 15:45 | disposition home or self-care (01) ==
LOC: HO.HWS 13:14
PROVIDERS: PCP Internal Medicine; Visit Provider Advanced Practice Midwife
DX: N89.8 Other specified noninflammatory disorders of vagina (principal)
CPT/HCPCS: 99213

== ENCOUNTER 2024-12-28 13:14 | Outpatient (REF) | payer OTHER, SELFPAY ==
--- OUTSIDE RECORDS SUMMARY | 2024-12-28 15:23 | XMS_ITS | Encounter Summary ---
Author Organization [employer] Address [address] [facility] [address] [place] [address] Care Team Providers Care Ekg Monitor Name Role Phone Unavailable Primary Care Provider Unavailabl e Reason for Visit * Reason Onset Date Comments Appointment 05/21/2023 Encounter Details Date Type Department Care Team ([facility] st Contact Info) Description 05/21/2023 Telephone [facility] [address] [place] [address] Pablo Hernandez DDS [address], [place] [phone] Appointment Social History Tobacco Use Types Packs/Day [...]
--- OUTSIDE RECORDS SUMMARY | 2024-12-28 15:23 | XMS_ITS | Clinical Summary ---
Author Organization [employer] Address [address] [place] [address] [address] [place] [address] Care Team Providers Care Tapper Bit Name Role Phone Unavailable Primary Care Provider [...] Relevant to Health Maintenance Insurance DENTAL - [facility] SCO
[2024-12-29 11:48] LABS: Bacterial Vaginosis PCR NEGATIVE (Negative); Candida Group PCR NOT DETECTED (Not Detect); Candida glab krusei PCR DETECTED (Not Detect); Trichomonas vaginalis PCR NOT DETECTED (Not Detect)
== END 2024-12-28 13:15 | disposition home or self-care (01) ==
LOC: HO.LAB 13:14
PROVIDERS: PCP Internal Medicine; Visit Provider Advanced Practice Midwife
DX: N89.8 Other specified noninflammatory disorders of vagina (principal)
CPT/HCPCS: 81515; 99212

== ENCOUNTER 2025-01-07 13:51 | Outpatient (AMB) | payer OTHER, SELFPAY ==
--- NOTE | 2025-01-07 13:55 | A.OFFPC_ITS ---
Vital Signs 01/07/25 14:04 Height 5 ft 2 in Weight 139 lb 6 oz BMI 25.5 BP 138/58 L Blood Pressure Location Lt brachial Position Sitting Pulse 104 H Pulse Source Pulse Oximeter Temp 97.1 F Temp Source Temporal Artery Scan Pulse Oximetry (%) 97 Oxygen Delivery Method Room Air Intake Visit Reasons: DM Oseoporosis Hypercholesterol - see comments [id number] Technical Lead Required: No Accompanied by: Daughter Allergies lisinopril Allergy (Unknown, Verified 01/07/25 14:05) Unknown metoprolol Allergy (Unknown, Verified 01/07/25 14:05) Unknown solifenacin [Vesicare] Allergy (Unknown, Verified 01/07/25 14:05) Unknown NSAIDS (Non-Steroidal Anti-Inflamma Adverse Reaction (Intermediate, Verified 01/07/25 14:05) HTN Medication List - Last Reconciled 01/07/25 by Susana Jean MD albuterol sulfate 90 mcg/actuation 2 puffs inhalation Q4-6H PRN atorvastatin 20 mg PO DAILY 90 days blood pressure monitor (Blood Pressure Kit) As directed blood sugar diagnostic (FreeStyle Precision Prosper Strips) twice a day As directed cholecalciferol (vitamin D3) (Vitamin D3) 50 mcg PO DAILY clotrimazole-betamethasone 1-0.05 % 1 appl topical BID 7 days diclofenac sodium 1% (Voltaren Arthritis Pain) 4 grams topical QID fluticasone propionate 50 mcg/actuation 1 spray intranasal DAILY hydrocortisone 2.5% (Proctosol HC) 1 appl CA TID-QID 30 days hydroxyzine HCl 10 mg PO BEDTIME losartan 50 mg PO DAILY metformin 500 mg PO BIDWMEAL miconazole nitrate 2% (Monistat 7) 1 appful vaginal BEDTIME 7 days omeprazole 40 mg PO DAILY 90 days [ROLLATOR As directed] sennosides-docusate sodium 8.6-50 mg (Senna Plus) 2 tab-caps (2 x 8.6-50 mg) PO BEDTIME 30 days sucralfate (Carafate) 1 g PO BID Tobacco use date assessed: 11/10/24 Fall risk assessment: No Falls in past year Last assessed Fall Risk: 01/07/25 Dental Screening Dental Screen Date: 11/10/24 [facility] Medical History (Updated 01/07/25 @ 14:14 by Susana Jean MD) Obesity (BMI 30.0-34.9) Obesity (BMI 30-39.9) Impaired glucose tolerance Cough Menopausal vaginal dryness Pelvic pain Vaginal itching Sinus congestion Contusion of right knee Dizziness Dizziness GERD (gastroesophageal reflux disease) Allergic conjunctivitis Frequent headaches Cervicalgia Diverticular disease Peripheral vascular disease Cognitive impairment Insomnia Osteoporosis Legally blind Osteoarthritis Constipation History of DVT (deep vein thrombosis) History of renal calculi Vitamin D deficiency Surgical History History of eye surgery Hx of colonoscopy History of cataract surgery History of hemorrhoidectomy Family History Father No problems noted. Mother No problems noted. Daughter Lymphoma Social History Household Members: Spouse Housing: Apartment Alcohol intake: never Patient Tobacco Use Status: Never used Tobacco e-Cigarette/Vaping Use: Never Used Second Hand Smoke Exposure: No service: No Current occupational status: retired Cognitive needs: No Hearing needs: No Vision needs: Yes Female Reproductive History Menstrual Age of Menarche: 13 Questionnaire PHQ-9 Over the last 2 weeks, how often have you been bothered by any of the following problems? 1. Little interest or pleasure in doing things: not at all 2. Feeling down, depressed, or hopeless: not at all 3. Trouble falling or staying asleep, or sleeping too much: nearly every day 4. Feeling tired or having little energy: not at all 5. Poor appetite or overeating: several days 6. Feeling bad about yourself - or that you are a failure or have let yourself or your family down: not at all 7. Trouble concentrating on things, such as reading the newspaper or watching television: not at all 8. Moving or speaking so slowly that other people could have noticed. Or the opposite - being so fidgety or restless that you have been moving around a lot more than usual: not at all 9. Thoughts that you would be better off or of hurting yourself in some way: not at all Total score: 4 92808 - PHQ-9 Billing: Yes Source: Developed by Drs. Hernan Blue, Rama B.WChip Juarez and colleagues, with an educational lottie from [employer]. Thrive Questionnaire Date Thrive assessed: 01/07/25 I am a: Patient What is your living situation today?: I have a steady place to live Within the past 12 months, did the food you bought not last and you didn't have the money to get more?: I choose not to answer this question Within the past 12 months, did you worry whether your food would run out before you got money to buy more?: I choose not to answer this question Do you have trouble paying for medicines?: I choose not to answer this question Do you have trouble getting transportation to medical appointments?: Yes Do you have trouble paying your heating and electricity bill?: I choose not to answer this question Do you have trouble taking care of your child, family member or friend?: I choose not to answer this question Do you have trouble with day-to-day activities such as bathing, preparing meals, shopping, managing finances, etc.?: No Are you currently unemployed and looking for a job?: I choose not to answer this question Are you interested in more education?: I choose not to answer this question Please select the resources that you would like help with: None Currently or been in a relationship where the following occur: I choose not to answer THRIVE Score: 1 AUDIT C Alcohol Use Questionnaire (AUDIT-C) 1. How often do you have a drink containing alcohol?: Never 3. How often do you have six or more drinks on one occasion?: Never Total Score: 0 Score Reviewed/Action Taken: No SHYAM-7 AMB Questionnaire SHYAM-7 Date SHYAM - 7 assessed: 01/07/25 Feeling nervous, anxious, or on edge: 0 = Not at all Not being able to stop or control worryin = Not at all Worrying too much about different things: 0 = Not at all Trouble relaxin = Not at all Being so restless that it is hard to sit still: 0 = Not at all Becoming easily annoyed or irritable: 0 = Not at all Feeling afraid as if something awful might happen: 0 = Not at all Total SHYAM-7 score (0-4 normal; 5-9 mild; 10-14 moderate; 15-21 severe): 0 Source: Developed by Drs. Hernan Blue, Chip Diego Kroenke and colleagues, with an educational lottie from [employer]. Physical exam (Primary Care) Vital Signs: Last Vital Signs Temp 97.1 F 01/07/25 14:04 Pulse 104 H 01/07/25 14:04 BP 138/58 L 01/07/25 14:04 Pulse Ox 97 01/07/25 14:04 Oxygen Delivery Method Room Air 01/07/25 14:04 BMI result Body Mass Index 25.5 Tobacco/Smoking Status: Tobacco use Status Tobacco use date assessed 11/10/24 01/07/25 13:56 Patient Tobacco Use Status Never used Tobacco 01/07/25 13:56 e-Cigarette/Vaping Use Never Used 01/07/25 13:56 PHQ-9: PHQ-9 Score PHQ-9: Total score 4 01/07/25 14:16 Thrive Assessment: Date of Thrive Assessment Date Thrive assessed 01/07/25 01/07/25 13:56 Currently or been in a relationship where the following occur: I choose not to answer Const General: alert; No acute distress Eyes Conjunctivae: conjunctivae normal Resp Auscultation: clear to auscultation bilaterally Cardio Rate: regular rate Rhythm: regular rhythm GI Inspection: Yes normal to inspection Extrem General: Yes normal to inspection and No edema Results AMB Hemoglobin A1c AMB Hemoglobin A1c 6.4 % Last Edit by JASWINDER Ospina on 01/07/25 14:17 Results Reviewed Results Reviewed: Laboratory Last Values Hgb A1c (Clinic) 6.4 % (4.0-6.0) H 01/07/25 14:17 Coding Level of Care Code Est Pt Level 4 (02911) Complex EM visit Add On G2211 Diagnoses Type 2 diabetes mellitus with hyperglycemia E11.65 Fatty liver K76.0 Age-related osteoporosis without current pathological fracture M81.0 Osteoporosis type: age-related Presence of current pathological fracture: without current pathological fracture Generalized anxiety disorder F41.1 History of renal calculi Z87.442 Hypercholesterolemia E78.00 Gastroesophageal reflux disease with esophagitis without hemorrhage K21.00 Esophagitis bleeding: without hemorrhage Esophagitis presence: with esophagitis Tubular adenoma of colon D12.6 Additional Codes PHQ-9 - 27234 - PHQ-9 Billing: Yes ([id number]) Assessment & Plan Assessment & Plan (1) Type 2 diabetes mellitus with hyperglycemia: Code(s): E11.65 - Type 2 diabetes mellitus with hyperglycemia Category: Medical Plan: Decrease the amount of carbohydrate intake, pasta, bread, rice and potatoes are all sugar and that is aside from all the sweet stuff, remember that fruits are good but they are Sweet also. Hemoglobin A1c goal of less than 7.0 patient on metformin 500 mg twice a day (2) Fatty liver: Code(s): K76.0 - Fatty (change of) liver, not elsewhere classified Category: Medical Plan: Low-fat diet and exercise (3) Osteoporosis: Comment: 09/13/2021 Code(s): M81.0 - Age-related osteoporosis without current pathological fracture Category: Medical Qualifiers: Osteoporosis type: age-related Presence of current pathological fracture: without current pathological fracture Qualified Code(s): M81.0 - Age- related osteoporosis without current pathological fracture Plan: Discussed about calcium and vitamin-D and exercise. Patient was referred to Endocrinology but no appointment seen (4) Generalized anxiety disorder: Code(s): F41.1 - Generalized anxiety disorder Category: Medical Plan: Discussed about counseling and therapy on hydroxyzine (5) History of renal calculi: Code(s): Z87.442 - Personal history of urinary calculi Category: Medical Plan: Keep well hydrated (6) Hypercholesterolemia: Code(s): E78.00 - Pure hypercholesterolemia, unspecified Category: Medical Plan: Avoid fried foods, chicken skin, eggs, butter margarine, pastries and meat. Be it pork or beef they have a lot of cholesterol LDL goal of less than 100 and triglyceride of less than 150 on atorvastatin 20 mg once a (7) GERD (gastroesophageal reflux disease): Code(s): K21.9 - Gastro-esophageal reflux disease without esophagitis Category: Medical Qualifiers: Esophagitis bleeding: without hemorrhage Esophagitis presence: with esophagitis Qualified Code(s): K21.00 - Gastro-esophageal reflux disease with esophagitis, without bleeding Plan: Avoid the foods that causes that usually spicy foods, tomato products, juices, coffee, soda and foods that your sensitive to. After eating do not lie down, allow 3-4 hours before in lie down. And keep the head of bed above 30 degrees to avoid the acid from going up. Patient on omeprazole 40 mg once a day (8) Tubular adenoma of colon: Comment: January 2020 Dr. Gay Code(s): D12.6 - Benign neoplasm of colon, unspecified Category: Medical Plan: will be seeing the Gastro January 20, 2025 Plan History of Present Illness The patient is a 79-year-old female presenting with follow-up requirements for chronic conditions including gastroesophageal reflux disease, hypercholesterolemia, diabetes mellitus, and osteoporosis. She has been under management for her reflux with omeprazole 40 mg and Carafate. Recent ER interventions for hydrophonia reflux and sinusitis required medication adjustments including Augmentin for sinusitis. Her hypertension is stably managed and documented. Hypercholesterolemia is targeted towards an LDL goal <100 mg/dL, with a recent measure of 98 mg/dL. Diabetes mellitus management included metformin with a hemoglobin A1c of 6.4% (May). Osteoporosis progression noted on June 2024 bone density readings prompted vitamin D and calcium supplementation discussions. Plans for endocrinology follow-up are deferred. Additional health issues addressed during recent visits, including management for a low back strain and plans for colonoscopy follow-up with gastroenterology for a past tubular adenoma. Evaluation of recent lab results and maintaining consistent control of her conditions were ongoing areas of focus. Health Maintenance - Colonoscopy follow-up with gastroenterology scheduled January 20. - Latest mammogram completed July 2024. - Bone density assessment in June 2024 showing worsening osteoporosis. - Blood work October 2024 showed normal counts and electrolytes. - Current vaccinations including pneumonia and tetanus up to date. - Shingles vaccination also administered. - Weight management and dietary recommendations for low-fat intake. - Encouragement of physical activity tailored to patient's ability. Social History - Limited information on social determinants discussed; specific details absent in the conversation. Review of Systems - Gastrointestinal: Reports GERD; Denies other GI symptoms. - Musculoskeletal: Reports osteoarthritis of the knees. - Endocrine: Reports diabetes mellitus. - Cardiovascular: Denies additional issues beyond recorded hypertension. - Respiratory: Reports past urgent care visit for sinusitis treated. - Neurological: Denies additional neurological symptoms. - Psychological: Reports anxiety disorder. Physical Exam Results - Labs: October 2024 blood work with normal CBC and electrolytes, renal/liver fu nction within normal range, blood sugar 148 mg/dL, LDL 98 mg/dL (May 2024). - Tests and Diagnostics: Colonoscopy 2019 showing tubular adenoma. Bone density improved hip increase noted June 2024. Plan The management approach involved maintaining the current therapy for gastroesophageal reflux with continuation of medications and dietary changes. Hypercholesterolemia is managed through atorvastatin, aiming for LDL goals. Diabetes control is optimized through education on glucose monitoring instructions and continuation of metformin therapy. Osteoporosis requires follow-up endocrinology interaction to weigh the need for vitamin D and potential parenteral infusion paths. Additional therapeutic direction includes attention to recent lower back strain, bone health surveillance in relation to density scores, as well as attending the colonoscopy schedule for adenoma evaluation. Patient was informed and verbally consented to the use of an ambient scribe for clinic note documentation during this visit. Discussion Notes I discussed with the patient her enduring management plan for gastroesophageal reflux disease, with continued monitoring and medication utilization. We reviewed her cholesterol and diabetes numbers, emphasizing the importance of adherence to her prescribed therapy with atorvastatin and metformin. There was a focus on osteoporosis management, considering the implications of her bone density results and the benefits of potential intravenous infusion options. Her recent back strain and its management were reviewed, aligning with her recent treatment for sinusitis. Anticipatory follow-up with endocrinology and gastroenterology was deliberated, emphasizing patient understanding of the importance of upcoming consultations and testing for both current and pr eventative care alignment. Patient Instructions - Continue all current medications as prescribed. - Maintain a low-fat diet and regular exercise routine. - Monitor blood sugar levels as advised, aiming for testing two hours post-meal. - Stay hydrated to aid in kidney stone prevention. - See gastroenterology for scheduled colonoscopy evaluation. - Follow up with endocrinology as advised for bone health management. - Ensure adherence to all scheduled vaccinations and health checks. - Address any worsening of symptoms or new health concerns promptly. - Contact healthcare provider for any new medication refills or concerns. Orders: Orders AMB Hemoglobin A1c Today . - Type 2 diabetes mellitus with hyperglycemia Complete Blood Count Auto Diff 3 Months - Type 2 diabetes mellitus with hyperglycemia Creatinine Urine 3 Months . - Type 2 diabetes mellitus with hyperglycemia Microalbumin, Random (w Creat) 3 Months . - Type 2 diabetes mellitus with hyperglycemia Vitamin D 25-OH Total 3 Months . - Type 2 diabetes mellitus with hyperglycemia Comprehensive Met. Panel 3 Months - Type 2 diabetes mellitus with hyperglycemia Free T4 (Free Thyroxine) 3 Months . - Type 2 diabetes mellitus with hyperglycemia Thyroid Stimulating Hormone 3 Months . - Type 2 diabetes mellitus with hyperglycemia Lipid Panel 3 Months - Type 2 diabetes mellitus with hyperglycemia, E78.00 - Pure hypercholesterolemia, unspecified Vitamin B12 and Folate 3 Months E11.65 - Type 2 diabetes mellitus with hyperglycemia Hemoglobin A1c 3 Months E11.65 - Type 2 diabetes mellitus with hyperglycemia Referrals Ophthalmology Referral E11.65 - Type 2 diabetes mellitus with hyperglycemia Medications: New blood sugar diagnostic ([email or web address] Ultra Test strips) As directed check the blood sugar twice a day 200 ea 3RF E11.65 - Type 2 diabetes mellitus with hyperglycemia Refilled diclofenac sodium 1% (Voltaren Arthritis Pain) apply to single knee, ankle, foot; for foot includes sole/toes/top of foot 4 grams topical QID 400 grams 4RF M17.0 - Bilateral primary osteoarthritis of knee
[2025-01-07 14:04] VITALS: BP 138/58; PULSE 104; TEMP 36.2; O2SAT 97; BMI 25.5
== END 2025-01-07 14:30 | disposition home or self-care (01) ==
LOC: HO.HMCH 13:52
PROVIDERS: PCP Internal Medicine; Visit Provider Internal Medicine
DX: E11.65 Type 2 diabetes mellitus with hyperglycemia (principal); K76.0 Fatty (change of) liver, not elsewhere classified; M81.0 Age-related osteoporosis without current pathological fracture; F41.1 Generalized anxiety disorder; Z87.442 Personal history of urinary calculi; E78.00 Pure hypercholesterolemia, unspecified; K21.00 Gastro-esophageal reflux disease with esophagitis, without bleeding; D12.6 Benign neoplasm of colon, unspecified

== ENCOUNTER → 2025-01-07 13:51 | Outpatient (BNVA) | payer OTHER, SELFPAY | PROVIDERS: PCP Internal Medicine; Visit Provider Internal Medicine | DX: E11.65 Type 2 diabetes mellitus with hyperglycemia (principal); K76.0 Fatty (change of) liver, not elsewhere classified; F41.1 Generalized anxiety disorder; E78.00 Pure hypercholesterolemia, unspecified; K21.00 Gastro-esophageal reflux disease with esophagitis, without bleeding; D12.6 Benign neoplasm of colon, unspecified; M81.0 Age-related osteoporosis without current pathological fracture; Z87.442 Personal history of urinary calculi | CPT/HCPCS: 83036; 96127; 99212 ==

== ENCOUNTER 2025-01-20 10:51 | Outpatient (AMB) | payer OTHER, SELFPAY ==
--- NOTE | 2025-01-20 10:53 | MHC.OFFVIS ---
Vital Signs 01/20/25 10:57 Height 5 ft 2 in Weight 139 lb BMI 25.4 BP 148/66 H Blood Pressure Location Rt brachial Position Sitting Pulse 98 Pulse Source Pulse Oximeter Pulse Oximetry (%) 97 Oxygen Delivery Method Room Air Intake Visit Reasons: trouble eating Intake Note: ESTABLISHED PATIENT for mgmt of dysphagia + chronic abd pain. [facility] 2022. CC; C.O. chronic exacerbation of GERD, nausea, and abd pain both epigastric and RUQ. Pt states that she has had all of the same presentation previously but that it has become worse again over the last 6 mos. Pt was seen at [facility] and had imaging done (US + CT of Abd). Hydroelectric Production Manager Required: Yes Hydroelectric Production Manager Services: Hydroelectric Production Manager Offered & Declined Accompanied by: Daughter Allergies lisinopril Allergy (Unknown, Verified 01/20/25 11:09) Unknown metoprolol Allergy (Unknown, Verified 01/20/25 11:09) Unknown solifenacin [Vesicare] Allergy (Unknown, Verified 01/20/25 11:09) Unknown NSAIDS (Non-Steroidal Anti-Inflamma Adverse Reaction (Intermediate, Verified 01/20/25 11:09) HTN HPI HPI trouble eating: Details: Assessment & Plan (1) RUQ abdominal pain: Comment: we could do a HIDA scan, but she has a LOT of trouble understanding the test and wants to think about it. We are hung up on the idea of the IV - she thought we would put needles in my back. I speak with her daughter to give a better explanation, who says her mother does not like needles.? Again she had a normal ultrasound and unremarkable renal ultrasound with a clear urinalysis.? This seems to exclude renal stones or gallstones. Until uncertain if her pain is related to her gallbladder related to bowel spasm or completely unrelated to the GI system and of musculoskeletal origin.? At any rate the patient is not ready to go on with any additional interventions/investigations so we will watch and wait. Code(s): R10.11 - Right upper quadrant pain Plan: Tuvaluan # dtr translates She stopped the bentyl and the carafate, and her pain in the RUQ is still there, but is much less severe. Her stooling is normal and formed. She occasionally has to push to start it, but not a lot. Her pre syncope has improved as well, bentyl may have been contributing. We also review her EKG in labs and I tell him that she does not have any overt problems with her electrolytes or her electrocardiogram but if her syncope returns or continues she may need to have a cardiac consultation via her PCP. At this point, I recommend strong mint tea or peppermint tincture for her cramping. She will try it. We also discuss IB guard which is encapsulated. Her dtr feels the pt is doing much better than she was at the last visit. She continues on her omeprazole with good control of her GERD. Return office visit in 3 months (2) Constipation: Code(s): K59.00 - Constipation, unspecified (3) GERD (gastroesophageal reflux disease): Code(s): K21.9 - Gastro-esophageal reflux disease without esophagitis Qualifiers: Esophagitis presence: with esophagitis Esophagitis bleeding: without hemorrhage Qualified Code(s): K21.00 - Gastro-esophageal reflux disease with esophagitis, without bleeding (4) Delayed gastric emptying: Comment: Did not tolerate Reglan related to dizziness Code(s): K30 - Functional dyspepsia (5) Paraesophageal hernia: Code(s): K44.9 - Diaphragmatic hernia without obstruction or gangrene (6) Cognitive impairment: Code(s): R41.89 - Other symptoms and signs involving cognitive functions and awareness (7) Near syncope: Code(s): R55 - Syncope and collapse Laboratory Tests 11/16/24 09:01 WBC 8.0 Hgb 13.9 Hct 42.7 Plt Count 247 Estimated GFR > 60 Total Bilirubin 0.5 AST 30 ALT 32 H Alkaline Phosphatase [address] abdomen and pelvis 11/16/2024 INDINGS: Images are somewhat degraded by patient motion. LOWER CHEST: The visualized lung bases are clear. There is no pleural effusion. CARDIOVASCULATURE: The heart is normal in size. There is no pericardial effusion. LIVER: The liver is normal in size and contour. No liver mass is identified. The hepatic and portal veins are patent. GALLBLADDER / BILE DUCTS: The gallbladder is unremarkable. There is no intra or extrahepatic biliary ductal dilatation. SPLEEN: The spleen is normal in size. No focal splenic lesion is identified. PANCREAS: The pancreas is unremarkable in appearance. ADRENAL GLANDS: Within normal limits. KIDNEYS/RETROPERITONEUM: No renal calculi are identified. There is no hydronephrosis. A subcentimeter hypodensity in the interpolar region of the left kidney likely represents a cyst and is unchanged. LYMPH NODES: No abdominal or pelvic lymphadenopathy. VASCULATURE: The abdominal aorta demonstrates atherosclerotic calcification, but is normal in caliber. MESENTERY/PERITONEUM: No free fluid. No masses. There is no free intraperitoneal gas. STOMACH: Again seen is a large hiatal hernia. The stomach is collapsed. SMALL BOWEL: The small bowel is normal in caliber. COLON: There is extensive diverticulosis of the colon, without evidence of diverticulitis. APPENDIX: The appendix is not seen, however no inflammatory changes are seen adjacent to the cecum. URINARY BLADDER/PELVIC ORGANS: The urinary bladder is unremarkable. The uterus is unremarkable. BONES / SOFT TISSUES: There is degenerative disc disease at L4-5. CT/CT abdomen pelvis w IV con IMPRESSION: Large hiatal hernia. Colonic diverticulosis without evidence of diverticulitis. No acute abnormality is identified. TODAY'S VISIT Tu[place] # dtr translates per pt request PATIENT HAS BEEN LOST TO FOLLOW-UP SINCE 11/2022 She has the same sx, still has what she describes as side pain on the right, extensive work up w/o cause. She is due for a colonoscopy, last in 2019 karmen ANAND, will get this scheduled. Apparently she was seen in the ER for abdominal pain and had some testing done. They misinterpreted that they were told by their primary that the CAT scan showed her having a lot of polyps, but I think this is a mistake as what it did show is her known extensive diverticulosis. I explained that this is something that usually is not a pathology and is not something that needs to be removed. I would have been surprised if they saw anything on the CAT scan because that would be a harbinger of a tumor polyps or usually not visible. I am relieved that there is nothing to that extent seen. She is currently taking omeprazole and she is back on the sucralfate as she believes that helped with her right-sided pain. In the past dicyclomine seem to only worsen it. This seems to indicate that this is not a colonic pathology. She says that she was given a cream many many years ago to put on it that seem to help-this would indicate to me that it maybe a musculoskeletal problem, although I have no idea what that cream may have been. She is already on Voltaren gel which she uses on her knees and I suggest that she use that on the pain in her side as well as it certainly would be effective. They did not know that they can use it on other parts of the body. Her swallowing so far has been good. We keep an eye on this could she has a significant paraesophageal hernia but likely is not a good surgical candidate for repair. She denies any current cardiac or respiratory problems. There are no prior problems with anesthesia or sedation. There are no infectious disease problems. Return office visit in 6 months [facility] Medical History (Updated 01/20/25 @ 11:52 by ESVIN Cunningham) Vision changes Localized swelling of both lower legs Hemorrhoids Vaginal irritation Vaginal itching Pelvic pain Cough Shortness of breath Acute rhinosinusitis Near syncope Post-menopausal Hemorrhoids Head trauma Knee pain, right History of renal calculi Adult general medical exam Obesity (BMI 30.0-34.9) Obesity (BMI 30-39.9) Impaired glucose tolerance Menopausal vaginal dryness Sinus congestion Contusion of right knee Dizziness Dizziness GERD (gastroesophageal reflux disease) Allergic conjunctivitis Frequent headaches Cervicalgia Diverticular disease Peripheral vascular disease Cognitive impairment Insomnia Osteoporosis Legally blind Osteoarthritis Constipation History of DVT (deep vein thrombosis) Vitamin D deficiency Surgical History History of eye surgery Hx of colonoscopy History of cataract surgery History of hemorrhoidectomy Family History Father No problems noted. Mother No problems noted. Daughter Lymphoma Social History Household Members: Spouse Housing: Apartment Alcohol intake: never Patient Tobacco Use Status: Never used Tobacco e-Cigarette/Vaping Use: Never Used Second Hand Smoke Exposure: No service: No Current occupational status: retired Cognitive needs: No Hearing needs: No Vision needs: Yes Female Reproductive History Menstrual Age of Menarche: 13 Review of Systems Const Denies fatigue, Denies fever(s), Denies night sweats, Denies poor appetite and Denies weight loss ENT Reports Normal hearing present, Denies dental pain, Denies dysphagia, Denies hearing loss, Denies mouth pain, Denies odynophagia, Denies throat swelling, Denies tongue swelling and Reports other (Dentition adequate) Card Reports no additional complaints Resp Reports no additional complaints GI Details: Reports abdominal pain, Denies melena, Denies bloating, Denies hematochezia, Denies constipation, Denies GI cramping, Denies dysphagia, Denies excessive flatus, Denies early satiety, Reports heartburn, Denies diarrhea, Denies nausea, Denies odynophagia, Denies vomiting and Denies hematemesis Reports vaginal pruritus Musc Reports myalgias Skin/Breast Denies pruritus, Denies lesions, Denies rash and Denies jaundice Neuro Reports Normal hearing present, Denies Abnormal speech present and Reports memory loss Psych Reports memory loss Endo Denies fatigue Aller/Immun Denies throat swelling and Denies tongue swelling Physical Exam Vital Signs: Last Vital Signs Pulse 98 01/20/25 10:57 BP 148/66 H 01/20/25 10:57 Pulse Ox 97 01/20/25 10:57 Oxygen Delivery Method Room Air 01/20/25 10:57 BMI result Body Mass Index 25.4 Const General: cooperative, no acute distress, well developed and well groomed Nutritional Appearance: well nourished and overweight Orientation/consciousness: oriented to person, oriented to place and oriented to time Limitations: language barrier and other limitations HEENT Head: Yes normocephalic and Yes atraumatic Eyes General: appearance normal, both eyes and all related structures Pupils: Equal, round and reactive pupils present Neck Neck: Yes normal visual inspection and Yes no lymphadenopathy Thyroid: Thyroid normal Resp Effort & Inspection: normal respiratory effort and able to speak in complete sentences Auscultation: clear to auscultation bilaterally Cardio Rate: regular rate Rhythm: regular rhythm Heart sounds: Normal, physiologic split S2 sound present Peripheral pulses: radial pulses present and posterior tibial pulses present GI Inspection: No distended and No Abdominal panniculus present Palpation (GI): Soft to palpation, nontender, no guarding, not rigid and No hepatosplenomegaly present Percussion: Yes normal to percussion Auscultation: normal bowel sounds Rectal Exam - Female: deferred Skin General skin exam: no rashes or lesions noted, turgor normal, skin not dry, no jaundice, No spider nevi and no striae Rashes: no rashes Nails: normal Neuro General: oriented to person, oriented to place and oriented to time Cranial nerves: Yes Equal, round and reactive pupils present and Yes Normal hearing present Speech: No Abnormal speech present Extrem General: Yes normal to inspection, No clubbing, No cyanosis and No edema Psych Appearance: grossly normal and well kempt Mental Status: mental status grossly normal Speech and movement: Normal speech and movement present Affect: normal affect Attitude: cooperative Thought process: Normal thought process present and not confabulating Thought content: Normal thought content present Insight: Limited insight present (Psych) Judgement: Limited judgement present (Psych) Results Reviewed Results Reviewed: Laboratory Tests 11/16/24 09:01 WBC 8.0 Hgb 13.9 Hct 42.7 Plt Count 247 Estimated GFR > 60 Total Bilirubin 0.5 AST 30 ALT 32 H Alkaline Phosphatase [address] abdomen and pelvis 11/16/2024 INDINGS: Images are somewhat degraded by patient motion. LOWER CHEST: The visualized lung bases are clear. There is no pleural effusion. CARDIOVASCULATURE: The heart is normal in size. There is no pericardial effusion. LIVER: The liver is normal in size and contour. No liver mass is identified. The hepatic and portal veins are patent. GALLBLADDER / BILE DUCTS: The gallbladder is unremarkable. There is no intra or extrahepatic biliary ductal dilatation. SPLEEN: The spleen is normal in size. No focal splenic lesion is identified. PANCREAS: The pancreas is unremarkable in appearance. ADRENAL GLANDS: Within normal limits. KIDNEYS/RETROPERITONEUM: No renal calculi are identified. There is no hydronephrosis. A subcentimeter hypodensity in the interpolar region of the left kidney likely represents a cyst and is unchanged. LYMPH NODES: No abdominal or pelvic lymphadenopathy. VASCULATURE: The abdominal aorta demonstrates atherosclerotic calcification, but is normal in caliber. MESENTERY/PERITONEUM: No free fluid. No masses. There is no free intraperitoneal gas. STOMACH: Again seen is a large hiatal hernia. The stomach is collapsed. SMALL BOWEL: The small bowel is normal in caliber. COLON: There is extensive diverticulosis of the colon, without evidence of diverticulitis. APPENDIX: The appendix is not seen, however no inflammatory changes are seen adjacent to the cecum. URINARY BLADDER/PELVIC ORGANS: The urinary bladder is unremarkable. The uterus is unremarkable. BONES / SOFT TISSUES: There is degenerative disc disease at L4-5. CT/CT abdomen pelvis w IV con IMPRESSION: Large hiatal hernia. Colonic diverticulosis without evidence of diverticulitis. No acute abnormality is identified. Assessment & Plan Assessment & Plan (1) Paraesophageal hernia: Code(s): K44.9 - Diaphragmatic hernia without obstruction or gangrene Category: Medical (2) Delayed gastric emptying: Comment: Did not tolerate Reglan related to dizziness Code(s): K30 - Functional dyspepsia Category: Medical (3) RUQ abdominal pain: Comment: we could do a HIDA scan, but she has a LOT of trouble understanding the test and wants to think about it. We are hung up on the idea of the IV - she thought we would put needles in my back. I speak with her daughter to give a better explanation, who says her mother does not like needles.? Again she had a normal ultrasound and unremarkable renal ultrasound with a clear urinalysis.? This seems to exclude renal stones or gallstones. Until uncertain if her pain is related to her gallbladder related to bowel spasm or completely unrelated to the GI system and of musculoskeletal origin.? At any rate the patient is not ready to go on with any additional interventions/investigations so we will watch and wait. Code(s): R10.11 - Right upper quadrant pain Category: Medical (4) GERD (gastroesophageal reflux disease): Code(s): K21.9 - Gastro-esophageal reflux disease without esophagitis Category: Medical Qualifiers: Esophagitis bleeding: without hemorrhage Esophagitis presence: with esophagitis Qualified Code(s): K21.00 - Gastro-esophageal reflux disease with esophagitis, without bleeding (5) Tubular adenoma of colon: Comment: January 2020 Dr. Gay Code(s): D12.6 - Benign neoplasm of colon, unspecified Category: Medical (6) Pre-op examination: Code(s): Z01.818 - Encounter for other preprocedural examination Category: Medical Plan [place] # dtr translates per pt request PATIENT HAS BEEN LOST TO FOLLOW-UP SINCE 11/2022 She has the same sx, still has what she describes as side pain on the right, extensive work up w/o cause. She is due for a colonoscopy, last in 2019 karmen ANAND, will get this scheduled. Apparently she was seen in the ER for abdominal pain and had some testing done. They misinterpreted that they were told by their primary that the CAT scan showed her having a lot of polyps, but I think this is a mistake as what it did show is her known extensive diverticulosis. I explained that this is something that usually is not a pathology and is not something that needs to be removed. I would have been surprised if they saw anything on the CAT scan because that would be a harbinger of a tumor polyps or usually not visible. I am relieved that there is nothing to that extent seen. She is currently taking omeprazole and she is back on the sucralfate as she believes that helped with her right-sided pain. In the past dicyclomine seem to only worsen it. This seems to indicate that this is not a colonic pathology. She says that she was given a cream many many years ago to put on it that seem to help-this would indicate to me that it maybe a musculoskeletal problem, although I have no idea what that cream may have been. She is already on Voltaren gel which she uses on her knees and I suggest that she use that on the pain in her side as well as it certainly would be effective. They did not know that they can use it on other parts of the body. Her swallowing so far has been good. We keep an eye on this could she has a significant paraesophageal hernia but likely is not a good surgical candidate for repair. She denies any current cardiac or respiratory problems. There are no prior problems with anesthesia or sedation. There are no infectious disease problems. Return office visit in 6 month Orders: Orders Colonoscopy - GI Use Only Today D12.6 - Benign neoplasm of colon, unspecified Medications: New sod sulf-pot chloride-mag sulf 1.479-0.188- 0.225 gram (Sutab) PO PER PKG DIR for colonoscopy prep 24 tabs 0RF Refilled omeprazole 40 mg PO DAILY 90 caps 2RF 90 days sucralfate (Carafate) 1 g PO BID 180 tabs 2RF K21.00 - Gastro-esophageal reflux disease with esophagitis, without bleeding Coding Level of Care Code Est Pt Level 4 (50798) Diagnoses Paraesophageal hernia K44.9 Delayed gastric emptying K30 RUQ abdominal pain R10.11 Gastroesophageal reflux disease with esophagitis without hemorrhage K21.00 Esophagitis bleeding: without hemorrhage Esophagitis presence: with esophagitis Tubular adenoma of colon D12.6 Pre-op examination Z01.818 Time Spent (min) 33
[2025-01-20 10:57] VITALS: BP 148/66; PULSE 98; O2SAT 97; BMI 25.4
--- OUTSIDE RECORDS SUMMARY | 2025-01-20 11:20 | XMS_ITS | Clinical Summary ---
Author Organization [employer] Address [address] [place] [address] 7 [place] [address] Care Team Providers Care Soda Fountain Clerk Name Role Phone Unavailable Primary Care Provider [...] patient's age to complete this topic Meningococcal B Vaccine Aged Out No l onger eligible based on patient's age to complete [...] Relevant to Health Maintenance Insurance DENTAL - [facility] SCO
== END 2025-01-20 11:42 | disposition home or self-care (01) ==
LOC: HO.HGI 10:52
PROVIDERS: PCP Internal Medicine; Visit Provider Nurse Practitioner
DX: K30 Functional dyspepsia (principal); R10.11 Right upper quadrant pain; K21.00 Gastro-esophageal reflux disease with esophagitis, without bleeding; D12.6 Benign neoplasm of colon, unspecified
CPT/HCPCS: 99214

== ENCOUNTER → 2025-01-20 10:51 | Outpatient (BNVA) | payer OTHER, SELFPAY | PROVIDERS: PCP Internal Medicine; Visit Provider Nurse Practitioner | DX: Z01.818 Encounter for other preprocedural examination (principal); R10.11 Right upper quadrant pain; K30 Functional dyspepsia; K44.9 Diaphragmatic hernia without obstruction or gangrene; K21.00 Gastro-esophageal reflux disease with esophagitis, without bleeding; D12.6 Benign neoplasm of colon, unspecified | CPT/HCPCS: 99212 ==

== ENCOUNTER 2025-01-26 09:39 | Outpatient (AMB) | payer OTHER, SELFPAY ==
[2025-01-26 09:45] VITALS: BMI 24.1
--- NOTE | 2025-01-26 09:45 | A.OFFVIS_ITS ---
Vital Signs 01/26/25 09:45 Height 5 ft 2 in Weight 132 lb BMI 24.1 Intake Visit Reasons: skin check Rug Cleaning Supervisor Required: Yes Rug Cleaning Supervisor Language: Retail Mortgage Banker Services: Rug Cleaning Supervisor Present (Angy) Information Interpreted: non-clinical & clinical Earth Science Laboratory Technician: Earth Science Laboratory Technician Present (Angy) Allergies lisinopril Allergy (Unknown, Verified 01/20/25 11:09) Unknown metoprolol Allergy (Unknown, Verified 01/20/25 11:09) Unknown solifenacin [Vesicare] Allergy (Unknown, Verified 01/20/25 11:09) Unknown NSAIDS (Non-Steroidal Anti-Inflamma Adverse Reaction (Intermediate, Verified 01/20/25 11:09) HTN Is last menstrual period known: Yes HPI Comments Details: Patient is here today for a follow up skin check accompanied by her daughter Concepción. Reports still having some burning and itching overall has improved and uses her medication as needed. Admits today to using Maltese spring soap regularly. Wears overnight pull-ups due to incontinence. [facility] Medical History Vulvar pruritus Vision changes Localized swelling of both lower legs Hemorrhoids Vaginal irritation Vaginal itching Pelvic pain Cough Shortness of breath Acute rhinosinusitis Near syncope Post-menopausal Hemorrhoids Head trauma Knee pain, right History of renal calculi Adult general medical exam Obesity (BMI 30.0-34.9) Obesity (BMI 30-39.9) Impaired glucose tolerance Menopausal vaginal dryness Sinus congestion Contusion of right knee Dizziness Dizziness GERD (gastroesophageal reflux disease) Allergic conjunctivitis Frequent headaches Cervicalgia Diverticular disease Peripheral vascular disease Cognitive impairment Insomnia Osteoporosis Legally blind Osteoarthritis Constipation History of DVT (deep vein thrombosis) Vitamin D deficiency Surgical History History of eye surgery Hx of colonoscopy History of cataract surgery History of hemorrhoidectomy Family History Father No problems noted. Mother No problems noted. Daughter Lymphoma Social History Household Members: Spouse Housing: Apartment Alcohol intake: never Patient Tobacco Use Status: Never used Tobacco e-Cigarette/Vaping Use: Never Used Second Hand Smoke Exposure: No service: No Current occupational status: retired Cognitive needs: No Hearing needs: No Vision needs: Yes Female Reproductive History Menstrual Age of Menarche: 13 Review of Systems Const All systems reviewed & are unremarkable except as noted in HPI and below Endo Reports no additional complaints Physical Exam Vital Signs: BMI result Body Mass Index 24.1 Const General: cooperative, healthy appearing and no acute distress Other: External inspection only: No lesions thickening, excoriation or parchment. Giana clitoral and bilateral labia hypopigmentation, right groin labia majora area of concern for itching has no skin changes. Perineal body generalized erythema and atrophic changes. Psych Appearance: well kempt Attitude: cooperative Thought process: Normal thought process present Assessment & Plan Assessment & Plan (1) Vulvar pruritus: Code(s): L29.2 - Pruritus vulvae Category: Medical Plan Discussed: Skin care, advised to stop using Maltese spring soap only use mild unscented soap either castile or baby. No powders, creams or lotion. Air dry when possible. Use of cool cloth when needed p.r.n.. Refill for clotrimazole betamethasone sent in. Return to the office in 3 weeks for skin check if still having burning we will consider estrogen locally. The patient expressed understanding and agreement with the plan of care. All of her questions and concerns were addressed to the best of my ability. This note is constructed using voice recognition software. While every effort has been made to ensure accuracy, flarer errors may have been included. Medications: Changed From clotrimazole-betamethasone 1-0.05 % apply externally a thin coat to the area 1 appl topical BID 7 days 45 grams 0RF itching To clotrimazole-betamethasone 1-0.05 % apply externally a thin coat to the area 1 appl topical BID PRN 45 grams 0RF itching Coding Level of Care Code Est Pt Level 3 (31110) Diagnoses Vulvar pruritus L29.2
--- OUTSIDE RECORDS SUMMARY | 2025-01-26 10:06 | XMS_ITS | Clinical Summary ---
Author Organization [employer] Address [address] [place] [address] [address] [place] [address] Care Team Providers Care Department Supervisor Name Role Phone Unavailable Primary Care Provider [...] 07/11/2021, 12/05/2020, Additional history exists Influenza Vaccine (Season Ended) 2025 06/03/2023, 06/11/2022, 06/26/2021, Additional history exists Dental X-Ray: [...] Relevant to Health Maintenance Insurance DENTAL - [facility] SCO
== END 2025-01-26 10:24 | disposition home or self-care (01) ==
LOC: HO.HWS 09:39
PROVIDERS: PCP Internal Medicine; Visit Provider Advanced Practice Midwife
DX: L29.2 Pruritus vulvae (principal)
CPT/HCPCS: 99213

== ENCOUNTER → 2025-01-26 09:39 | Outpatient (BNVA) | payer OTHER, SELFPAY | PROVIDERS: PCP Internal Medicine; Visit Provider Advanced Practice Midwife | DX: L29.2 Pruritus vulvae (principal) | CPT/HCPCS: 99212 ==

== ENCOUNTER 2025-03-15 09:41 | Outpatient (AMB) | payer OTHER, SELFPAY ==
[2025-03-15 09:52] VITALS: BP 128/64
--- NOTE | 2025-03-15 09:52 | MHC.OFFVIS ---
Vital Signs 03/15/25 09:52 BP 128/64 Blood Pressure Location Lt brachial Position Sitting Intake Visit Reasons: 3 week skin check Waybill Clerk Required: Yes Information Interpreted: non-clinical & clinical Welding Machine Operator Plasma Arc: Welding Machine Operator Plasma Arc Present Allergies lisinopril Allergy (Unknown, Verified 01/20/25 11:09) Unknown metoprolol Allergy (Unknown, Verified 01/20/25 11:09) Unknown solifenacin (Vesicare) Allergy (Unknown, Verified 01/20/25 11:09) Unknown NSAIDS (Non-Steroidal Anti-Inflamma Adverse Reaction (Intermediate, Verified 01/20/25 11:09) HTN Is last menstrual period known: Yes HPI Comments Details: Patient is here today for a follow up on her skin check, accompanied by her daughter. She reports using the Rx cream with good success, but if she stops the itching comes back. [facility] Medical History Vulvar pruritus Vision changes Localized swelling of both lower legs Hemorrhoids Vaginal irritation Vaginal itching Pelvic pain Cough Shortness of breath Acute rhinosinusitis Near syncope Post-menopausal Hemorrhoids Head trauma Knee pain, right History of renal calculi Adult general medical exam Obesity (BMI 30.0-34.9) Obesity (BMI 30-39.9) Impaired glucose tolerance Menopausal vaginal dryness Sinus congestion Contusion of right knee Dizziness Dizziness GERD (gastroesophageal reflux disease) Allergic conjunctivitis Frequent headaches Cervicalgia Diverticular disease Peripheral vascular disease Cognitive impairment Insomnia Osteoporosis Legally blind Osteoarthritis Constipation History of DVT (deep vein thrombosis) Vitamin D deficiency Surgical History History of eye surgery Hx of colonoscopy History of cataract surgery History of hemorrhoidectomy Family History Father No problems noted. Mother No problems noted. Daughter Lymphoma Social History Household Members: Spouse Housing: Apartment Alcohol intake: never Patient Tobacco Use Status: Never used Tobacco e-Cigarette/Vaping Use: Never Used Second Hand Smoke Exposure: No service: No Current occupational status: retired Cognitive needs: No Hearing needs: No Vision needs: Yes Female Reproductive History Menstrual Age of Menarche: 13 Menopause type: natural Review of Systems Const All systems reviewed & are unremarkable except as noted in HPI and below Endo Reports no additional complaints Physical Exam Vital Signs: Last Vital Signs BP 128/64 03/15/25 09:52 Const General: cooperative, healthy appearing and no acute distress Other: Hypopigmentation of upper bilateral labia minora region, and small area of the perineum, no thickening, lesions, excoriations or parchment. Psych Appearance: well kempt Attitude: cooperative Thought process: Normal thought process present Assessment & Plan Assessment & Plan (1) Vulvar pruritus: Code(s): L29.2 - Pruritus vulvae Category: Medical Plan Reviewed: Skin care. Medication use, taper. Follow up skin check 8 weeks. The patient expressed understanding and agreement with the plan of care. All of her questions and concerns were addressed to the best of my ability. This note is constructed using voice recognition software. While every effort has been made to ensure accuracy, sterilizer operator errors may have been included. Medications: New betamethasone, augmented 0.05 % apply a thin a coat to area nightly for two weeks, then every other night for two weeks, then twice a week 1 appl topical DAILY 45 grams 1RF 8 weeks Discontinued miconazole nitrate 2% (Monistat 7) Discontinued Reason: Patient Completed Course 1 appful vaginal BEDTIME 7 days 45 grams 0RF clotrimazole-betamethasone 1-0.05 % apply externally a thin coat to the area Discontinued Reason: Patient Completed Course 1 appl topical BID PRN 45 grams 0RF itching Coding Level of Care Code Est Pt Level 3 (23125) Diagnoses Vulvar pruritus L29.2
--- OUTSIDE RECORDS SUMMARY | 2025-03-15 10:26 | XMS_ITS | Patient Health Record ---
Author Organization [facility] Address [address] [place] [address] Care Team Providers Care Air Launch Weapons Technician Name Role Phone Hernan Mcintyre [phone] Reason For Referral No Information Plan Of Treatment No Information
== END 2025-03-15 10:44 | disposition home or self-care (01) ==
LOC: HO.HWS 09:41
PROVIDERS: PCP Internal Medicine; Visit Provider Advanced Practice Midwife
DX: L29.2 Pruritus vulvae (principal)
CPT/HCPCS: 99213

== ENCOUNTER → 2025-03-15 09:41 | Outpatient (BNVA) | payer OTHER, SELFPAY | PROVIDERS: PCP Internal Medicine; Visit Provider Advanced Practice Midwife | DX: L29.2 Pruritus vulvae (principal) | CPT/HCPCS: 99212 ==

== ENCOUNTER 2025-03-30 09:01 | Outpatient (REF) | payer OTHER, SELFPAY ==
--- OUTSIDE RECORDS SUMMARY | 2025-03-30 09:17 | XMS_ITS | Patient Health Record ---
Author Organization [facility] Address [address] [place] [address] Care Team Providers Care Biomedical Equipment Technician Name Role Phone Hernan Mcintyre [phone] Reason For Referral No Information Plan Of Treatment No Information
--- OUTSIDE RECORDS SUMMARY | 2025-03-30 09:17 | XMS_ITS | Clinical Summary ---
Author Organization [employer] Address [address] [place] [address] [address] [place] [address] Care Team Providers Care Linter Operator Name Role Phone Unavailable Primary Care Provider [...] 12/05/2020, Additional history exists Influenza Vaccine (#1) 2025 3, 06/11/2022, 06/26/2021, Additional history exists Dental [...] Relevant to Health Maintenance Insurance DENTAL - [facility] SCO
[2025-03-30 09:19] LABS: MANUAL DIFF FLAG NO
[2025-03-30 09:41] LABS: Hematocrit 41.2 % (37.0-47.0); Hemoglobin 13.4 g/dl (12.0-16.0); Imm Gran Abs Auto 0.01 X10*3/uL (0.00-0.03); Imm Gran Pct Auto 0.1 % (0.0-0.4); Lymphocytes Absolute Auto 2.5 X10*3/uL (1.2-4.9); Mean Corpuscular HGB Conc 32.5 g/dl (31.0-35.0); Mean Corpuscular Hemoglobin 28.9 pg (27.0-33.0); Mean Corpuscular Volume 88.8 fL (80.0-98.0); NRBC Abs Auto 0.000 X10*3/uL (0.0-0.012); NRBC Pct Auto 0.0 /100WBC (0.0-0.2); Platelet Count 217 X10*3/uL (160-400); Red Blood Count 4.64 X10*6/uL (4.20-5.50); White Blood Count 7.2 X10*3/uL (4.8-10.8)
[2025-03-30 10:04] LABS: Hemoglobin A1C 163.9662 umol/L; Total Hemoglobin (HGBA1C) 3512.7001 umol/L
[2025-03-30 10:51] LABS: Alanine Aminotransferase 18 U/L (0-31); Albumin Level 4.1 g/dL (3.5-5.0); Alkaline Phosphatase 72 U/L (39-117); Anion Gap 13 (12-20); Aspartate Amino Transferase 19 U/L (5-31); Blood Urea Nitrogen 16 mg/dL (9-16); Calcium 9.5 mg/dL (8.4-10.2); Carbon Dioxide 26 mmol/L (22-29); Chloride 108 mmol/L (96-108); Cholesterol 196 mg/dL (<200); Estimated Glomerular Filt Rate > 60; HDL Cholesterol 53 mg/dL (>40); Potassium 4.2 mmol/L (3.3-5.1); Sodium 143 mmol/L (135-145); Total Protein 7.2 g/dL (6.5-8.0); Triglycerides 142 mg/dL (<150)
[2025-03-30 11:10] LABS: Free T4 (Free Thyroxine) 1.09 ng/dL (0.71-1.85); Thyroid Stimulating Hormone 2.37 uIU/mL (0.32-4.0)
[2025-03-30 11:13] LABS: Folate 9.8 ng/mL (> or = 4.0); Vitamin B12 357 pg/mL (200-900)
== END 2025-03-30 09:02 | disposition home or self-care (01) ==
LOC: HO.LAB 09:01
PROVIDERS: PCP Internal Medicine; Visit Provider Internal Medicine
DX: E11.65 Type 2 diabetes mellitus with hyperglycemia (principal); E78.00 Pure hypercholesterolemia, unspecified
CPT/HCPCS: 36415; 80053; 80061; 82306; 82607; 82746; 83036; 84439; 84443; 85025

== ENCOUNTER 2025-03-31 09:43 | Outpatient (REF) | payer OTHER, SELFPAY ==
--- OUTSIDE RECORDS SUMMARY | 2025-03-31 10:12 | XMS_ITS | Clinical Summary ---
Author Organization [employer] Address [address] [place] [address] 7 [place] [address] Care Team Providers Care Tobacco Dipper Name Role Phone Unavailable Primary Care Provider [...] Relevant to Health Maintenance Insurance DENTAL - [facility] SCO
--- OUTSIDE RECORDS SUMMARY | 2025-03-31 10:12 | XMS_ITS | Patient Health Record ---
Author Organization [facility] Address [address] [place] [address] Care Team Providers Care Bar Tacker Name Role Phone Hernan Mcintyre [phone] Reason For Referral No Information Plan Of Treatment No Information
== END 2025-03-31 09:44 | disposition home or self-care (01) ==
LOC: HO.LNP 09:43
PROVIDERS: Visit Provider Internal Medicine
DX: E11.65 Type 2 diabetes mellitus with hyperglycemia (principal)
CPT/HCPCS: 82043; 82570

== ENCOUNTER 2025-04-04 11:54 | Outpatient (AMB) | payer OTHER, SELFPAY ==
--- OUTSIDE RECORDS SUMMARY | 2025-04-04 12:24 | XMS_ITS | Clinical Summary ---
Author Organization [employer] Address [address] [place] [address] [address] [place] [address] Care Team Providers Care Commodity Specialist Name Role Phone Unavailable Primary Care Provider [...] Relevant to Health Maintenance Insurance DENTAL - [facility] SCO
--- OUTSIDE RECORDS SUMMARY | 2025-04-04 12:24 | XMS_ITS | Patient Health Record ---
Author Organization [facility] Address [address] [place] [address] Care Team Providers Care Vamp Marker Name Role Phone Hernan Mcintyre [phone] Reason For Referral No Information Plan Of Treatment No Information
--- NOTE | 2025-04-04 12:31 | MHC.PC.OV ---
Vital Signs 04/04/25 12:32 Height 5 ft 2 in Weight 143 lb 6 oz BMI 26.2 BP 110/72 Blood Pressure Location Lt brachial Position Sitting Pulse 95 Pulse Source Pulse Oximeter Temp 97.3 F Temp Source Temporal Artery Scan Pulse Oximetry (%) 98 Oxygen Delivery Method Room Air Intake Visit Reasons: annual exam - see comments Intake Note: Patient is here today for a physical. Transliterator Required: Yes Transliterator Language: Mastic Floor Layer Name: Concepción (Daughter) Information Interpreted: non-clinical & clinical (pt decline translation service, prefer daughter to translate for her) Insulation Blower: Present Accompanied by: Daughter Allergies lisinopril Allergy (Unknown, Verified 04/04/25 12:32) Unknown metoprolol Allergy (Unknown, Verified 04/04/25 12:32) Unknown solifenacin (Vesicare) Allergy (Unknown, Verified 04/04/25 12:32) Unknown NSAIDS (Non-Steroidal Anti-Inflamma Adverse Reaction (Intermediate, Verified 04/04/25 12:32) HTN Medication List - Last Reconciled 04/04/25 by Susana Jean MD albuterol sulfate 90 mcg/actuation 2 puffs inhalation Q4-6H PRN atorvastatin 20 mg PO DAILY 90 days betamethasone, augmented 0.05 % 1 appl topical DAILY 8 weeks blood pressure monitor (Blood Pressure Kit) As directed blood sugar diagnostic (OneTouch Ultra Test strips) As directed check the blood sugar twice a day blood sugar diagnostic (FreeStyle Precision Prosper Strips) twice a day As directed cholecalciferol (vitamin D3) (Vitamin D3) 50 mcg PO DAILY diclofenac sodium 1% (Voltaren Arthritis Pain) 4 grams topical QID fluticasone propionate 50 mcg/actuation 1 spray intranasal DAILY hydrocortisone 2.5% (Proctosol HC) 1 appl HI TID-QID 30 days hydroxyzine HCl 10 mg PO BEDTIME losartan 50 mg PO DAILY metformin 500 mg PO BIDWMEAL omeprazole 40 mg PO DAILY 90 days [ROLLATOR As directed] sennosides-docusate sodium 8.6-50 mg (Senna Plus) 2 tab-caps PO BEDTIME PRN sod sulf-pot chloride-mag sulf 1.479-0.188- 0.225 gram (Sutab) PO PER PKG DIR for colonoscopy prep sucralfate (Carafate) 1 g PO BID Tobacco use date assessed: 04/04/25 Fall risk assessment: No Falls in past year Last assessed Fall Risk: 04/04/25 Dental Screening Dental Screen Date: 11/10/24 HPI annual exam - see comments HPI Details dizzy , states vision gets dark , did see eye doctor and states no solution PFSH Medical History Vulvar pruritus Vision changes Localized swelling of both lower legs Hemorrhoids Vaginal irritation Vaginal itching Pelvic pain Cough Shortness of breath Acute rhinosinusitis Near syncope Post-menopausal Hemorrhoids Head trauma Knee pain, right History of renal calculi Adult general medical exam Obesity (BMI 30.0-34.9) Obesity (BMI 30-39.9) Impaired glucose tolerance Menopausal vaginal dryness Sinus congestion Contusion of right knee Dizziness Dizziness GERD (gastroesophageal reflux disease) Allergic conjunctivitis Frequent headaches Cervicalgia Diverticular disease Peripheral vascular disease Cognitive impairment Insomnia Osteoporosis Legally blind Osteoarthritis Constipation History of DVT (deep vein thrombosis) Vitamin D deficiency Surgical History History of eye surgery Hx of colonoscopy History of cataract surgery History of hemorrhoidectomy Family History Father No problems noted. Mother No problems noted. Daughter Lymphoma Social History Household Members: Spouse Housing: Apartment Alcohol intake: never Patient Tobacco Use Status: Never used Tobacco e-Cigarette/Vaping Use: Never Used Second Hand Smoke Exposure: No service: No Current occupational status: retired Cognitive needs: No Hearing needs: No Vision needs: Yes Female Reproductive History Menstrual Age of Menarche: 13 Questionnaire Thrive Questionnaire Date Thrive assessed: 12/31/24 I am a: Patient What is your living situation today?: I have a steady place to live Within the past 12 months, did the food you bought not last and you didn't have the money to get more?: I choose not to answer this question Within the past 12 months, did you worry whether your food would run out before you got money to buy more?: I choose not to answer this question Do you have trouble paying for medicines?: I choose not to answer this question Do you have trouble getting transportation to medical appointments?: Yes Do you have trouble paying your heating and electricity bill?: I choose not to answer this question Do you have trouble taking care of your child, family member or friend?: I choose not to answer this question Do you have trouble with day-to-day activities such as bathing, preparing meals, shopping, managing finances, etc.?: No Are you currently unemployed and looking for a job?: I choose not to answer this question Are you interested in more education?: I choose not to answer this question Please select the resources that you would like help with: None Currently or been in a relationship where the following occur: I choose not to answer THRIVE Score: 1 SHYAM-7 AMB Questionnaire SHYAM-7 Date SHYAM - 7 assessed: 01/07/25 Source: Developed by Drs. Hernan Blue, Rama Vivar, Chip Fong and colleagues, with an educational lottie from [employer] Review of Systems Const Denies poor appetite and Denies weakness Eyes Denies no additional complaints ENT Reports Normal hearing present, Denies dizziness, Denies nasal congestion, Denies tinnitus and Denies sore throat Card Denies chest pain, Denies syncope, Denies rapid heart rate and Denies dyspnea Resp Denies cough and Denies dyspnea GI Denies change in stool character, Reports constipation, Denies diarrhea, Denies nausea and Denies vomiting Denies urinary frequency, Denies difficulty voiding and Denies dysuria Neuro Reports Normal hearing present, Denies confusion, Denies dizziness, Denies syncope and Denies weakness Psych Denies confusion Physical exam (Primary Care) Vital Signs: Last Vital Signs Temp 97.3 F 04/04/25 12:32 Pulse 95 04/04/25 12:32 BP 110/72 04/04/25 12:32 Pulse Ox 98 04/04/25 12:32 Oxygen Delivery Method Room Air 04/04/25 12:32 BMI result Body Mass Index 26.2 Tobacco/Smoking Status: Tobacco use Status Tobacco use date assessed 04/04/25 04/04/25 12:40 Patient Tobacco Use Status Never used Tobacco 04/04/25 12:40 e-Cigarette/Vaping Use Never Used 04/04/25 12:40 Thrive Assessment: Date of Thrive Assessment Date Thrive assessed 12/31/24 04/04/25 12:40 Currently or been in a relationship where the following occur: I choose not to answer Const General: No confusion Orientation/consciousness: No confusion HENMT Head: Yes normocephalic Ears: external ears normal and TM's normal bilaterally Face and sinus: Yes normal facial exam Mouth: moist mucous membranes Throat: Yes tonsils normal Eyes Conjunctivae: conjunctivae normal Pupils: Equal, round and reactive pupils present and Pupil accommodation reflex normal Direct Ophthalmoscopy: normal light reflex Neck Neck: No lymphadenopathy Thyroid: Thyroid normal Chest Chest palpation & inspection: normal inspection of the chest Resp Effort & Inspection: normal respiratory effort and no audible wheezes Auscultation: clear to auscultation bilaterally, no crackles, no wheezes and lung sounds not diminished Cardio Rate: regular rate Rhythm: regular rhythm Peripheral pulses: radial pulses present and dorsalis pedis present GI Palpation (GI): no masses Auscultation: normal bowel sounds and normoactive bowel sounds Rectal Exam - Female: deferred Skin General skin exam: no rashes or lesions noted Rashes: no rashes Neuro General: No confusion Cranial nerves: Yes Equal, round and reactive pupils present and Yes Normal hearing present Cognition (Neuro): normal cognition Gait exam (Neuro): Normal gait present Motor exam (neuro): 5/5 motor strength present throughout Deep tendon reflexes (DTR's): Right brachioradialis reflex intensity grade: 2+, Left brachioradialis reflex intensity grade: 2+, Right patellar reflex intensity grade: 2+ and Left patellar reflex intensity grade: 2+ Extrem General: No edema Coding Level of Care Code Est Pt Prev Care >65y(79469) Diagnoses Annual physical exam Z00.00 Primary hypertension I10 Hypertension type: primary hypertension Hypercholesterolemia E78.00 Type 2 diabetes mellitus with hyperglycemia E11.65 Overweight (BMI 25.0-29.9) E66.3 Gastroesophageal reflux disease with esophagitis without hemorrhage K21.00 Esophagitis bleeding: without hemorrhage Esophagitis presence: with esophagitis Fatty liver K76.0 Generalized anxiety disorder F41.1 Sacroiliac joint pain M53.3 Assessment & Plan Assessment & Plan (1) Annual physical exam: Code(s): Z00.00 - Encounter for general adult medical examination without abnormal findings Category: Medical Plan: Patient is advised to eat healthy, keep well hydrated, keep active and have adequate sleep. (2) Hypertension: Code(s): I10 - Essential (primary) hypertension Category: Medical Qualifiers: Hypertension type: primary hypertension Qualified Code(s): I10 - Essential (primary) hypertension Plan: Continue with blood pressure medication. Decrease salt intake and exercise patient is on losartan 50 mg once a day (3) Hypercholesterolemia: Code(s): E78.00 - Pure hypercholesterolemia, unspecified Category: Medical Plan: Avoid fried foods, chicken skin, eggs, butter margarine, pastries and meat. Be it pork or beef they have a lot of cholesterol LDL goal of less than 100 and triglyceride of less than 150 on atorvastatin 20 mg once a day (4) Type 2 diabetes mellitus with hyperglycemia: Code(s): E11.65 - Type 2 diabetes mellitus with hyperglycemia Category: Medical Plan: Decrease the amount of carbohydrate intake, pasta, bread, rice and potatoes are all sugar and that is aside from all the sweet stuff, remember that fruits are good but they are Sweet also. Hemoglobin A1c goal of less than 7.0 patient is on metformin 500 mg twice a day (5) Overweight (BMI 25.0-29.9): Code(s): E66.3 - Overweight Category: Medical Plan: Diet and exercise (6) GERD (gastroesophageal reflux disease): Code(s): K21.9 - Gastro-esophageal reflux disease without esophagitis Category: Medical Qualifiers: Esophagitis bleeding: without hemorrhage Esophagitis presence: with esophagitis Qualified Code(s): K21.00 - Gastro-esophageal reflux disease with esophagitis, without bleeding Plan: Avoid the foods that causes that usually spicy foods, tomato products, juices, coffee, soda and foods that your sensitive to. After eating do not lie down, allow 3-4 hours before in lie down. And keep the head of bed above 30 degrees to avoid the acid from going up. (7) Fatty liver: Code(s): K76.0 - Fatty (change of) liver, not elsewhere classified Category: Medical Plan: Low-fat diet and exercise (8) Generalized anxiety disorder: Code(s): F41.1 - Generalized anxiety disorder Category: Medical Plan: Continue with present therapy (9) Sacroiliac joint pain: Comment: right 03/2025 Code(s): M53.3 - Sacrococcygeal disorders, not elsewhere classified Category: Medical Plan History of Present Illness The patient is a 80-year-old female presenting for an annual physical examination. She has a history of gastroesophageal reflux disease (GERD), hypercholesterolemia, hypertension, generalized anxiety disorder, paraesophageal hernia, osteoporosis, hepatic steatosis, and diabetes mellitus. Her last bone density test was conducted in June 2024, and she was last seen in December 2024. The patient reports experiencing dysphagia and right upper quadrant abdominal pain. A CT scan of the abdomen and pelvis in October 2024 revealed a large hiatal hernia and colonic diverticular disease. She is scheduled for a colonoscopy. The patient has cataracts, which have been deemed severe and untreatable due to delayed intervention. She experiences dizziness with vision changes, which has been a recent development. She also reports nocturia and constipation, with occasional blood in the stools. Her blood work from March 30 showed normal blood count, electrolytes, and renal function. Her blood sugar was 137 mg/dL with a hemoglobin A1c of 6.4%, and her LDL cholesterol was 115 mg/dL. She is currently on atorvastatin and losartan for cholesterol and blood pressure management, respectively, and metformin for diabetes management. Health Maintenance - Mammogram is due for follow-up - Colonoscopy scheduled due to colonic diverticular disease - Blood work showed normal blood count, electrolytes, and renal function - Hemoglobin A1c at 6.4%, LDL cholesterol at 115 mg/dL Social History - Drinks coffee regularly, last cup at 4 PM - Limited water intake, primarily drinks coffee and some juice Review of Systems - Gastrointestinal: Reports dysphagia, right upper quadrant abdominal pain, constipation with occasional blood in stools - Neurological: Reports dizziness with vision changes - Genitourinary: Reports nocturia - Ophthalmologic: Reports severe cataracts with vision impairment Physical Exam General: Cooperative, healthy appearing, comfortable, no acute distress and well developed Orientation: Patient oriented x3 Limitations: No limitations Head: Normal to inspection Ears: Hearing grossly normal bilaterally, but a little bit of ear wax present Nose: Normal external nose present Face and sinus: Normal facial exam Eyes: Appearance normal, both eyes and all related structures, but patient reports severe cataracts and blurry vision Neck: Normal visual inspection and Yes full ROM Respiratory: Normal respiratory effort and able to speak in complete sentences. Clear to auscultation bilaterally Cardiovascular: Regular rate and rhythm. Normal S1 and S2 GI: Normal to inspection. Soft to palpation and nontender, but patient reports right upper quadrant abdominal pain Skin: No rashes or lesions noted Neuro: Patient oriented x3, but reports dizziness and vision turning black Extremities: Normal to inspection, slight swelling in legs noted, but not significant Results - Labs: Normal blood count, electrolytes, renal function; blood sugar 137 mg/dL, hemoglobin A1c 6.4%, LDL cholesterol 115 mg/dL - Imaging: CT scan of abdomen and pelvis in October 2024 showing large hiatal hernia and colonic diverticular disease Plan The patient will continue her current medications, including atorvastatin for hypercholesterolemia, losartan for hypertension, and metformin for diabetes management. Her atorvastatin dosage will be increased to 40 mg to better manage her LDL cholesterol levels, which are currently at 115 mg/dL. A colonoscopy is scheduled to further evaluate her colonic diverticular disease. For her right upper quadrant abdominal pain, a low-fat diet and exercise are recommended to manage her hepatic steatosis and GERD symptoms. The patient is advised to reduce coffee intake to manage nocturia and potential dehydration, and to increase water consumption to three to four bottles daily. An aspirin cream with lidocaine will be prescribed to manage her back pain, and heat application is recommended for additional relief. Patient was informed and verbally consented to the use of an ambient scribe for clinic note documentation during this visit. Discussion Notes During the visit, I discussed with the patient the importance of managing her cholesterol levels and the decision to increase her atorvastatin dosage to 40 mg. We reviewed her upcoming colonoscopy to assess her colonic diverticular disease and emphasized the need for dietary modifications to manage her GERD and hepatic steatosis. I advised her to reduce coffee intake and increase water consumption to prevent dehydration and manage nocturia. We also discussed the use of aspirin cream with lidocaine for her back pain and the benefits of applying heat to the affected area. Patient Instructions - Continue taking atorvastatin, losartan, and metformin as prescribed. - Increase atorvastatin dosage to 40 mg as directed. - Follow a low-fat diet and exercise regularly. - Reduce coffee intake and drink three to four bottles of water daily. - Use aspirin cream with lidocaine for back pain and apply heat as needed. - Attend scheduled colonoscopy appointment. Orders: Orders Hemoglobin A1c 3 Months E11.65 - Type 2 diabetes mellitus with hyperglycemia Comprehensive Met. Panel 3 Months E11.65 - Type 2 diabetes mellitus with hyperglycemia Lipid Panel 3 Months E11.65 - Type 2 diabetes mellitus with hyperglycemia, E78.00 - Pure hypercholesterolemia, unspecified Medications: New lidocaine 4% (Aspercreme (lidocaine)) 1 patch topical BID PRN 30 ea 3RF pain M53.3 - Sacrococcygeal disorders, not elsewhere classified Changed From atorvastatin 20 mg PO DAILY 90 days 90 tabs 2RF To atorvastatin 40 mg PO DAILY 90 tabs 2RF 90 days
[2025-04-04 12:32] VITALS: BP 110/72; PULSE 95; TEMP 36.3; O2SAT 98; BMI 26.2
== END 2025-04-04 13:22 | disposition home or self-care (01) ==
LOC: HO.HMCH 11:55
PROVIDERS: PCP Internal Medicine; Visit Provider Internal Medicine
DX: Z00.00 Encounter for general adult medical examination without abnormal findings (principal); I10 Essential (primary) hypertension; E78.00 Pure hypercholesterolemia, unspecified; E11.65 Type 2 diabetes mellitus with hyperglycemia; E66.3 Overweight; K21.00 Gastro-esophageal reflux disease with esophagitis, without bleeding; K76.0 Fatty (change of) liver, not elsewhere classified; F41.1 Generalized anxiety disorder; M53.3 Sacrococcygeal disorders, not elsewhere classified

== ENCOUNTER → 2025-04-04 11:54 | Outpatient (BNVA) | payer OTHER, SELFPAY | PROVIDERS: PCP Internal Medicine; Visit Provider Internal Medicine | DX: Z00.00 Encounter for general adult medical examination without abnormal findings (principal); I10 Essential (primary) hypertension; E78.00 Pure hypercholesterolemia, unspecified; E11.65 Type 2 diabetes mellitus with hyperglycemia; Z68.26 Body mass index [BMI] 26.0-26.9, adult; E66.3 Overweight; K21.00 Gastro-esophageal reflux disease with esophagitis, without bleeding; K76.0 Fatty (change of) liver, not elsewhere classified; F41.1 Generalized anxiety disorder; M53.3 Sacrococcygeal disorders, not elsewhere classified; Z71.3 Dietary counseling and surveillance | CPT/HCPCS: 99397 ==

== ENCOUNTER 2025-04-08 11:12 | Outpatient (REF) | payer OTHER, SELFPAY ==
--- NOTE | ~2025-04-08 | MM_ITS ---
EXAMINATION: MM DIAGNOSTIC DIGITAL BREAST TOMOSYNTHESIS, BILATERAL CLINICAL INFORMATION: This is a 6-month follow-up for left breast calcifications on the diagnostic workup on January 20, 2024, these left breast calcifications were recommended for biopsy. However, patient did not have the stereotactic biopsy, but return to the service on August 16, 2024, when a 6-month follow-up was recommended. COMPARISON: August 16, 2024; January 20, 2024; December 11, 2023 TECHNIQUE: Digital breast tomosynthesis is performed in both the craniocaudal and mediolateral oblique views along with computer-aided detection (CAD). Synthesized 2D images are generated from the tomosynthesis. Spot compression views of the left breast calcifications were also obtained. FINDINGS: BREAST COMPOSITION: The breasts are heterogeneously dense, which may obscure small masses (ACR BI-RADS breast composition Category c). RIGHT BREAST: No significant masses, suspicious calcifications or other abnormalities are seen. LEFT BREAST: Grouped calcifications in the upper-outer quadrant at approximately 8.5 cm from the nipple are not significantly changed from previous spot magnified compression views from December 2023. No significant masses, new calcifications or other abnormalities are seen. MM/MM tomosynthesis diagnostic BI IMPRESSION: RIGHT BREAST: Negative, no mammographic evidence of malignancy. Normal interval follow-up is recommended in 12 months. LEFT BREAST: Grouped calcifications in the upper outer quadrant, not significantly changed from December 2023. Probably benign. A 6-month follow-up mammogram is recommended. ASSESSMENT: BI-RADS 3 - Probably benign finding(s) - 6 month follow-up suggested RECOMMENDATION: 6 Month F/U Results were provided to the patient at time of visit by the technologist. This patient's information was entered into a reminder system with a target due date for their next mammogram. Electronically signed by: Yahir Hawley MD 04/08/2025 12:50 PM EDT
--- OUTSIDE RECORDS SUMMARY | 2025-04-08 11:19 | XMS_ITS | Clinical Summary ---
Author Organization [employer] Address [address] [place] [address] [address] [place] [address] Care Team Providers Care Dispensing Operator Name Role Phone Unavailable Primary Care [...] Relevant to Health Maintenance Insurance DENTAL - [facility] SCO
--- OUTSIDE RECORDS SUMMARY | 2025-04-08 11:19 | XMS_ITS | Patient Health Record ---
Author Organization [facility] Address [address] [place] [address] Care Team Providers Care Foreign Exchange Position Clerk Name Role Phone Hernan Mcintyre [phone] Reason For Referral No Information Plan Of Treatment No Information
== END 2025-04-08 11:13 | disposition home or self-care (01) ==
LOC: HO.MAMMO 11:12
PROVIDERS: PCP Internal Medicine; Visit Provider Internal Medicine
DX: R92.1 Mammographic calcification found on diagnostic imaging of breast (principal)
CPT/HCPCS: 77062; 77066

== ENCOUNTER → 2025-04-08 11:30 | Outpatient (BNV) | payer OTHER, SELFPAY | PROVIDERS: PCP Internal Medicine; Visit Provider Radiology Body Imaging | DX: R92.1 Mammographic calcification found on diagnostic imaging of breast (principal); R92.333 Mammographic heterogeneous density, bilateral breasts | CPT/HCPCS: 77066; G0279 ==

== ENCOUNTER 2025-05-17 08:45 | Outpatient (AMB) | payer OTHER, SELFPAY ==
--- NOTE | 2025-05-17 08:52 | A.OFFVIS_ITS ---
Intake Visit Reasons: skin check Wood Box Maker: Wood Box Maker Present (ISRA Constantino) Accompanied by: Daughter Allergies lisinopril Allergy (Unknown, Verified 04/04/25 12:32) Unknown metoprolol Allergy (Unknown, Verified 04/04/25 12:32) Unknown solifenacin (Vesicare) Allergy (Unknown, Verified 04/04/25 12:32) Unknown NSAIDS (Non-Steroidal Anti-Inflamma Adverse Reaction (Intermediate, Verified 04/04/25 12:32) HTN Is last menstrual period known: Yes HPI Comments Details: Patient is here today for a follow up on skin check, history of chronic vulvar pruritus, accompanied by her daughter, Mercedes. She reports using the clobetasol betamethasone intermittently once a week or once a month depending on when her symptoms occur. Usually she will feel burning with a reddened rash. She denies any pelvic pain or other concerns. [facility] Medical History Vulvar pruritus Vision changes Localized swelling of both lower legs Hemorrhoids Vaginal irritation Vaginal itching Pelvic pain Cough Shortness of breath Acute rhinosinusitis Near syncope Post-menopausal Hemorrhoids Head trauma Knee pain, right History of renal calculi Adult general medical exam Obesity (BMI 30.0-34.9) Obesity (BMI 30-39.9) Impaired glucose tolerance Menopausal vaginal dryness Sinus congestion Contusion of right knee Dizziness Dizziness GERD (gastroesophageal reflux disease) Allergic conjunctivitis Frequent headaches Cervicalgia Diverticular disease Peripheral vascular disease Cognitive impairment Insomnia Osteoporosis Legally blind Osteoarthritis Constipation History of DVT (deep vein thrombosis) Vitamin D deficiency Surgical History History of eye surgery Hx of colonoscopy History of cataract surgery History of hemorrhoidectomy Family History Father No problems noted. Mother No problems noted. Daughter Lymphoma Social History Household Members: Spouse Housing: Apartment Alcohol intake: never Patient Tobacco Use Status: Never used Tobacco e-Cigarette/Vaping Use: Never Used Second Hand Smoke Exposure: No service: No Current occupational status: retired Cognitive needs: No Hearing needs: No Vision needs: Yes Female Reproductive History Menstrual Age of Menarche: 13 Review of Systems Const All systems reviewed & are unremarkable except as noted in HPI and below Endo Reports no additional complaints Physical Exam Const General: cooperative, healthy appearing and no acute distress Other: External inspection only, hypopigmentation of the clitoral periclitoral and upper labial minora area, no lesions, excoriations, parchment or thickening. Area of concern with rash is right lower labial gluteal region extending to the groin skin is clear today. Psych Appearance: well kempt Attitude: cooperative Thought process: Normal thought process present Assessment & Plan Assessment & Plan (1) Vulvar pruritus: Code(s): L29.2 - Pruritus vulvae Category: Medical Plan Discussed skin care, continue med use prn. Skin check 6 months. The patient expressed understanding and agreement with the plan of care. All of her questions and concerns were addressed to the best of my ability. This note is constructed using voice recognition software. While every effort has been made to ensure accuracy, software applications engineer errors may have been included. Medications: New clotrimazole-betamethasone 1-0.05 % 1 appl topical BID PRN 45 grams 2RF itch Coding Level of Care Code Est Pt Level 3 (99226) Diagnoses Vulvar pruritus L29.2
== END 2025-05-17 09:40 | disposition home or self-care (01) ==
LOC: HO.HWS 08:45
PROVIDERS: PCP Internal Medicine; Visit Provider Advanced Practice Midwife
DX: L29.2 Pruritus vulvae (principal)
CPT/HCPCS: 99213

== ENCOUNTER → 2025-05-17 08:45 | Outpatient (BNVA) | payer OTHER, SELFPAY | PROVIDERS: PCP Internal Medicine; Visit Provider Advanced Practice Midwife | DX: L29.2 Pruritus vulvae (principal) | CPT/HCPCS: 99212 ==

== ENCOUNTER 2025-07-19 11:06 | Outpatient (AMB) | payer OTHER, SELFPAY ==
[2025-07-19 11:17] VITALS: BP 143/77; PULSE 108; RESP 18; O2SAT 95; BMI 26.2
--- NOTE | 2025-07-19 11:17 | A.OFFVIS_ITS ---
Vital Signs 07/19/25 11:17 Height 5 ft 2 in Weight 143 lb 4.807 oz BMI 26.2 BP 143/77 H Blood Pressure Location Lt brachial Position Sitting Respiration 18 Pulse 108 H Pulse Source Pulse Oximeter Pulse Oximetry (%) 95 Oxygen Delivery Method Room Air Intake Visit Reasons: 6 mo f/u flank pain , Gerd Air Conditioning Equipment Mechanic Required: Yes Air Conditioning Equipment Mechanic Services: Air Conditioning Equipment Mechanic Offered & Declined Accompanied by: Daughter Allergies lisinopril Allergy (Unknown, Verified 04/04/25 12:32) Unknown metoprolol Allergy (Unknown, Verified 04/04/25 12:32) Unknown solifenacin (Vesicare) Allergy (Unknown, Verified 04/04/25 12:32) Unknown NSAIDS (Non-Steroidal Anti-Inflamma Adverse Reaction (Intermediate, Verified 04/04/25 12:32) HTN HPI HPI 6 mo f/u flank pain , Gerd: Details: Assessment & Plan (1) Paraesophageal hernia: Code(s): K44.9 - Diaphragmatic hernia without obstruction or gangrene Category: Medical (2) Delayed gastric emptying: Comment: Did not tolerate Reglan related to dizziness Code(s): K30 - Functional dyspepsia Category: Medical (3) RUQ abdominal pain: Comment: we could do a HIDA scan, but she has a LOT of trouble understanding the test and wants to think about it. We are hung up on the idea of the IV - she thought we would put needles in my back. I speak with her daughter to give a better explanation, who says her mother does not like needles.? Again she had a normal ultrasound and unremarkable renal ultrasound with a clear urinalysis.? This seems to exclude renal stones or gallstones. Until uncertain if her pain is related to her gallbladder related to bowel spasm or completely unrelated to the GI system and of musculoskeletal origin.? At any rate the patient is not ready to go on with any additional interventions/investigations so we will watch and wait. Code(s): R10.11 - Right upper quadrant pain Category: Medical (4) GERD (gastroesophageal reflux disease): Code(s): K21.9 - Gastro-esophageal reflux disease without esophagitis Category: Medical Qualifiers: Esophagitis bleeding: without hemorrhage Esophagitis presence: with esophagitis Qualified Code(s): K21.00 - Gastro-esophageal reflux disease with esophagitis, without bleeding (5) Tubular adenoma of colon: Comment: January 2020 Dr. Gay Code(s): D12.6 - Benign neoplasm of colon, unspecified Category: Medical (6) Pre-op examination: Code(s): Z01.818 - Encounter for other preprocedural examination Category: Medical Plan Gabonese # dtr translates per pt request PATIENT HAS BEEN LOST TO FOLLOW-UP SINCE 11/2022 She has the same sx, still has what she describes as side pain on the right, extensive work up w/o cause. She is due for a colonoscopy, last in 2018 karmen ANAND, will get this scheduled. Apparently she was seen in the ER for abdominal pain and had some testing done. They misinterpreted that they were told by their primary that the CAT scan showed her having a lot of polyps, but I think this is a mistake as what it did show is her known extensive diverticulosis. I explained that this is something that usually is not a pathology and is not something that needs to be removed. I would have been surprised if they saw anything on the CAT scan because that would be a harbinger of a tumor polyps or usually not visible. I am relieved that there is nothing to that extent seen. She is currently taking omeprazole and she is back on the sucralfate as she believes that helped with her right-sided pain. In the past dicyclomine seem to only worsen it. This seems to indicate that this is not a colonic pathology. She says that she was given a cream many many years ago to put on it that seem to help-this would indicate to me that it maybe a musculoskeletal problem, although I have no idea what that cream may have been. She is already on Voltaren gel which she uses on her knees and I suggest that she use that on the pain in her side as well as it certainly would be effective. They did not know that they can use it on other parts of the body. Her swallowing so far has been good. We keep an eye on this could she has a significant paraesophageal hernia but likely is not a good surgical candidate for repair. She denies any current cardiac or respiratory problems. There are no prior problems with anesthesia or sedation. There are no infectious disease problems. Return office visit in 6 month Orders: Orders Colonoscopy - GI Use Only Today D12.6 - Benign neoplasm of colon, unspecified Medications: New sod sulf-pot chloride-mag sulf 1.479-0.188- 0.225 gram (Sutab) PO PER PKG DIR for colonoscopy prep 24 tabs 0RF Refilled omeprazole 40 mg PO DAILY 90 caps 2RF 90 days sucralfate (Carafate) 1 g PO BID 180 tabs 2RF K21.00 - Gastro-esophageal reflux disease with esophagitis, without bleeding COLONOSCOPY BIOPSY TODAY'S VISIT Gabonese # PFSH Medical History Vulvar pruritus Vision changes Localized swelling of both lower legs Hemorrhoids Vaginal irritation Vaginal itching Pelvic pain Cough Shortness of breath Acute rhinosinusitis Near syncope Post-menopausal Hemorrhoids Head trauma Knee pain, right History of renal calculi Adult general medical exam Obesity (BMI 30.0-34.9) Obesity (BMI 30-39.9) Impaired glucose tolerance Menopausal vaginal dryness Sinus congestion Contusion of right knee Dizziness Dizziness GERD (gastroesophageal reflux disease) Allergic conjunctivitis Frequent headaches Cervicalgia Diverticular disease Peripheral vascular disease Cognitive impairment Insomnia Osteoporosis Legally blind Osteoarthritis Constipation History of DVT (deep vein thrombosis) Vitamin D deficiency Surgical History History of eye surgery Hx of colonoscopy History of cataract surgery History of hemorrhoidectomy Family History Father No problems noted. Mother No problems noted. Daughter Lymphoma Social History Household Members: Spouse Housing: Apartment Alcohol intake: never Patient Tobacco Use Status: Never used Tobacco e-Cigarette/Vaping Use: Never Used Second Hand Smoke Exposure: No service: No Current occupational status: retired Cognitive needs: No Hearing needs: No Vision needs: Yes Female Reproductive History Menstrual Age of Menarche: 13 Review of Systems Const Denies fatigue, Denies fever(s), Denies night sweats, Denies poor appetite and Denies weight loss ENT Reports Normal hearing present, Denies dental pain, Denies dysphagia, Denies hearing loss, Denies mouth pain, Denies odynophagia, Denies throat swelling, Denies tongue swelling and Reports other (Dentition adequate) Card Reports no additional complaints Resp Reports no additional complaints GI Details: Reports abdominal pain (Right-sided), Reports constipation, Reports GI cramping, Denies dysphagia, Reports heartburn and Denies odynophagia Skin/Breast Denies pruritus, Denies lesions, Denies rash and Denies jaundice Neuro Reports Normal hearing present and Denies Abnormal speech present Endo Denies fatigue Aller/Immun Denies throat swelling and Denies tongue swelling Physical Exam Vital Signs: Last Vital Signs Pulse 108 H 07/19/25 11:17 Resp 18 07/19/25 11:17 BP 143/77 H 07/19/25 11:17 Pulse Ox 95 07/19/25 11:17 Oxygen Delivery Method Room Air 07/19/25 11:17 BMI result Body Mass Index 26.2 Const General: cooperative, no acute distress, well developed and well groomed Nutritional Appearance: well nourished and obese Orientation/consciousness: oriented to person, oriented to place and oriented to time Limitations: language barrier HEENT Head: Yes normocephalic and Yes atraumatic Eyes General: appearance normal, both eyes and all related structures Pupils: Equal, round and reactive pupils present Neck Neck: Yes normal visual inspection and Yes no lymphadenopathy Thyroid: Thyroid normal Resp Effort & Inspection: normal respiratory effort and able to speak in complete sentences Auscultation: clear to auscultation bilaterally Cardio Rate: regular rate Rhythm: regular rhythm Heart sounds: Normal, physiologic split S2 sound present Peripheral pulses: radial pulses present and posterior tibial pulses present GI Inspection: No distended, Yes Abdominal panniculus present and Yes obesity (CENTRAL) Palpation (GI): Soft to palpation, Tenderness to palpation present (GI) (Mild) in the RLQ and in the RUQ, no guarding, not rigid and No hepatosplenomegaly present Percussion: Yes normal to percussion Auscultation: normal bowel sounds Rectal Exam - Female: deferred Skin General skin exam: no rashes or lesions noted, turgor normal, skin not dry, no jaundice, No spider nevi and no striae Rashes: no rashes Nails: normal Neuro General: oriented to person, oriented to place and oriented to time Cranial nerves: Yes Equal, round and reactive pupils present and Yes Normal hearing present Speech: No Abnormal speech present Extrem General: Yes normal to inspection, No clubbing, No cyanosis and No edema Psych Appearance: grossly normal and well kempt Mental Status: mental status grossly normal Speech and movement: Normal speech and movement present Affect: Irritable affect present Attitude: Guarded attititude/behavior present Thought process: not confabulating, Perseverating thought process present and Tangential thought process present Thought content: Normal thought content present Insight: Limited insight present (Psych) Judgement: Limited judgement present (Psych) Assessment & Plan Assessment & Plan (1) RUQ abdominal pain: Comment: we could do a HIDA scan, but she has a LOT of trouble understanding the test and wants to think about it. We are hung up on the idea of the IV - she thought we would put needles in my back. I speak with her daughter to give a better explanation, who says her mother does not like needles.? Again she had a normal ultrasound and unremarkable renal ultrasound with a clear urinalysis.? This seems to exclude renal stones or gallstones. Until uncertain if her pain is related to her gallbladder related to bowel spasm or completely unrelated to the GI system and of musculoskeletal origin.? At any rate the patient is not ready to go on with any additional interventions/investigations so we will watch and wait. Code(s): R10.11 - Right upper quadrant pain Category: Medical (2) GERD (gastroesophageal reflux disease): Code(s): K21.9 - Gastro-esophageal reflux disease without esophagitis Category: Medical Qualifiers: Esophagitis bleeding: without hemorrhage Esophagitis presence: with esophagitis Qualified Code(s): K21.00 - Gastro-esophageal reflux disease with esophagitis, without bleeding (3) Dysuria: Code(s): R30.0 - Dysuria Category: Medical (4) Type 2 diabetes mellitus with hyperglycemia: Code(s): E11.65 - Type 2 diabetes mellitus with hyperglycemia Category: Medical (5) Constipation: Code(s): K59.00 - Constipation, unspecified Category: Medical Plan Gabonese # daughter translates per patient request Her current regimen consists of omeprazole, a senna/Colace combination and sucralfate. WE ARE STOPPING THE SUCRALFATE SEH WAS BETTER IN THE PAST WHEN WE STOPPED IT AND THEN HER pcp RESTARTED IT. Subjective Patient presents for evaluation of abdominal discomfort and hemorrhoids. Family reports intermittent constipation but states the primary concern is stomach pain and burning/heartburn. Patient localizes pain to the right side of the abdomen with radiation downward, denies back pain. Episodes of burning discomfort are associated with reduced appetite, weakness, and dizziness. She has symptomatic hemorrhoids and requests a cream. History notable for a large hiatal hernia. Family reports that when sucralfate and another blue pill were previously stopped in October, her side pain improved by November; it was not resolved but was notably better. After sucralfate was later restarted, her pain worsened again. Large hiatal hernia previously documented. Objective - Prior imaging: No abdominal wall hernia visualized on prior CT scans. Large hiatal hernia present. Assessment & Plan Hiatal hernia with GERD/epigastric burning: Symptomatic burning with associated poor intake and dizziness during episodes. Large hiatal hernia likely contributes to reflux/burning symptoms. - Start famotidine, up to twice daily as needed for heartburn; may take at any time of day for breakthrough symptoms. - Continue omeprazole every morning. - Discontinue sucralfate due to suspected contribution to constipation and interference with other medications; advise family to remove existing supply and not to pharmacy picking tech recent refill. - Provide medication timing flexibility for famotidine to match symptom pattern. - Message to Dr. House to avoid restarting sucralfate. - Follow up after the holidays to reassess symptom control. Right-sided abdominal pain ? evaluate gallbladder function: Pain pattern raises concern for biliary etiology. - Order HIDA scan with CCK stimulation to assess gallbladder function and ejection. Symptomatic hemorrhoids: Patient requests topical therapy. - Prescribed hemorrhoid cream; confirm pharmacy fulfillment and insurance coverage; use as directed for symptom relief. Constipation: Intermittent; likely medication-related. - Discontinue sucralfate as above; monitor bowel habits and reassess at follow-up. - Order TSH to evaluate for any contribution to constipation and to confirm her thyroid medication was not interfered with via the sucralfate timing. Particularly since she reports taking it along with all of her other morning medications at the same time. Urinary incontinence ? worsened over approximately two months: - Order urinalysis to assess for infection or other urinary pathology. This is a doorknob complaint, depending on the urinalysis may refer her to Urology. Diabetes mellitus ? assess control: - Order hemoglobin A1c to evaluate current glycemic control and ensure concomitant therapies are not interfering with treatment efficacy. ROV 8 WEEKS COLONOSCOPY BIOPSY Orders: Orders Hemoglobin A1c Today E11.65 - Type 2 diabetes mellitus with hyperglycemia, K59.00 - Constipation, unspecified, R30.0 - Dysuria NM hepatobiliary w pharm Today R10.11 - Right upper quadrant pain TSH reflex Free T4 Today E11.65 - Type 2 diabetes mellitus with hyperglycemia, K59.00 - Constipation, unspecified, R30.0 - Dysuria UA CC w/rflx Micro + Cult Today E11.65 - Type 2 diabetes mellitus with hype rglycemia, K59.00 - Constipation, unspecified, R30.0 - Dysuria Medications: New sennosides-docusate sodium 8.6-50 mg (Senna Plus) 2 tab-caps (2 x 8.6-50 mg) PO BEDTIME PRN 60 caps 6RF Constipation K59.00 - Constipation, unspecified famotidine (Pepcid) 20 mg PO BID PRN 60 tabs 6RF heartburn K21.00 - Gastro- esophageal reflux disease with esophagitis, without bleeding Refilled omeprazole 40 mg PO DAILY 90 caps 2RF 90 days hydrocortisone 2.5% (Proctosol HC) 1 appl AK TID-QID 60 grams 6RF hemorrhoids 30 days K64.9 - Unspecified hemorrhoids On Hold sucralfate (Carafate) PLEASE CHANGE TO NOON DOSE FROM BID DOSING OTHERWISE IT IS INTERFERING WITH ALL HER OTHER MEDICATIONS. Hold Comment: RT SIDE PAIN WORSENS ON THIS 2 grams (2 x 1 gram) PO QNOON 180 tabs 2RF K21.00 - Gastro-esophageal reflux disease with esophagitis, without bleeding Coding Level of Care Code Est Pt Level 4 (71078) Diagnoses RUQ abdominal pain R10.11 Gastroesophageal reflux disease with esophagitis without hemorrhage K21.00 Esophagitis bleeding: without hemorrhage Esophagitis presence: with esophagitis Dysuria R30.0 Type 2 diabetes mellitus with hyperglycemia E11.65 Constipation K59.00 Time Spent (min) 38
--- OUTSIDE RECORDS SUMMARY | 2025-07-19 14:42 | XMS_ITS | Encounter Summary ---
Author Organization [employer] Address [address] [facility] [address] [place] [address] Care Team Providers Care Slot Router Name Role Phone Unavailable Primary Care Provider Unavailabl e Reason for Visit * Reason Onset Date Comments Appointment 05/21/2023 Encounter Details Date Type Department Care Team ([facility] st Contact Info) Description 05/21/2023 Telephone [facility] [address] [place] [address] Pablo Hernandez DDS [address] [place] [address] Appointment Social History Tobacco Use Types Packs/Day [...]
--- OUTSIDE RECORDS SUMMARY | 2025-07-19 14:42 | XMS_ITS | Clinical Summary ---
Author Organization [employer] Address [address] [place] [address] 7 [place] [address] Care Team Providers Care Engraving Patternmaker Name Role Phone Unavailable Primary Care Provider [...] Screening 01/25/2024 01/24/2023 COVID-19 Vaccine ( season) 2025 07/30/2022, 07/11/2021, 12/05/2020, Additional history exists Influenza [...] DENTAL - [facility]
--- OUTSIDE RECORDS SUMMARY | 2025-07-19 14:42 | XMS_ITS | Patient Health Record ---
Author Organization [facility] Address [address] [place] [address] Care Team Providers Care Assistant Pressman Name Role Phone Hernan Mcintyre [phone] Reason For Referral No Information Plan Of Treatment No Information
== END 2025-07-19 12:25 | disposition home or self-care (01) ==
LOC: HO.HGI 11:07
PROVIDERS: PCP Internal Medicine; Visit Provider Nurse Practitioner
DX: R10.11 Right upper quadrant pain (principal); K21.00 Gastro-esophageal reflux disease with esophagitis, without bleeding; R30.0 Dysuria; E11.65 Type 2 diabetes mellitus with hyperglycemia; K59.00 Constipation, unspecified
CPT/HCPCS: 99214

== ENCOUNTER → 2025-07-19 11:06 | Outpatient (BNVA) | payer OTHER, SELFPAY | PROVIDERS: PCP Internal Medicine; Visit Provider Nurse Practitioner | DX: R10.11 Right upper quadrant pain (principal); K21.00 Gastro-esophageal reflux disease with esophagitis, without bleeding; R30.0 Dysuria; E11.65 Type 2 diabetes mellitus with hyperglycemia; K59.00 Constipation, unspecified | CPT/HCPCS: 99212 ==

== ENCOUNTER 2025-07-20 09:03 | Outpatient (REF) | payer OTHER, SELFPAY ==
--- OUTSIDE RECORDS SUMMARY | 2025-07-20 09:44 | XMS_ITS | Encounter Summary ---
Author Organization [employer] Address [address] [facility] 7 [place] [address] Care Team Providers Care Janitor Name Role Phone Unavailable Primary Care Provider Unavailabl e Reason for Visit * Reason Onset Date Comments Appointment 05/21/2023 Encounter Details Date Type Department Care Team ([facility] st Contact Info) Description 05/21/2023 Telephone [facility] [address] [place] [address] Pablo Hernandez DDS [address] [place] [address] Appointment Social History Tobacco Use Types Packs/Day [...]
--- OUTSIDE RECORDS SUMMARY | 2025-07-20 09:44 | XMS_ITS | Clinical Summary ---
Author Organization [employer] Address [address] [place] [address] [address] [place] [address] Care Team Providers Care Technical Proposal Writer Name Role Phone Unavailable Primary Care Provider [...] Relevant to Health Maintenance Insurance DENTAL - [facility]
--- OUTSIDE RECORDS SUMMARY | 2025-07-20 09:44 | XMS_ITS | Patient Health Record ---
Author Organization [facility] Address [address] [place] [address] Care Team Providers Care Platform Builder Name Role Phone Hernan Mcintyre [phone] Reason For Referral No Information Plan Of Treatment No Information
[2025-07-20 10:37] LABS: Appearance Urine Clear; Glucose Urine UA Negative (Negative); PH 7.0 (5.0-9.0); Specific Gravity - Urine 1.015 (1.005-1.025)
[2025-07-20 11:08] LABS: Alanine Aminotransferase 18 U/L (0-31); Albumin Level 4.3 g/dL (3.5-5.0); Alkaline Phosphatase 71 U/L (39-117); Anion Gap 14 (12-20); Aspartate Amino Transferase 21 U/L (5-31); Blood Urea Nitrogen 18 mg/dL (9-16); Calcium 10.0 mg/dL (8.4-10.2); Carbon Dioxide 26 mmol/L (22-29); Chloride 106 mmol/L (96-108); Cholesterol 187 mg/dL (<200); Estimated Glomerular Filt Rate > 60; HDL Cholesterol 53 mg/dL (>40); Potassium 4.2 mmol/L (3.3-5.1); Sodium 142 mmol/L (135-145); Total Protein 7.4 g/dL (6.5-8.0); Triglycerides 181 mg/dL (<150)
== END 2025-07-20 09:04 | disposition home or self-care (01) ==
LOC: HO.LAB 09:03
PROVIDERS: PCP Internal Medicine; Visit Provider Nurse Practitioner
DX: E11.65 Type 2 diabetes mellitus with hyperglycemia (principal); K59.00 Constipation, unspecified; E78.00 Pure hypercholesterolemia, unspecified; R30.0 Dysuria
CPT/HCPCS: 36415; 80053; 80061; 81003; 82570; 83036; 84443

== ENCOUNTER 2025-07-26 10:02 | Outpatient (AMB) | payer OTHER, SELFPAY ==
[2025-07-26 10:20] VITALS: BP 130/68; PULSE 87; O2SAT 98; BMI 26.3
--- NOTE | 2025-07-26 10:20 | MHC.PC.OV ---
Vital Signs 07/26/25 10:20 Height 5 ft 2 in Weight 144 lb BMI 26.3 BP 130/68 Blood Pressure Location Lt brachial Position Sitting Pulse 87 Pulse Source Pulse Oximeter Pulse Oximetry (%) 98 Oxygen Delivery Method Room Air Intake Visit Reasons: DM, cholesterol Allergies lisinopril Allergy (Unknown, Verified 04/04/25 12:32) Unknown metoprolol Allergy (Unknown, Verified 04/04/25 12:32) Unknown solifenacin (Vesicare) Allergy (Unknown, Verified 04/04/25 12:32) Unknown NSAIDS (Non-Steroidal Anti-Inflamma Adverse Reaction (Intermediate, Verified 04/04/25 12:32) HTN Tobacco use date assessed: 04/04/25 Fall risk assessment: No Falls in past year Last assessed Fall Risk: 07/26/25 Dental Screening Dental Screen Date: 11/10/24 HPI HPI Comments History of Present Illness Details History of Present Illness The patient is a 80-year-old individual presenting for a follow-up visit for management of chronic conditions and discussion of abdominal pain. The patient has a history of GERD, a large paraesophageal hernia, hypercholesterolemia, hypertension, generalized anxiety disorder, cognitive impairment, type 2 diabetes mellitus, and peripheral vascular disease. Regarding gastrointestinal history, the patient complains of long-standing abdominal pain localized to the right side where the gallbladder is located, as well as a burning sensation in the stomach. The burning sensation has reportedly improved since starting famotidine and omeprazole, whereas a prior trial of Carafate worsened the pain and was discontinued. The patient also has a history of delayed gastric emptying, for which Reglan was not tolerated, and reports chronic constipation. A prior colonoscopy in 2019 found a tubular adenoma. Recent blood work from July 20 showed a normal blood count, normal electrolytes, good renal and liver function, a hemoglobin A1c of 6.4%, and an LDL of 98 mg/dL. The patient's diabetes is managed with metformin 500 mg twice daily, hypertension with losartan 50 mg once daily, and hypercholesterolemia with atorvastatin 40 mg. For health maintenance, the last bone density scan was in June 2024, and the last mammogram was in March 2025. A follow-up mammogram is scheduled for September, but a colonoscopy and a hepatobiliary scan ordered by gastroenterology have not yet been scheduled. Health Maintenance A follow-up colonoscopy is due. The family was advised to contact the deputy sheriff lieutenant's office to schedule this, as the prior appointment was not confirmed. A screening mammogram is scheduled for September. Social History - Diet: The patient typically eats dinner between 5:00 and 6:00 PM. Results - Labs (July 20): - Electrolytes: Normal - Renal function: Good - Blood sugar: 110 mg/dL - Hemoglobin A1c: 6.4% - Liver function: Normal - LDL Cholesterol: 98 mg/dL (previous was 115) - Thyroid function: Normal - Urinalysis: Clean - Labs (March 30): - [facility]: [facility] Medical History Vulvar pruritus Vision changes Localized swelling of both lower legs Hemorrhoids Vaginal irritation Vaginal itching Pelvic pain Cough Shortness of breath Acute rhinosinusitis Near syncope Post-menopausal Hemorrhoids Head trauma Knee pain, right History of renal calculi Adult general medical exam Obesity (BMI 30.0-34.9) Obesity (BMI 30-39.9) Impaired glucose tolerance Menopausal vaginal dryness Sinus congestion Contusion of right knee Dizziness Dizziness GERD (gastroesophageal reflux disease) Allergic conjunctivitis Frequent headaches Cervicalgia Diverticular disease Peripheral vascular disease Cognitive impairment Insomnia Osteoporosis Legally blind Osteoarthritis Constipation History of DVT (deep vein thrombosis) Vitamin D deficiency Surgical History History of eye surgery Hx of colonoscopy History of cataract surgery History of hemorrhoidectomy Family History Father No problems noted. Mother No problems noted. Daughter Lymphoma Social History Household Members: Spouse Housing: Apartment Alcohol intake: never Patient Tobacco Use Status: Never used Tobacco Tobacco use type: Cigarette e-Cigarette/Vaping Use: Never Used Second Hand Smoke Exposure: No service: No Current occupational status: retired Cognitive needs: No Hearing needs: No Vision needs: Yes Female Reproductive History Menstrual Age of Menarche: 13 Questionnaire Thrive Questionnaire Date Thrive assessed: 12/31/24 I am a: Patient What is your living situation today?: I have a steady place to live Within the past 12 months, did the food you bought not last and you didn't have the money to get more?: I choose not to answer this question Within the past 12 months, did you worry whether your food would run out before you got money to buy more?: I choose not to answer this question Do you have trouble paying for medicines?: I choose not to answer this question Do you have trouble getting transportation to medical appointments?: Yes Do you have trouble paying your heating and electricity bill?: I choose not to answer this question Do you have trouble taking care of your child, family member or friend?: I choose not to answer this question Do you have trouble with day-to-day activities such as bathing, preparing meals, shopping, managing finances, etc.?: No Are you currently unemployed and looking for a job?: I choose not to answer this question Are you interested in more education?: I choose not to answer this question Please select the resources that you would like help with: None Currently or been in a relationship where the following occur: I choose not to answer THRIVE Score: 1 SHYAM-7 AMB Questionnaire SHYAM-7 Date SHYAM - 7 assessed: 01/07/25 Source: Developed by Drs. Hernan Blue, Rama Vivar, Chip Fong and colleagues, with an educational lottie from [email or web address]. Review of Systems Narrative Review of Systems - Gastrointestinal: Reports long-standing pain on the right side of the abdomen. - Reports a history of burning stomach sensation that has improved with current medication. - Reports chronic constipation. - Reports feeling very full after eating. - ENT: Reports needing a nasal spray. Physical exam (Primary Care) Vital Signs: Last Vital Signs Pulse 87 07/26/25 10:20 BP 130/68 07/26/25 10:20 Pulse Ox 98 07/26/25 10:20 Oxygen Delivery Method Room Air 07/26/25 10:20 BMI result Body Mass Index 26.3 Tobacco/Smoking Status: Tobacco use Status Tobacco use date assessed 04/04/25 07/26/25 10:21 Patient Tobacco Use Status Never used Tobacco 07/26/25 10:21 Tobacco use type Cigarette 07/26/25 10:35 e-Cigarette/Vaping Use Never Used 07/26/25 10:21 Thrive Assessment: Date of Thrive Assessment Date Thrive assessed 12/31/24 07/26/25 10:21 Currently or been in a relationship where the following occur: I choose not to answer Narrative Physical Exam Const General: alert; No acute distress Eyes Conjunctivae: conjunctivae normal Resp Auscultation: clear to auscultation bilaterally Cardio Rate: regular rate Rhythm: regular rhythm GI Inspection: Yes normal to inspection Extrem General: Yes normal to inspection and No edema Coding Level of Care Code Complex visit Add On G2211 Diagnoses Type 2 diabetes mellitus with hyperglycemia E11.65 Primary hypertension I10 Hypertension type: primary hypertension Hypercholesterolemia E78.00 Gastroesophageal reflux disease with esophagitis without hemorrhage K21.00 Esophagitis bleeding: without hemorrhage Esophagitis presence: with esophagitis Assessment & Plan Assessment & Plan (1) Type 2 diabetes mellitus with hyperglycemia: Code(s): E11.65 - Type 2 diabetes mellitus with hyperglycemia Category: Medical Plan: Decrease the amount of carbohydrate intake, pasta, bread, rice and potatoes are all sugar and that is aside from all the sweet stuff, remember that fruits are good but they are Sweet also. Hemoglobin A1c goal of less than 7.0. Patient is under control at 6.4 with metformin 500 mg twice a day (2) Hypertension: Code(s): I10 - Essential (primary) hypertension Category: Medical Qualifiers: Hypertension type: primary hypertension Qualified Code(s): I10 - Essential (primary) hypertension Plan: Continue with blood pressure medication. Decrease salt intake and exercise takes losartan 50 mg once a day (3) Hypercholesterolemia: Code(s): E78.00 - Pure hypercholesterolemia, unspecified Category: Medical Plan: Avoid fried foods, chicken skin, eggs, butter margarine, pastries and meat. Be it pork or beef they have a lot of cholesterol on atorvastatin 40 LDL goal of less than 100 and triglyceride of less than 150. June 2025 last blood work (4) GERD (gastroesophageal reflux disease): Code(s): K21.9 - Gastro-esophageal reflux disease without esophagitis Category: Medical Qualifiers: Esophagitis bleeding: without hemorrhage Esophagitis presence: with esophagitis Qualified Code(s): K21.00 - Gastro-esophageal reflux disease with esophagitis, without bleeding Plan: Avoid the foods that causes that usually spicy foods, tomato products, juices, coffee, soda and foods that your sensitive to. After eating do not lie down, allow 3-4 hours before in lie down. And keep the head of bed above 30 degrees to avoid the acid from going up. Plan Plan Patient was informed and verbally consented to the use of an ambient scribe for clinic note documentation during this visit. 1. Abdominal Pain, Gerd, And Paraesophageal Hernia The patient's burning sensation has improved on omeprazole and famotidine, which will be continued. Lifestyle modifications for managing the large paraesophageal hernia and reflux were reinforced, including avoiding trigger foods, waiting four hours after eating before lying down, and elevating the head of the bed. To investigate the right-sided abdominal pain, a hepatobiliary scan was previously ordered by gastroenterology, and the family was advised to follow up on scheduling. 2. Diabetes Mellitus The patient's Hemoglobin A1c is 6.4%, which is at goal (less than 7.0% for the patient's age). Continue metformin 500 mg twice a day. 3. Hypercholesterolemia The patient's LDL is 98 mg/dL, meeting the goal of less than 100. Continue atorvastatin 40 mg. 4. Hypertension Continue losartan 50 mg once a day for blood pressure management. 5. Chronic Constipation The patient is running low on constipation medication. A prescription for Senna will be sent to the pharmacy, with instructions to take it daily for regular bowel movements. 6. Nasal Symptoms A nasal spray was requested and will be prescribed. Discussion Notes I reviewed the patient's recent lab work from July 20, highlighting the well-controlled hemoglobin A1c of 6.4% and the improved LDL cholesterol of 98 mg/dL, which is now at goal. I explained to the patient and the patient's family that the ongoing abdominal symptoms are likely related to a very large paraesophageal hernia, which allows stomach acid to reflux upwards. We discussed that while past imaging studies like CAT scans and ultrasounds have been unremarkable, the pain persists. I reinforced lifestyle modifications for managing reflux, including dietary changes, waiting at least four hours after the last meal before lying down, and elevating the head of the bed with pillows. I advised the family to follow up with the deputy sheriff lieutenant's office to schedule the pending colonoscopy and hepatobiliary scan to further evaluate the gastrointestinal symptoms. I addressed medication needs by refilling Senna for constipation and prescribing a requested nasal spray. Patient Instructions - Continue taking your current medications for diabetes (metformin), high cholesterol (atorvastatin), and high blood pressure (losartan). - Continue taking Omeprazole and Famotidine (Pepcid) for your stomach. - I am sending new prescriptions for Senna (for constipation) and a nasal spray to your pharmacy. Take the Senna every day to help with regular bowel movements. - To help with acid reflux, avoid spicy foods, tomato products, juices, and soda. - Eat your dinner early and wait at least 4 hours after you finish eating before you lie down to sleep. Try to go to bed around 10:00 PM. - Use 3-4 pillows to keep your head propped up when you sleep. - Please call your deputy sheriff lieutenant's (stomach doctor's) office to schedule your colonoscopy and the other test for your gallbladder. - Remember you have an appointment for your mammogram in September. Medications: Refilled fluticasone propionate 50 mcg/actuation 1 spray intranasal DAILY 48 mL 5RF sennosides-docusate sodium 8.6-50 mg (Senna Plus) 2 tab-caps (2 x 8.6-50 mg) PO BEDTIME PRN 60 caps 6RF Constipation K59.00 - Constipation, unspecified
--- OUTSIDE RECORDS SUMMARY | 2025-07-26 11:21 | XMS_ITS | Clinical Summary ---
Author Organization [employer] Address [address] [place] [address] [address] [place] [address] Care Team Providers Care Code Clerk Name Role Phone Unavailable Primary Care [...] to Health Maintenance Insurance DENTAL - [facility]
--- OUTSIDE RECORDS SUMMARY | 2025-07-26 11:21 | XMS_ITS | Encounter Summary ---
Author Organization [employer] Address [address] [facility] [address] [place] [address] Care Team Providers Care E M Assembler Name Role Phone Unavailable Primary Care Provider Unavailabl e Reason for Visit * Reason Onset Date Comments Appointment 05/21/2023 Encounter Details Date Type Department Care Team ([facility] st Contact Info) Description 05/21/2023 Telephone [facility] [address] [place] [address] Pablo Hernandez DDS [address] [place] [address] Appointment Social History Tobacco Use Types Packs/Day [...]
== END 2025-07-26 11:13 | disposition home or self-care (01) ==
LOC: HO.HMCH 10:03
PROVIDERS: PCP Internal Medicine; Visit Provider Internal Medicine
DX: E11.65 Type 2 diabetes mellitus with hyperglycemia (principal); I10 Essential (primary) hypertension; E78.00 Pure hypercholesterolemia, unspecified; K21.00 Gastro-esophageal reflux disease with esophagitis, without bleeding

== ENCOUNTER → 2025-07-26 10:02 | Outpatient (BNVA) | payer OTHER, SELFPAY | PROVIDERS: PCP Internal Medicine; Visit Provider Internal Medicine | DX: E11.65 Type 2 diabetes mellitus with hyperglycemia (principal); E78.00 Pure hypercholesterolemia, unspecified; I10 Essential (primary) hypertension; K21.00 Gastro-esophageal reflux disease with esophagitis, without bleeding | CPT/HCPCS: 99212 ==